=== PATIENT | male | born 1950 | race Hispanic/Latino ===

== ENCOUNTER 2017-05-04 15:28 | Inpatient (IN) | payer MEDICARE, OTHER, SELFPAY ==
[2017-05-04 16:00] LABS: #Basophils 0.2 thou/uL (0.0-0.2); #Eosinphils 0.2 thou/uL (0.0-0.7); #Lymphocytes 1.6 thou/uL (1.20-3.40); #Monocytes 0.7 thou/uL (0.11-0.59); #Neutrophils 5.2 thou/uL (1.40-6.50); %Basophils 1.9 % (0.0-1.0); %Eosinophils 2.9 % (0.0-10.0); %Lymphocytes 20.5 % (21.0-51.0); %Monocytes 8.7 % (0.0-10.0); Hemoglobin 7.6 g/dL (14.0-18.0); Mean Corpuscular HGB CONC 31.6 g/dL (32.0-36.0); Mean Corpuscular Hemoglobin 28.6 pg (27.0-31.0); Mean Corpuscular Volume 90.6 fl (80.0-94.0); Mean Platelet Volume 9.6 fL (7.4-10.4); Platelet Count 86 thou/uL (130-400); RBC Distribution Width 15.4 % (11.5-14.5); Red Blood Cell (RBC) Count 2.67 mill/uL (4.70-6.10); White Blood Cell (WBC) Count 7.9 thou/uL (4.8-10.8)
--- NOTE | 2017-05-04 16:12 | RAD ---
1 VIEW CHEST: Date: 05/04/17 HISTORY: Weakness and decreased appetite x4 days. COMPARISON: 10/31/15. FINDINGS: Portable single view chest demonstrates normal cardiac silhouette. Pulmonary vessels and hilum are no rmal. Costophrenic angles are clear. No masses or consolidation. No pneumothorax or osseous abnormali ties. IMPRESSION: No acute cardiopulmonary process. POS: [facility]
[2017-05-04 16:23] LABS: ALT (SGPT) 22 U/L (8-55); AST (SGOT) 23 U/L (5-34); Albumin 2.9 g/dL (3.4-4.8); Alkaline Phosphatase 135 U/L (40-150); Anion Gap 8 mmol/L (10-20); BUN (Urea Nitrogen) 32 mg/dL (8.4-25.7); Bilirubin, Total 1.5 mg/dL (0.2-1.2); CK (CPK) 50 U/L (30-200); Calc. Creatinine Clearance 0 mL/min (70-130); Calcium 8.9 mg/dL (7.8-10.44); Carbon Dioxide 25 mmol/L (23-31); Chloride 107 mmol/L (98-107); Estimated GFR-MDRD 71; Glucose 546 mg/dL (80-115); Potassium 4.3 mmol/L (3.5-5.1); Protein, Total 5.9 g/dL (5.8-8.1); Sodium 136 mmol/L (136-145)
[2017-05-04 16:28] LABS: CKMB 1.8 ng/mL (0-6.6); Troponin I 0.023 ng/mL (< 0.028)
[2017-05-04 16:30] LABS: INR-International Normal Ratio 1.3; PTT 33.9 SEC (22.9-36.1); Prothrombin Time 16.2 SEC (12.0-14.7)
[2017-05-04 16:40] LABS: Iron 29 ug/dL (65-175); Iron Binding Capacity, Total 304 mcg/dL (261-462)
[2017-05-04 17:14] LABS: Bilirubin Negative (Negative); Blood, Urine Negative (Negative); Clarity CLEAR (Clear); Glucose, Urine (Dipstick) >=1000 mg/dL (Negative); Leukocyte Negative (Negative); Nitrite Negative (Negative); Protein, Urine (Dipstick) Negative (Neg-Trace); Specific Gravity, Urine 1.035 (1.002-1.036); Urobilinogen 0.2 mg/dL (0.2-1.0); pH, Urine 5.5 (5.0-9.0)
[2017-05-04] MEDS ORDERED: cefTRIAXone\\ROCEPHIN 1 GM in Sodium Chloride 0.9% 100 ML IVPB SCH (18:00)
[2017-05-04 18:30] LABS: #Eosinphils 0.2 thou/uL (0.0-0.7); #Lymphocytes 1.2 thou/uL (1.20-3.40); #Monocytes 0.5 thou/uL (0.11-0.59); #Neutrophils 3.3 thou/uL (1.40-6.50); %Basophils 0.9 % (0.0-1.0); %Lymphocytes 22.7 % (21.0-51.0); %Neutrophils 64.5 % (42.0-75.0); Hemoglobin 6.9 g/dL (14.0-18.0); Mean Corpuscular HGB CONC 32.2 g/dL (32.0-36.0); Mean Corpuscular Hemoglobin 29.2 pg (27.0-31.0); Mean Corpuscular Volume 90.5 fl (80.0-94.0); RBC Distribution Width 15.4 % (11.5-14.5); Red Blood Cell (RBC) Count 2.37 mill/uL (4.70-6.10); White Blood Cell (WBC) Count 5.1 thou/uL (4.8-10.8)
[2017-05-04 18:41] LABS: PLT Morphology Comment Appears Decreased; Platelet Count 63 thou/uL (130-400)
[2017-05-04] MEDS ORDERED: Dextrose 50% Abboject 50 ML SYRINGE SLOW IVP PRN (18:47)
[2017-05-04] MEDS ORDERED: Dextrose 5% in Water 1,000 ML IV PRN (18:47)
[2017-05-04 19:07] LABS: Hemoglobin A1c 8.6 % (4.0-6.0)
--- NOTE | 2017-05-04 19:11 | HP ---
PRIMARY CARE PHYSICIAN: MECHELLE. CHIEF COMPLAINT: Fatigue and weakness for the last 4 days. HISTORY OF PRESENT ILLNESS: This is a 66-year-old male with a history of chronic alcohol use, tobacco use, type 2 diabetes, and hypertension, who presents with a chief complaint of fatigue and loss of appetite for the last 4 days. The patient denies any prior similar episodes. Denies any fevers or chills. No nausea, no abdominal pain, no diarrhea. He also states over the last 4 days, his stool has been darker. No known sick contacts with similar symptoms. At the time of evaluation in the Emergency Department, the patient states he still feels about the same as he did when he first arrived. REVIEW OF SYSTEMS: As per HPI. Constitutional: Denies any fevers or chills, but does indicate that last night he woke up with his face covered in sweat and this has not happened before. HEENT: Denies any dizziness, lightheadedness, new headache or vision changes. The patient states that he has cataracts and spent a fair amount inquiring about where he could get his cataracts evaluated by optometry. Cardiovascular: Denies any chest pain, chest pressure, left-sided arm numbness or tingling. Denies any dyspnea on exertion. Respiratory: Denies any shortness of breath. Denies any new cough. He still smokes. Denies any recent upper respiratory infection type symptoms, congestion , sinusitis. Gastrointestinal: As per above, endorses a lack of appetite without nausea or emesis. Denies any abdominal bloating or pain. Endorses having dark stools without diarrhea without any issues with constipation. The patient endorses feeling very "thirsty" for several days. Musculoskeletal: Denies any focal myalgias or arthralgias. Endorses mostly generalized fatigue and malaise. Remainder of review of systems otherwise negative. PAST MEDICAL HISTORY: As per above. Hypertension, type 2 diabetes, obesity, chronic alcohol use, chronic tobacco use, gastritis, chronic hepatitis C, and Pam-Nagel tear with hemorrhage that has resolved, known history of hypoalbuminemia and pancytopenia, question of a history of cirrhosis. PAST SURGICAL HISTORY: No prior surgeries. HOME MEDICATIONS: Please see the EMR for full details. The patient denies any recent changes to his home regimen, endorses good compliance. ALLERGIES: No known drug allergies. FAMILY HISTORY: Denies any family history of alcohol, frequent bleeding. SOCIAL HISTORY: The patient is not . He lives alone. [facility] is [facility]. He indicated he wishes to be full code. If he is unable to make his own medical decisions, his friend, Kim Hebert, would be his medical decision maker. He states that her phone number is . The patient drinks "a beer" a day and smokes about a quarter to half a pack of cigarettes a day as well. PHYSICAL EXAMINATION: VITAL SIGNS: Blood pressure 166/85, heart rate of 105, respirations 18, temperature 98.5, satting 100% on room air. GENERAL: The patient is awake, alert, appropriate, oriented x3, provides a history as noted above. HEENT: Slight muddy icteric sclerae. Slightly dry mucous membranes. CARDIOVASCULAR: S1, S2. No murmurs, rubs or gallops. Pulses 2+ bilateral upper extremity, no pitting pedal edema. LUNGS: Respiratory grossly clear to auscultation. ABDOMEN: Positive bowel sounds, soft, nontender to palpation. RECTAL: Examination was done in the emergency department. Fecal occult blood was tested and resulted as negative. LABORATORY DATA AND IMAGING: WBC 7.9, hemoglobin 7.6, hematocrit 44.2, platelets of 86. PT 16.2, INR 1.3. Sodium 136, potassium 4.3, chloride 107, BUN 32, creatinine 1.04, glucose 546, total bilirubin 1.5. Iron 29, TIBC 304, AST 23, ALT 22, alkaline phosphatase 135. Ferritin 29.66. Creatinine kinase 50 , troponin 0.023. Total protein 5.9, albumin 2.9. UA significant for greater than 1000 of glucose. Stool occult blood by iFOB is negative. ASSESSMENT AND PLAN: A 66-year-old gentleman who presents with a history of 4 days of fatigue and malaise and increasing thirst. 1. I have called to the Emergency Department to evaluate for the possibility of a gastrointestinal bleed given his decreased appetite and his dark stools out of concern for possible melena. The patient appears to be anemic and perhaps be a component of chronicity to his blood pressure appears to be stable and in evaluating prior laboratory values. He has maintained hemoglobin in 6-7 range. We will continue serial H&H. I appreciate GI consultation as the patient does have a known history of prior upper GI bleed in the past. Given the patient's significant history, we will start the patient on Protonix b.i.d. Serial CBCs, IV fluids, n.p.o. Appreciate GI consultation, which was obtained through the Emergency Department. The patient will be placed on empiric ceftriaxone given his history of cirrhosis noted on a prior hospitalization in 2016. 2. Hyperglycemia. Suspicion for possibly poorly controlled diabetes given his increased thirst and glucosuria. We will check a hemoglobin A1c with aggressive hydration and blood glucose control as well. 3. History of hypertension. Continue to monitor. 4. History of alcohol and tobacco use. We will closely monitor for any signs of withdrawal. At this point in time, the patient is precontemplative of complete cessation. 5. Admit the patient to inpatient medical/surgical with telemetry. The patient will be FULL CODE. Thank you for asking me to care for your patient. If questions or concerns, contact me at [facility]. MUNA
[2017-05-04] MEDS ORDERED: Pantoprazole 40 MG VIAL ONE (19:16)
--- NOTE | 2017-05-04 19:46 | ULT ---
ULTRASOUND ABDOMEN COMPLETE 05/04/17 HISTORY: GI bleed. Reference made to 11/01/15. TECHNIQUE: Reece-scale ultrasound evaluation of the liver, gallbladder, spleen, pancreas, common bile duct, kidne ys, abdominal aorta, and inferior vena cava (IVC). FINDINGS: There is a nodular contour of the liver and the liver demonstrates coarsened echotexture. No evidence of a focal hepatic lesion on the provided sonographic views. The spleen is mildly enlarged measuring approximately 14 cm in length. There is wall prominence and edema of the gallbladder. No shadowing c holelithiasis evident. The common duct where visualized is within normal limits of size for diameter. No acute renal pathology evident. Portions of the pancreas that are visualized are grossly unremarka ble. Hernandez's sign reported as negative by the tip scourer. There is a focus of decreased echogenicit y of the left kidney which demonstrates the appearance of a benign cyst, approximately 2.3 cm in diam eter. IMPRESSION: 1. Thickened, edematous gallbladder wall. Hernandez's sign reported as negative by tip scourer. Rec ommend clinical correlation. 2. Cirrhotic morphology of the liver. 3. Left renal cyst. POS: [facility]
[2017-05-04] MEDS: Sodium Chloride 0.9% 1,000 ML IV SCH (21:51)
[2017-05-04] MEDS: Pantoprazole 80 MG in Sodium Chloride 0.9% 100 ML IVP SCH (21:52)
[2017-05-04] MEDS: HumaLOG 300 UNITS/3 ML VIAL SC PRN (21:53)
[2017-05-04] MEDS: cefTRIAXone\\ROCEPHIN 1 GM, Syringe 0.4 ML in Sterile Water 9.6 ML SLOW IVP SCH (21:53)
[2017-05-04] MEDS ORDERED: Diazepam 5 MG TAB PO PRN (22:23)
[2017-05-04] MEDS ORDERED: Diazepam 5 MG TAB PO SCH (22:30)
[2017-05-04] MEDS ORDERED: Thiamine HCl 200 MG/2 ML VIAL IM SCH (22:30)
[2017-05-04 23:50] LABS: #Eosinphils 0.2 thou/uL (0.0-0.7); #Lymphocytes 1.3 thou/uL (1.20-3.40); #Monocytes 0.6 thou/uL (0.11-0.59); %Basophils 0.7 % (0.0-1.0); %Eosinophils 3.9 % (0.0-10.0); %Lymphocytes 25.9 % (21.0-51.0); %Monocytes 10.8 % (0.0-10.0); %Neutrophils 58.7 % (42.0-75.0); Hemoglobin 6.6 g/dL (14.0-18.0); Mean Corpuscular HGB CONC 32.4 g/dL (32.0-36.0); Mean Corpuscular Volume 89.4 fl (80.0-94.0); Mean Platelet Volume 9.6 fL (7.4-10.4); Platelet Count 46 thou/uL (130-400); RBC Distribution Width 14.8 % (11.5-14.5); Red Blood Cell (RBC) Count 2.29 mill/uL (4.70-6.10)
[2017-05-05 00:19] LABS: ALT (SGPT) 19 U/L (8-55); AST (SGOT) 23 U/L (5-34); Albumin 2.4 g/dL (3.4-4.8); Alkaline Phosphatase 104 U/L (40-150); Anion Gap 8 mmol/L (10-20); BUN (Urea Nitrogen) 30 mg/dL (8.4-25.7); Bilirubin, Direct 0.6 mg/dL (0.1-0.3); Bilirubin, Total 1.2 mg/dL (0.2-1.2); Calc. Creatinine Clearance 95 mL/min (70-130); Calcium 7.9 mg/dL (7.8-10.44); Carbon Dioxide 22 mmol/L (23-31); Chloride 112 mmol/L (98-107); Estimated GFR-MDRD Greater than 90; Globulin 2.3 g/dL (2.4-3.5); Glucose 387 mg/dL (80-115); Potassium 4.1 mmol/L (3.5-5.1); Protein, Total 4.7 g/dL (5.8-8.1); Sodium 138 mmol/L (136-145)
[2017-05-05 01:18] LABS: Amphetamine Not Detected (NotDetected); Barbiturates Screen Not Detected (NotDetected); Benzodiazepine Screen Not Detected (NotDetected); Cocaine Metabolite Screen Not Detected (NotDetected); Medtox Control Line Valid? VALID (VALID); Medtox Reader # READER 1; Methadone Not Detected (NotDetected); Methamphetamine Not Detected (NotDetected); Opiate Screen Not Detected (NotDetected); Oxycodone Screen Not Detected (NotDetected); Phencyclidine (PCP) Not Detected (NotDetected); THC/Cannabinoid Screen Not Detected (NotDetected); Tricyclic Screen Not Detected (NotDetected)
[2017-05-05] MEDS ORDERED: Diazepam 5 MG TAB PO PRN (04:00)
[2017-05-05] MEDS: Sodium Chloride 0.9% 1,000 ML IV SCH ×2 (05:31→08:42)
[2017-05-05 06:16] LABS: INR-International Normal Ratio 1.4; Prothrombin Time 17.2 SEC (12.0-14.7)
[2017-05-05] MEDS: Pantoprazole 80 MG in Sodium Chloride 0.9% 100 ML IVP SCH ×2 (06:43→17:18)
[2017-05-05 07:04] LABS: Anisocytosis SLIGHT = 6-15 cells (100X) (0-5/hpf); Band 2 % (5-11); Eosinophils 3 % (0-10); Hemoglobin 7.1 g/dL (14.0-18.0); Lymphocytes 25 % (21-51); MDiff Complete? YES; Mean Corpuscular HGB CONC 32.6 g/dL (32.0-36.0); Mean Corpuscular Hemoglobin 29.5 pg (27.0-31.0); Mean Corpuscular Volume 90.5 fl (80.0-94.0); Mean Platelet Volume 9.9 fL (7.4-10.4); Monocytes 4 % (0-10); Neutrophil 66 % (42-75); Ovalocytes SLIGHT = 2-5 cells (100X) (0-1/hpf); PLT Morphology Comment Appears Decreased; Platelet Count 47 thou/uL (130-400); RBC Distribution Width 14.8 % (11.5-14.5); White Blood Cell (WBC) Count 4.3 thou/uL (4.8-10.8)
[2017-05-05 07:30] LABS: ALT (SGPT) 19 U/L (8-55); AST (SGOT) 25 U/L (5-34); Albumin 2.4 g/dL (3.4-4.8); Alkaline Phosphatase 102 U/L (40-150); Anion Gap 7 mmol/L (10-20); BUN (Urea Nitrogen) 27 mg/dL (8.4-25.7); Bilirubin, Total 1.1 mg/dL (0.2-1.2); Calc. Creatinine Clearance 98 mL/min (70-130); Calcium 7.7 mg/dL (7.8-10.44); Carbon Dioxide 23 mmol/L (23-31); Chloride 113 mmol/L (98-107); Estimated GFR-MDRD Greater than 90; Globulin 2.3 g/dL (2.4-3.5); Glucose 309 mg/dL (80-115); Potassium 3.8 mmol/L (3.5-5.1); Protein, Total 4.7 g/dL (5.8-8.1); Sodium 139 mmol/L (136-145)
[2017-05-05] MEDS: Multivitamin W/ Minerals 1 TAB PO SCH (08:38)
[2017-05-05] MEDS: Magnesium Oxide 400 MG TAB PO SCH (08:38)
[2017-05-05] MEDS: Folic Acid 1 MG TAB PO SCH (08:38)
[2017-05-05 09:11] VITALS: BMI 27.3
[2017-05-05] MEDS: HumaLOG 300 UNITS/3 ML VIAL SC PRN ×3 (12:06→20:49)
--- NOTE | 2017-05-05 12:17 | CON ---
DATE OF CONSULTATION: 05/05/2017 HISTORY OF PRESENT ILLNESS: The patient is a 66-year-old female who presented with generali zed fatigue. He denies any abdominal pain, any nausea, vomiting, any weight loss. He has had some b lack stools he said several times a few months ago and then restarted approximately 4 days ago. He d oes not recall any prior GI evaluation, but reviewing all records here shows that he had an upper end oscopy in 10/2015, which showed a Pam-Nagel tear, but no gastric or esophageal varices. PAST MEDICAL HISTORY: Includes cirrhosis of the liver, diabetes mellitus, hypertension, alcohol abus e, and hepatitis C. HOME MEDICATIONS: Include metformin 500 mg p.o. daily, glyburide 5 mg p.o. q.a.m. ALLERGIES: No known allergies. SOCIAL HISTORY: He says he drinks 3-4 quarts of beer per day most days. Does smoke a half pack per day. FAMILY HISTORY: Negative for GI or liver disease. REVIEW OF SYSTEMS: Ten systems were reviewed and were negative except for above. PHYSICAL EXAMINATION: GENERAL: Shows a well-developed, well-nourished male in no acute distress. VITAL SIGNS: Temperature 98.7, pulse 89, respiratory rate 18, and blood pressure 127/62. HEENT: Unremarkable. NECK: Supple. CHEST: Clear. CARDIOVASCULAR: Regular rate and rhythm. ABDOMEN: Soft, nontender, without organomegaly or masses. Bowel sounds are present and normoactive. RECTAL: Deferred. EXTREMITIES: Normal. NEUROLOGIC: Nonfocal. LABORATORY DATA: Shows a white blood cell count of 43, hemoglobin 6.71, hematocrit 27.1 with a plate let count of 47. PT is 17.2 with an INR of 1.2. Chemistries show chloride 113, BUN 27, creatinine 0 .79, glucose 309, calcium 7.7, and albumin 2.4. Toxicology screen is negative. Abdominal ultrasound shows an edematous gallbladder without stones and a cirrhotic morphology of the liver. ASSESSMENT: 1. Melena. 2. Anemia. 3. Thrombocytopenia. 4. Cirrhosis. 5. History of hepatitis C. 6. Active alcohol abuse. 7. Tobacco abuse. RECOMMENDATIONS: 1. EGD in a.m. 2. PPI. 3. Serial H and H.
[2017-05-05 12:42] LABS: #Basophils 0.1 thou/uL (0.0-0.2); #Eosinphils 0.2 thou/uL (0.0-0.7); #Monocytes 0.3 thou/uL (0.11-0.59); #Neutrophils 2.1 thou/uL (1.40-6.50); %Basophils 2.3 % (0.0-1.0); %Eosinophils 4.5 % (0.0-10.0); %Lymphocytes 27.3 % (21.0-51.0); %Monocytes 8.3 % (0.0-10.0); %Neutrophils 57.7 % (42.0-75.0); MDiff Complete? YES; Mean Corpuscular HGB CONC 33.2 g/dL (32.0-36.0); Mean Corpuscular Volume 90.4 fl (80.0-94.0); Mean Platelet Volume 9.7 fL (7.4-10.4); PLT Morphology Comment Appears Decreased; Platelet Count 38 thou/uL (130-400); RBC Distribution Width 14.8 % (11.5-14.5); Red Blood Cell (RBC) Count 2.35 mill/uL (4.70-6.10); White Blood Cell (WBC) Count 3.6 thou/uL (4.8-10.8)
[2017-05-05] MEDS: cefTRIAXone\\ROCEPHIN 1 GM, Syringe 0.4 ML in Sterile Water 9.6 ML SLOW IVP SCH (17:59)
[2017-05-05 18:13] LABS: #Eosinphils 0.2 thou/uL (0.0-0.7); #Lymphocytes 0.9 thou/uL (1.20-3.40); #Monocytes 0.3 thou/uL (0.11-0.59); #Neutrophils 2.1 thou/uL (1.40-6.50); %Basophils 1.4 % (0.0-1.0); %Eosinophils 5.6 % (0.0-10.0); %Lymphocytes 26.3 % (21.0-51.0); %Monocytes 7.3 % (0.0-10.0); %Neutrophils 59.5 % (42.0-75.0); Hemoglobin 7.7 g/dL (14.0-18.0); Mean Corpuscular HGB CONC 33.8 g/dL (32.0-36.0); Mean Corpuscular Hemoglobin 30.7 pg (27.0-31.0); Mean Corpuscular Volume 90.7 fl (80.0-94.0); Mean Platelet Volume 9.8 fL (7.4-10.4); Platelet Count 42 thou/uL (130-400); RBC Distribution Width 15.1 % (11.5-14.5); Red Blood Cell (RBC) Count 2.49 mill/uL (4.70-6.10); White Blood Cell (WBC) Count 3.5 thou/uL (4.8-10.8)
--- NOTE | 2017-05-05 20:35 | PDOC.PN ---
- Subjective Encounter Start Date: 05/05/17 Encounter Start Time: 10:00 Subjective: nsg notes rev, marcos ovn, pt c/o feeling hungry... thinks he may have had a -: "scope" yeares ago but is uncertain - Objective Resuscitation Status: Resuscitation Status FULL:Full Resuscitation Vital Signs & Weight: Vital Signs (12 hours) Temp Pulse Resp BP BP BP Pulse Ox 05/05/17 17:08 98.3 F 87 18 142/69 H 100 05/05/17 16:00 142/69 H 05/05/17 13:50 131/67 05/05/17 12:00 97.6 F 86 18 131/67 97 Weight Admit Weight 167 lb 11.2 oz Weight 169 lb 1.6 oz I&O: 05/04/17 05/05/17 05/06/17 06:59 06:59 06:59 Intake Total 2785 1900 Output Total 800 525 Balance 1985 1375 Result Diagrams: 05/05/17 23:40 05/05/17 05:32 Additional Labs: Accuchecks 05/05/17 05/05/17 05/05/17 17:01 11:51 05:25 POC Glucose 400 H 293 H 336 H 05/05/17 05/04/17 00:16 19:59 POC Glucose 373 H 411 H Phys Exam - Physical Examination Constitutional: NAD HEENT: PERRLA, moist MMs, sclera anicteric Respiratory: no wheezing, no rales, no rhonchi, clear to auscultation bilateral Cardiovascular: RRR, no significant murmur, no rub Gastrointestinal: soft, positive bowel sounds Neurological: moves all 4 limbs Psychiatric: normal affect, A&O x 3 Dx/Plan - Plan concern for GIB in setting of cirrhosis * apprec GI c/s - d/w Dr. Reece * serial H/H - has been hemodynamically stable so far * PPI, plan for poss EGD in AM, pt is amenable at this time cirrhosis * suspect possible alcohol etiology given hx of etoh use * empiric ceftriaxone * d/w pt this dx - he seemed surprised by the dx? hyperglycemia * improved, continue to monitor malasie/ fatigue significantly improved per pt * likely 2/2 a combination of the above diet: NPO after midnight activity: oob as karuna Review of Systems - Medications/Allergies Allergies/Adverse Reactions: Allergies Allergy/AdvReac Type Severity Reaction Status Date / Time No Known Drug Allergies Allergy Unknown Verified 10/19/12 02:54 Medications: Current Medications Dextrose/Water (Dextrose 50%) 25 gm SLOW IVP PRN PRN PRN Reason: Hypoglycemia Diazepam (Valium) 5 mg PO Q4H PRN PRN Reason: FOR ASE 10 OR GREATER Folic Acid (Folvite) 1 mg PO DAILY [facility] Last Admin: 05/05/17 08:38 Dose: 1 mg Glucagon (Glucagon) 1 mg IM PRN PRN PRN Reason: Hypoglycemia Pantoprazole Sodium 80 mg/ (Sodium Chloride) 100 mls @ 10 mls/hr IVP INF [facility] Last Admin: 05/05/17 17:18 Dose: 100 mls Ceftriaxone Sodium 1 gm/ (Syringe 0.4 ml/ Sterile Water) 10 mls @ 120 mls/hr SLOW IVP 1830 [facility] Last Admin: 05/05/17 17:59 Dose: 10 mls Dextrose/Water (D5w) 1,000 mls @ 0 mls/hr IV .Q0M PRN; As Directed PRN Reason: Hypoglycemia Insulin Human Lispro (Humalog) 0 units SC .MODERATE SLIDING SC PRN PRN Reason: Moderate Correctional Scale Last Admin: 05/05/17 17:09 Dose: 10 unit Iron/Minerals/Multivitamins (Theragran M) 1 tab PO DAILY [facility] Last Admin: 05/05/17 08:38 Dose: 1 tab Magnesium Oxide (Magnesium Oxide) 400 mg PO DAILY [facility] Last Admin: 05/05/17 08:38 Dose: 400 mg Sodium Chloride (Flush - Normal Saline) 10 ml IVF PRN PRN PRN Reason: Saline Flush Last Admin: 05/04/17 23:02 Dose: 10 ml Thiamine HCl (Thiamine) 100 mg PO DAILY [facility] Last Admin: 05/05/17 08:38 Dose: 100 mg
[2017-05-05 23:53] LABS: #Eosinphils 0.2 thou/uL (0.0-0.7); #Lymphocytes 0.8 thou/uL (1.20-3.40); #Monocytes 0.3 thou/uL (0.11-0.59); #Neutrophils 1.6 thou/uL (1.40-6.50); %Basophils 0.2 % (0.0-1.0); %Eosinophils 6.4 % (0.0-10.0); %Lymphocytes 28.4 % (21.0-51.0); %Monocytes 10.7 % (0.0-10.0); %Neutrophils 54.3 % (42.0-75.0); Hemoglobin 6.9 g/dL (14.0-18.0); Mean Corpuscular HGB CONC 32.9 g/dL (32.0-36.0); Mean Corpuscular Volume 91.2 fl (80.0-94.0); Platelet Count 36 thou/uL (130-400); Red Blood Cell (RBC) Count 2.29 mill/uL (4.70-6.10); White Blood Cell (WBC) Count 2.9 thou/uL (4.8-10.8)
[2017-05-06] MEDS: Pantoprazole 80 MG in Sodium Chloride 0.9% 100 ML IVP SCH (04:13)
[2017-05-06 06:27] LABS: #Eosinphils 0.2 thou/uL (0.0-0.7); #Monocytes 0.3 thou/uL (0.11-0.59); #Neutrophils 1.7 thou/uL (1.40-6.50); %Basophils 1.2 % (0.0-1.0); %Eosinophils 5.5 % (0.0-10.0); %Lymphocytes 30.9 % (21.0-51.0); %Neutrophils 53.4 % (42.0-75.0); Hemoglobin 7.9 g/dL (14.0-18.0); Mean Corpuscular HGB CONC 33.4 g/dL (32.0-36.0); Mean Corpuscular Hemoglobin 30.3 pg (27.0-31.0); Mean Corpuscular Volume 90.6 fl (80.0-94.0); Mean Platelet Volume 10.2 fL (7.4-10.4); Platelet Count 42 thou/uL (130-400); RBC Distribution Width 14.7 % (11.5-14.5); White Blood Cell (WBC) Count 3.1 thou/uL (4.8-10.8)
[2017-05-06 06:31] LABS: INR-International Normal Ratio 1.3; Prothrombin Time 16.7 SEC (12.0-14.7)
[2017-05-06 06:40] LABS: ALT (SGPT) 26 U/L (8-55); AST (SGOT) 34 U/L (5-34); Albumin 2.3 g/dL (3.4-4.8); Alkaline Phosphatase 125 U/L (40-150); Anion Gap 9 mmol/L (10-20); BUN (Urea Nitrogen) 18 mg/dL (8.4-25.7); Bilirubin, Total 1.3 mg/dL (0.2-1.2); Calc. Creatinine Clearance 104 mL/min (70-130); Calcium 7.7 mg/dL (7.8-10.44); Carbon Dioxide 20 mmol/L (23-31); Chloride 111 mmol/L (98-107); Estimated GFR-MDRD Greater than 90; Globulin 2.7 g/dL (2.4-3.5); Glucose 229 mg/dL (80-115); Potassium 3.9 mmol/L (3.5-5.1); Sodium 136 mmol/L (136-145)
[2017-05-06] MEDS: Multivitamin W/ Minerals 1 TAB PO SCH (08:29)
[2017-05-06] MEDS: Folic Acid 1 MG TAB PO SCH (08:29)
[2017-05-06] MEDS: Magnesium Oxide 400 MG TAB PO SCH (08:29)
[2017-05-06] MEDS ORDERED: Ondansetron HCl/PF 4 MG/2 ML Vial IVP PRN (09:51)
[2017-05-06] MEDS ORDERED: Promethazine HCl 25 MG/ML VIAL SLOW IVP PRN (09:51)
[2017-05-06] MEDS ORDERED: Promethazine HCl 25 MG/ML VIAL IM PRN (09:51)
--- NOTE | 2017-05-06 10:45 | OP ---
PREOPERATIVE DIAGNOSIS: Melena and cirrhosis. DESCRIPTION OF PROCEDURE: After informed consent was obtained, the patient was placed in the left la teral decubitus position. Anesthesia was administered per the Anesthesia Department. Forward viewin g endoscope was inserted into the esophagus under direct visualization with ease and passed to the se cond portion of the duodenum with ease. Second portion of the duodenum and duodenal bulb were normal . No blood was seen in the upper GI tract. The pylorus, antrum, body, fundus, and cardia were wilma l except for some prominent folds in the cardia, which were consistent with gastric varices. No stig hutson of recent hemorrhage was seen around varices. In the gastric body, there was a single gastric A VM along the lesser curvature that was treated with a 7-Croat[place] BICAP probe at a setting of 20 riddle a nd 2 seconds. The esophagus showed grade I esophageal varices. ASSESSMENT: 1. 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 2. Grade I esophageal varices without stigmata of recent hemorrhage. 3. Probable gastric varices without stigmata of recent hemorrhage. RECOMMENDATIONS: 1. PPI. 2. Iron. 3. Begin nadolol.
[2017-05-06 11:04] LABS: #Eosinphils 0.1 thou/uL (0.0-0.7); #Lymphocytes 0.9 thou/uL (1.20-3.40); #Monocytes 0.3 thou/uL (0.11-0.59); #Neutrophils 1.9 thou/uL (1.40-6.50); %Basophils 0.9 % (0.0-1.0); %Eosinophils 3.9 % (0.0-10.0); %Lymphocytes 27.2 % (21.0-51.0); %Monocytes 8.6 % (0.0-10.0); %Neutrophils 59.5 % (42.0-75.0); Hemoglobin 8.7 g/dL (14.0-18.0); MDiff Complete? YES; Mean Corpuscular HGB CONC 31.4 g/dL (32.0-36.0); Mean Corpuscular Hemoglobin 29.6 pg (27.0-31.0); Mean Corpuscular Volume 94.4 fl (80.0-94.0); Mean Platelet Volume 10.8 fL (7.4-10.4); PLT Morphology Comment Appears Decreased; Platelet Count 50 thou/uL (130-400); RBC Distribution Width 15.8 % (11.5-14.5); Red Blood Cell (RBC) Count 2.94 mill/uL (4.70-6.10); White Blood Cell (WBC) Count 3.2 thou/uL (4.8-10.8)
[2017-05-06] MEDS: HumaLOG 300 UNITS/3 ML VIAL SC PRN ×3 (11:53→21:03)
[2017-05-06] MEDS ORDERED: PROPOFOL 200 MG/20 ML VIAL ONE (14:16)
--- NOTE | 2017-05-06 15:06 | PRG ---
DATE OF SERVICE: 05/06/2017 SUBJECTIVE: The patient is seen and examined at bedside. He feels very good. He had a procedure do ne by Dr. Reece this morning in his room and he does not have much complaints to offer. PHYSICAL EXAMINATION: VITAL SIGNS: The patient's blood pressure is 132/62, temperature is 98.1, pulse 83, respiratory rate is 18, O2 saturation 99% on room air. HEENT: His head is atraumatic, normocephalic. Eyes PERRLA. Conjunctivae pinkish. Oral mucosa is m oist. NECK: Supple. LUNGS: Slightly breath sounds diminished at both bases. CARDIOVASCULAR: S1, S2 normal, no S3, no S4. ABDOMEN: Mildly distended, nontender. Bowel sounds are present, no organomegaly. EXTREMITIES: No clubbing, cyanosis or edema. NEUROLOGIC: He is alert and oriented x4. There is no any sensory or motor deficits present. Crania l nerves are intact. LABORATORY DATA: Showed a white count of 3.2, hemoglobin 8.7, hematocrit 27.8, platelet count is 50, 000. PT is 16.7, INR 1.3. Sodium of 136, potassium 3.9, chloride 111, CO2 is 20, BUN is 18, creatin ine 0.77. Glycemia is ranging from 247-400. His total bilirubin is 1.3, protein 5.0, albumin 2.3. IMPRESSION: 1. Melena in the setting of liver cirrhosis with findings of gastric or arterial venous malformation s, status post ablation with BICAP electrocautery along with grade I esophageal varices without stigm felicia of recent hemorrhage and probable gastric varices without stigmata of recent hemorrhage. 2. Pancytopenia secondary to liver cirrhosis. 3. History of hepatitis C. 4. Active alcohol abuse. 5. Tobacco abuse. PLAN: The patient just had EGD and cauterization of arteriovenous malformations in his stomach. He is going to be restarted on his 2 diabetic medications he was taking at home, which are metformin and glyburide. He will continue on pantoprazole and he was started on nadolol, which is Corgard 40 mg p .o. by Dr. Reece for his portal hypertension. We will stop his ceftriaxone today and he should be abl e to go home in the next 24-48 hours.
[2017-05-06 18:38] LABS: #Eosinphils 0.1 thou/uL (0.0-0.7); #Lymphocytes 0.6 thou/uL (1.20-3.40); #Monocytes 0.3 thou/uL (0.11-0.59); #Neutrophils 1.5 thou/uL (1.40-6.50); %Basophils 0.6 % (0.0-1.0); %Lymphocytes 23.8 % (21.0-51.0); %Monocytes 11.6 % (0.0-10.0); %Neutrophils 58.9 % (42.0-75.0); Hemoglobin 8.1 g/dL (14.0-18.0); Mean Corpuscular HGB CONC 33.7 g/dL (32.0-36.0); Mean Corpuscular Hemoglobin 30.5 pg (27.0-31.0); Mean Corpuscular Volume 90.3 fl (80.0-94.0); Mean Platelet Volume 9.9 fL (7.4-10.4); Platelet Count 36 thou/uL (130-400); Red Blood Cell (RBC) Count 2.65 mill/uL (4.70-6.10); White Blood Cell (WBC) Count 2.6 thou/uL (4.8-10.8)
[2017-05-06 23:58] LABS: #Eosinphils 0.1 thou/uL (0.0-0.7); #Lymphocytes 0.8 thou/uL (1.20-3.40); #Monocytes 0.4 thou/uL (0.11-0.59); #Neutrophils 1.7 thou/uL (1.40-6.50); %Eosinophils 4.3 % (0.0-10.0); %Lymphocytes 26.5 % (21.0-51.0); %Monocytes 12.5 % (0.0-10.0); %Neutrophils 56.7 % (42.0-75.0); Hemoglobin 7.6 g/dL (14.0-18.0); Mean Corpuscular Hemoglobin 29.8 pg (27.0-31.0); Mean Corpuscular Volume 90.5 fl (80.0-94.0); Mean Platelet Volume 10.2 fL (7.4-10.4); Platelet Count 38 thou/uL (130-400); RBC Distribution Width 15.5 % (11.5-14.5); Red Blood Cell (RBC) Count 2.55 mill/uL (4.70-6.10)
[2017-05-07 05:48] LABS: INR-International Normal Ratio 1.3; Prothrombin Time 16.2 SEC (12.0-14.7)
[2017-05-07] MEDS: HumaLOG 300 UNITS/3 ML VIAL SC PRN ×2 (06:20→13:05)
[2017-05-07 06:31] LABS: ALT (SGPT) 29 U/L (8-55); AST (SGOT) 35 U/L (5-34); Albumin 2.5 g/dL (3.4-4.8); Alkaline Phosphatase 169 U/L (40-150); Anion Gap 9 mmol/L (10-20); BUN (Urea Nitrogen) 15 mg/dL (8.4-25.7); Calc. Creatinine Clearance 96 mL/min (70-130); Calcium 7.7 mg/dL (7.8-10.44); Carbon Dioxide 20 mmol/L (23-31); Chloride 109 mmol/L (98-107); Estimated GFR-MDRD Greater than 90; Globulin 2.7 g/dL (2.4-3.5); Glucose 373 mg/dL (80-115); Potassium 3.9 mmol/L (3.5-5.1); Protein, Total 5.2 g/dL (5.8-8.1); Sodium 134 mmol/L (136-145)
[2017-05-07] MEDS ORDERED: glyBURIDE 5 MG TAB PO SCH (07:30)
[2017-05-07] MEDS ORDERED: metFORMIN 500 MG TAB PO SCH (08:00)
[2017-05-07] MEDS: Folic Acid 1 MG TAB PO SCH (08:42)
[2017-05-07] MEDS: Multivitamin W/ Minerals 1 TAB PO SCH (08:42)
[2017-05-07] MEDS: Magnesium Oxide 400 MG TAB PO SCH (08:42)
[2017-05-07] MEDS ORDERED: Nadolol 40 MG TAB PO SCH (09:00)
[2017-05-07 11:04] VITALS: TEMP 98.8
--- NOTE | 2017-05-07 11:15 | PRG ---
DATE OF SERVICE: 05/07/2017 SUBJECTIVE: The patient is feeling better. His stools are now brown. OBJECTIVE: VITAL SIGNS: Temperature 98.2, pulse 88, respiratory rate 20, blood pressure 122/57. CHEST: Clear. CARDIOVASCULAR: Regular rate and rhythm. ABDOMEN: Benign. LABORATORY DATA: Shows hemoglobin was 7.6, hematocrit 23.0, platelet count is 38. White blood cell count 3.0. ASSESSMENT: 1. Anemia secondary to gastrointestinal blood loss. 2. Gastric arteriovenous malformation. 3. Grade 1 esophageal varices. 4. Probable gastric varices. 5. History of hepatitis C. 6. Alcohol abuse. RECOMMENDATIONS: 1. Continue PPI at least 4 weeks. 2. Continue nadolol. 3. Discontinue alcohol. 4. Patient to follow up with me in the outpatient setting. 5. Stable from GI standpoint for discharge.
[2017-05-07 15:26] VITALS: BP 148/67
--- NOTE | 2017-05-07 18:29 | PDOC.PN ---
- Subjective Encounter Start Date: 05/07/17 Encounter Start Time: 18:27 Subjective: No complaints. Feels well. MElena stopped -: No acute events overnight. - Objective Resuscitation Status: Resuscitation Status FULL:Full Resuscitation MAR Reviewed: Yes Vital Signs & Weight: Vital Signs (12 hours) Temp Pulse Resp BP Pulse Ox 05/07/17 15:26 73 16 148/67 H 100 05/07/17 08:41 98.8 F 98 16 96 05/07/17 08:00 98.8 F 98 16 150/67 H 99 Weight Admit Weight 167 lb 11.2 oz Weight 173 lb 4.8 oz I&O: 05/06/17 05/07/17 05/08/17 06:59 06:59 06:59 Intake Total 2925 1800 Output Total 800 500 Balance 2125 1300 Result Diagrams: 05/06/17 23:43 05/07/17 04:49 Additional Labs: Accuchecks 05/07/17 05/07/17 05/06/17 11:33 05:53 20:47 POC Glucose 217 H 393 H 317 H Phys Exam - Physical Examination Constitutional: NAD HEENT: PERRLA, moist MMs, sclera anicteric Neck: supple, full ROM Respiratory: no wheezing, no rales, no rhonchi Cardiovascular: RRR, no significant murmur, no rub Gastrointestinal: soft, non-tender, no distention, positive bowel sounds Musculoskeletal: no edema, pulses present Neurological: non-focal, moves all 4 limbs Psychiatric: normal affect, A&O x 3 Skin: no rash, normal turgor Dx/Plan (1) Acute upper GI bleed Code(s): K92.2 - GASTROINTESTINAL HEMORRHAGE, UNSPECIFIED Status: Acute Comment: AV malformation seen on endoscopy. PPI BID x 4 weeks. Will f/u with GI (2) Hyperglycemia due to type 2 diabetes mellitus Code(s): E11.65 - TYPE 2 DIABETES MELLITUS WITH HYPERGLYCEMIA Status: Acute Qualifiers: Diabetes mellitus senior living insulin use: without intermediate card tender use Qualified Code(s): E11.65 - Type 2 diabetes mellitus with hyperglycemia (3) Alcohol abuse Code(s): F10.10 - ALCOHOL ABUSE, UNCOMPLICATED Status: Chronic (4) Cirrhosis of liver without ascites Code(s): K74.60 - UNSPECIFIED CIRRHOSIS OF LIVER Status: Chronic Qualifiers: Hepatic cirrhosis type: alcoholic cirrhosis Qualified Code(s): K70.30 - Alcoholic cirrhosis of liver without ascites - Plan cont current plan of care Continue PPI. To f/u w GI -: Continue home DM meds. Monitor blood glucose * .
--- NOTE | 2017-05-07 22:32 | DIS ---
DATE OF ADMISSION: 05/04/2017 DATE OF DISCHARGE: 05/07/2017 DISCHARGE DIAGNOSIS: Acute upper GI bleed. SECONDARY DIAGNOSES: Hypertension, pancytopenia, hyperglycemia, type 2 diabetes mellitus, microcytic anemia, alcohol abuse, cirrhosis of liver without ascites, thrombocytopenia, hepatitis C. HISTORY OF PRESENT ILLNESS AND HOSPITAL COURSE: A 66-year-old male with chronic alcohol abuse, tobac co abuse, type 2 diabetes mellitus, and hypertension, who presented to the hospital with fatigue and weight loss and melena. He denied any fevers or chills. No nausea, no abdominal pain, no diarrhea. At the emergency room, hemoglobin was 7.6, platelets 86, and assessment of upper GI bleed was made. He was made n.p.o. and GI was consulted. The patient has a history of upper GI bleed in the past. He was started on Protonix b.i.d. Serial CBCs and IV fluids. Eventually had an EGD, which revealed gastric AV malformations, status post ablation with BICAP electrocautery, grade I esophageal varices without stigmata of recent hemorrhage and probable gastric varices without stigmata of recent hemorrh age. GI recommended the patient to be started on PPI b.i.d. for at least 4 weeks. He was continued on nadolol. Advised to discontinue alcohol intake and he is to follow up with GI on an outpatient [facility]. Before discharge, his vital signs remained stable as well as hemoglobin. Also, he had no furth er episodes of melena and stools were brown and described by patient as normal. DISCHARGE MEDICATIONS: Folic acid 1 daily, magnesium oxide 400 mg daily, multivitamins 1 tab daily, nadolol 40 mg daily, pantoprazole 40 mg twice daily, thiamine 100 mg daily, metformin 500 mg q.a.m., glyburide 5 mg every a.m. LABORATORY DATA: WBC 3.0, hemoglobin 7.6, platelet count 38. Chemistry: Sodium 134, potassium 3.9, chloride 109, carbon dioxide 20, anion gap 9, BUN 15, creatinine 0.83, glucose 217. Hemoglobin A1c 7.7. IMAGING: Abdomen ultrasound which showed peaked edematous gallbladder wall. Hernandez's sign reported negative. Cirrhotic morphology of the liver, left renal cyst. Chest x-ray, no acute pathology. CONSULTS: Gastroenterology. CONDITION AT DISCHARGE: Stable and improved. PROCEDURES: EGD. DIET: Heart healthy, diabetic. CARE GOALS: He is to follow up with GI at discharge. The patient also states he [facility] I would like to get his medications from there. A handwritten prescription was given to the mayra ent, 2 copies one of which he will mail to the [place], the other which he will used to require a 7-day quiñones pply of his medications. Emphasis was made on followup with GI and also with his primary care physic maddy within 1 week of discharge for repeat labs. ACTIVITY: To resume as tolerated. DISCHARGE TIME: 65 minutes including chart review and documentation.
--- NOTE | 2017-05-12 17:46 | EKG ---
Test Reason : Blood Pressure : / mmHG Vent. Rate : 101 BPM Atrial Rate : 101 BPM P-R Int : 124 ms QRS Dur : 084 ms QT Int : 376 ms P-R-T Axes : 067 030 073 degrees QTc Int : 487 ms Sinus tachycardia with occasional Premature ventricular complexes Otherwise normal ECG Confirmed by ISIDRO CHOWDHURY, VALERI ([id number]), film editor JOSEF COLEY ([id number]) on 05/12/2017 5:45:53 PM Referred By: Confirmed By:VALERI FELIX MD
== END 2017-05-07 15:52 | disposition home or self-care (01) | DRG 378 ==
LOC: ERS 15:28 → 2NO 17:20
PROVIDERS: ADMIT Internal Medicine; ATTEND Internal Medicine
PROC: 30233N1 Transfusion of Nonautologous Red Blood Cells into Peripheral Vein, Percutaneous Approach (ICD-10-PCS; 2017-05-04)
PROC: 30233N1 Transfusion of Nonautologous Red Blood Cells into Peripheral Vein, Percutaneous Approach (ICD-10-PCS; 2017-05-05)
PROC: 0D568ZZ Destruction of Stomach, Via Natural or Artificial Opening Endoscopic (ICD-10-PCS; principal; 2017-05-06)
PROC: 30233N1 Transfusion of Nonautologous Red Blood Cells into Peripheral Vein, Percutaneous Approach (ICD-10-PCS; 2017-05-06)
DX: K31.811 Angiodysplasia of stomach and duodenum with bleeding (principal); D61.818 Other pancytopenia; D69.6 Thrombocytopenia, unspecified; E11.65 Type 2 diabetes mellitus with hyperglycemia; K76.6 Portal hypertension; I85.10 Secondary esophageal varices without bleeding; K74.60 Unspecified cirrhosis of liver; B18.2 Chronic viral hepatitis C; F17.210 Nicotine dependence, cigarettes, uncomplicated; Z79.84 Long term (current) use of oral hypoglycemic drugs; I10 Essential (primary) hypertension; F10.10 Alcohol abuse, uncomplicated; I86.4 Gastric varices
CPT/HCPCS: 36415; 36416; 36430; 71045; 76700; 80053; 80306; 80307; 81003; 82105; 82248; 82274; 82553; 82728; 83036; 83540; 83550; 83735; 84484; 85025; 85610; 85730; 86593; 86850; 86900; 86901; 93005; 96361; 96374; 99406; A4216; C9113; J0696; J2704; J3411; J3475; J7050; P9016

== ENCOUNTER 2017-05-14 13:10 | Inpatient (IN) | payer MEDICARE ==
[2017-05-14 13:50] LABS: #Basophils 0.1 thou/uL (0.0-0.2); #Eosinphils 0.3 thou/uL (0.0-0.7); #Monocytes 0.5 thou/uL (0.11-0.59); #Neutrophils 3.2 thou/uL (1.40-6.50); %Basophils 2.3 % (0.0-1.0); %Lymphocytes 20.3 % (21.0-51.0); %Monocytes 9.2 % (0.0-10.0); %Neutrophils 63.3 % (42.0-75.0); Hemoglobin 7.1 g/dL (14.0-18.0); Mean Corpuscular HGB CONC 30.8 g/dL (32.0-36.0); Mean Corpuscular Hemoglobin 27.4 pg (27.0-31.0); Mean Corpuscular Volume 88.7 fl (80.0-94.0); Mean Platelet Volume 10.3 fL (7.4-10.4); Platelet Count 98 thou/uL (130-400); Red Blood Cell (RBC) Count 2.58 mill/uL (4.70-6.10); White Blood Cell (WBC) Count 5.1 thou/uL (4.8-10.8)
[2017-05-14 13:56] LABS: INR-International Normal Ratio 1.2; PTT 32.7 SEC (22.9-36.1); Prothrombin Time 15.2 SEC (12.0-14.7)
--- NOTE | 2017-05-14 13:59 | RAD ---
CHEST 1 VIEW: HISTORY: Chest pain. COMPARISON: Chest 1 view 05/04/17. FINDINGS: Lungs are clear. No pneumothorax or effusion. Xs and mediastinal contours are within normal limits. No acute osseous abnormality. Mild degenerative changes of the acromioclavicular joints and shoulder joints. There are suture anchors of the left humeral head. IMPRESSION: No acute intrathoracic abnormality. POS: [facility]
[2017-05-14 14:06] LABS: ALT (SGPT) 28 U/L (8-55); AST (SGOT) 28 U/L (5-34); Albumin 2.8 g/dL (3.4-4.8); Alkaline Phosphatase 183 U/L (40-150); Anion Gap 7 mmol/L (10-20); BUN (Urea Nitrogen) 11 mg/dL (8.4-25.7); Bilirubin, Total 1.3 mg/dL (0.2-1.2); CK (CPK) 65 U/L (30-200); Calc. Creatinine Clearance 0 mL/min (70-130); Calcium 7.9 mg/dL (7.8-10.44); Carbon Dioxide 27 mmol/L (23-31); Chloride 109 mmol/L (98-107); Estimated GFR-MDRD Greater than 90; Glucose 219 mg/dL (80-115); Lipase 74 U/L (8-78); Potassium 3.8 mmol/L (3.5-5.1); Protein, Total 5.8 g/dL (5.8-8.1); Sodium 139 mmol/L (136-145)
[2017-05-14 14:09] LABS: CKMB 0.9 ng/mL (0-6.6); Troponin I 0.016 ng/mL (< 0.028)
[2017-05-14] MEDS ORDERED: Pantoprazole 40 MG VIAL ONE (14:44)
--- NOTE | 2017-05-14 15:49 | HP ---
PRIMARY CARE PHYSICIAN: [facility]. REASON FOR ADMISSION: Symptomatic anemia. HISTORY OF PRESENT ILLNESS: A 66-year-old male who was admitted recently in our hospital on 05/04/2017. At that time, patient reported melena and he has underlying history of cirrhosis of jaylen er with portal hypertension and that is why he underwent upper endoscopy and patient was found with g astric AV malformation, grade 1 esophageal varices and gastric varices. The patient was advised PPI and on discharge, nadolol was prescribed. Patient was discharged home on 05/07/2017. When he was di scharged home, at that time his hemoglobin was 7.6. Patient reports that he wanted to go home and th at is why he falsely said to doctors on the day of discharge that he was feeling better, but he was n ot feeling better, now he says like that. He was feeling shortness of breath. He was feeling fatigu ed, tired, dizziness, weakness and dyspnea on exertion. He also noticed increasing lower extremity e melissa and abdominal distention and that is why he decided to come back to emergency room again today f or evaluation. Today, his hemoglobin is 7.1. He does not have any ongoing melanotic stools. He den ies any hematemesis. He denies any hematochezia or bright red blood per rectum. He denies taking NS AID. Patient reports that he started taking all his medication upon discharge. PAST MEDICAL HISTORY: Diabetes type 2, hypertension, cirrhosis of liver with portal hypertension, to bacco abuse disorder, alcohol abuse disorder, obesity, hepatitis C, history of Pam-Nagel tear wit h hemorrhage, diabetes type 2. PAST SURGICAL HISTORY: The patient had upper endoscopy. PAST PSYCHIATRIC HISTORY: Reviewed and negative. ALLERGIES: No known drug allergies. REVIEW OF SYSTEMS: The following complete review of systems was negative, unless otherwise mentioned in the HPI or below: Constitutional: Weight loss or gain, ability to conduct usual activities. Skin: Rash, itching. Eyes: Double vision, pain. ENT/Mouth: Nose bleeding, neck stiffness, pain, tenderness. Cardiovascular: Palpitations, dyspnea on exertion, orthopnea. Respiratory: Shortness of breath, wheezing, cough, hemoptysis, fever or night sweats. Gastrointestinal: Poor appetite, abdominal pain, heartburn, nausea, vomiting, constipation, or diarr hea. Genitourinary: Urgency, frequency, dysuria, nocturia. Musculoskeletal: Pain, swelling. Neurologic/Psychiatric: Anxiety, depression. Allergy/Immunologic: Skin rash, bleeding tendency. Please see my HPI for pertinent positive and negative. All other review of systems reviewed and nega tive except as mentioned in the HPI. EMERGENCY ROOM COURSE: Patient is given Protonix 40 mg IV. PAST PSYCHIATRIC HISTORY: Reviewed and negative. SOCIAL HISTORY: Patient reports that he is not drinking alcohol for last 2 weeks. Otherwise, he has alcohol abuse history. He drinks almost every day about 5 drinks per day. He also smokes about 1 p ack per day. He lives at home with family. FAMILY HISTORY: No strong family history of premature coronary artery disease, stroke or cancer. PHYSICAL EXAMINATION: VITAL SIGNS: Currently, blood pressure 121/70, pulse 68, respiratory rate 18, temperature 97.8, satu ration 97% on room air, and weight 78 kilograms. GENERAL: Patient is currently alert, awake, no obvious acute distress. HEAD: Normocephalic, atraumatic. EYES: Icterus present. Pupils round, reactive to light. Extraocular muscles intact. ENT: Oropharynx within normal limits. Moist mucous membranes. No oral lesions. Pale mucous membra osvaldo. NECK: Supple, no JVD, no thyromegaly, no carotid bruits. LUNGS: Clear to auscultation without any rhonchi or rales. CARDIAC: S1 and S2 regular without any murmur. ABDOMEN: Ascites present, mild distention noted. No organomegaly, no mass, no suprapubic tenderness . BACK: Examination unremarkable, no CVA tenderness. EXTREMITIES: Upper extremity passive movements of all joints are normal. Lower extremity, bilateral pitting lower extremity edema noted. No calf tenderness. Distal pulsation intake. SKIN: No skin rash. HEMATOLOGICAL SYSTEM: No lymphadenopathy. PSYCHIATRIC: Normal affect. NEUROLOGIC: Patient is alert and oriented x3. Cranial nerves II-XII intact. Motor and sensation wi thin normal limits. No asterixis. No cerebellar sign. Reflexes symmetrical. IMAGING DATA AND SIGNIFICANT LABORATORY DATA: 1. EKG showing normal sinus rhythm without any ischemic changes. 2. CBC: WBC 5.1, hemoglobin 7.1, platelet 98, INR 1.2. 3. BMP: Sodium 139, potassium 3.8, chloride 109, carbon dioxide 27, anion gap 7, BUN 11, creatinine 0.82, glucose 219, calcium 7.9. 4. LFT: Bilirubin 1.3, AST 28, ALT 28, alkaline phosphatase 183, albumin 2.8. CK-MB 0.9, troponin I 0.016, BNP 359.5, lipase 74. ASSESSMENT AND PLAN/IMPRESSION: 1. Symptomatic anemia. This patient is experiencing anemia symptoms with dizziness, dyspnea on exer tion, fatigue, tiredness and weakness. This patient already had upper endoscopy done recently on and he has AV malformation and esophageal varices and gastric varices. He has underlying ashlee gnosis of liver cirrhosis. We will continue portal hypertension treatment with Corgard 40 mg p.o. da bridgette. We will transfuse him 1 unit of blood tonight and we will continue ferrous sulfate 325 mg p.o. daily, folic acid 1 mg p.o. daily, vitamin B12 and thiamine therapy while in hospital. We will also do anemia workup. Patient already had recently anemia workup which did show an iron deficiency anemi a. We are suspecting that he might have oozing of blood from his arteriovenous malformation. 2. Liver cirrhosis with portal hypertension from chronic hepatitis C and alcohol abuse. This patien t already had full workup done recently with esophagogastroduodenoscopy. Currently, patient needs La six 40 mg IV b.i.d., Aldactone 50 mg p.o. daily, and Corgard 40 mg p.o. daily. 3. Diabetes type 2. Continue glyburide 5 mg p.o. daily, metformin 500 mg p.o. daily, insulin as per sliding scale per protocol. Diabetic diet will be given. 5. Esophageal varices, grade I and gastroesophageal reflux disease. We will continue Protonix 40 mg p.o. b.i.d. for now. 6. Obesity. Dietary education given. Healthy lifestyle measure education discussed with the patien t. I spoke with the patient about fluid restriction as well as salt restriction. 7. Thrombocytopenia likely due to cirrhosis as well as alcohol. 8. Hypoalbuminemia due to liver cirrhosis. 9. Deep venous thrombosis prophylaxis. Sequential compression device boots only. No Lovenox becaus e of low risk and severe anemia. 10. Gastrointestinal prophylaxis. Patient is already on Protonix therapy. 11. Code status: The patient is FULL CODE. Patient does not have any surrogate decision maker. Di sposition plan based on clinical course. 12. Tobacco abuse disorder. Smoking cessation counseling given. We will offer nicotine patch if ne eded. 13. Alcohol abuse disorder. Patient is given counseling to avoid alcohol abuse and we will continue folic acid, vitamin B12 and thiamine therapy.
[2017-05-14] MEDS ORDERED: Mag-Al 1200 mg/1200 mg/30 ML UDCUP PO PRN (17:17)
[2017-05-14] MEDS ORDERED: Ondansetron HCl/PF 4 MG/2 ML Vial IVP PRN (17:17)
[2017-05-14] MEDS ORDERED: Acetaminophen 325 MG TAB PO PRN (17:17)
[2017-05-14] MEDS ORDERED: Sodium Chloride 0.65% Nasal 44 ML BOT EA NARE PRN (17:17)
[2017-05-14] MEDS ORDERED: Dextrose 5% in Water 1,000 ML IV PRN (17:17)
[2017-05-14] MEDS ORDERED: Eucerin (Mineral Oil/Petrolatum,White) 30 gm Jar TOP PRN (17:17)
[2017-05-14] MEDS ORDERED: hydrALAZINE 20 MG/ML VIAL SLOW IVP PRN (17:17)
[2017-05-14] MEDS ORDERED: Diabetic Tussin 200 MG/10 ML UDCUP PO PRN (17:17)
[2017-05-14] MEDS ORDERED: Artificial Tears 18 DROP/0.9 ML EA EYE PRN (17:17)
[2017-05-14] MEDS ORDERED: Dextrose 50% Abboject 50 ML SYRINGE SLOW IVP PRN (17:17)
[2017-05-14] MEDS ORDERED: traMADol HCl 50 MG TAB PO PRN (17:17)
[2017-05-14] MEDS ORDERED: Ondansetron ODT 4 MG TAB PO PRN (17:17)
[2017-05-14] MEDS ORDERED: Chloraseptic Spray 180 ml Bottle PO PRN (17:17)
[2017-05-14 18:05] VITALS: BMI 30.4
[2017-05-14] MEDS: Famotidine 20 MG TAB PO SCH (21:28)
[2017-05-14] MEDS: HumaLOG 300 UNITS/3 ML VIAL SC PRN (21:40)
[2017-05-15 04:49] LABS: #Eosinphils 0.1 thou/uL (0.0-0.7); #Monocytes 0.3 thou/uL (0.11-0.59); #Neutrophils 1.6 thou/uL (1.40-6.50); %Basophils 0.5 % (0.0-1.0); %Lymphocytes 33.3 % (21.0-51.0); %Monocytes 9.1 % (0.0-10.0); %Neutrophils 53.1 % (42.0-75.0); Hemoglobin 7.1 g/dL (14.0-18.0); Mean Corpuscular HGB CONC 31.3 g/dL (32.0-36.0); Mean Corpuscular Volume 89.6 fl (80.0-94.0); Mean Platelet Volume 10.6 fL (7.4-10.4); Platelet Count 72 thou/uL (130-400); RBC Distribution Width 15.4 % (11.5-14.5); Red Blood Cell (RBC) Count 2.54 mill/uL (4.70-6.10); White Blood Cell (WBC) Count 3.1 thou/uL (4.8-10.8)
[2017-05-15 05:10] LABS: Anion Gap 7 mmol/L (10-20); BUN (Urea Nitrogen) 13 mg/dL (8.4-25.7); Calc. Creatinine Clearance 111 mL/min (70-130); Calcium 7.5 mg/dL (7.8-10.44); Carbon Dioxide 26 mmol/L (23-31); Chloride 110 mmol/L (98-107); Estimated GFR-MDRD Greater than 90; Glucose 236 mg/dL (80-115); Potassium 3.9 mmol/L (3.5-5.1); Sodium 139 mmol/L (136-145)
[2017-05-15] MEDS: Furosemide 40 MG/4 ML VIAL SLOW IVP SCH ×2 (05:24→13:38)
[2017-05-15] MEDS: HumaLOG 300 UNITS/3 ML VIAL SC PRN ×3 (05:28→21:16)
[2017-05-15] MEDS: Nadolol 40 MG TAB PO SCH (08:30)
[2017-05-15] MEDS: Multivitamin W/ Minerals 1 TAB PO SCH (08:30)
[2017-05-15] MEDS: glyBURIDE 5 MG TAB PO SCH (08:30)
[2017-05-15] MEDS: Cyanocobalamin (Vitamin B-12) 1,000 MCG TAB PO SCH (08:30)
[2017-05-15] MEDS: Folic Acid 1 MG TAB PO SCH (08:30)
[2017-05-15] MEDS: Famotidine 20 MG TAB PO SCH ×2 (08:31→21:16)
[2017-05-15] MEDS: Ferrous Sulfate 325 MG TAB PO SCH ×2 (08:31→16:00)
[2017-05-15] MEDS: Spironolactone 25 MG TAB PO SCH (08:31)
[2017-05-15] MEDS: metFORMIN 500 MG TAB PO SCH (08:31)
[2017-05-15] MEDS: Magnesium Oxide 400 MG TAB PO SCH (08:31)
[2017-05-15] MEDS ORDERED: Prevnar 13-Val Conj/PF 0.5 ML SYRINGE IM ONE (09:00)
[2017-05-15] MEDS ORDERED: FLU VACC TS2017-18 (>65YR) 0.5 ML SYRINGE IM ONE (09:00)
--- NOTE | 2017-05-15 09:44 | PDOC.PN ---
- Subjective Encounter Start Date: 05/15/17 Encounter Start Time: 08:40 -: old records requested/rev Patient seen and examined. No new complaints. No overnight events Hb has not improved even after transfusion - Objective MAR Reviewed: Yes Vital Signs & Weight: Vital Signs (12 hours) Temp Pulse Resp BP Pulse Ox 05/15/17 09:25 98.6 F 66 16 05/15/17 08:08 98.6 F 66 16 05/15/17 07:20 98.6 F 66 16 103/58 L 99 I&O: 05/14/17 05/15/17 05/16/17 06:59 06:59 06:59 Intake Total 0 Balance 0 Result Diagrams: 05/15/17 04:01 05/15/17 04:01 Phys Exam - Physical Examination Constitutional: NAD HEENT: PERRLA, moist MMs, sclera anicteric Neck: no JVD, supple Respiratory: no wheezing, no rales, no rhonchi Cardiovascular: RRR, no significant murmur, no rub Gastrointestinal: soft, positive bowel sounds ascites+ Musculoskeletal: pulses present, edema present Neurological: non-focal, normal sensation, moves all 4 limbs Psychiatric: normal affect, A&O x 3 Skin: no rash, normal turgor Dx/Plan (1) Symptomatic anemia Code(s): D64.9 - ANEMIA, UNSPECIFIED Status: Acute (2) Alcohol abuse Code(s): F10.10 - ALCOHOL ABUSE, UNCOMPLICATED Status: Chronic (3) Cirrhosis of liver with ascites Code(s): K74.60 - UNSPECIFIED CIRRHOSIS OF LIVER Status: Chronic (4) Hepatitis C Code(s): B19.20 - UNSPECIFIED VIRAL HEPATITIS C WITHOUT HEPATIC COMA Status: Chronic Qualifiers: Viral hepatitis chronicity: chronic Hepatic coma status: without hepatic coma Qualified Code(s): B18.2 - Chronic viral hepatitis C (5) Hypertension Code(s): I10 - ESSENTIAL (PRIMARY) HYPERTENSION Status: Chronic Qualifiers: Hypertension type: essential hypertension Qualified Code(s): I10 - Essential (primary) hypertension (6) Hypoalbuminemia Code(s): E88.09 - OTH DISORDERS OF PLASMA-PROTEIN METABOLISM, NEC Status: Chronic (7) Macrocytic anemia Code(s): D53.9 - NUTRITIONAL ANEMIA, UNSPECIFIED Status: Chronic (8) Obesity (BMI 30.0-34.9) Code(s): E66.9 - OBESITY, UNSPECIFIED Status: Chronic (9) Thrombocytopenia Code(s): D69.6 - THROMBOCYTOPENIA, UNSPECIFIED Status: Chronic (10) Tobacco abuse Code(s): Z72.0 - TOBACCO USE Status: Chronic (11) Transaminitis Code(s): R74.0 - NONSPEC ELEV OF LEVELS OF TRANSAMNS & LACTIC ACID DEHYDRGNSE Status: Chronic - Plan cont current plan of care * continue lasix * will transfuse 1 unit of PRBC * medication reviewed as below * symptomatic treatment * change to inpt status. Review of Systems - Review of Systems Constitutional: negative: fever, chills, sweats, weakness, malaise, other ENT: negative: Ear Pain, Ear Discharge, Nose Pain, Nose Discharge, Nose Congestion, Mouth Pain, Mouth Swelling, Throat Pain, Throat Swelling, Other Respiratory: negative: Cough, Dry, Shortness of Breath, Hemoptysis, SOB with Excertion, Pleuritic Pain, Sputum, Wheezing Cardiovascular: edema. negative: chest pain, palpitations, orthopnea, paroxysmal nocturnal dyspnea, light headedness, other Gastrointestinal: negative: Nausea, Vomiting, Abdominal Pain, Diarrhea, Constipation, Melena, Hematochezia, Other Genitourinary: negative: Dysuria, Frequency, Incontinence, Hematuria, Retention , Other Musculoskeletal: negative: Neck Pain, Shoulder Pain, Arm Pain, Back Pain, Hand Pain, Leg Pain, Foot Pain, Other Skin: negative: Rash, Lesions, Carlos, Bruising, Other - Medications/Allergies Allergies/Adverse Reactions: Allergies Allergy/AdvReac Type Severity Reaction Status Date / Time No Known Drug Allergies Allergy Unknown Verified 10/19/12 02:54 Medications: Current Medications Acetaminophen (Tylenol) 650 mg PO Q4H PRN PRN Reason: Headache/Fever or Pain Al Hydroxide/Mg Hydroxide (Maalox) 30 ml PO Q6H PRN PRN Reason: Heartburn or Indigestion Artificial Tears (Tears Naturale) 0 drop EA EYE PRN PRN PRN Reason: Dry Eyes Cyanocobalamin (Vitamin B-12) 1,000 mcg PO DAILY [facility] Last Admin: 05/15/17 08:30 Dose: 1,000 mcg Dextrose/Water (Dextrose 50%) 25 gm SLOW IVP PRN PRN PRN Reason: Hypoglycemia Famotidine (Pepcid) 20 mg PO BID [facility] Last Admin: 05/15/17 08:31 Dose: 20 mg [facility] Last Admin: 05/15/17 08:31 Dose: 325 mg Folic Acid (Folvite) 1 mg PO DAILY [facility] Last Admin: 05/15/17 08:30 Dose: 1 mg Furosemide (Lasix) 40 mg SLOW IVP 0600,1400 [facility] Last Admin: 05/15/17 05:24 Dose: 40 mg Glucagon (Glucagon) 1 mg IM PRN PRN PRN Reason: Hypoglycemia Glyburide (Diabeta) [address] [facility] Last Admin: 05/15/17 08:30 Dose: 5 mg Guaifenesin (Robitussin Sf) 200 mg PO Q4H PRN PRN Reason: Cough Hydralazine HCl (Apresoline) 10 mg SLOW IVP Q4H PRN PRN Reason: Systolic BP > 180 Dextrose/Water (D5w) 1,000 mls @ 0 mls/hr IV .Q0M PRN; As Directed PRN Reason: Hypoglycemia Insulin Human Lispro (Humalog) 0 units SC .MODERATE SLIDING SC PRN PRN Reason: Moderate Correctional Scale Last Admin: 05/15/17 05:28 Dose: 6 unit Insulin Human Lispro (Humalog) 0 units SC .BEDTIME SLIDING SC PRN PRN Reason: Bedtime Correctional Scale Last Admin: 05/14/17 21:40 Dose: 4 unit Iron/Minerals/Multivitamins (Theragran M) 1 tab PO DAILY [facility] Last Admin: 05/15/17 08:30 Dose: 1 tab Lactulose (Lactulose) 20 gm PO DAILYPRN PRN PRN Reason: Constipation Magnesium Oxide (Magnesium Oxide) 400 mg PO DAILY [facility] Last Admin: 05/15/17 08:31 Dose: 400 mg Metformin HCl (Glucophage) [address] [facility] Last Admin: 05/15/17 08:31 Dose: 500 mg Mineral Oil/White Petrolatum (Eucerin Cream) 0 gm TOP BIDPRN PRN PRN Reason: Dry Skin Nadolol (Corgard) 40 mg PO DAILY [facility] Last Admin: 05/15/17 08:30 Dose: 40 mg Ondansetron HCl (Zofran Odt) 4 mg PO Q6H PRN PRN Reason: Nausea/Vomiting Ondansetron HCl (Zofran) 4 mg IVP Q6H PRN PRN Reason: Nausea/Vomiting Pantoprazole Sodium (Protonix) 40 mg PO BID [facility] Last Admin: 05/15/17 08:31 Dose: 40 mg Phenol (Chloraseptic Thornton 180 Ml Bot) 0 ml PO PRN PRN PRN Reason: Sore Throat Sodium Chloride ([place] Nasal Thornton 0.65%) 0 ml EA NARE QIDPRN PRN PRN Reason: Nasal Congestion Spironolactone (Aldactone) 25 mg PO QAM-WM [facility] Last Admin: 05/15/17 08:31 Dose: 25 mg Thiamine HCl (Thiamine) 100 mg PO DAILY [facility] Last Admin: 05/15/17 08:31 Dose: 100 mg Tramadol HCl (Ultram) 50 mg PO Q4H PRN PRN Reason: Moderate Pain (4-6)
[2017-05-15 13:02] LABS: Hemoglobin 8.6 g/dL (14.0-18.0); Platelet Count 81 thou/uL (130-400)
[2017-05-16 05:22] LABS: #Eosinphils 0.2 thou/uL (0.0-0.7); #Lymphocytes 0.9 thou/uL (1.20-3.40); #Monocytes 0.3 thou/uL (0.11-0.59); #Neutrophils 1.6 thou/uL (1.40-6.50); %Eosinophils 5.3 % (0.0-10.0); %Lymphocytes 28.8 % (21.0-51.0); Hemoglobin 7.3 g/dL (14.0-18.0); Mean Corpuscular HGB CONC 32.3 g/dL (32.0-36.0); Mean Corpuscular Hemoglobin 28.5 pg (27.0-31.0); Mean Corpuscular Volume 88.2 fl (80.0-94.0); Mean Platelet Volume 10.7 fL (7.4-10.4); Platelet Count 60 thou/uL (130-400); RBC Distribution Width 15.2 % (11.5-14.5); Red Blood Cell (RBC) Count 2.58 mill/uL (4.70-6.10)
[2017-05-16 05:29] LABS: ALT (SGPT) 20 U/L (8-55); AST (SGOT) 24 U/L (5-34); Albumin 2.2 g/dL (3.4-4.8); Alkaline Phosphatase 147 U/L (40-150); Anion Gap 7 mmol/L (10-20); BUN (Urea Nitrogen) 12 mg/dL (8.4-25.7); Bilirubin, Total 0.9 mg/dL (0.2-1.2); Calc. Creatinine Clearance 114 mL/min (70-130); Calcium 7.4 mg/dL (7.8-10.44); Carbon Dioxide 26 mmol/L (23-31); Chloride 110 mmol/L (98-107); Estimated GFR-MDRD Greater than 90; Globulin 2.4 g/dL (2.4-3.5); Glucose 260 mg/dL (80-115); Potassium 3.7 mmol/L (3.5-5.1); Protein, Total 4.6 g/dL (5.8-8.1); Sodium 139 mmol/L (136-145)
[2017-05-16] MEDS: Furosemide 40 MG/4 ML VIAL SLOW IVP SCH ×2 (05:35→14:32)
[2017-05-16] MEDS: HumaLOG 300 UNITS/3 ML VIAL SC PRN ×3 (05:35→17:07)
[2017-05-16] MEDS: Famotidine 20 MG TAB PO SCH ×2 (09:13→21:10)
[2017-05-16] MEDS: Folic Acid 1 MG TAB PO SCH (09:13)
[2017-05-16] MEDS: Magnesium Oxide 400 MG TAB PO SCH (09:13)
[2017-05-16] MEDS: metFORMIN 500 MG TAB PO SCH (09:13)
[2017-05-16] MEDS: glyBURIDE 5 MG TAB PO SCH (09:13)
[2017-05-16] MEDS: Spironolactone 25 MG TAB PO SCH (09:13)
[2017-05-16] MEDS: Ferrous Sulfate 325 MG TAB PO SCH ×2 (09:13→17:07)
[2017-05-16] MEDS: Multivitamin W/ Minerals 1 TAB PO SCH (09:14)
[2017-05-16] MEDS: Cyanocobalamin (Vitamin B-12) 1,000 MCG TAB PO SCH (09:14)
[2017-05-16] MEDS: Nadolol 40 MG TAB PO SCH (09:14)
--- NOTE | 2017-05-16 10:16 | PDOC.PN ---
- Subjective Encounter Start Date: 05/16/17 Encounter Start Time: 08:40 Patient seen and examined. No new complaints. No overnight events - Objective MAR Reviewed: Yes Vital Signs & Weight: Vital Signs (12 hours) Temp Pulse Resp BP Pulse Ox 05/16/17 09:20 98.3 F 60 16 99 05/16/17 08:00 98.1 F 63 16 119/69 99 05/15/17 23:40 98.3 F 60 16 107/54 L 98 I&O: 05/15/17 05/16/17 05/17/17 06:59 06:59 06:59 Intake Total 1605 Output Total 1500 Balance 105 Result Diagrams: 05/16/17 04:05 05/16/17 04:04 Additional Labs: Accuchecks 05/16/17 05/15/17 05/15/17 05:04 20:09 16:38 POC Glucose 230 H 366 H 376 H 05/15/17 11:12 POC Glucose 249 H Phys Exam - Physical Examination Constitutional: NAD HEENT: PERRLA, moist MMs, sclera anicteric Neck: no JVD, supple Respiratory: no wheezing, no rales, no rhonchi Cardiovascular: RRR, no significant murmur, no rub Gastrointestinal: soft, non-tender, positive bowel sounds mild distension/ascites Musculoskeletal: edema present Neurological: non-focal, normal sensation, moves all 4 limbs Psychiatric: normal affect, A&O x 3 Skin: no rash, normal turgor Dx/Plan (1) Symptomatic anemia Code(s): D64.9 - ANEMIA, UNSPECIFIED Status: Acute (2) Alcohol abuse Code(s): F10.10 - ALCOHOL ABUSE, UNCOMPLICATED Status: Chronic (3) Cirrhosis of liver with ascites Code(s): K74.60 - UNSPECIFIED CIRRHOSIS OF LIVER Status: Chronic (4) Hepatitis C Code(s): B19.20 - UNSPECIFIED VIRAL HEPATITIS C WITHOUT HEPATIC COMA Status: Chronic Qualifiers: Viral hepatitis chronicity: chronic Hepatic coma status: without hepatic coma Qualified Code(s): B18.2 - Chronic viral hepatitis C (5) Hypertension Code(s): I10 - ESSENTIAL (PRIMARY) HYPERTENSION Status: Chronic Qualifiers: Hypertension type: essential hypertension Qualified Code(s): I10 - Essential (primary) hypertension (6) Hypoalbuminemia Code(s): E88.09 - OTH DISORDERS OF PLASMA-PROTEIN METABOLISM, NEC Status: Chronic (7) Macrocytic anemia Code(s): D53.9 - NUTRITIONAL ANEMIA, UNSPECIFIED Status: Chronic (8) Obesity (BMI 30.0-34.9) Code(s): E66.9 - OBESITY, UNSPECIFIED Status: Chronic (9) Thrombocytopenia Code(s): D69.6 - THROMBOCYTOPENIA, UNSPECIFIED Status: Chronic (10) Tobacco abuse Code(s): Z72.0 - TOBACCO USE Status: Chronic (11) Transaminitis Code(s): R74.0 - NONSPEC ELEV OF LEVELS OF TRANSAMNS & LACTIC ACID DEHYDRGNSE Status: Chronic - Plan cont current plan of care * Hb dropped again after transfusion * will consult GI * medication reviewed as below * symptomatic treatment * continue lasix. Review of Systems - Review of Systems Constitutional: negative: fever, chills, sweats, weakness, malaise, other Eyes: negative: Pain, Vision Change, Conjunctivae Inflammation, Eyelid Inflammation, Redness, Other ENT: negative: Ear Pain, Ear Discharge, Nose Pain, Nose Discharge, Nose Congestion, Mouth Pain, Mouth Swelling, Throat Pain, Throat Swelling, Other Respiratory: SOB with Excertion. negative: Cough, Dry, Shortness of Breath, Hemoptysis, Pleuritic Pain, Sputum, Wheezing Cardiovascular: edema Gastrointestinal: negative: Nausea, Vomiting, Abdominal Pain, Diarrhea, Constipation, Melena, Hematochezia, Other Genitourinary: negative: Dysuria, Frequency, Incontinence, Hematuria, Retention , Other Musculoskeletal: negative: Neck Pain, Shoulder Pain, Arm Pain, Back Pain, Hand Pain, Leg Pain, Foot Pain, Other - Medications/Allergies Allergies/Adverse Reactions: Allergies Allergy/AdvReac Type Severity Reaction Status Date / Time No Known Drug Allergies Allergy Unknown Verified 10/19/12 02:54 Medications: Current Medications Acetaminophen (Tylenol) 650 mg PO Q4H PRN PRN Reason: Headache/Fever or Pain Al Hydroxide/Mg Hydroxide (Maalox) 30 ml PO Q6H PRN PRN Reason: Heartburn or Indigestion Artificial Tears (Tears Naturale) 0 drop EA EYE PRN PRN PRN Reason: Dry Eyes Cyanocobalamin (Vitamin B-12) 1,000 mcg PO DAILY [facility] Last Admin: 05/16/17 09:14 Dose: 1,000 mcg Dextrose/Water (Dextrose 50%) 25 gm SLOW IVP PRN PRN PRN Reason: Hypoglycemia Famotidine (Pepcid) 20 mg PO BID [facility] Last Admin: 05/16/17 09:13 Dose: 20 mg Ferrous Sulfate (Feosol) 325 mg PO BID[facility] Last Admin: 05/16/17 09:13 Dose: 325 mg Folic Acid (Folvite) 1 mg PO DAILY [facility] Last Admin: 05/16/17 09:13 Dose: 1 mg Furosemide (Lasix) 40 mg SLOW IVP 0600,1400 [facility] Last Admin: 05/16/17 05:35 Dose: 40 mg Glucagon (Glucagon) 1 mg IM PRN PRN PRN Reason: Hypoglycemia [facility]) [facility] Admin: 05/16/17 09:13 Dose: 5 mg Guaifenesin (Robitussin Sf) 200 mg PO Q4H PRN PRN Reason: Cough Hydralazine HCl (Apresoline) 10 mg SLOW IVP Q4H PRN PRN Reason: Systolic BP > 180 Dextrose/Water (D5w) 1,000 mls @ 0 mls/hr IV .Q0M PRN; As Directed PRN Reason: Hypoglycemia Insulin Human Lispro (Humalog) 0 units SC .MODERATE SLIDING SC PRN PRN Reason: Moderate Correctional Scale Last Admin: 05/16/17 05:35 Dose: 4 unit Insulin Human Lispro (Humalog) 0 units SC .BEDTIME SLIDING SC PRN PRN Reason: Bedtime Correctional Scale Last Admin: 05/15/17 21:16 Dose: 5 unit Iron/Minerals/Multivitamins (Theragran M) 1 tab PO DAILY [facility] Last Admin: 05/16/17 09:14 Dose: 1 tab Lactulose (Lactulose) 20 gm PO DAILYPRN PRN PRN Reason: Constipation Magnesium Oxide (Magnesium Oxide) 400 mg PO DAILY [facility] Last Admin: 05/16/17 09:13 Dose: 400 mg Metformin HCl (Glucophage) 500 mg PO QA[facility] Last Admin: 05/16/17 09:13 Dose: 500 mg Mineral Oil/White Petrolatum (Eucerin Cream) 0 gm TOP BIDPRN PRN PRN Reason: Dry Skin Nadolol (Corgard) 40 mg PO DAILY [facility] Last Admin: 05/16/17 09:14 Dose: 40 mg Ondansetron HCl (Zofran Odt) 4 mg PO Q6H PRN PRN Reason: Nausea/Vomiting Ondansetron HCl (Zofran) 4 mg IVP Q6H PRN PRN Reason: Nausea/Vomiting Pantoprazole Sodium (Protonix) 40 mg PO BID [facility] Last Admin: 05/16/17 09:14 Dose: 40 mg Phenol (Chloraseptic Douglas 180 Ml Bot) 0 ml PO PRN PRN PRN Reason: Sore Throat Sodium Chloride ([place] Nasal [place] 0.65%) 0 ml EA NARE QIDPRN PRN PRN Reason: Nasal Congestion Spironolactone (Aldactone) 25 mg PO QAM-WM [facility] Last Admin: 05/16/17 09:13 Dose: 25 mg Thiamine HCl (Thiamine) 100 mg PO DAILY [facility] Last Admin: 05/16/17 09:13 Dose: 100 mg Tramadol HCl (Ultram) 50 mg PO Q4H PRN PRN Reason: Moderate Pain (4-6)
[2017-05-16] MEDS ORDERED: GoLYTELY 4,000 ml Bottle PO SCH (17:00)
--- NOTE | 2017-05-16 17:28 | CON ---
DATE OF CONSULTATION: 05/16/2017 REQUESTING PHYSICIAN: Dr. Lagunas. REASON FOR CONSULTATION: Cirrhosis and recurrent anemia. HISTORY OF PRESENT ILLNESS: Paige Hebert is a 66-year-old man, who was admitted to the hospital a couple of days ago with continuing fatigue, lower extremity edema, and dyspnea on exertion. He wa s recently hospitalized here within the past couple of weeks with similar symptoms. At that time, my partner, Dr. Reece took him for upper endoscopy on 05/04/2017. This demonstrated grade 1 esophageal varices and small gastric varices, which were nonbleeding. There was a single arteriovenous malforma tion on the lesser curvature of the stomach, which was treated with bipolar cautery. Note, the patie nt's hemoglobin at that time was 6.7. The discharge hemoglobin was 7.1. Essentially, the patient re lates that his symptoms of fatigue and dyspnea on exertion never really improved over the past week. He had been started on nadolol as well as a PPI. Upon arrival, hemoglobin was 7.1. He has received 2 units of RBC transfusion over the past couple of days. Hemoglobin basically stayed the same today at 7.3. Actually, he is pancytopenic with WBC 3.0 and platelets 60. Aside from the fatigue, the pa tient complains of some lower extremity edema as well as abdominal distention. He says it was pretty tight when he came in a couple of days ago, but now has gotten quite a bit more comfortable. He has been receiving IV Lasix. Through all this, he denies any melena or hematochezia. There has been no nausea, vomiting, or hematemesis. The patient has never undergone colonoscopy. REVIEW OF SYSTEMS: Full review of systems including constitutional, head, eyes, ears, nose, throat, GI, , cardiovascular, respiratory, musculoskeletal, and neurologic systems is negative except as no tyler in the HPI. PAST MEDICAL HISTORY: Diabetes, type 2; hypertension; tobacco abuse; alcohol abuse; obesity; hepatit is C, diagnosed 2015; Pam-Nagel tear, 10/2015; esophageal and gastric varices, 04/2017; cirrhosis . SOCIAL HISTORY: The patient smokes a half pack of cigarettes per day, long-term alcohol abuse of at least 5 beers per day, but he says he quit this a couple of weeks ago just prior to his recent hospit alization. No drug abuse. FAMILY HISTORY: Noncontributory. ALLERGIES: No known drug allergies. MEDICATIONS: Vitamin B12 1000 mcg daily, Pepcid 20 mg b.i.d., ferrous sulfate 325 mg b.i.d., folic a maeve 1 mg daily, Lasix 40 mg IV q.12 hours, glyburide 5 mg daily, insulin sliding scale, multivitamin with iron daily, magnesium oxide 400 mg daily, metformin 500 mg daily, nadolol 40 mg daily, Protonix 40 mg b.i.d., spironolactone 25 mg daily, thiamine 100 mg daily. PHYSICAL EXAMINATION: VITAL SIGNS: Temperature 97.3, pulse 63, blood pressure 101/60, 99% oxygen saturation on room air. GENERAL: A 66-year-old man, lying in bed comfortably, in no distress. MENTAL: Alert and fully oriented, pleasant, conversational, can give a detailed coherent history. SKIN: No jaundice, no rash visible or palpable. EYES: No scleral icterus. Extraocular movements intact. ENT: Mucous membranes moist, no oral lesions. LYMPH: No submandibular or supraclavicular lymphadenopathy. THYROID: Nontender to palpation. HEART: Regular rate and rhythm. LUNGS: Clear to auscultation bilaterally. ABDOMEN: Mild to moderate distention. Dull to percussion, but soft and nontender to deep palpation throughout. No masses or organomegaly appreciated. EXTREMITIES: No peripheral edema. VESSELS: Radial pulses 2+ bilaterally. NEUROLOGICAL: Cranial nerves II-XII intact bilaterally. No focal deficits. LABORATORY STUDIES: WBC 3.0, hemoglobin 7.3, MCV 88.2, platelets 60. Sodium 139, potassium 3.7, BUN 12, creatinine 0.76. INR 1.2. Lipase only 74, albumin low at 2.2, otherwise LFTs are normal with t otal bilirubin 0.9, alkaline phosphatase 147, AST 24, ALT 20. Troponin negative. BNP elevated at 35 9. IMAGING STUDIES: Chest x-ray shows no acute processes. Recent abdominal ultrasound from 05/04/2017 demonstrated cirrhotic liver with splenomegaly and prominence of the gallbladder wall with negative M urphy sign. ASSESSMENT AND PLAN: 1. Persistent anemia. 2. Gastric arteriovenous malformation, with recent treatment on EGD, 05/04/2017. 3. Pancytopenia. The patient's hemoglobin is essentially stable from his recent hospitalization, bu t has not really responded to 2 units of RBC transfusion this admission. That being said, there is n o evidence of overt gastrointestinal bleeding at this time. Considerations would include slow bleedi ng from more AVMs in the stomach or small bowel, versus occult colon bleeding lesion. He has never h ad a colonoscopy. It would be reasonable to perform colonoscopy this admission to rule out occult bl eeding lesion. We will plan for EGD along with a colonoscopy to get a second look at that treated AV M site as well as his varices. In the meantime, continue with the nadolol and the PPI. We will plan to administer bowel preparation this evening. 4. Cirrhosis, secondary to hepatitis C and alcohol abuse. 5. Chronic hepatitis C. His pancytopenia is likely primarily related to his liver disease. This appears to be the primary ma nifestation of his cirrhosis. It also does appear he started having some fluid retention and I agree with initiation of diuretics. He is already on nadolol for the varices. Liver synthetic function a ppears good with INR 1.2. He has preserved renal function as well. Note, the elevated BNP. Conside r cardiac evaluation with echocardiogram as well. Thank you for the consultation. Further recommendations following upper or lower endoscopy tomorrow.
[2017-05-17] MEDS: Nadolol 40 MG TAB PO SCH (06:03)
[2017-05-17] MEDS: Furosemide 40 MG/4 ML VIAL SLOW IVP SCH ×2 (06:06→13:39)
[2017-05-17] MEDS ORDERED: Propofol 200 MG/20 ML VIAL ONE (07:20)
[2017-05-17] MEDS ORDERED: Lidocaine 1% PF 5 ML VIAL ONE (07:20)
[2017-05-17] MEDS ORDERED: ePHEDrine/0.9% NaCl/PF SYRINGE 50 mg/10 ml ONE (07:20)
--- NOTE | 2017-05-17 09:43 | PDOC.PN ---
- Subjective Encounter Start Date: 05/17/17 Encounter Start Time: 08:00 Patient seen and examined. No new complaints. No overnight events - Objective MAR Reviewed: Yes Vital Signs & Weight: Vital Signs (12 hours) Temp Pulse Resp BP Pulse Ox 05/17/17 06:00 97.8 F 62 18 128/53 L 100 05/16/17 22:00 97.6 F 62 20 100 I&O: 05/16/17 05/17/17 05/18/17 06:59 06:59 06:59 Intake Total 1605 900 Output Total 1500 905 Balance 105 -5 Result Diagrams: 05/16/17 04:05 05/16/17 04:04 Additional Labs: Accuchecks 05/17/17 05/16/17 05/16/17 04:52 19:59 17:02 POC Glucose 133 H 249 H 266 H 05/16/17 11:42 POC Glucose 232 H Phys Exam - Physical Examination Constitutional: NAD HEENT: PERRLA, moist MMs, sclera anicteric Neck: no JVD, supple Respiratory: no wheezing, no rales, no rhonchi Cardiovascular: RRR, no significant murmur, no rub Gastrointestinal: soft, non-tender, no distention, positive bowel sounds Musculoskeletal: pulses present, edema present Neurological: non-focal, normal sensation, moves all 4 limbs Psychiatric: normal affect, A&O x 3 Skin: no rash, normal turgor Dx/Plan (1) Symptomatic anemia Code(s): D64.9 - ANEMIA, UNSPECIFIED Status: Acute (2) Alcohol abuse Code(s): F10.10 - ALCOHOL ABUSE, UNCOMPLICATED Status: Chronic (3) Cirrhosis of liver with ascites Code(s): K74.60 - UNSPECIFIED CIRRHOSIS OF LIVER Status: Chronic (4) Hepatitis C Code(s): B19.20 - UNSPECIFIED VIRAL HEPATITIS C WITHOUT HEPATIC COMA Status: Chronic Qualifiers: Viral hepatitis chronicity: chronic Hepatic coma status: without hepatic coma Qualified Code(s): B18.2 - Chronic viral hepatitis C (5) Hypertension Code(s): I10 - ESSENTIAL (PRIMARY) HYPERTENSION Status: Chronic Qualifiers: Hypertension type: essential hypertension Qualified Code(s): I10 - Essential (primary) hypertension (6) Hypoalbuminemia Code(s): E88.09 - OTH DISORDERS OF PLASMA-PROTEIN METABOLISM, NEC Status: Chronic (7) Macrocytic anemia Code(s): D53.9 - NUTRITIONAL ANEMIA, UNSPECIFIED Status: Chronic (8) Obesity (BMI 30.0-34.9) Code(s): E66.9 - OBESITY, UNSPECIFIED Status: Chronic (9) Thrombocytopenia Code(s): D69.6 - THROMBOCYTOPENIA, UNSPECIFIED Status: Chronic (10) Tobacco abuse Code(s): Z72.0 - TOBACCO USE Status: Chronic (11) Transaminitis Code(s): R74.0 - NONSPEC ELEV OF LEVELS OF TRANSAMNS & LACTIC ACID DEHYDRGNSE Status: Chronic (12) Elevated brain natriuretic peptide (BNP) level Code(s): R79.89 - OTHER SPECIFIED ABNORMAL FINDINGS OF BLOOD CHEMISTRY Status : Acute (13) Pancytopenia Code(s): D61.818 - OTHER PANCYTOPENIA Status: Acute - Plan cont current plan of care * continue lasix, aldactone, corgard * today EGD and colonoscopy * will get Echo today * medication reviewed as below * symptomatic treatment. Review of Systems - Review of Systems Constitutional: negative: fever, chills, sweats, weakness, malaise, other Eyes: negative: Pain, Vision Change, Conjunctivae Inflammation, Eyelid Inflammation, Redness, Other ENT: negative: Ear Pain, Ear Discharge, Nose Pain, Nose Discharge, Nose Congestion, Mouth Pain, Mouth Swelling, Throat Pain, Throat Swelling, Other Respiratory: negative: Cough, Dry, Shortness of Breath, Hemoptysis, SOB with Excertion, Pleuritic Pain, Sputum, Wheezing Cardiovascular: edema. negative: chest pain, palpitations, orthopnea, paroxysmal nocturnal dyspnea, light headedness, other Gastrointestinal: negative: Nausea, Vomiting, Abdominal Pain, Diarrhea, Constipation, Melena, Hematochezia, Other Genitourinary: negative: Dysuria, Frequency, Incontinence, Hematuria, Retention , Other Musculoskeletal: negative: Neck Pain, Shoulder Pain, Arm Pain, Back Pain, Hand Pain, Leg Pain, Foot Pain, Other - Medications/Allergies Allergies/Adverse Reactions: Allergies Allergy/AdvReac Type Severity Reaction Status Date / Time No Known Drug Allergies Allergy Unknown Verified 10/19/12 02:54 Medications: Current Medications Acetaminophen (Tylenol) 650 mg PO Q4H PRN PRN Reason: Headache/Fever or Pain Al Hydroxide/Mg Hydroxide (Maalox) 30 ml PO Q6H PRN PRN Reason: Heartburn or Indigestion Artificial Tears (Tears Naturale) 0 drop EA EYE PRN PRN PRN Reason: Dry Eyes Cyanocobalamin (Vitamin B-12) 1,000 mcg PO DAILY [facility] Last Admin: 05/16/17 09:14 Dose: 1,000 mcg Dextrose/Water (Dextrose 50%) 25 gm SLOW IVP PRN PRN PRN Reason: Hypoglycemia Famotidine (Pepcid) 20 mg PO BID [facility] Last Admin: 05/16/17 21:10 Dose: 20 mg Ferrous Sulfate (Feosol) 325 mg PO BID[facility] Last Admin: 05/16/17 17:07 Dose: 325 mg Folic Acid (Folvite) 1 mg PO DAILY [facility] Last Admin: 05/16/17 09:13 Dose: 1 mg Furosemide (Lasix) 40 mg SLOW IVP 0600,1400 [facility] Last Admin: 05/17/17 06:06 Dose: Not Given Glucagon (Glucagon) 1 mg IM PRN PRN PRN Reason: Hypoglycemia Glyburide (Diabeta) 5 mg PO QAM-[facility] Last Admin: 05/16/17 09:13 Dose: 5 mg Guaifenesin (Robitussin Sf) 200 mg PO Q4H PRN PRN Reason: Cough Hydralazine HCl (Apresoline) 10 mg SLOW IVP Q4H PRN PRN Reason: Systolic BP > 180 Dextrose/Water (D5w) 1,000 mls @ 0 mls/hr IV .Q0M PRN; As Directed PRN Reason: Hypoglycemia Insulin Human Lispro (Humalog) 0 units SC .MODERATE SLIDING SC PRN PRN Reason: Moderate Correctional Scale Last Admin: 05/16/17 17:07 Dose: 6 unit Insulin Human Lispro (Humalog) 0 units SC .BEDTIME SLIDING SC PRN PRN Reason: Bedtime Correctional Scale Last Admin: 05/15/17 21:16 Dose: 5 unit Iron/Minerals/Multivitamins (Theragran M) 1 tab PO DAILY [facility] Last Admin: 05/16/17 09:14 Dose: 1 tab Lactulose (Lactulose) 20 gm PO DAILYPRN PRN PRN Reason: Constipation Magnesium Oxide (Magnesium Oxide) 400 mg PO DAILY [facility] Last Admin: 05/16/17 09:13 Dose: 400 mg Metformin HCl (Glucophage) 500 mg PO [facility] Last Admin: 05/16/17 09:13 Dose: 500 mg Mineral Oil/White Petrolatum (Eucerin Cream) 0 gm TOP BIDPRN PRN PRN Reason: Dry Skin Nadolol (Corgard) 40 mg PO DAILY [facility] Last Admin: 05/17/17 06:03 Dose: 40 mg Ondansetron HCl (Zofran Odt) 4 mg PO Q6H PRN PRN Reason: Nausea/Vomiting Ondansetron HCl (Zofran) 4 mg IVP Q6H PRN PRN Reason: Nausea/Vomiting Pantoprazole Sodium (Protonix) 40 mg PO BID [facility] Last Admin: 05/16/17 21:10 Dose: 40 mg Phenol (Chloraseptic [place] 180 Ml Bot) 0 ml PO PRN PRN PRN Reason: Sore Throat Sodium Chloride (Cannon Nasal [place] 0.65%) 0 ml EA NARE QIDPRN PRN PRN Reason: Nasal Congestion Spironolactone (Aldactone) 25 mg PO [facility] Last Admin: 05/16/17 09:13 Dose: 25 mg Thiamine HCl (Thiamine) 100 mg PO DAILY [facility] Last Admin: 05/16/17 09:13 Dose: 100 mg Tramadol HCl (Ultram) 50 mg PO Q4H PRN PRN Reason: Moderate Pain (4-6)
[2017-05-17] MEDS: Ferrous Sulfate 325 MG TAB PO SCH ×2 (10:24→17:19)
[2017-05-17] MEDS: glyBURIDE 5 MG TAB PO SCH (10:24)
[2017-05-17] MEDS: Famotidine 20 MG TAB PO SCH ×2 (10:24→20:22)
[2017-05-17] MEDS: metFORMIN 500 MG TAB PO SCH (10:24)
--- NOTE | 2017-05-17 12:05 | OP ---
DATE OF PROCEDURE: 05/17/2017 SURGEON: Erick Wells M.D. PREOPERATIVE DIAGNOSES: 1. History of cirrhosis and portal hypertension. 2. Anemia. 3. Pancytopenia. 4. History of gastrointestinal bleed from Pam-Nagel tear in 10/2015. 5. History of gastric arteriovenous malformation cauterized 05/04/2017 with findings of grade I esop hageal varices with probable gastric varices, no stigmata of bleeding. POSTOPERATIVE DIAGNOSES: 1. Normal esophagus, likely mild grade I varices. 2. Prominent gastric folds with bluish tinge in the proximal stomach. These were small gastric vari jah without any stigmata of bleeding. 3. No active blood in the gastrointestinal tract. 4. Normal duodenum to the third portion. 5. Colonoscopy notable for 2 polyps, 1 in the descending and sigmoid colon, 1 diminutive, 1 5 mm in size, both removed by snare polypectomy. 6. Submucosal edema in the colon consistent with portal hypertensive changes. RECOMMENDATIONS: 1. Avoid all alcohol. 2. Nadolol therapy. 3. PPI therapy. 4. Iron replacement therapy. ANESTHESIA: TIVA. PROCEDURE IN DETAIL: After the patient was informed of the risks, benefits, possible complications o f endoscopy including perforation, bleeding, reactions to medication and aspiration, informed consent was obtained. The patient was brought to the endoscopy suite where he was sedated in gradual fashio n. Once he was comfortable a bite block was placed in the orifice. The endoscope was advanced throu gh the esophagus, stomach, second and third portion of duodenum. the distal esophagus, there was samaria nt grade I varices. There was prominent veins that flattened with any insufflation. In the proximal stomach there were some varices in the stomach, but there was no stigmata of bleeding. There was no old or fresh blood in the stomach. On forward view, there was mild portal gastropathy. The duodenu m was normal the third portion. The scope was removed. The patient was turned in the room and a rectal examination was performed which was normal. The scop e was advanced through the colon to the cecum. There was submucosal edema in the colon, in the cecum and the sigmoid consistent with portal hypertensive changes. There were 2 polyps, 1 3 mm, 1 5 mm in the sigmoid and descending colon removed by snare polypectomy and submitted to Pathology. There was no stigmata of bleeding in the colon. There was no fresh or old blood in the colon. The scope was removed. The patient tolerated the procedure well with no complications.
[2017-05-17] MEDS: Magnesium Oxide 400 MG TAB PO SCH (13:36)
[2017-05-17] MEDS: Folic Acid 1 MG TAB PO SCH (13:36)
[2017-05-17] MEDS: Spironolactone 25 MG TAB PO SCH (13:39)
[2017-05-17] MEDS: Multivitamin W/ Minerals 1 TAB PO SCH (13:39)
[2017-05-17] MEDS: Cyanocobalamin (Vitamin B-12) 1,000 MCG TAB PO SCH (13:39)
[2017-05-17] MEDS: HumaLOG 300 UNITS/3 ML VIAL SC PRN (17:18)
[2017-05-18] MEDS: HumaLOG 300 UNITS/3 ML VIAL SC PRN ×3 (05:57→21:08)
[2017-05-18] MEDS: Furosemide 40 MG/4 ML VIAL SLOW IVP SCH ×2 (05:57→13:42)
[2017-05-18] MEDS: Spironolactone 25 MG TAB PO SCH (09:00)
[2017-05-18] MEDS: metFORMIN 500 MG TAB PO SCH (09:00)
[2017-05-18] MEDS: Ferrous Sulfate 325 MG TAB PO SCH ×2 (09:00→17:33)
[2017-05-18] MEDS: glyBURIDE 5 MG TAB PO SCH (09:00)
[2017-05-18] MEDS: Cyanocobalamin (Vitamin B-12) 1,000 MCG TAB PO SCH (09:18)
[2017-05-18] MEDS: Folic Acid 1 MG TAB PO SCH (09:18)
[2017-05-18] MEDS: Famotidine 20 MG TAB PO SCH ×2 (09:18→21:07)
[2017-05-18] MEDS: Multivitamin W/ Minerals 1 TAB PO SCH (09:18)
[2017-05-18] MEDS: Magnesium Oxide 400 MG TAB PO SCH (09:18)
[2017-05-18] MEDS: Nadolol 40 MG TAB PO SCH (09:18)
--- NOTE | 2017-05-18 15:02 | PRG ---
DATE OF SERVICE: 05/18/2017 SUBJECTIVE: Mr. Hebert is feeling pretty good today. His appetite is normal. He still has some ge neralized fatigue. He feels his abdominal distention is improving. He still has lower extremity guilherme ma. He has been receiving diuretics. OBJECTIVE: VITAL SIGNS: Temperature 98.0, pulse 65, blood pressure 117/61, and 100% oxygen saturation on room a ir. GENERAL: No acute distress. HEART: Regular rate and rhythm. LUNGS: Clear to auscultation bilaterally. ABDOMEN: Mild distention with ascites, soft, nontender to palpation throughout. EXTREMITIES: 1-2+ bilateral lower extremity edema. LABORATORY STUDIES: Glucose 133. No other new labs from today. ASSESSMENT AND PLAN: 1. Pancytopenia, secondary to chronic liver disease. There is no evidence of active bleeding on end oscopy yesterday. 2. Colon polyps. He had multiple colon polyps removed yesterday. These are tubular adenomas, plan to repeat colonoscopy in 3-5 years. 3. Cirrhosis, secondary to alcohol abuse and hepatitis C. I again stressed the patient the importan ce of completely abstaining from alcohol going forward. He says this should not be a problem for him . His liver synthetic function is normal, but he does now have complications of portal hypertension. 4. Ascites and lower extremity edema. I think the patient is going to need to be discharged on diur etics. I would have him on Lasix 40 mg daily and spironolactone 100 mg daily upon discharge. I disc ussed with him the necessity of following a low sodium diet of less than 2000 mg of sodium per day. 5. Grade I esophageal varices. The patient needs to continue nadolol on an outpatient basis. Winsome t EGD for surveillance in 2 years. 6. Chronic hepatitis C. His treatment naive, this is something that we can address in the outpatien t setting at followup. No contraindication to hospital discharge from a GI perspective. We will plan to see him back in [facility] in the next 2-3 weeks.
--- NOTE | 2017-05-18 16:06 | PDOC.PN ---
- Subjective Encounter Start Date: 05/18/17 Encounter Start Time: 14:00 CC: Bilateral lower extremity swelling Sub: Pt denies dyspnea, c/o bilateral lower extremity swelling - Objective Vital Signs & Weight: Vital Signs (12 hours) Temp Pulse Resp BP Pulse Ox 05/18/17 12:00 98.0 F 65 18 117/61 05/18/17 08:00 98.3 F 65 18 113/61 100 05/18/17 07:18 98.1 F 60 18 05/18/17 05:37 98.1 F 60 18 103/58 L 100 I&O: 05/17/17 05/18/17 05/19/17 06:59 06:59 06:59 Intake Total 900 1195 Output Total 905 Balance -5 1195 Result Diagrams: 05/16/17 04:05 05/16/17 04:04 Additional Labs: Accuchecks 05/18/17 05/18/17 05/17/17 11:24 05:02 19:45 POC Glucose 232 H 317 H 251 H 05/17/17 16:07 POC Glucose 407 H Dx/Plan - Plan - Physical Examination Constitutional: NAD HEENT: PERRLA, moist MMs, sclera anicteric Neck: no JVD, supple Respiratory: no wheezing, no rales, no rhonchi Cardiovascular: RRR, no significant murmur, no rub Gastrointestinal: soft, non-tender, no distention, positive bowel sounds Musculoskeletal: 2 plus edema present Neurological: non-focal, normal sensation, moves all 4 limbs Psychiatric: normal affect, A&O x 3 Skin: no rash, normal turgor Dx/Plan (1) Symptomatic anemia Code(s): D64.9 - ANEMIA, UNSPECIFIED Status: Acute (2) Alcohol abuse Code(s): F10.10 - ALCOHOL ABUSE, UNCOMPLICATED Status: Chronic (3) Cirrhosis of liver with ascites Code(s): K74.60 - UNSPECIFIED CIRRHOSIS OF LIVER Status: Chronic (4) Hepatitis C Code(s): B19.20 - UNSPECIFIED VIRAL HEPATITIS C WITHOUT HEPATIC COMA Status: Chronic Qualifiers: Viral hepatitis chronicity: chronic Hepatic coma status: without hepatic coma Qualified Code(s): B18.2 - Chronic viral hepatitis C (5) Hypertension Code(s): I10 - ESSENTIAL (PRIMARY) HYPERTENSION Status: Chronic Qualifiers: Hypertension type: essential hypertension Qualified Code(s): I10 - Essential (primary) hypertension (6) Hypoalbuminemia Code(s): E88.09 - OTH DISORDERS OF PLASMA-PROTEIN METABOLISM, NEC Status: Chronic (7) Macrocytic anemia Code(s): D53.9 - NUTRITIONAL ANEMIA, UNSPECIFIED Status: Chronic (8) Obesity (BMI 30.0-34.9) Code(s): E66.9 - OBESITY, UNSPECIFIED Status: Chronic (9) Thrombocytopenia Code(s): D69.6 - THROMBOCYTOPENIA, UNSPECIFIED Status: Chronic (10) Tobacco abuse Code(s): Z72.0 - TOBACCO USE Status: Chronic (11) Transaminitis Code(s): R74.0 - NONSPEC ELEV OF LEVELS OF TRANSAMNS & LACTIC ACID DEHYDRGNSE Status: Chronic (12) Elevated brain natriuretic peptide (BNP) level Code(s): R79.89 - OTHER SPECIFIED ABNORMAL FINDINGS OF BLOOD CHEMISTRY Status : Acute (13) Pancytopenia Code(s): D61.818 - OTHER PANCYTOPENIA Status: Acute - Plan cont current plan of care echo pending will check venous dople study to r/o dvt s/p egd and colonoscopy. Appreciate GI input continue lasix, aldactone, corgard hgb low two days back. will check cbc today case d/w pt & RN
[2017-05-18 17:05] LABS: #Eosinphils 0.2 thou/uL (0.0-0.7); #Lymphocytes 1.1 thou/uL (1.20-3.40); #Monocytes 0.4 thou/uL (0.11-0.59); #Neutrophils 2.4 thou/uL (1.40-6.50); %Basophils 0.4 % (0.0-1.0); %Eosinophils 5.4 % (0.0-10.0); %Lymphocytes 26.5 % (21.0-51.0); %Monocytes 9.7 % (0.0-10.0); %Neutrophils 58.1 % (42.0-75.0); Hemoglobin 8.6 g/dL (14.0-18.0); Mean Corpuscular HGB CONC 31.6 g/dL (32.0-36.0); Mean Corpuscular Hemoglobin 27.9 pg (27.0-31.0); Mean Corpuscular Volume 88.4 fl (80.0-94.0); Platelet Count 66 thou/uL (130-400); RBC Distribution Width 16.5 % (11.5-14.5); White Blood Cell (WBC) Count 4.1 thou/uL (4.8-10.8)
[2017-05-18 17:29] LABS: Anion Gap 8 mmol/L (10-20); BUN (Urea Nitrogen) 13 mg/dL (8.4-25.7); Calc. Creatinine Clearance 104 mL/min (70-130); Calcium 8.1 mg/dL (7.8-10.44); Carbon Dioxide 30 mmol/L (23-31); Chloride 104 mmol/L (98-107); Estimated GFR-MDRD Greater than 90; Glucose 135 mg/dL (80-115); Potassium 3.8 mmol/L (3.5-5.1); Sodium 138 mmol/L (136-145)
--- NOTE | 2017-05-18 17:55 | ULT ---
ULTRASOUND WITH DOPPLER DUPLEX VENOUS LOWER EXTREMITY BILATERAL 05/18/17 CPT: 82267 ICD-10-PCS: B54D HISTORY: Lower extremity pain, edema. TECHNIQUE: Color flow Doppler, spectral waveform analysis of pulsed Doppler, and das-scale imaging with deepali gabby and augmentation, were used to evaluate the bilateral common femoral, femoral, popliteal, badger distiller operator ior tibial, and superficial femoral, veins; and the proximal portions of the profunda femoral and gre ater saphenous, veins. FINDINGS: There is appropriate compressibility and flow within the imaged deep vein system of the bilateral low er extremities. There is soft tissue edema. Incidental note of inguinal lymph nodes, on the right. Correlate clinically. IMPRESSION: 1. No DVT. 2. Soft tissue edema. 3. Mild prominence of right inguinal lymph nodes. POS: RAUL
[2017-05-19] MEDS: Furosemide 40 MG/4 ML VIAL SLOW IVP SCH ×2 (05:21→14:13)
[2017-05-19] MEDS: HumaLOG 300 UNITS/3 ML VIAL SC PRN ×2 (05:25→12:57)
[2017-05-19] MEDS: Famotidine 20 MG TAB PO SCH (08:02)
[2017-05-19] MEDS: Folic Acid 1 MG TAB PO SCH (08:03)
[2017-05-19] MEDS: Cyanocobalamin (Vitamin B-12) 1,000 MCG TAB PO SCH (08:03)
[2017-05-19] MEDS: Ferrous Sulfate 325 MG TAB PO SCH (08:03)
[2017-05-19] MEDS: metFORMIN 500 MG TAB PO SCH (08:04)
[2017-05-19] MEDS: Multivitamin W/ Minerals 1 TAB PO SCH (08:04)
[2017-05-19] MEDS: glyBURIDE 5 MG TAB PO SCH (08:04)
[2017-05-19] MEDS: Magnesium Oxide 400 MG TAB PO SCH (08:04)
[2017-05-19] MEDS: Spironolactone 25 MG TAB PO SCH (08:04)
[2017-05-19] MEDS: Nadolol 40 MG TAB PO SCH (08:10)
[2017-05-19 11:25] VITALS: BP 124/72; TEMP 97.4
--- NOTE | 2017-05-19 12:01 | PDOC.PN ---
- Subjective Encounter Start Date: 05/19/17 Encounter Start Time: 11:30 Subjective: Expresses no complaint. - Objective Vital Signs & Weight: Vital Signs (12 hours) Temp Pulse Resp BP Pulse Ox 05/19/17 11:25 97.4 F L 59 L 16 124/72 100 05/19/17 08:10 61 05/19/17 08:00 98.3 F 61 16 100 05/19/17 07:59 98.3 F 55 L 16 119/54 L 100 I&O: 05/18/17 05/19/17 05/20/17 06:59 06:59 06:59 Intake Total 1195 900 Balance 1195 900 Result Diagrams: 05/18/17 16:52 05/18/17 16:52 Additional Labs: Accuchecks 05/19/17 05/18/17 05/18/17 04:27 20:00 16:18 POC Glucose 261 H 231 H 150 H Phys Exam - Physical Examination HEENT: sclera anicteric Neck: no JVD Respiratory: clear to auscultation bilateral Cardiovascular: RRR Gastrointestinal: soft Musculoskeletal: edema present Neurological: moves all 4 limbs Psychiatric: normal affect, A&O x 3 Dx/Plan (1) Pancytopenia Code(s): D61.818 - OTHER PANCYTOPENIA Status: Acute (2) Symptomatic anemia Code(s): D64.9 - ANEMIA, UNSPECIFIED Status: Acute (3) Alcohol abuse Code(s): F10.10 - ALCOHOL ABUSE, UNCOMPLICATED Status: Chronic (4) Cirrhosis of liver with ascites Code(s): K74.60 - UNSPECIFIED CIRRHOSIS OF LIVER Status: Chronic (5) Hepatitis C Code(s): B19.20 - UNSPECIFIED VIRAL HEPATITIS C WITHOUT HEPATIC COMA Status: Chronic Qualifiers: Viral hepatitis chronicity: chronic Hepatic coma status: without hepatic coma Qualified Code(s): B18.2 - Chronic viral hepatitis C (6) Hypoalbuminemia Code(s): E88.09 - OTH DISORDERS OF PLASMA-PROTEIN METABOLISM, NEC Status: Chronic - Plan -: Stable. -: ECHO shows EF of 35 -40% -: Home today. -: F/u with pcp. * . not prescribed due to low BP.
--- NOTE | 2017-05-19 12:38 | DIS ---
DATE OF ADMISSION: 05/15/2017 DATE OF DISCHARGE: 05/19/2017 ADMITTING DIAGNOSES: Symptomatic anemia, cirrhosis of the liver, known insulin-dependent diabetes me llitus, esophageal varices, obesity, thrombocytopenia, hypoalbuminemia. DISCHARGE DIAGNOSES: Symptomatic anemia, cirrhosis of the liver, known insulin-dependent diabetes me llitus, esophageal varices, obesity, thrombocytopenia, hypoalbuminemia. RESIDENTIAL TREATMENT STAFF: Dr. Hdez. PROCEDURES: EGD, colonoscopy, and chest x-ray. Echocardiogram where he was noticed to have an eject ion fraction of 35%-40%. The patient received blood transfusion. COURSE OF HOSPITALIZATION: Uncomplicated, responded well to management. Patient is clinically stabl e at this time being discharged home. DISCHARGE MEDICATIONS: Please see discharge medication reconciliation sheet. The patient is to follow up with his primary care physician. The patient was noticed to have an ejec tion fraction of 35%-40%. He has been on carvedilol. DARLINE inhibitor was not prescribed due to low bl ood pressure. Discharge time 32 minutes.
--- NOTE | 2017-05-19 15:33 | EKG ---
Test Reason : Blood Pressure : / mmHG Vent. Rate : 071 BPM Atrial Rate : 071 BPM P-R Int : 124 ms QRS Dur : 094 ms QT Int : 430 ms P-R-T Axes : 005 014 049 degrees QTc Int : 467 ms Normal sinus rhythm Normal ECG Confirmed by VALE SWAN ([id number]), design editor DUTCH MCGILL ([id number]) on 05/19/2017 3:33:07 PM Referred By: SOSA Confirmed By:VALE SWAN
[2017-05-19] MEDS ORDERED: Prevnar 13-Val Conj/PF 0.5 ML SYRINGE IM ONE (16:00)
[2017-05-19] MEDS ORDERED: FLU VACC TS2017-18 (>65YR) 0.5 ML SYRINGE IM ONE (16:00)
== END 2017-05-19 14:59 | disposition home or self-care (01) | DRG 812 ==
LOC: ERS 13:10 → 2SW 15:00 → OBSVTOIN 05-15 06:50 → T4-A 05-15 08:56
PROVIDERS: ADMIT Internal Medicine; ATTEND Internal Medicine
PROC: 30233N1 Transfusion of Nonautologous Red Blood Cells into Peripheral Vein, Percutaneous Approach (ICD-10-PCS; 2017-05-14)
PROC: 0DBM8ZX Excision of Descending Colon, Via Natural or Artificial Opening Endoscopic, Diagnostic (ICD-10-PCS; principal; 2017-05-17)
PROC: 0DBN8ZX Excision of Sigmoid Colon, Via Natural or Artificial Opening Endoscopic, Diagnostic (ICD-10-PCS; 2017-05-17)
PROC: 0DJ08ZZ Inspection of Upper Intestinal Tract, Via Natural or Artificial Opening Endoscopic (ICD-10-PCS; 2017-05-17)
DX: D64.9 Anemia, unspecified (principal); I85.00 Esophageal varices without bleeding; K76.6 Portal hypertension; D69.59 Other secondary thrombocytopenia; E88.09 Other disorders of plasma-protein metabolism, not elsewhere classified; E11.9 Type 2 diabetes mellitus without complications; I10 Essential (primary) hypertension; E66.9 Obesity, unspecified; B18.2 Chronic viral hepatitis C; K21.9 Gastro-esophageal reflux disease without esophagitis; I86.4 Gastric varices; K63.5 Polyp of colon; K31.89 Other diseases of stomach and duodenum; D61.818 Other pancytopenia; K74.69 Other cirrhosis of liver; K70.31 Alcoholic cirrhosis of liver with ascites; F17.210 Nicotine dependence, cigarettes, uncomplicated; F10.10 Alcohol abuse, uncomplicated; Z68.30 Body mass index [BMI] 30.0-30.9, adult; Z79.4 Long term (current) use of insulin; Z79.899 Other long term (current) drug therapy
CPT/HCPCS: 36415; 36416; 36430; 71045; 80048; 80053; 82274; 82553; 83690; 83880; 84484; 85025; 85610; 85730; 86850; 86900; 86901; 88305; 90471; 90670; 90682; 93005; 93306; 93970; 94760; 96374; 99406; C9113; G0008; G0009; J1940; J2001; J2704; P9016; Q2036

== ENCOUNTER 2017-07-18 16:12 | Inpatient (IN) | payer OTHER, MEDICARE ==
[2017-07-18 17:04] LABS: #Eosinphils 0.2 thou/uL (0.0-0.7); #Lymphocytes 0.8 thou/uL (1.20-3.40); #Monocytes 0.3 thou/uL (0.11-0.59); #Neutrophils 1.8 thou/uL (1.40-6.50); %Basophils 1.1 % (0.0-1.0); %Eosinophils 5.2 % (0.0-10.0); %Lymphocytes 24.3 % (21.0-51.0); %Monocytes 9.6 % (0.0-10.0); %Neutrophils 59.8 % (42.0-75.0); Hemoglobin 7.1 g/dL (14.0-18.0); Mean Corpuscular HGB CONC 30.6 g/dL (32.0-36.0); Mean Corpuscular Hemoglobin 25.3 pg (27.0-31.0); Mean Corpuscular Volume 82.6 fl (80.0-94.0); Mean Platelet Volume 7.6 fL (7.4-10.4); Platelet Count 49 thou/uL (130-400); RBC Distribution Width 17.7 % (11.5-14.5); Red Blood Cell (RBC) Count 2.83 mill/uL (4.70-6.10); White Blood Cell (WBC) Count 3.1 thou/uL (4.8-10.8)
[2017-07-18 17:07] LABS: INR-International Normal Ratio 1.3; Prothrombin Time 16.8 SEC (12.0-14.7)
[2017-07-18 17:08] LABS: PTT 35.1 SEC (22.9-36.1)
[2017-07-18 17:16] LABS: ALT (SGPT) 16 U/L (8-55); AST (SGOT) 20 U/L (5-34); Albumin 2.7 g/dL (3.4-4.8); Alkaline Phosphatase 193 U/L (40-150); Anion Gap 6 mmol/L (10-20); BUN (Urea Nitrogen) 10 mg/dL (8.4-25.7); Bilirubin, Total 1.4 mg/dL (0.2-1.2); Calc. Creatinine Clearance 0 mL/min (70-130); Calcium 7.7 mg/dL (7.8-10.44); Carbon Dioxide 24 mmol/L (23-31); Chloride 109 mmol/L (98-107); Estimated GFR-MDRD Greater than 90; Globulin 3.2 g/dL (2.4-3.5); Glucose 263 mg/dL (80-115); Potassium 3.9 mmol/L (3.5-5.1); Protein, Total 5.9 g/dL (5.8-8.1); Sodium 135 mmol/L (136-145)
--- NOTE | 2017-07-18 17:17 | RAD ---
CHEST ONE VIEW: 07/18/17 COMPARISON: 05/14/17. HISTORY: Dyspnea. FINDINGS: Normal cardiac silhouette. Pulmonary vessels and hilum are normal. No consolidation or mass. NO pneum othorax or osseous abnormalities. IMPRESSION: No acute cardiopulmonary process. POS: [facility]
[2017-07-18 17:20] LABS: Anisocytosis SLIGHT = 6-15 cells (100X) (0-5/hpf); Hypochromia SLIGHT = 6-15 cells (100X) (0-5/hpf); MDiff Complete? YES; Ovalocytes SLIGHT = 2-5 cells (100X) (0-1/hpf); PLT Morphology Comment Appears Decreased; Polychromasia SLIGHT = 2-3 cells (100X) (0-2/hpf)
[2017-07-18 17:22] LABS: CKMB 0.8 ng/mL (0-6.6); Troponin I Less than 0.010 ng/mL (< 0.028)
--- NOTE | 2017-07-18 19:25 | PDOC.FPRHP ---
- History of Present Illness Chief Complaint: SOB, belly full History of Present Illness: 66 yo male, with pmh of liver cirrhosis 2/2 hep C and past alcohol abuse and sCHF (EF35-40%), comes in with c/c of SOB and belly distention. Pt comes in reporting being SOB. SOB made worse when sitting in upright position. SOB has occured and worsening over the last 2-3 weeks, in correlation when he ran out of his water pills. Pt also reports his belly has continued to get swollen. Says belly feels full and the last few days has not had much of an appetite. Deneis any n/v/d/c. Pt reports recently been discharged from hospital a month or so ago for the same problem. [facility] and since ran out of medications. Pt denies any chest pain. Denies any rashes. Denies any fever chills or abdominal pain. Pt is not the most accurate historian. - Allergies/Adverse Reactions Allergies Allergy/AdvReac Type Severity Reaction Status Date / Time No Known Drug Allergies Allergy Unknown Verified 07/18/17 20:34 - Home Medications Medication Instructions Recorded Confirmed Type metFORMIN [Glucophage] 500 mg PO QAM-WM 10/31/15 07/18/17 History glyBURIDE [Diabeta] 5 mg PO QAM-WM #0 tab 11/05/15 07/18/17 Rx Ferrous Sulfate 325 mg PO Q2DAYS 07/18/17 07/18/17 History - History PMHx: sCHF (Echo 04/2017 EF 35-40%), DMII, HTN, Cirrhosis of Liver w/ portal htn. Tobacco abuse, hx of alcohol abuse, obesity, Hepatitis C, Hx magdi-Wiss tear w/ hemorrhage, hx Gastric AVM malformation PSHx: EGD/Colonoscopy at recent hospitilizations FHx: Brothers both of Liver cancer likely related to [place] Social: Smokes 3-4 cigs a day, has cut back the last few months from 1 ppd smoker, quit alchol 4 months ago-before was adaily drinker, no illicit drug use - Review of Systems General: reports: weight/appetite/sleep changes (Feels full, not able to eat much due to full belly). denies: fever/chills, night sweats, fatigue Eyes: denies: eye pain, vision changes ENT: denies: nasal congestion, rhinorrhea Respiratory: reports: shortness of breath, exercise intolerance. denies: cough , congestion Cardiovascular: denies: chest pain, palpitation, edema, paroxysmal nocturnal dyspnea, orthopnea Gastrointestinal: denies: nausea, vomiting, diarrhea, constipation, abdominal pain, GI bleeding Genitourinary: denies: incontinence, dysuria, polyuria, discharge Skin: denies: rashes, lesions, jaundice, itching Musculoskeletal: denies: pain, tenderness, stiffness, swelling, arthritis/ arthralgias Neurological: denies: numbness, syncope, seizure, weakness Psychological: denies: anxiety, depression - Vital signs T 98.6, P 89, RR 22, BP 156/79, O2 99% on RA - Physical Exam Constitutional: NAD, awake, alert and oriented, well developed HEENT: normocephalic and atraumatic, PERRLA, conjunctiva clear, grossly normal vision, normal nasal mucosa, MMM Neck: supple, no LAD, no JVD, no thyromegaly, no bruits Chest: no-tender to palpation, no lesions Heart: RRR, normal S1/S2, no murmurs/rubs/gallops, pulses present -Heart: trace edema noted in LE bilaterally Lungs: CTAB, no respiratory distress, good air movement, no rales/rhonchi, no wheezing Abdomen: non-tender, bowel sounds present -Abdomen: Belly very distended and tight, No fluid wave noted. Musculoskeletal: normal structure, normal tone Neurological: no focal deficit, normal sensation Skin: no rash/lesions, good turgor FMR H&P: Results - Labs Result Diagrams: 07/19/17 16:58 07/19/17 04:15 Lab results: WBC 3.1 thou/uL (4.8-10.8) L 07/18/17 16:47 Hgb 7.1 g/dL (14.0-18.0) L 07/18/17 16:47 Hct 23.3 % (42.0-52.0) L 07/18/17 16:47 MCV 82.6 fl (80.0-94.0) 07/18/17 16:47 Plt Count 49 thou/uL (130-400) L 07/18/17 16:47 Neutrophils % 59.8 % (42.0-75.0) 07/18/17 16:47 Sodium 135 mmol/L (136-145) L 07/18/17 16:48 Potassium 3.9 mmol/L (3.5-5.1) 07/18/17 16:48 Chloride 109 mmol/L (98-107) H 07/18/17 16:48 Carbon Dioxide 24 mmol/L (23-31) 07/18/17 16:48 BUN 10 mg/dL (8.4-25.7) 07/18/17 16:48 Creatinine 0.84 mg/dL (0.6-1.3) 07/18/17 16:48 Glucose 263 mg/dL (80-115) H 07/18/17 16:48 Calcium 7.7 mg/dL (7.8-10.44) L 07/18/17 16:48 Total Bilirubin 1.4 mg/dL (0.2-1.2) H 07/18/17 16:48 AST 20 U/L (5-34) 07/18/17 16:48 ALT 16 U/L (8-55) 07/18/17 16:48 Alkaline Phosphatase 193 U/L (40-150) H 07/18/17 16:48 CK-MB (CK-2) 0.8 ng/mL (0-6.6) 07/18/17 16:48 B-Natriuretic Peptide 80.5 pg/mL (0-100) 07/18/17 16:47 Serum Total Protein 5.9 g/dL (5.8-8.1) 07/18/17 16:48 Albumin 2.7 g/dL (3.4-4.8) L 07/18/17 16:48 - Radiology Interpretation Chest x-ray Status: image reviewed by me, report reviewed by me (No acute cardiopulm process noted) FMR H&P: A/P - Problem List (1) Cirrhosis of liver with ascites Current Visit: No Status: Chronic Code(s): K74.60 - UNSPECIFIED CIRRHOSIS OF LIVER Qualifiers: Hepatic cirrhosis type: alcoholic cirrhosis Qualified Code(s): K70.31 - Alcoholic cirrhosis of liver with ascites (2) Hepatitis C Current Visit: No Status: Chronic Code(s): B19.20 - UNSPECIFIED VIRAL HEPATITIS C WITHOUT HEPATIC COMA Qualifiers: Viral hepatitis chronicity: chronic Hepatic coma status: without hepatic coma Qualified Code(s): B18.2 - Chronic viral hepatitis C (3) Pancytopenia Current Visit: No Status: Acute Code(s): D61.818 - OTHER PANCYTOPENIA (4) Hypertension Current Visit: No Status: Chronic Code(s): I10 - ESSENTIAL (PRIMARY) HYPERTENSION Qualifiers: Hypertension type: essential hypertension Qualified Code(s): I10 - Essential (primary) hypertension (5) Hypoalbuminemia Current Visit: No Status: Chronic Code(s): E88.09 - OTH DISORDERS OF PLASMA- PROTEIN METABOLISM, NEC (6) Tobacco abuse Current Visit: No Status: Chronic Code(s): Z72.0 - TOBACCO USE (7) Systolic CHF Current Visit: Yes Status: Acute Code(s): I50.20 - UNSPECIFIED SYSTOLIC ( CONGESTIVE) HEART FAILURE (8) Diabetes Current Visit: Yes Status: Acute Code(s): E11.9 - TYPE 2 DIABETES MELLITUS WITHOUT COMPLICATIONS Qualifiers: Diabetes mellitus type: type 2 - Plan 1) Symptomatic ascites, 2/2 Liver Cirrhosis: admitting primarily for therapeutic paracentesis with IR given significant thrombocytopenia to 49. Likely full distended belly inhibiting diaphragm causing SOB. Denies any fever or chills or feeling ill. No clinical sign of SBP. Will restart diuresis with Lasix and spironalactone. Given one dose IV lasix today and continue PO lasix BID tmrw 2) Liver cirrhosis 2/2 ETOH abuse and chronic hep C:Pt has been without medication for 2-3 weeks. restart medications from previous hospitalization; no evidence of encephalopathy at this time, ammonia level 32. Will consult Case management for medication asssitance and possibly set up resources such as home health to help with f/u care Has been told to follow up with GI in outpatient setting from previous visits and yet has to 3) Chronic pancytopenia: anemia stable from previous hospitalization, will plan to transfuse if hgb<7 and/or patient's vital signs become abnormal, Per GI notes from last visit, anemia did not respond well to transfusion during last stay Anemia shows a mixed picture anemia. Iron and Folate low at previous visits. Will restart iron and other vitamin supplementation At this time, we believe his dyspnea to be mainly 2/2 abdominal distention. Thrombocytopenia also presumed 2/2 liver dz; lower than normal baseline, will continue to monitor. Transfuse if <20k 4) Portal HTN w/ grade I varices: Noted on previous EGD from previous hospitilization. restart Nadalol 5) T2DM: recent A1c 8.6% in Apr, monitor accuchecks AC/HS, Mild SSI continue home regimen and adjust if necessary inpt but this mainly needs to be managed in the outpatient setting 6) sCHF: ECHO from previous hospital stay shows EF 35-40%. Is suppose to be on lasix and sprinolactone. Continue medications as planned above No sign of acute fluid overload from cardiac standpoint. CXR negative. BNP normal SOB and Overload likely related to Liver Cirrhosis at this time 7) AVM: checking FOBT to ensure no acute bleed and reason for Low hgb, If hgb drops or FOBT comes back positive will consult GI 8) Chronic hepatitis C: outpatient GI f/u 9) HTN: continue home meds 10) Tobacco abuse: counseled on cessation. DVT Ppx: SCD as platelets low FMR H&P: Upper Level - Pertinent history 66 yo HM pmhx cirrhosis presents to ER with shortness of breath x 2-3 wks. Patient was recently admitted here in late Apr/early May for presumed symptomatic anemia when he presented with symptoms of dizziness, LUCAS, fatigue, and weakness. Hemoglobin at that time was 7.1 (identical to this hospitalization ), so he was transfused 2u pRBC and continued on ferrous sulfate, folic acid, vit B12 and thiamine replacement therapy. Of note, patient already had an upper endoscopy done on 05/07/17 from yet another hospitalization that showed AV malformation and grade I esophageal and gastric varices. The suspicion at that time was that patient might have slow oozing of blood from his previously treated AV malformation v. occult colonic bleed - however repeat EGD and colonoscopy showed no evidence of ongoing GI bleeding. Patient's anemia did not really respond to the blood and the thought that his persistent anemia and pancytopenia was most likely due to his liver disease and/or related nutritional deficiencies. He also complained of some abdominal tightness that resolved somewhat after diuresis with IV lasix. Patient was discharged on dual diuretic therapy with lasix and spironolactone but it appear that he ran out of these about 3 weeks ago. Patient was also instructed [facility] but, for unclear reasons, he never did. Today, patient is primarily complaining about shortness of breath, worse with sitting up, that has been going on for the past 2-3 wks. He also states that his abdomen has been swollen and distended appearing for about 3 wks. Associated with annorexia and mild increased LE swelling. Denies F/C or abdominal pain. - Pertinent findings Gen: AAOx3, lying in bed comfortably Eyes: non-icteric CV: rrr, no m/g/r Lungs: CTAB, no increased WOB Abd: distended, +fluid wave, mild hepatomegaly, non-tender, no guarding Skin: no overt jaundice, no telangiectasias or palmar erythema noted Psych: poor insight into his medical conditions - Plan Date/Time: 07/18/171924 IEvin MD, have evaluated this patient and agree with findings/plan as outlined by resident intern resident. Pertinent changes/additions are listed here. 66 yo HM with: 1) Symptomatic ascites, 2/2 #2: admitting primarily for therapeutic paracentesis with IR given significant thrombocytopenia to 49. No clinical sign of SBP. Will restart diuresis with Lasix and spironalactone. 2) Liver cirrhosis 2/2 ETOH abuse and chronic hep C: restart medications from previous hospitalization; no evidence of encephalopathy at this time, ammonia level 32. Patient needs better [facility] care [facility]. Will also consult case management to set up possible home health care for assistance with medication management after discharge. 3) Chronic pancytopenia: anemia stable from previous hospitalization, will plan to transfuse if hgb<7 and/or patient's vital signs become abnormal, particularly since blood count did not respond following previous transfusion. Will restart iron and other vitamin supplementation as previous labs showed iron and folic acid deficiencies. At this time, we believe his dyspnea to be mainly 2/2 abdominal distention. Thrombocytopenia also presumed 2/2 liver dz; lower than normal baseline, will continue to monitor. Transfuse if <20k 4) Portal HTN w/ grade I varices: restart Nadalol 5) T2DM: recent A1c 8.6% in Feb, monitor accuchecks AC/HS, continue home regimen and adjust if necessary inpt but this mainly needs to be managed in the outpatient setting 6) GERD: continue PPI therapy 7) AVM: checking FOBT to ensure no acute bleed 8) Chronic hepatitis C: outpatient GI f/u DVT ppx: SCDs Attending Addendum - Attending Addendum Date/Time: 07/19/17 0332 I personally evaluated the patient and discussed the management with Dr. Irving. I agree with the History, Examination, Assessment and Plan documented above with any addition or exceptions noted below.
[2017-07-18] MEDS ORDERED: Furosemide 40 MG/4 ML VIAL SLOW IVP SCH (20:25)
[2017-07-18] MEDS ORDERED: Acetaminophen 325 MG TAB PO PRN (20:25)
[2017-07-18] MEDS ORDERED: Acetaminophen 650 MG Suppository PR PRN (20:25)
[2017-07-18] MEDS ORDERED: Spironolactone 25 MG TAB PO SCH (20:25)
[2017-07-18] MEDS ORDERED: Calcium Carbonate 500 MG ChewTAB PO PRN (20:25)
[2017-07-18] MEDS ORDERED: Ondansetron ODT 4 MG TAB PO PRN (20:25)
[2017-07-18] MEDS ORDERED: Ondansetron HCl/PF 4 MG/2 ML Vial IVP PRN (20:25)
[2017-07-18 20:40] VITALS: BMI 29.6
[2017-07-18] MEDS ORDERED: Dextrose 5% in Water 1,000 ML IV PRN (21:46)
[2017-07-18] MEDS ORDERED: Dextrose 50% Abboject 50 ML SYRINGE SLOW IVP PRN (21:46)
[2017-07-19 04:40] LABS: #Eosinphils 0.1 thou/uL (0.0-0.7); #Lymphocytes 0.6 thou/uL (1.20-3.40); #Monocytes 0.2 thou/uL (0.11-0.59); %Basophils 1.2 % (0.0-1.0); %Eosinophils 5.3 % (0.0-10.0); %Lymphocytes 29.8 % (21.0-51.0); %Monocytes 11.5 % (0.0-10.0); %Neutrophils 52.1 % (42.0-75.0); Hemoglobin 6.3 g/dL (14.0-18.0); Mean Corpuscular HGB CONC 30.7 g/dL (32.0-36.0); Mean Corpuscular Hemoglobin 25.4 pg (27.0-31.0); Mean Corpuscular Volume 82.6 fl (80.0-94.0); Mean Platelet Volume 6.8 fL (7.4-10.4); Platelet Count 37 thou/uL (130-400); RBC Distribution Width 17.4 % (11.5-14.5); Red Blood Cell (RBC) Count 2.48 mill/uL (4.70-6.10)
[2017-07-19 04:42] LABS: ALT (SGPT) 13 U/L (8-55); AST (SGOT) 17 U/L (5-34); Albumin 2.4 g/dL (3.4-4.8); Alkaline Phosphatase 164 U/L (40-150); Anion Gap 9 mmol/L (10-20); BUN (Urea Nitrogen) 9 mg/dL (8.4-25.7); Calc. Creatinine Clearance 102 mL/min (70-130); Calcium 7.6 mg/dL (7.8-10.44); Carbon Dioxide 25 mmol/L (23-31); Chloride 109 mmol/L (98-107); Estimated GFR-MDRD Greater than 90; Globulin 2.7 g/dL (2.4-3.5); Glucose 339 mg/dL (80-115); Potassium 3.9 mmol/L (3.5-5.1); Protein, Total 5.1 g/dL (5.8-8.1); Sodium 139 mmol/L (136-145)
[2017-07-19 04:44] LABS: Hemoglobin A1c 7.4 % (4.0-6.0)
[2017-07-19] MEDS: Furosemide 40 MG/4 ML VIAL SLOW IVP SCH ×2 (05:53→14:39)
[2017-07-19] MEDS: Insulin Regular 300 UNITS/3 ML VIAL SC PRN ×2 (05:53→17:41)
[2017-07-19] MEDS ORDERED: Ferrous Sulfate 325 MG TAB PO SCH (08:00)
[2017-07-19] MEDS: Spironolactone 25 MG TAB PO SCH (08:07)
[2017-07-19] MEDS: Folic Acid 1 MG TAB PO SCH (08:07)
[2017-07-19] MEDS: metFORMIN 500 MG TAB PO SCH (08:07)
[2017-07-19] MEDS: Multivitamin W/ Minerals 1 TAB PO SCH (08:07)
[2017-07-19] MEDS: Nadolol 40 MG TAB PO SCH (08:07)
[2017-07-19] MEDS: Magnesium Oxide 400 MG TAB PO SCH (08:07)
[2017-07-19] MEDS: glyBURIDE 5 MG TAB PO SCH (08:08)
[2017-07-19] MEDS ORDERED: Furosemide 20 MG TAB PO SCH (09:00)
[2017-07-19] MEDS ORDERED: Prevnar 13-Val Conj/PF 0.5 ML SYRINGE IM ONE (09:00)
--- NOTE | 2017-07-19 09:11 | PDOC.FM ---
- Subjective Subjective: Endorses shortness of breath this morning adn dizziness with standing and walking. Denies abdominal pain or bloody stools. - Objective MAR Reviewed: Yes Vital Signs & Weight: Vital Signs (12 hours) Temp Pulse Resp BP Pulse Ox 07/19/17 07:58 98.3 F 92 18 148/75 H 100 07/19/17 04:00 98.2 F 85 16 121/64 97 07/19/17 00:00 98.7 F 80 16 144/66 H 98 Weight Weight 83.234 kg I&O: 07/18/17 07/19/17 07/20/17 06:59 06:59 06:59 Intake Total 960 Balance 960 Result Diagrams: 07/19/17 04:15 07/19/17 04:15 <Rahel Barragan - Last Filed: 07/19/17 10:40> - Objective Vital Signs & Weight: Vital Signs (12 hours) Temp Pulse Resp BP Pulse Ox 07/19/17 08:00 98.3 F 92 18 07/19/17 07:58 98.3 F 92 18 148/75 H 100 07/19/17 04:00 98.2 F 85 16 121/64 97 07/19/17 00:00 98.7 F 80 16 144/66 H 98 Weight Weight 83.234 kg I&O: 07/18/17 07/19/17 07/20/17 06:59 06:59 06:59 Intake Total 960 Balance 960 Result Diagrams: 07/19/17 04:15 07/19/17 04:15 <Juanita Mena - Last Filed: 07/19/17 11:02> Phys Exam - Physical Examination Constitutional: NAD HEENT: PERRLA, moist MMs Neck: no nodes wheezing left lower quadrant Cardiovascular: RRR distended, mild fluid wave Neurological: non-focal, normal sensation Psychiatric: normal affect, A&O x 3 Skin: no rash <Rahel Barragan - Last Filed: 07/19/17 10:40> Dx/Plan (1) Diabetes Code(s): E11.9 - TYPE 2 DIABETES MELLITUS WITHOUT COMPLICATIONS Status: Acute QualifierTitle: Diabetes mellitus type: type 2 (2) Pancytopenia Code(s): D61.818 - OTHER PANCYTOPENIA Status: Acute (3) Symptomatic anemia Code(s): D64.9 - ANEMIA, UNSPECIFIED Status: Acute (4) Cirrhosis of liver with ascites Code(s): K74.60 - UNSPECIFIED CIRRHOSIS OF LIVER Status: Chronic QualifierTitle: Hepatic cirrhosis type: alcoholic cirrhosis Qualified Code(s): K70.31 - Alcoholic cirrhosis of liver with ascites (5) Hepatitis C Code(s): B19.20 - UNSPECIFIED VIRAL HEPATITIS C WITHOUT HEPATIC COMA Status: Chronic QualifierTitle: Viral hepatitis chronicity: chronic Hepatic coma status: without hepatic coma Qualified Code(s): B18.2 - Chronic viral hepatitis C (6) Thrombocytopenia Code(s): D69.6 - THROMBOCYTOPENIA, UNSPECIFIED Status: Chronic (7) Tobacco abuse Code(s): Z72.0 - TOBACCO USE Status: Chronic - Plan Plan: 1) Symptomatic ascites, 2/2 #2: admitting primarily for therapeutic paracentesis with IR/GI given significant thrombocytopenia to 37. No clinical sign of SBP. Will restart diuresis with Lasix and spironalactone. GI consulted this morning. Will follow recommendations. 2) Liver cirrhosis 2/2 ETOH abuse and chronic hep C: restart medications from previous hospitalization; no evidence of encephalopathy at this time, ammonia level 32. Will start lactulose 30ml BID as patient seems constipated. Patient needs better [facility] care [facility]. Will also consult case management to set up possible home health care for assistance with medication management after discharge. 3) Chronic pancytopenia: Pt is symptomatic with episodes of dizziness with standing and walking. Will order orthostatic bp. He now has a Hb of 6.7, will plan to transfuse a unit of prbcs. Will restart iron and other vitamin supplementation as previous labs showed iron and folic acid deficiencies. At this time, we believe his dyspnea to be mainly 2/2 abdominal distention. Thrombocytopenia also presumed 2/2 liver dz; lower than normal baseline, will continue to monitor. Transfuse if <20k. 4) Portal HTN w/ grade I varices: restart Nadalol 5) T2DM: recent A1c 8.6% in Apr, monitor accuchecks AC/HS, continue home regimen and adjust if necessary inpt but this mainly needs to be managed in the outpatient setting 6) GERD: continue PPI therapy 7) AVM: checking FOBT to ensure no acute bleed 8) Chronic hepatitis C: outpatient GI f/u 9.) Chronic tobacco abuse-will pitka's point on cessation <Rahel Barragan - Last Filed: 07/19/17 10:40> Attending Addendum - Attending Addendum Date/Time: 07/19/17 1101 I personally evaluated the patient and discussed the management with Dr. Barragan. I agree with the History, Examination, Assessment and Plan documented above with any addition or exceptions noted below. The patient states his shortness of breath is improved. GI has been consulted. We are starting lactulose for his constipation. <Juanita Mena - Last Filed: 07/19/17 11:02>
--- NOTE | 2017-07-19 10:38 | RAD ---
ABDOMEN 1 VIEW: HISTORY: A 66-year-old male with a history of distended abdomen and cirrhosis. FINDINGS: There is some scattered gas and fecal material in the colon. No evidence for large or small bowel ob struction. No overt calculus. IMPRESSION: Unremarkable abdomen 1 view. No bowel obstruction. POS: [facility]
[2017-07-19 17:16] LABS: Hemoglobin 8.6 g/dL (14.0-18.0); Mean Corpuscular HGB CONC 31.1 g/dL (32.0-36.0); Mean Corpuscular Hemoglobin 25.6 pg (27.0-31.0); Mean Corpuscular Volume 82.4 fl (80.0-94.0); Mean Platelet Volume 6.8 fL (7.4-10.4); Platelet Count 56 thou/uL (130-400); RBC Distribution Width 17.1 % (11.5-14.5); Red Blood Cell (RBC) Count 3.34 mill/uL (4.70-6.10); White Blood Cell (WBC) Count 3.9 thou/uL (4.8-10.8)
[2017-07-20] MEDS: Furosemide 40 MG/4 ML VIAL SLOW IVP SCH ×2 (06:04→15:52)
[2017-07-20 08:37] LABS: #Eosinphils 0.3 thou/uL (0.0-0.7); #Lymphocytes 1.2 thou/uL (1.20-3.40); #Monocytes 0.3 thou/uL (0.11-0.59); #Neutrophils 2.3 thou/uL (1.40-6.50); %Basophils 0.4 % (0.0-1.0); %Eosinophils 6.7 % (0.0-10.0); %Lymphocytes 29.4 % (21.0-51.0); %Monocytes 6.5 % (0.0-10.0); Hemoglobin 8.9 g/dL (14.0-18.0); Mean Corpuscular HGB CONC 30.9 g/dL (32.0-36.0); Mean Corpuscular Hemoglobin 25.3 pg (27.0-31.0); Mean Platelet Volume 8.3 fL (7.4-10.4); Platelet Count 55 thou/uL (130-400); RBC Distribution Width 17.1 % (11.5-14.5); White Blood Cell (WBC) Count 4.1 thou/uL (4.8-10.8)
[2017-07-20 08:55] LABS: Hypochromia SLIGHT = 6-15 cells (100X) (0-5/hpf); MDiff Complete? YES; PLT Morphology Comment Appears Decreased; Polychromasia SLIGHT = 2-3 cells (100X) (0-2/hpf)
[2017-07-20] MEDS ORDERED: Ferrous Sulfate 325 MG TAB PO SCH (09:00)
[2017-07-20] MEDS: Folic Acid 1 MG TAB PO SCH (09:04)
[2017-07-20] MEDS: Spironolactone 25 MG TAB PO SCH (09:04)
[2017-07-20] MEDS: Magnesium Oxide 400 MG TAB PO SCH (09:04)
[2017-07-20] MEDS: Multivitamin W/ Minerals 1 TAB PO SCH (09:05)
[2017-07-20] MEDS: Nadolol 40 MG TAB PO SCH (09:05)
[2017-07-20] MEDS: metFORMIN 500 MG TAB PO SCH (11:34)
[2017-07-20] MEDS: glyBURIDE 5 MG TAB PO SCH (11:35)
--- NOTE | 2017-07-20 12:14 | ULT ---
ULTRASOUND GUIDED ABDOMINAL PARACENTESIS: Date: 07/20/17 INDICATION: Cirrhosis with ascites. FINDINGS: 5 liters of yellowish clear ascitic fluid removed from the right lower quadrant of the abdomen. PROCEDURE NOTE: Four quadrant ultrasound shows moderate ascites in all quadrants. Right lower quadrant was chosen for puncture. Overlying skin was prepped and draped in the sterile manner. Local anesthesia was administ ered with lidocaine and bicarb. Tiny skin incision was made with scalpel. A 5 [employer] catheter wi th needle in place was introduced into the ascites of the right lower quadrant under ultrasound caitlin nce. Catheter was advanced as the needle was removed. The catheter was attached to suction drainage. 5 liters of ascitic fluid removed. There were no problems or complications. POS: [facility]
--- NOTE | 2017-07-20 12:24 | CON ---
DATE OF CONSULTATION: 07/19/2017 REASON FOR CONSULTATION: Worsening ascites. HISTORY OF PRESENT ILLNESS: Mr. Hebert is well known to the GI service from history of alcohol rela tyler cirrhosis. He also reported that he had prior history of hepatitis C, although this has been cas ated and hepatitis C RNA was negative as of 10/31/2015. Talking to the patient, he has not been drin karla in four months. He reports in the past couple of days, he has had worsening abdominal distentio n, discomfort, shortness of breath. This has been worse for the past 2-3 weeks. He states that he r an out of his fluid pills about a month ago. He has had no fever or chills. He has some diminished appetite. States he tries not to eat salt and uses salt substitutes. PAST MEDICAL HISTORY: CHF with EF 30%-45%; diabetes, type 2; hypertension; cirrhosis of liver; austyn l hypertension, likely to alcohol abuse positive hepatitis C in the past. Hepatitis resolved with no active virus, alcohol abuse, not drank for the last 4 months, prior history of Pam-Nagel tears a nd GI hemorrhage from that and gastric AVMs. PAST SURGICAL HISTORY: Multiple EGDs and colonoscopies in previous visits. FAMILY HISTORY: Brother of liver cancer. SOCIAL HISTORY: Patient has cut back smoking to 1 pack per day, quit alcohol four months ago. No IV drugs. HOME MEDICATIONS: Metformin, glyburide, ferrous sulfate. He reports he stopped his diuretics about a month or two ago. PRESENT MEDICATIONS HERE IN THE HOSPITAL: Tylenol, ferrous sulfate, folic acid, Lasix 40 IV q.12 tammie rs, Aldactone 25 mg q.a.m. PHYSICAL EXAMINATION: VITAL SIGNS: Temperature is 98, pulse 67, blood pressure 130/76. He has got spider angioma of the chest. He has got muscle wasting. LUNGS: Clear. HEART: Regular rate and rhythm without clicks or murmurs. ABDOMEN: Soft. He has protuberant abdomen with shifting dullness and fluid wave. There is no rebou nd. There is no guarding. There is no evidence of hernias. EXTREMITIES: Revealed 2+ edema. LABORATORY DATA: Sodium is 139, potassium 3.9, BUN and creatinine 9 and 0.83, glucose 339. AST, ALT are all 17 and 11 with alkaline phosphatase 164. Last AFP was 05/06 was 3.9. ASSESSMENT: 1. Ascites secondary to noncompliance to medications and diet. Recommendations 2-gram sodium diet. 2. Paracentesis therapeutic tomorrow with cell count differential to rule out spontaneous bacterial peritonitis. If there is no spontaneous bacterial peritonitis, he can go home with Lasix 40 mg a day , Aldactone 100 mg day. We will need to follow up for some labs and renal monitoring with in about a week or two.
[2017-07-20 12:33] LABS: Body Fluid Source Ascites Body Fluid
[2017-07-20 12:34] LABS: BF Color Yellow; BF RBC Count - Manual 613 /cumm; BF WBC/Nonhematics Ct. - Manua 117 /cumm; Clarity Hazy (Clear); Tube # EDTA
[2017-07-20 13:04] VITALS: BP 117/64; TEMP 98.6
[2017-07-20 13:06] LABS: BF Segmented Neutrophils 6 %; Cell Count Non Hematic 52 %; Eosinophils 1 %; Lymphocytes 41 %
--- NOTE | 2017-07-20 16:04 | PRG ---
DATE OF SERVICE: 07/20/2017 SUBJECTIVE: Mr. Hebert had a paracentesis, 5 liters removed. He feels well. PHYSICAL EXAMINATION: VITAL SIGNS: Temperature is 98, pulse 58, blood pressure 117/64. ABDOMEN: Softer, has slight protuberant with shifting dullness fluid, but nontender, not tense. EXTREMITIES: He has trace edema. LABORATORY DATA: Lab studies on the fluid showed white count of 117, seg 6%. ASSESSMENT: 1. Status post therapeutic paracentesis. No signs of spontaneous bacterial peritonitis. 2. Cirrhosis, decompensated with ascites. He has had prior anemia, but no variceal bleeding. AFP a nd hepatoma screening up to date, normal. 3. Ascites. This redeveloped after he stopped diuretics. [facility]. 4. Diabetes. Low salt diet. I have discussed this with him and avoidance of fast foods and process ed snacks. 5. Diuretics. If he is going to go home on hydrochlorothiazide, may be 40 of Lasix, and 50 of Aldac tone, he is going to follow up with the [place] physician on 07/28/2017 and I told he is going to have his kidney test and potassium checked at that time. I gave him our office number and we will be happy t o see him back in a couple weeks if he would like to do that. At this time, we will sign off. I thi nk, he can go home late today. If there are any questions, please do not hesitate to contact us.
--- NOTE | 2017-07-20 16:32 | PDOC.FM ---
- Subjective Subjective: No acute complaints overnight. He feels better this morning. Denies shortness of breath or dizziness. - Objective Vital Signs & Weight: Vital Signs (12 hours) Temp Pulse Resp BP BP Pulse Ox 07/20/17 13:03 98.6 F 58 L 18 117/64 98 07/20/17 12:32 98.5 F 63 18 126/72 99 07/20/17 12:05 98.1 F 62 18 116/60 100 07/20/17 11:50 98.2 F 61 18 132/65 99 07/20/17 11:32 98.3 F 60 18 143/68 H 99 07/20/17 08:00 98.1 F 61 18 126/71 100 Weight Weight 83.234 kg I&O: 07/19/17 07/20/17 07/21/17 06:59 06:59 06:59 Intake Total 960 720 Balance 960 720 Result Diagrams: 07/20/17 08:12 07/19/17 04:15 <Rahel Barragan - Last Filed: 07/20/17 16:33> - Objective Vital Signs & Weight: Vital Signs (12 hours) Temp Pulse Resp BP BP Pulse Ox 07/20/17 13:03 98.6 F 58 L 18 117/64 98 07/20/17 12:32 98.5 F 63 18 126/72 99 07/20/17 12:05 98.1 F 62 18 116/60 100 07/20/17 11:50 98.2 F 61 18 132/65 99 07/20/17 11:32 98.3 F 60 18 143/68 H 99 07/20/17 08:00 98.1 F 61 18 126/71 100 Weight Weight 83.234 kg I&O: 07/19/17 07/20/17 07/21/17 06:59 06:59 06:59 Intake Total 960 720 Balance 960 720 Result Diagrams: 07/20/17 08:12 07/19/17 04:15 <Juanita Mena - Last Filed: 07/20/17 17:24> Phys Exam - Physical Examination Constitutional: NAD HEENT: PERRLA, moist MMs Respiratory: no wheezing, no rales, no rhonchi, clear to auscultation bilateral Cardiovascular: RRR, no significant murmur Gastrointestinal: soft, non-tender, no distention Musculoskeletal: no edema, pulses present Psychiatric: normal affect, A&O x 3 Skin: no rash <YungRahel - Last Filed: 07/20/17 16:33> Dx/Plan (1) Diabetes Code(s): E11.9 - TYPE 2 DIABETES MELLITUS WITHOUT COMPLICATIONS Status: Acute QualifierTitle: Diabetes mellitus type: type 2 (2) Pancytopenia Code(s): D61.818 - OTHER PANCYTOPENIA Status: Acute (3) Symptomatic anemia Code(s): D64.9 - ANEMIA, UNSPECIFIED Status: Acute (4) Cirrhosis of liver with ascites Code(s): K74.60 - UNSPECIFIED CIRRHOSIS OF LIVER Status: Chronic QualifierTitle: Hepatic cirrhosis type: alcoholic cirrhosis Qualified Code(s): K70.31 - Alcoholic cirrhosis of liver with ascites (5) Hepatitis C Code(s): B19.20 - UNSPECIFIED VIRAL HEPATITIS C WITHOUT HEPATIC COMA Status: Chronic QualifierTitle: Viral hepatitis chronicity: chronic Hepatic coma status: without hepatic coma Qualified Code(s): B18.2 - Chronic viral hepatitis C (6) Thrombocytopenia Code(s): D69.6 - THROMBOCYTOPENIA, UNSPECIFIED Status: Chronic (7) Tobacco abuse Code(s): Z72.0 - TOBACCO USE Status: Chronic - Plan Plan: 1) Symptomatic ascites, 2/2 #2: s/p paracentesis. No s/s of SBP. 2) Liver cirrhosis 2/2 ETOH abuse and chronic hep C: restart medications from previous hospitalization; no evidence of encephalopathy at this time, ammonia level 32. Will start lactulose 30ml BID as patient seems constipated. [facility] needs [facility]. 3) Chronic pancytopenia: S/p transfusion with one unit prbcs. He now has a Hb of 8.6. Will restart iron and other vitamin supplementation as previous labs showed iron and folic acid deficiencies. At this time, we believe his dyspnea to be mainly 2/2 abdominal distention. Thrombocytopenia also presumed 2/2 liver dz; lower than normal baseline, will continue to monitor. Transfuse if <20k. 4) Portal HTN w/ grade I varices: restart Nadalol 5) T2DM: recent A1c 8.6% in Apr, monitor accuchecks AC/HS, continue home regimen and adjust if necessary inpt but this mainly needs to be managed in the outpatient setting 6) GERD: continue PPI therapy 7) AVM: checking FOBT to ensure no acute bleed 8) Chronic hepatitis C: outpatient GI f/u 9.) Chronic tobacco abuse: will [place] on cessation 10.)HTN: He is low normal while taking lasix and spironolactone. We will dc on theses and recommend further workup outpatient. Dispo: discharge today with close follow-up with PCP. <Rahel Barragan - Last Filed: 07/20/17 16:33> Attending Addendum - Attending Addendum Date/Time: 07/20/17 9800 I personally evaluated the patient and discussed the management with Dr. Barragan. I agree with the History, Examination, Assessment and Plan documented above with any addition or exceptions noted below. The patient will be getting paracentesis this morning. Will discharge home afterwards. <Juanita Mena - Last Filed: 07/20/17 17:24>
[2017-07-20] MEDS: Insulin Regular 300 UNITS/3 ML VIAL SC PRN (17:16)
== END 2017-07-20 17:35 | disposition home or self-care (01) | DRG 433 ==
LOC: ERS 16:12 → T4-B 20:22
PROVIDERS: ADMIT Family Medicine; ATTEND Family Medicine
PROC: 0W9G3ZZ Drainage of Peritoneal Cavity, Percutaneous Approach (ICD-10-PCS; principal; 2017-07-18)
DX: K70.31 Alcoholic cirrhosis of liver with ascites (principal); K76.6 Portal hypertension; D61.818 Other pancytopenia; I85.10 Secondary esophageal varices without bleeding; E11.9 Type 2 diabetes mellitus without complications; B19.20 Unspecified viral hepatitis C without hepatic coma; I11.0 Hypertensive heart disease with heart failure; I50.9 Heart failure, unspecified; F17.210 Nicotine dependence, cigarettes, uncomplicated; Z91.14 Patient's other noncompliance with medication regimen; K21.9 Gastro-esophageal reflux disease without esophagitis; Q27.33 Arteriovenous malformation of digestive system vessel
CPT/HCPCS: 36415; 36416; 36430; 49083; 71045; 74018; 80053; 82140; 82553; 83036; 83880; 84484; 85025; 85060; 85610; 85730; 86850; 86900; 86901; 89051; 93005; J1940; P9016

== ENCOUNTER 2017-09-13 19:30 | Observation (INO) | payer MEDICARE, OTHER, SELFPAY ==
[2017-09-13] MEDS ORDERED: Ondansetron ODT 4 MG TAB ONE (19:56)
[2017-09-13 20:19] LABS: #Eosinphils 0.1 thou/uL (0.0-0.7); #Lymphocytes 1.4 thou/uL (1.20-3.40); #Monocytes 0.5 thou/uL (0.11-0.59); #Neutrophils 4.4 thou/uL (1.40-6.50); %Basophils 0.4 % (0.0-1.0); %Eosinophils 1.1 % (0.0-10.0); %Lymphocytes 21.4 % (21.0-51.0); %Monocytes 8.4 % (0.0-10.0); %Neutrophils 68.7 % (42.0-75.0); Hemoglobin 9.3 g/dL (14.0-18.0); Mean Corpuscular HGB CONC 33.5 g/dL (32.0-36.0); Mean Corpuscular Hemoglobin 29.5 pg (27.0-31.0); Mean Platelet Volume 7.2 fL (7.4-10.4); Platelet Count 65 thou/uL (130-400); Red Blood Cell (RBC) Count 3.15 mill/uL (4.70-6.10); White Blood Cell (WBC) Count 6.4 thou/uL (4.8-10.8)
[2017-09-13 20:29] LABS: CKMB 1.8 ng/mL (0-6.6)
[2017-09-13 20:30] LABS: Anisocytosis MODERATE=16-30 cells (100X) (0-5/hpf); MDiff Complete? YES; Ovalocytes SLIGHT = 2-5 cells (100X) (0-1/hpf); PLT Morphology Comment Appears Decreased; Polychromasia SLIGHT = 2-3 cells (100X) (0-2/hpf)
[2017-09-13 20:31] LABS: ALT (SGPT) 20 U/L (8-55); AST (SGOT) 25 U/L (5-34); Albumin 3.2 g/dL (3.4-4.8); Alkaline Phosphatase 112 U/L (40-150); Anion Gap 16 mmol/L (10-20); BUN (Urea Nitrogen) 69 mg/dL (8.4-25.7); CK (CPK) 46 U/L (30-200); Calc. Creatinine Clearance 0 mL/min (70-130); Calcium 9.4 mg/dL (7.8-10.44); Carbon Dioxide 24 mmol/L (23-31); Chloride 105 mmol/L (98-107); Estimated GFR-MDRD 56; Globulin 3.2 g/dL (2.4-3.5); Glucose 213 mg/dL (80-115); Potassium 4.5 mmol/L (3.5-5.1); Protein, Total 6.4 g/dL (5.8-8.1); Sodium 140 mmol/L (136-145)
[2017-09-13 20:52] LABS: Bilirubin Negative (Negative); Blood, Urine Negative (Negative); Clarity CLEAR (Clear); Glucose, Urine (Dipstick) Negative (Negative); Leukocyte Small (Negative); Nitrite Negative (Negative); Protein, Urine (Dipstick) Negative (Neg-Trace); Specific Gravity, Urine 1.016 (1.002-1.036); Urobilinogen 0.2 mg/dL (0.2-1.0)
[2017-09-13 20:53] LABS: Bacteria/HPF None Seen HPF (None Seen); Hyaline Casts/LPF 4-6 HYALINE CAST LPF (0-3 Hyaline); Pathc Cast-AUWi Flag 1.59 (0-2.49); Squamous Epithelial 0-3 HPF (0-3); WBC/HPF 0-3 HPF (0-3)
[2017-09-14] MEDS ORDERED: Acetaminophen 325 MG TAB PO PRN (00:16)
[2017-09-14] MEDS ORDERED: Ondansetron ODT 4 MG TAB SL PRN (00:16)
[2017-09-14] MEDS ORDERED: Sodium Chloride 0.9% 1,000 ML IV SCH (00:16)
[2017-09-14] MEDS ORDERED: Ondansetron HCl/PF 4 MG/2 ML Vial IVP PRN ×2 (00:16→01:13)
[2017-09-14 00:19] VITALS: BMI 26.2
[2017-09-14] MEDS: Sodium Chloride 0.9% 1,000 ML IV SCH ×2 (00:47→17:03)
[2017-09-14] MEDS ORDERED: Ondansetron ODT 4 MG TAB PO PRN (01:13)
[2017-09-14] MEDS ORDERED: Mag-Al 1200 mg/1200 mg/30 ML UDCUP PO PRN (01:13)
[2017-09-14] MEDS ORDERED: Dextrose 50% Abboject 50 ML SYRINGE SLOW IVP PRN (01:13)
[2017-09-14] MEDS ORDERED: Dextrose 5% in Water 1,000 ML IV PRN (01:13)
[2017-09-14 04:49] LABS: Anion Gap 12 mmol/L (10-20); BUN (Urea Nitrogen) 77 mg/dL (8.4-25.7); Calc. Creatinine Clearance 60 mL/min (70-130); Calcium 8.6 mg/dL (7.8-10.44); Carbon Dioxide 25 mmol/L (23-31); Chloride 107 mmol/L (98-107); Estimated GFR-MDRD 58; Glucose 248 mg/dL (80-115); Potassium 4.1 mmol/L (3.5-5.1); Sodium 140 mmol/L (136-145)
[2017-09-14] MEDS: HumaLOG 300 UNITS/3 ML VIAL SC PRN ×4 (06:15→21:20)
--- NOTE | 2017-09-14 06:28 | HP ---
PRIMARY CARE PHYSICIAN: [facility] CHIEF COMPLAINT: Feeling dizzy and weak and vomiting. HISTORY OF PRESENT ILLNESS: Mr. Hebert is a pleasant 66-year-old gentleman that has a history of ci rrhosis as well as diabetes mellitus and chronic systolic heart failure. He was in his usual state o f health until a couple of days ago. He says that he started feeling weak and dizzy when he stood up and then today, he says he vomited yesterday morning around 10:30 a.m. and then again at 3:00 p.m. He says he has not vomited in over 10 years and so he was concerned about this. He denied having any abdominal pain; however, and he has not had any diarrhea. He did say that he felt hot and feverish a couple of days ago, but no other complaints. He denies any hematemesis, no melena. He was hospita lized about a month ago in July for an exacerbation of his cirrhosis and at that time, he had lower ex tremity edema and abdominal distention. He was placed on diuretics and had a large volume of paracen tesis with removal of about 5 liters of fluid. He says he has been compliant with his medications an d now he has absolutely no swelling, no abdominal distention and he does admit that he has been out i n the heat lately. When he was evaluated in the ER, he was found to be hypotensive with blood pressu res as low as 80 systolic and it is suspected that he is likely volume depleted. REVIEW OF SYSTEMS: All systems were reviewed and negative except for that mentioned in the history o f present illness. PAST MEDICAL HISTORY: Significant for cirrhosis with portal hypertension, diabetes mellitus type 2, chronic systolic heart failure, tobacco abuse, obesity, hepatitis C, history of a previous Pam-We iss tear and gastric AVMs. PAST SURGICAL HISTORY: He has had an EGD and colonoscopy. FAMILY HISTORY: Significant for liver cancer in both brothers. SOCIAL HISTORY: He is . He has 2 children. 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 He smokes about a half a pack a day for the last 40 years. He is formerly drunk, he quit about 6 months ago and prior to quitting, he drank at least 3 quarts of beer a day. He would like to be a F[employer]. He has not designated a surrogate decision maker. ALLERGIES: No known drug allergies. MEDICATIONS: Include lisinopril/hydrochlorothiazide 20/25 one tablet daily, multivitamin once a day, metoprolol 25 mg twice daily, Lasix 20 mg a day, ferrous sulfate 325 mg daily, Aldactone 25 mg daily , metformin extended release 750 mg daily, and glipizide 5 mg daily. PHYSICAL EXAMINATION: GENERAL: He is alert and oriented. He appears to be in no acute distress. He is well-developed and well-nourished. VITAL SIGNS: Blood pressure was 100/53, supine and standing, it was 97/51, heart rate 91, respirator y rate of 20, temperature is 98.7. HEENT: Pupils are equal, round, and reactive. Extraocular muscles are intact. His sclerae are anic teric. Throat: No erythema, no exudates. He has poor dentition. NECK: There is no adenopathy, no bruits. LUNGS: Clear to auscultation. There is no wheezing or rales, no rhonchi. CARDIOVASCULAR: He has a normal S1, S2. He did have a slight grade 106 flow murmur, systolic. ABDOMEN: Obese, it is soft, it is nontender, nondistended. Positive for bowel sounds. There is no rebound, no guarding. EXTREMITIES: No edema. He has got no calf pain, no erythema, redness and he has got 2+ dorsalis ped is pulses bilaterally. NEUROLOGIC: The exam is nonfocal. His muscle strength is 5/5 in both his upper and lower extremitie s. SKIN AND INTEGUMENT: There are no skin changes. No rash. LABORATORY RESULTS: Sodium 140, potassium 4.5, chloride is 105, CO2 is 24, BUN is 69, creatinine 1.2 8, glucose was 213. White blood cell count 6.4, hemoglobin 9.3, hematocrit is 27.7, platelet count w as 65. Urinalysis with small leukocyte esterase. ASSESSMENT AND PLAN: This is a pleasant 66-year-old gentleman who presents with weakness and dizzine ss. He is also hypotensive. He says the dizziness is primarily when he stands up and tries to move around when he is lying down, he is basically asymptomatic. It has been noted that he did have a sig nificant drop in his blood pressure from lying to sitting in which the blood pressure went from 102 t o 87 systolic. He also has a high BUN to creatinine ratio, all pointing towards volume depletion as a potential cause. This would make sense since he has recently been placed on diuretic therapy. The refore, we will gently hydrate him overnight being cautious given his history of congestive heart samaria lure and cirrhosis, reevaluate him in the a.m., and if he is improved symptomatically, then he can be discharged home, may need to consider lowering the dose of his diuretics, possibly consider the angelo nopril/hydrochlorothiazide combination. These will be held and the morning team can decide when it i s safe to restart these and if the doses should be adjusted. He will be started on his routine medic ations for diabetes as well as a sliding scale.
[2017-09-14] MEDS: Ferrous Sulfate 325 MG TAB PO SCH (08:05)
[2017-09-14] MEDS: glipiZIDE 5 MG TAB PO SCH (08:05)
[2017-09-14] MEDS ORDERED: Metoprolol Tartrate 25 MG TAB PO SCH (09:00)
--- NOTE | 2017-09-14 13:06 | PDOC.EVN ---
Event Note - Event Note Event Note: 66 M with PMH of CHF admitted 2/2 hypotension. Patient also hypotensive on arrival. He is on furosemide, Spironolactone and hydrochlorothiazide which could have resulted in orthostasis. He has improved but still has some dizziness and is being gently hydrated. Will continue to monitor. Antihypertensives and diuretics are being held.
[2017-09-14] MEDS: metFORMIN XR 500 MG TAB PO SCH (17:02)
[2017-09-15 05:09] LABS: Anion Gap 10 mmol/L (10-20); BUN (Urea Nitrogen) 46 mg/dL (8.4-25.7); Calc. Creatinine Clearance 88 mL/min (70-130); Calcium 8.5 mg/dL (7.8-10.44); Carbon Dioxide 23 mmol/L (23-31); Chloride 112 mmol/L (98-107); Estimated GFR-MDRD 90; Glucose 152 mg/dL (80-115); Potassium 4.1 mmol/L (3.5-5.1); Sodium 141 mmol/L (136-145)
[2017-09-15 05:15] LABS: Hemoglobin 6.6 g/dL (14.0-18.0); Mean Corpuscular HGB CONC 32.4 g/dL (32.0-36.0); Mean Corpuscular Hemoglobin 29.4 pg (27.0-31.0); Mean Corpuscular Volume 90.8 fL (78.0-98.0); Mean Platelet Volume 12.7 fL (7.4-10.4); Platelet Count 36 thou/uL (130-400); RBC Distribution Width 21.2 % (11.5-14.5); Red Blood Cell (RBC) Count 2.24 mill/uL (4.70-6.10); White Blood Cell (WBC) Count 2.9 thou/uL (4.8-10.8)
[2017-09-15] MEDS ORDERED: EPINEPHrine 1 MG/ML AMP IVP PRN (08:05)
[2017-09-15] MEDS ORDERED: diphenhydrAMINE 50 MG/ML VIAL IVP SCH (08:15)
[2017-09-15] MEDS ORDERED: Furosemide 20 MG/2 ML VIAL IVP SCH (08:15)
[2017-09-15] MEDS ORDERED: Acetaminophen 325 MG TAB PO SCH (08:15)
--- NOTE | 2017-09-15 09:40 | PDOC.PN ---
- Subjective Encounter Start Date: 09/15/17 Encounter Start Time: 09:40 66 M with a h/o CHF, cirrhosis and pancytopenia presenting with dizziness, dehydration and orthostatic hypotension. He was hydrated gently with mild improvement. Repeat labs revealed Hb of 6.6. He feels better today but still has episodes of dizziness on ambulation. No acute events overnight, - Objective Resuscitation Status: Resuscitation Status FULL:Full Resuscitation MAR Reviewed: Yes Vital Signs & Weight: Vital Signs (12 hours) Temp Pulse Resp BP BP Pulse Ox 09/15/17 07:49 99.1 F 90 20 09/15/17 07:22 98.2 F 80 20 93/50 L 96 09/15/17 03:35 99.1 F 90 20 111/58 L 97 09/14/17 23:16 99.0 F 83 21 H 110/57 L 99 Weight Weight 162 lb 6.4 oz I&O: 09/14/17 09/15/17 09/16/17 06:59 06:59 06:59 Intake Total 668 1772 Output Total 125 2025 Balance 543 -253 Result Diagrams: 09/15/17 04:13 09/15/17 04:13 Additional Labs: Accuchecks 09/14/17 09/14/17 09/14/17 21:02 16:29 10:37 POC Glucose 248 H 229 H 293 H Phys Exam - Physical Examination Constitutional: NAD HEENT: moist MMs, sclera anicteric Neck: supple, full ROM Respiratory: no wheezing, no rales, no rhonchi, clear to auscultation bilateral Cardiovascular: RRR, no significant murmur, no rub Gastrointestinal: soft, non-tender, positive bowel sounds Musculoskeletal: no edema, pulses present Neurological: non-focal, moves all 4 limbs Psychiatric: normal affect, A&O x 3 Skin: no rash, normal turgor Dx/Plan (1) Symptomatic anemia Code(s): D64.9 - ANEMIA, UNSPECIFIED Status: Acute (2) Orthostatic hypotension Code(s): I95.1 - ORTHOSTATIC HYPOTENSION Status: Acute (3) Diabetes Code(s): E11.9 - TYPE 2 DIABETES MELLITUS WITHOUT COMPLICATIONS Status: Acute Qualifiers: Diabetes mellitus type: type 2 Diabetes mellitus longterm insulin use: without termite control representative use (4) Pancytopenia Code(s): D61.818 - OTHER PANCYTOPENIA Status: Acute (5) Systolic CHF Code(s): I50.20 - UNSPECIFIED SYSTOLIC (CONGESTIVE) HEART FAILURE Status: Chronic Qualifiers: Heart failure chronicity: chronic Qualified Code(s): I50.22 - Chronic systolic (congestive) heart failure (6) Hepatitis C Code(s): B19.20 - UNSPECIFIED VIRAL HEPATITIS C WITHOUT HEPATIC COMA Status: Chronic Qualifiers: Viral hepatitis chronicity: chronic Hepatic coma status: without hepatic coma Qualified Code(s): B18.2 - Chronic viral hepatitis C (7) Thrombocytopenia Code(s): D69.6 - THROMBOCYTOPENIA, UNSPECIFIED Status: Chronic (8) Tobacco abuse Code(s): Z72.0 - TOBACCO USE Status: Chronic - Plan cont current plan of care, PT/OT, out of bed/ambulate, DVT proph w/SCDs Transfuse with 2 units on PRBCs Gradually reintroduce home antihypertensives Discontinue HCTZ Continue metformin and Glipizide, SSI and hypoglycemia protocol. His home diuretic regimen will definitely need to be adjusted before discharge. Review of Systems - Medications/Allergies Allergies/Adverse Reactions: Allergies Allergy/AdvReac Type Severity Reaction Status Date / Time No Known Drug Allergies Allergy Unknown Verified 09/14/17 00:28 Medications: Current Medications Acetaminophen (Tylenol) 650 mg PO [facility] Stop: 09/15/17 12:00 Al Hydroxide/Mg Hydroxide (Maalox) 30 ml PO Q6H PRN PRN Reason: Heartburn or Indigestion Dextrose/Water (Dextrose 50%) 25 gm SLOW IVP PRN PRN PRN Reason: Hypoglycemia Diphenhydramine HCl (Benadryl) 25 mg IVP [facility] Stop: 09/15/17 12:00 Epinephrine (Epinephrine) 0.1 mg IVP Q10MIN PRN PRN Reason: Anaphylactic Reaction Ferrous Sulfate (Feosol) 325 mg PO DAILY [facility] Last Admin: 09/14/17 08:05 Dose: 325 mg Furosemide (Lasix) 20 mg IVP [facility] Stop: 09/15/17 15:00 Glipizide (Glucotrol) 5 mg PO DAILY [facility] Last Admin: 09/14/17 08:05 Dose: 5 mg Glucagon (Glucagon) 1 mg IM PRN PRN PRN Reason: Hypoglycemia Dextrose/Water (D5w) 1,000 mls @ 0 mls/hr IV .Q0M PRN; As Directed PRN Reason: Hypoglycemia Insulin Human Lispro (Humalog) 0 units SC .MILD SLIDING SCALE PRN PRN Reason: Mild Correctional Scale Last Admin: 09/14/17 17:03 Dose: 3 unit Insulin Human Lispro (Humalog) 0 units SC .BEDTIME SLIDING SC PRN PRN Reason: Bedtime Correctional Scale Last Admin: 09/14/17 21:20 Dose: 2 unit Metformin HCl (Glucophage Xr) 750 mg [facility] Last Admin: 09/14/17 17:02 Dose: 750 mg Metoprolol Tartrate (Lopressor) 25 mg PO BID KATARZYNA Ondansetron HCl (Zofran Odt) 4 mg PO Q6H PRN PRN Reason: Nausea/Vomiting Ondansetron HCl (Zofran) 4 mg IVP Q6H PRN PRN Reason: Nausea/Vomiting Sodium Chloride (Flush - Normal Saline) 10 ml IVF PRN PRN PRN Reason: Saline Flush
[2017-09-15] MEDS: Ferrous Sulfate 325 MG TAB PO SCH (09:42)
[2017-09-15] MEDS: glipiZIDE 5 MG TAB PO SCH (10:08)
--- NOTE | 2017-09-15 13:31 | EKG ---
Test Reason : DIZZINESS, VOMITING Blood Pressure : / mmHG Vent. Rate : 104 BPM Atrial Rate : 104 BPM P-R Int : 120 ms QRS Dur : 080 ms QT Int : 340 ms P-R-T Axes : 063 058 066 degrees QTc Int : 447 ms Sinus tachycardia Otherwise normal ECG Confirmed by JAMI BAL [id number]), legal editor DUTCH MCGILL ([id number] on 09/15/2017 1:31:15 PM Referred By: Confirmed By:JAMI BAL
[2017-09-15] MEDS: metFORMIN XR 500 MG TAB PO SCH (18:28)
[2017-09-15] MEDS: HumaLOG 300 UNITS/3 ML VIAL SC PRN ×2 (18:31→20:26)
[2017-09-16 04:47] LABS: #Eosinphils 0.2 thou/uL (0.0-0.7); #Lymphocytes 0.5 thou/uL (1.20-3.40); #Monocytes 0.2 thou/uL (0.11-0.59); #Neutrophils 1.3 thou/uL (1.40-6.50); %Basophils 1.4 % (0.0-1.0); %Eosinophils 6.8 % (0.0-10.0); %Lymphocytes 23.7 % (21.0-51.0); %Monocytes 8.9 % (0.0-10.0); %Neutrophils 59.3 % (42.0-75.0); Hemoglobin 8.8 g/dL (14.0-18.0); Mean Corpuscular HGB CONC 33.1 g/dL (32.0-36.0); Mean Corpuscular Hemoglobin 29.7 pg (27.0-31.0); Mean Corpuscular Volume 89.7 fL (78.0-98.0); Platelet Count 31 thou/uL (130-400); Red Blood Cell (RBC) Count 2.96 mill/uL (4.70-6.10); White Blood Cell (WBC) Count 2.2 thou/uL (4.8-10.8)
[2017-09-16 05:00] LABS: Anion Gap 10 mmol/L (10-20); BUN (Urea Nitrogen) 26 mg/dL (8.4-25.7); Calc. Creatinine Clearance 93 mL/min (70-130); Calcium 8.8 mg/dL (7.8-10.44); Carbon Dioxide 27 mmol/L (23-31); Chloride 108 mmol/L (98-107); Estimated GFR-MDRD Greater than 90; Glucose 225 mg/dL (80-115); Potassium 3.8 mmol/L (3.5-5.1); Sodium 141 mmol/L (136-145)
[2017-09-16] MEDS: HumaLOG 300 UNITS/3 ML VIAL SC PRN ×3 (06:38→17:43)
[2017-09-16] MEDS: Ferrous Sulfate 325 MG TAB PO SCH (08:35)
[2017-09-16] MEDS: glipiZIDE 5 MG TAB PO SCH (08:35)
[2017-09-16] MEDS: metFORMIN XR 500 MG TAB PO SCH (17:42)
--- NOTE | 2017-09-16 18:05 | PDOC.PN ---
- Subjective Encounter Start Date: 09/16/17 Encounter Start Time: 18:03 Mr. Hebert was seen today in follow-up of volume depletion. He says he feels great. He does not have any complaints today. - Objective Resuscitation Status: Resuscitation Status FULL:Full Resuscitation MAR Reviewed: Yes Vital Signs & Weight: Vital Signs (12 hours) Temp Pulse Resp BP BP Pulse Ox 09/16/17 16:00 97.7 F 88 16 165/75 H 100 09/16/17 12:00 98.4 F 86 16 143/78 H 97 09/16/17 08:00 98.5 F 82 16 128/63 96 09/16/17 07:21 98.5 F 82 16 128/63 96 Weight Weight 162 lb 6.4 oz I&O: 09/15/17 09/16/17 09/17/17 06:59 06:59 06:59 Intake Total 1772 700 Output Total 2024 1924 Balance -253 1228 Result Diagrams: 09/16/17 04:01 09/16/17 04:01 Additional Labs: Accuchecks 09/16/17 09/16/17 09/15/17 17:43 11:37 20:21 POC Glucose 230 H 269 H 261 H Phys Exam - Physical Examination HEENT: PERRLA Respiratory: no wheezing, no rales, no rhonchi, clear to auscultation bilateral Cardiovascular: RRR, no significant murmur, no rub Gastrointestinal: soft, non-tender, positive bowel sounds Musculoskeletal: no edema Dx/Plan (1) Volume depletion Code(s): E86.9 - VOLUME DEPLETION, UNSPECIFIED Status: Acute (2) Cirrhosis of liver Code(s): K74.60 - UNSPECIFIED CIRRHOSIS OF LIVER Status: Acute (3) Orthostatic hypotension Code(s): I95.1 - ORTHOSTATIC HYPOTENSION Status: Acute (4) Hepatitis C Code(s): B19.20 - UNSPECIFIED VIRAL HEPATITIS C WITHOUT HEPATIC COMA Status: Chronic Qualifiers: Viral hepatitis chronicity: chronic Hepatic coma status: without hepatic coma Qualified Code(s): B18.2 - Chronic viral hepatitis C (5) Hypertension Code(s): I10 - ESSENTIAL (PRIMARY) HYPERTENSION Status: Chronic Qualifiers: Hypertension type: essential hypertension Qualified Code(s): I10 - Essential (primary) hypertension - Plan * .
[2017-09-16 19:09] VITALS: BP 156/72; TEMP 97
--- NOTE | 2017-09-17 02:08 | DIS ---
PRIMARY CARE PROVIDER: Through [facility] [place]. DATE OF ADMISSION: 09/14/2017 DATE OF DISCHARGE: 09/16/2017 DISCHARGE DISPOSITION: Home. PRIMARY DISCHARGE DIAGNOSES: 1. Orthostatic hypotension secondary to volume depletion. 2. Cirrhosis with portal hypertension. 3. Diabetes mellitus, type 2. 4. Chronic systolic heart failure. 5. Obesity. 6. Hepatitis C. 7. History of Pam-Nagel tear and gastric arteriovenous malformations. 8. Previous history of alcohol abuse. DISCHARGE MEDICATIONS: Please note lisinopril/hydrochlorothiazide was discontinued and he will be ch anged to lisinopril 10 mg daily and continue Aldactone 25 mg a day, multivitamin once a day, metoprol ol 25 mg twice daily, metformin XR 750 mg daily, glipizide 5 mg daily, Lasix 20 mg daily and iron sul fate 325 mg a day. CODE STATUS: FULL CODE. ALLERGIES: No known drug allergies. HOSPITAL COURSE: Mr. Hebert is a pleasant 66-year-old gentleman, who presented to the emergency jose david , feeling weak, dizzy and noticed that he also had some vomiting. It was found that he was orthosta tic hypotensive and this was likely due to volume depletion as he had recently been placed on diureti cs with regards to some ascites and portal hypertension that he had secondary to alcoholic cirrhosis. It is believed that he was over diuresed and we will be changing his medications. He was on lisino pril/hydrochlorothiazide at 20/25 mg daily. This will be changed to lisinopril alone and at a lower dose at 10 mg a day. Since he did have significant edema before on his prior admission, we will cont inue Lasix 20 mg daily, as well as Aldactone at 25 mg daily and he will need close follow up in the [facility] setting.
== END 2017-09-16 18:55 | disposition home or self-care (01) ==
LOC: ERS 19:30 → INTOOBSV 09-14 00:07 → 2SW 09-14 00:07
PROVIDERS: ADMIT Internal Medicine; ATTEND Internal Medicine
DX: E86.9 Volume depletion, unspecified (principal); I95.1 Orthostatic hypotension; K74.60 Unspecified cirrhosis of liver; K76.6 Portal hypertension; E11.9 Type 2 diabetes mellitus without complications; I50.22 Chronic systolic (congestive) heart failure; E66.9 Obesity, unspecified; B18.2 Chronic viral hepatitis C; D64.9 Anemia, unspecified; D69.6 Thrombocytopenia, unspecified; D61.818 Other pancytopenia; Z72.0 Tobacco use; Z79.899 Other long term (current) drug therapy; Z79.4 Long term (current) use of insulin; Z68.26 Body mass index [BMI] 26.0-26.9, adult
CPT/HCPCS: 36415; 36416; 36430; 80048; 80053; 81003; 81015; 82140; 82553; 83880; 84484; 85025; 85027; 86850; 86900; 86901; 87086; 93005; 96360; 96361; 96374; 96375; G0378; G8978-GP-CK; G8979-GP-CK; G8980-GP-CK; J1200; J1940; P9016; Q0162

== ENCOUNTER 2017-11-01 12:42 | Inpatient (IN) | payer MEDICARE, SELFPAY ==
[2017-11-01] MEDS ORDERED: Iopamidol 370 76% 100 ML VIAL ONE (12:50)
[2017-11-01 13:13] LABS: Hemoglobin 6.1 g/dL (14.0-18.0); Mean Corpuscular HGB CONC 34.7 g/dL (32.0-36.0); Mean Corpuscular Hemoglobin 33.5 pg (27.0-31.0); Mean Corpuscular Volume 96.3 fL (78.0-98.0); Mean Platelet Volume 9.3 fL (7.4-10.4); Platelet Count 91 thou/uL (130-400); RBC Distribution Width 15.4 % (11.5-14.5); Red Blood Cell (RBC) Count 1.83 mill/uL (4.70-6.10); White Blood Cell (WBC) Count 8.4 thou/uL (4.8-10.8)
[2017-11-01 13:23] LABS: Albumin 2.8 g/dL (3.4-4.8); Alkaline Phosphatase 74 U/L (40-150); Anion Gap 12 mmol/L (10-20); BUN (Urea Nitrogen) 48 mg/dL (8.4-25.7); Bilirubin, Total 1.4 mg/dL (0.2-1.2); Calc. Creatinine Clearance 0 mL/min (70-130); Calcium 8.4 mg/dL (7.8-10.44); Carbon Dioxide 20 mmol/L (23-31); Chloride 108 mmol/L (98-107); Estimated GFR-MDRD 60; Globulin 2.2 g/dL (2.4-3.5); Glucose 545 mg/dL (80-115); Potassium 5.1 mmol/L (3.5-5.1); Sodium 135 mmol/L (136-145)
[2017-11-01 13:24] LABS: AST (SGOT) 21 U/L (5-34)
[2017-11-01 13:25] LABS: ALT (SGPT) 20 U/L (8-55)
[2017-11-01 13:30] LABS: CKMB 1.8 ng/mL (0-6.6); Troponin I Less than 0.010 ng/mL (< 0.028)
[2017-11-01 13:31] LABS: Anisocytosis SLIGHT = 6-15 cells (100X) (0-5/hpf); Band 8 % (5-11); Lymphocytes 7 % (21-51); MDiff Complete? YES; Monocytes 2 % (0-10); Neutrophil 83 % (42-75); Nucleated RBC 1 % (0); Ovalocytes SLIGHT = 2-5 cells (100X) (0-1/hpf); PLT Morphology Comment Appears Decreased; Polychromasia SLIGHT = 2-3 cells (100X) (0-2/hpf)
[2017-11-01 13:34] LABS: Lipase 83 U/L (8-78)
[2017-11-01] MEDS ORDERED: Pantoprazole 40 MG VIAL ONE (13:52)
[2017-11-01 13:54] LABS: Bilirubin Negative (Negative); Blood, Urine Negative (Negative); Clarity CLEAR (Clear); Glucose, Urine (Dipstick) >=1000 mg/dL (Negative); Leukocyte Small (Negative); Nitrite Negative (Negative); Protein, Urine (Dipstick) Negative (Neg-Trace); Specific Gravity, Urine 1.024 (1.002-1.036); Urobilinogen 0.2 mg/dL (0.2-1.0); pH, Urine 5.5 (5.0-9.0)
[2017-11-01 14:00] LABS: Bacteria/HPF None Seen HPF (None Seen); Hyaline Casts/LPF 0-3 HYALINE CAST LPF (0-3 Hyaline); Pathc Cast-AUWi Flag 0.14 (0-2.49); RBC/HPF 0-3 HPF (0-3); Squamous Epithelial 0-3 HPF (0-3)
--- NOTE | 2017-11-01 14:28 | CT ---
ABDOMEN CT WITH CONTRAST: PELVIS CT WITH CONTRAST: HISTORY: Abdominal pain. Vomiting. Diarrhea. Left lower quadrant pain. COMPARISON: None. TECHNIQUE: Abdomen and pelvis CT is performed with IV contrast. Enteric contrast is not administered. Coronal reformatted images are submitted for interpretation. FINDINGS: ABDOMEN: Clear lung bases. Heart size is normal. No pericardial fluid. The descending thoracic ao rta and abdominal aorta have a normal caliber. No periaortic fat stranding. Nodularity of the liver, compatible with cirrhotic change. There is evidence of portal hypertension with gastroesophageal and splenic varices. Portal vein continues to be patent. There is fluid in th e gallbladder fossa, which is nonspecific. There are enlarged gastrohepatic lymph nodes. Agriculture Scientist lymph node measures 1.4 x 0.8 cm. No r etrocrural lymphadenopathy. There does appear to be an enlarged periportal lymph node, measuring 1.1 x 0.7 cm. There is no mesenteric mass, free air, free fluid, or significant lymphadenopathy. There are a few s cattered nonspecific, nonenlarged lymph nodes. The spleen is enlarged, measuring 14.5 cm. The adrenal glands have appropriate enhancement. Hypoden sities in the left kidney have been previously reported to be a cyst. Correlation made with abdomen ultrasound does demonstrate an anechoic flow, with through transmission. Currently, the attenuation coefficient of 30 Hounsfield units may be due to administration of contrast and phase of imaging. If there is concern, a noncontrast CT can be performed. Limited evaluation of the alimentary canal by lack of oral contrast. No evidence of bowel obstructio n. There is nonspecific mucosal thickening of multiple small bowel loops. This submucosal thickenin g involves the mid portion of the small bowel. The possibility of enteritis cannot be completely exc luded. The ileocecal junction is normal. Normal caliber appendix. There is mucosal thickening invo lving the cecum, ascending colon, and proximal transverse colon. The mid to distal transverse colon and the descending colon do not demonstrate mucosal prominence. There does appear to be mucosal prom inence of the sigmoid colon, which may be due to inadequate distention. There is diverticulosis with out evidence of diverticulitis. PELVIS: Decompressed urinary bladder limits evaluation. No pelvic mass, lymphadenopathy, free air, or free fluid. No lytic or blastic lesions of the osseous structures. IMPRESSION: 1. Cirrhosis. 2. Gastroesophageal varices. 3. Nonspecific enlarged gastrohepatic and periportal lymph nodes. 4. Splenomegaly. 5. Mucosal prominence involving small bowel loops, as well as the right hemicolon. Correlate for a possible infectious or inflammatory process. The possibility of an ischemic process is less favored, given the distribution of the mucosal prominence. 6. Diverticulosis without evidence of diverticulitis. Prominence of the sigmoid colon is presumed t o be due to inadequate distention. Consider colonoscopy. POS: RAUL
[2017-11-01] MEDS ORDERED: PROPOFOL 200 MG/20 ML VIAL ONE (14:36)
[2017-11-01] MEDS ORDERED: PHENYLEPHRINE-NS 100 MCG/ML 10 ML SYRINGE ONE (14:36)
[2017-11-01] MEDS ORDERED: Lidocaine 1% PF 5 ML VIAL ONE (14:36)
[2017-11-01] MEDS ORDERED: Octreotide Acetate 50 MCG/ML AMP SLOW IVP SCH (14:45)
[2017-11-01] MEDS ORDERED: Octreotide Acetate 1,250 MCG in Sodium Chloride 0.9% 250 ML 250 ML IVPB SCH ×2 (14:45→19:45)
[2017-11-01] MEDS ORDERED: cefTRIAXone\\ROCEPHIN 1 GM VIAL ONE (14:49)
[2017-11-01] MEDS ORDERED: Octreotide Acetate 50 MCG/ML AMP ONE (15:08)
[2017-11-01 16:02] LABS: INR-International Normal Ratio 1.5; Prothrombin Time 17.9 SEC (12.0-14.7)
[2017-11-01] MEDS ORDERED: Ondansetron HCl/PF 4 MG/2 ML Vial IVP PRN ×2 (19:25→19:28)
[2017-11-01] MEDS ORDERED: Promethazine HCl 25 MG/ML VIAL SLOW IVP PRN ×2 (19:25→19:28)
[2017-11-01] MEDS ORDERED: Promethazine HCl 25 MG/ML VIAL IM PRN ×2 (19:25→19:28)
--- NOTE | 2017-11-01 21:17 | CON ---
DATE OF CONSULTATION: 11/01/2017 GASTROENTEROLOGY CONSULTATION NOTE CHIEF COMPLAINT: Weakness. HISTORY OF PRESENT ILLNESS: Mr. Hebert is a 66-year-old man who has a history of cirrhosis secondar y to alcohol and hepatitis C. He was feeling weak and dizzy and had to hold on the wall to stay up. He vomited a couple of times this morning, however, did not appear bloody. He had a possible syncop al episode on his bed. He has had no appetite for the last 3 days. He has had some sweats in the ev enings. He has had black stools around 3 or 4 times a day over the last few days. This has been on and off over the last few months. He has had no chest pain or shortness of breath. 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 His hepatitis C was cured with antiviral therapy. He had been off alcohol for several months, but he last drank 3 da ys ago and was drinking over the few days before that. He has had no weight changes. He does not ap pear to have been taking his glipizide or Aldactone recently. He does not have nadolol on his curren t medication list. His last EGD and colonoscopy were in 05/[address] Wells, which showed small ga stric varices and small esophageal varices. He has had colonoscopy, he has had a couple of small beulah yps removed. Polyps were at least one of the polyps was an adenoma. He did require paracentesis for ascites back in July; however, he had a CT scan after presenting to the hospital today which shows no significant ascites. He has a history of diabetes mellitus type 2, CHF, hypertension. He did have a Pam-Nagel tear by previous EGD and also passed EGD showing gastric vascular ectasias, which wer e cauterized. PAST SURGICAL HISTORY: Upper and lower endoscopy. FAMILY HISTORY: His brother had liver cancer. SOCIAL HISTORY: He has been smoking a pack every couple of days. He was smoking as much as two pack s per day in the past. He had been off alcohol for several months but has been drinking intermittent ly more recently. His last drink of alcohol was 3 days ago. No history of drugs. ALLERGIES: No known drug allergies. MEDICATIONS: As an outpatient, metformin, metoprolol, Lasix, and iron. REVIEW OF SYSTEMS: Negative x10 systems reviewed except as stated in the history of present illness. PHYSICAL EXAMINATION: VITAL SIGNS: Blood pressure 126/66, pulse 81, temperature 98.0. GENERAL: He is in no acute distress. He is awake. He is oriented x3; however, he answers questions definitely different times. He could have some degree of confabulation. LUNGS: Clear to auscultation bilaterally. HEART: Regular rate and rhythm. EYES: Have no scleral icterus. OROPHARYNX: Clear without lesions. NECK: No cervical or supraclavicular lymphadenopathy. ABDOMEN: Soft, nontender, nondistended. Bowel sounds are present. Rectal exam reveals a liquidy bl ack stool in the rectal vault. EXTREMITIES: No lower extremity edema. NEURO: He has no asterixis. LABORATORY DATA: His bilirubin is mildly elevated at 1.4; however, this is better than it was in Aug. Transaminases are normal. Albumin is 2.8, lipase 83. Last alpha fetoprotein was in April and was 3.9, creatinine 1.2. Hemoglobin was 6.1, white blood cell count 8.4, platelets 91. INR 1.5, wh ich is above his baseline. IMPRESSION: 1. Cirrhosis of the liver secondary to alcohol, which has been with active use recently last drink 3 days ago and past history of hepatitis C, status post antiviral treatment with care. His INR is hig her than baseline has been bilirubin is mildly elevated. He has had ascites in the past, but not now . 2. Gastrointestinal bleed. He presents with melena and anemia of the acute blood loss with a hemogl obin of 6.1 and orthostatic dizziness. 3. History of gastric and esophageal varices. These were small on previous procedures. He did have some vascular ectasias in the stomach cauterized in the past. He was previously advised to take nad olol, but more recently appears to have been on metoprolol. He could potentially benefit to going ba ck to a nonselective beta-lesley. 4. Acute kidney disease. His creatinine is elevated to 1.2 from a baseline of 0.8. I would expect this will improve, as he receives hydration and blood transfusion. RECOMMENDATIONS: 1. Octreotide drip. 2. Proton-pump inhibitor. 3. We will follow through with EGD today. 4. Check alpha-fetoprotein. 5. He was noted to have some thickening of the bowel wall, which might be just due to the portal hyp ertension. He has had no significant abdominal pain or diarrhea; however, we will see how these symp toms evolve as he has changed his story multiple times when talking of different providers.
[2017-11-01] MEDS: Pantoprazole 40 MG VIAL IVP SCH (21:32)
[2017-11-01 21:45] VITALS: BMI 25.4
[2017-11-01] MEDS ORDERED: Dextrose 50% Abboject 50 ML SYRINGE SLOW IVP PRN (22:54)
[2017-11-01] MEDS ORDERED: Dextrose 5% in Water 1,000 ML IV PRN (22:54)
--- NOTE | 2017-11-02 00:02 | OP ---
DATE OF PROCEDURE: 11/01/2017 PROCEDURE: Esophagogastroduodenoscopy with control of hemorrhage. PREOPERATIVE DIAGNOSES: Gastrointestinal bleed, anemia of acute blood loss, and cirrhosis with histo ry of varices. PROCEDURE IN DETAIL: Informed consent was obtained from the patient. He was sedated with total intr avenous anesthesia. The bite block was placed and the endoscope was advanced easily to the second po rtion of the duodenum and retroflexion was performed in the stomach. The esophagus was normal. He d id not have obvious esophageal varices today. GE junction was normal. The stomach had moderately se camilla portal hypertensive gastropathy in the fundus and body. There was heme staining in the stomach and first and second portions of the duodenum, but no active bleeding. There were prominent folds in the fundus, which likely represent varices; however, they are not obvious. There were 2 small vascu lar ectasias only measuring 1 mm or 2 in the bulb of the duodenum, which were cauterized with argon p lasma coagulation. The second portion of the duodenum was normal. IMPRESSION: 1. Prominent folds in the gastric fundus, which likely represent varices; however, these are not obv ious. There was no stigmata of recent bleeding regarding these. 2. Portal hypertensive gastropathy, moderately severe in the fundus and body. 3. Two small vascular ectasias in the first portion of the duodenum were cauterized with argon plasm a coagulation. 4. Heme staining in the stomach and duodenum without an obvious acutely bleeding source. The bleedi ng might have been from the portal hypertensive gastropathy. 5. No esophageal varices were seen today. RECOMMENDATIONS: 1. Continue the octreotide for now in light of the possible gastric varices. 2. Proton pump inhibitor. 3. Follow the trend of the hemoglobin. 4. Alcohol cessation.
[2017-11-02 04:09] LABS: ALT (SGPT) 19 U/L (8-55); AST (SGOT) 19 U/L (5-34); Albumin 2.4 g/dL (3.4-4.8); Alkaline Phosphatase 60 U/L (40-150); Anion Gap 11 mmol/L (10-20); BUN (Urea Nitrogen) 42 mg/dL (8.4-25.7); Bilirubin, Total 1.1 mg/dL (0.2-1.2); Calc. Creatinine Clearance 66 mL/min (70-130); Calcium 7.9 mg/dL (7.8-10.44); Carbon Dioxide 18 mmol/L (23-31); Chloride 110 mmol/L (98-107); Estimated GFR-MDRD 67; Glucose 346 mg/dL (80-115); Potassium 4.3 mmol/L (3.5-5.1); Protein, Total 4.4 g/dL (5.8-8.1); Sodium 135 mmol/L (136-145)
[2017-11-02 04:12] LABS: INR-International Normal Ratio 1.5; Prothrombin Time 17.8 SEC (12.0-14.7)
[2017-11-02 05:02] LABS: Hemoglobin 5.9 g/dL (14.0-18.0)
[2017-11-02 06:06] LABS: Anisocytosis SLIGHT = 6-15 cells (100X) (0-5/hpf); Band 20 % (5-11); Eosinophils 3 % (0-10); Lymphocytes 25 % (21-51); MDiff Complete? YES; Mean Corpuscular HGB CONC 35.5 g/dL (32.0-36.0); Mean Corpuscular Hemoglobin 34.4 pg (27.0-31.0); Mean Corpuscular Volume 96.9 fL (78.0-98.0); Mean Platelet Volume 10.2 fL (7.4-10.4); Monocytes 5 % (0-10); Neutrophil 47 % (42-75); PLT Morphology Comment Appears Decreased; Platelet Count 48 thou/uL (130-400); RBC Distribution Width 15.9 % (11.5-14.5); White Blood Cell (WBC) Count 5.7 thou/uL (4.8-10.8)
[2017-11-02] MEDS: HumaLOG 300 UNITS/3 ML VIAL SC PRN ×3 (06:10→21:53)
[2017-11-02] MEDS: Pantoprazole 40 MG VIAL IVP SCH ×2 (09:00→21:53)
[2017-11-02] MEDS: Folic Acid 1 MG TAB PO SCH (09:00)
[2017-11-02] MEDS: Multivit, Therapeutic 1 TAB PO SCH (09:00)
--- NOTE | 2017-11-02 09:29 | PDOC.EVN ---
Event Note - Event Note Event Note: h&p [id number]
--- NOTE | 2017-11-02 09:51 | HP ---
DATE OF ADMISSION: 11/02/2017 PRIMARY CARE PHYSICIAN: [facility]. CHIEF COMPLAINT: Abdominal pain. HISTORY OF PRESENT ILLNESS: This is a 66-year-old male with a known history of hepatitis C, alcohol induced combination cirrhosis. He has a known history of esophageal varices as well and presents today with a chief complaint of abdominal pain and also black tarry stools. In the emergency department, he was noted to have hemodynamic stability, but with a hemoglobin of 6.1. At the time of my evaluation, patient is currently status post EGD with cauterization of two vascular ectasias. Patient himself has no complaint. Denies any ongoing abdominal pain. REVIEW OF SYSTEMS: As per HPI. CONSTITUTIONAL: No recent weight loss or gain. No fevers, no chills. HEENT: Normocephalic, atraumatic. Denies any recent lightheadedness, dizziness, vision changes or falls. RESPIRATORY: No recent cough, shortness of breath, dyspnea with exertion that is new. CARDIOVASCULAR: No chest pain, chest pressure, left arm numbness or tingling. No episodes of diaphoresis with all the other active issues. GASTROINTESTINAL: Please see the HPI above. Remainder of the review of systems otherwise negative. PAST MEDICAL HISTORY: 1. Hepatitis C, status post antiviral therapy. 2. Alcoholism. 3. Cirrhosis. 4. Type 2 diabetes. 5. Tobacco use. 6. Chronic systolic heart failure, unclear EF at this point in time. 7. Prior history of Pam-Nagel tear. 8. Obesity. 9. Portal hypertension, likely secondary to the hepatic issues above. 10. Status post EGD in the past. 11. Status post colonoscopy in the past. HOME MEDICATIONS: Please see the EMR for full details. The patient's list currently includes the following; ferrous sulfate 325 mg p.o. daily, metformin 750 mg p.o. b.i.d., multivitamin 1 tab p.o. daily, metoprolol 12.5 mg p.o. b.i.d., furosemide 20 mg p.o. daily. ALLERGIES: No known drug allergies. FAMILY HISTORY: Significant for liver cancer in both of his brother. SOCIAL HISTORY: Positive for tobacco use, approximately half a pack a day. Has intermittent alcohol use with 3 beers, 3 days ago. He endorses he wishes to be FULL CODE. Indicates that his sister Garrett would be his medical decision maker if he is unable to make his own medical decisions. It appears he also has 2 children and is currently . PHYSICAL EXAMINATION: GENERAL: The patient is awake, alert, appropriate, in no acute distress, lying in the hospital bed slightly jaundiced. HEENT: Normocephalic, atraumatic. Extraocular motions are intact. Slightly dry mucous membranes. CARDIOVASCULAR: S1 and S2. No murmurs, rubs or gallops. Pulses 2+ bilateral. EXTREMITIES: No pitting pedal edema. RESPIRATORY: Reasonable air movement. No conversational dyspnea. No wheezes, rales or rhonchi. RESPIRATORY: Grossly clear to auscultation otherwise. ABDOMEN: Positive bowel sounds, soft, nontender to palpation. MUSCULOSKELETAL: Moving all 4 extremities. Able to self reposition the bed without difficulty or assist. LABORATORY DATA AND IMAGING: WBC 8.4, hemoglobin 6.1, hematocrit 17.6, platelets 91. Patient has a known history of thrombocytopenia. This is actually better than his prior PT 17.9, INR 1.5. Sodium 135, potassium 5.1, chloride 108, bicarbonate 20, BUN 48, creatinine 1.2, glucose 545, calcium 8.4, magnesium 1.8, total bilirubin 1.4, AST 21, ALT 20, alkaline phosphatase 74, CK- MB 1.8, troponin less than 0.01. Total protein 5.0, albumin 2.8, lipase 83. UA is significant for greater than 1000 glucose, small leukocyte esterase and 4- 6 wbc's. Beta hydroxybutyrate 0.25 on 11/01/2017. CT of the abdomen and pelvis ; impression "cirrhosis. Gastroesophageal varices. Nonspecific enlarged gastrohepatic and periportal lymph nodes. Splenomegaly. Mucosal prominence involving small bowel loops as well as the right hemicolon. Correlate for possible infectious or inflammatory process. The possibility of an ischemic process is less favored given the distribution of the mucosal prominence. Diverticulosis without evidence of diverticulitis. Prominence of the sigmoid colon is presumed to be due to inadequate distention. Consider colonoscopy." ASSESSMENT AND PLAN: 1. A 66-year-old male presenting with a chief complaint of abdominal pain and black tarry stools and one black tarry stools in the setting of abdominal pain. The patient has no cirrhosis and a question of prior AVMs, Pam-Nagel tear and is at risk for esophageal varices. Appreciate Gastroenterology consultation. IV fluids, octreotide and PRBC transfusion as needed for hemoglobin goal of 7 at minimum. The patient has known history of cardiovascular disease. Could consider a higher goal threshold. We will also continue with Protonix. 2. Cirrhosis. See discussion above with portal hypertension. Likely secondary to alcohol use. Although the patient has a known history of hepatitis C. Please see history as noted above. We will continue to closely monitor. 3. Type 2 diabetes, poorly controlled. The patient will be placed on sliding scale insulin. 4. Continue alcohol use and abuse. Alcohol cessation counseling was provided. The patient is essentially precontemplative at this point in time. ASE protocol and close monitoring for ssx consistent with withdrawal. Patient denies any prior issue with withdrawal and specifically denies known seizures. 5. Active tobacco use. Cessation counseling provided. The patient is currently precontemplative. 6. Hypertension, appears to be stable. 7. Deep venous thrombosis prophylaxis with sequentials. 8. Activity: As tolerated. 9. Diet: Currently n.p.o. MTDD
--- NOTE | 2017-11-02 14:12 | PRG ---
DATE OF SERVICE: 11/02/2017 GASTROENTEROLOGY PROGRESS NOTE SUBJECTIVE: He feels much, much better today. He has no abdominal pain. He has had no bowel moveme nt since the endoscopy yesterday. OBJECTIVE: VITAL SIGNS: Temperature 98.3, pulse 82, blood pressure 112/50. GENERAL: He is in no acute distress, alert and oriented x3. HEENT: Eyes have no scleral icterus. Oropharynx is clear, without lesions. NECK: No cervical or supraclavicular lymphadenopathy. LUNGS: Clear to auscultation bilaterally. HEART: Regular rate and rhythm without murmur. ABDOMEN: Soft, nontender, nondistended. Bowel sounds are present. LABORATORY DATA: Creatinine 1.1 with a BUN of 42, bilirubin 1.1, AST 19, ALT 19, alkaline phosphatas e 60, albumin 2.4. INR 1.5. Hemoglobin went from 6.1-5.9 after 1 unit transfusion. He received 2 m ore units this morning. His hematocrit is up to 20.8 this afternoon, which should be about a hemoglo bin of 7. I would have like to have seen a greater improvement after transfusion. IMPRESSION: 1. Gastrointestinal bleed, likely secondary to portal hypertensive gastropathy. I did cauterize a c ouple of small vascular ectasias in the first portion of the duodenum, however, these did not appear to be significant bleeding source. There was heme staining in the stomach and duodenum without any a cute bleeding. Possible gastric varices were present. 2. Cirrhosis of the liver with previous alcohol and hepatitis C. The hepatitis C was treated. He h ad stopped alcohol for several months, but has been drinking again lately. RECOMMENDATIONS: 1. I would continue octreotide 1 more day until the hemoglobin is verified as stabilized. 2. Continue proton pump inhibitor. 3. Advance to a diabetic diet, solid diet. 4. Check alpha-fetoprotein.
--- NOTE | 2017-11-02 18:31 | CON ---
DATE OF CONSULTATION: 11/02/2017 SERVICE: Pulmonary Medicine. REASON FOR CONSULTATION: ICU patient. HISTORY OF PRESENT ILLNESS: The patient is a 66-year-old male with past medical history significant for hepatitis and alcohol abuse with cirrhosis. He has chronic anemia. He is in his usual state of health when he started having onset of hematemesis. He is also passing some blood per rectum. He presented to the Emergency Department and was discovered to be anemic. It was worse than his baseline. He was tachycardic and tachypneic. He felt uncomfortable. He underwent an emergent EGD. No active bleeding was identified , though there was evidence of a recent bleed. He also had gastric varices. No esophageal varices were identified. A couple of small things were also identified in the duodenum which was treated. That being said, there was no stigmata of recent bleeding there. He denies any current fevers, chills, nausea or vomiting. He has not had any fevers. He has had a bowel movement since the procedure. It is starting to form up a little bit, but remains quite dark. He is not having any nausea, vomiting, and has actually got his appetite back. He is asking for food. He got 2 units of blood and made appropriate response to that. He is going to get one more. We are going to repeat hemoglobin this evening. PAST MEDICAL HISTORY: 1. Cirrhosis secondary to hepatitis C and alcohol abuse. 2. Alcohol abuse, ongoing. 3. Type 2 diabetes mellitus. 4. Hepatitis C, status post therapy. 5. Chronic systolic heart failure. 6. History of Pam-Nagel tear. 7. Portal hypertension. 8. Obesity. PAST SURGICAL HISTORY: 1. History of EGD. 2. Colonoscopy. ALLERGIES: No known drug allergies. MEDICATIONS: List of inpatient medications reviewed. I added Rocephin to his medication record. FAMILY HISTORY: Noncontributory. SOCIAL HISTORY: He continues to use tobacco and alcohol. He does not use any street drugs. He denies any exposure to chemicals, dust asbestos. REVIEW OF SYSTEMS: General, head, ears, eyes, nose, throat, cardiovascular, respiratory, GI, , musculoskeletal, neurologic and skin is negative except as mentioned in the HPI. PHYSICAL EXAMINATION: VITAL SIGNS: Afebrile, pulse 80, blood pressure 104/52, respirations 18, saturation 97% on room air. GENERAL: The patient is awake, alert, no apparent distress. LUNGS: Decent air entry. There is no prolonged expiratory phase or wheezing present. HEART: Normal rate, regular. ABDOMEN: Soft, nontender, nondistended. Bowel sounds are positive. MUSCULOSKELETAL: No cyanosis or clubbing. There is no pitting in the bilateral lower extremities. NEUROLOGIC: Grossly nonfocal. LABORATORY DATA: Hemoglobin 5.9. Hematocrit along with that with 16.5. With 2 units, he made an appropriate rise to only 20.8. Basic metabolic profile is essentially unremarkable except for bicarbonate of 18. Liver function studies are unremarkable. Urinalysis is positive for glycosuria. Beta hydroxybutyric acid is negative. Blood cultures x2 and urine culture negative. ASSESSMENT: 1. Acute blood loss anemia. 2. Portal hypertensive gastropathy. 3. Gastric varices with suspected bleed there. DISCUSSION AND PLAN: I will add Rocephin. We will give 1 unit of blood. I will repeat hemoglobin this evening and tomorrow morning. Pulmonary or Critical Care will continue to follow along in this location. If his hemoglobin is stable overnight, he can be transitioned to the floor. I will advance his diet per GI recommendations. 70 minutes have been devoted to this patient in various activities. I personally reviewed all imaging studies and laboratory data noted within this document. For fifty percent of this time, I was interacting with the patient at the bedside or coordinating care with the care team. For the remainder of the time I was immediately available to the patient in the hospital unit. MUNA
[2017-11-02] MEDS: cefTRIAXone\\ROCEPHIN 2 GM in Sodium Chloride 0.9% 100 ML IVPB SCH (19:09)
--- NOTE | 2017-11-02 20:48 | PDOC.PN ---
- Subjective Encounter Start Date: 11/02/17 Encounter Start Time: 16:00 Patient seen and examined for GI bleeding. No new melena or hematochezia. No new complaints. No overnight events - Objective Resuscitation Status: Resuscitation Status FULL:Full Resuscitation MAR Reviewed: Yes Vital Signs & Weight: Vital Signs (12 hours) Temp Pulse Resp BP Pulse Ox 11/02/17 15:22 98.5 F 80 18 104/52 L 97 11/02/17 10:55 98.8 F 82 16 112/50 L 100 Weight Weight 157 lb 7 oz I&O: 11/01/17 11/02/17 11/03/17 06:59 06:59 06:59 Intake Total 913 822 Output Total 650 300 Balance 263 522 Result Diagrams: 11/03/17 04:04 11/02/17 03:22 Additional Labs: Accuchecks 11/02/17 11/02/17 11/02/17 16:36 10:27 05:40 POC Glucose 271 H 316 H 383 H 11/02/17 00:16 POC Glucose 356 H EKG Reviewed by me: Yes (Tele SR) Phys Exam - Physical Examination Constitutional: NAD Neck: no JVD Respiratory: no wheezing, no rales, no rhonchi, clear to auscultation bilateral Cardiovascular: RRR, no rub no heaves/pulsations Gastrointestinal: soft, non-tender, no distention, positive bowel sounds Musculoskeletal: no edema Neurological: non-focal, moves all 4 limbs Psychiatric: A&O x 3 Dx/Plan - Plan DVT proph w/SCDs IMPRESSION: 1. UGI bleeding s/p Emergent EGD 2. Acute blood loss anemia 3. Chronic Hep C with Cirrhosis/Portal gastropathy/Varices/Thrombocytopenia 4. DM2 5. HTN 6. Tobacco dep 7. Other issues per H&P PLAN: Monitor HH Cont Atbx/Octreotide and PPI AM labs IMCU monitoring Cont clear liqd diet Cont to monitor Review of Systems - Review of Systems Respiratory: negative: Cough, Dry, Shortness of Breath, Hemoptysis, SOB with Excertion, Pleuritic Pain, Sputum, Wheezing Cardiovascular: negative: chest pain, palpitations, orthopnea, paroxysmal nocturnal dyspnea, edema, light headedness, other Gastrointestinal: negative: Nausea, Vomiting, Abdominal Pain, Diarrhea, Constipation, Melena, Hematochezia, Other - Medications/Allergies Allergies/Adverse Reactions: Allergies Allergy/AdvReac Type Severity Reaction Status Date / Time No Known Drug Allergies Allergy Unknown Verified 09/14/17 00:28 milk Allergy Diarrhea Verified 11/01/17 21:01 Medications: Current Medications Dextrose/Water (Dextrose 50%) 25 gm SLOW IVP PRN PRN PRN Reason: Hypoglycemia Folic Acid (Folvite) 1 mg PO DAILY [facility] Last Admin: 11/02/17 09:00 Dose: 1 mg Glucagon (Glucagon) 1 mg IM PRN PRN PRN Reason: Hypoglycemia Octreotide Acetate 1,250 mcg/ (Sodium Chloride) 251.25 mls @ 10.05 mls/hr IVPB INF KATAR[facility]YNA Dextrose/Water (D5w) 1,000 mls @ 0 mls/hr IV .Q0M PRN PRN Reason: Hypoglycemia Ceftriaxone Sodium 2 gm/ (Sodium Chloride) 100 mls @ 200 mls/hr IVPB Q24HR [facility] Last Admin: 11/02/17 19:09 Dose: 100 mls Insulin Human Lispro (Humalog) 0 units SC .MILD SLIDING SCALE PRN PRN Reason: Mild Correctional Scale Last Admin: 11/02/17 11:35 Dose: 5 unit Insulin Human Lispro (Humalog) 0 units SC .BEDTIME SLIDING SC PRN PRN Reason: Bedtime Correctional Scale Multivitamins (Theragran) 1 tab PO DAILY [facility] Last Admin: 11/02/17 09:00 Dose: 1 tab Pantoprazole Sodium (Protonix) 40 mg IVP Q12HR [facility] Last Admin: 11/02/17 09:00 Dose: 40 mg Sodium Chloride (Flush - Normal Saline) 10 ml IVF PRN PRN PRN Reason: Saline Flush Sodium Chloride (Flush - Normal Saline) 10 ml IVF PRN PRN PRN Reason: Saline Flush Sodium Chloride (Flush - Normal Saline) 10 ml IVF PRN PRN PRN Reason: Saline Flush Thiamine HCl (Thiamine) 100 mg PO [facility]
[2017-11-02 21:06] LABS: Hemoglobin 9.4 g/dL (14.0-18.0)
[2017-11-03] MEDS: HumaLOG 300 UNITS/3 ML VIAL SC PRN ×4 (06:43→21:12)
[2017-11-03] MEDS: Multivit, Therapeutic 1 TAB PO SCH (08:08)
[2017-11-03] MEDS: Pantoprazole 40 MG VIAL IVP SCH (08:08)
[2017-11-03] MEDS: Folic Acid 1 MG TAB PO SCH (08:08)
[2017-11-03] MEDS ORDERED: Dextrose 5% in Water 1,000 ML IV PRN (11:20)
[2017-11-03] MEDS ORDERED: Dextrose 50% Abboject 50 ML SYRINGE SLOW IVP PRN (11:20)
[2017-11-03] MEDS ORDERED: Magnesium Chloride 64 MG TAB PO SCH (11:30)
[2017-11-03] MEDS ORDERED: NPH, Human Insulin Isophane 300 UNIT/3 ML VIAL SC SCH (11:30)
--- NOTE | 2017-11-03 12:48 | PRG ---
DATE OF SERVICE: 11/03/2017 SUBJECTIVE: Mr. Hebert had a dark brown bowel movement this morning. This was formed. He is beny ating a solid diet well without any complaints. OBJECTIVE: VITAL SIGNS: Temperature 99.0, pulse 73, blood pressure 127/71. GENERAL: He is in no acute distress, alert and oriented x3. LUNGS: Clear to auscultation bilaterally. HEART: Regular rate and rhythm. ABDOMEN: Soft, nontender, nondistended. Bowel sounds are present. EXTREMITIES: No lower extremity edema. LABORATORY DATA: Hemoglobin decreased from 9.4 yesterday to 8.0 today. Overall, he is up from 5.9-8 .0 after 4 units transfusion. IMPRESSION: 1. Gastrointestinal bleed, likely secondary to portal hypertensive gastropathy. A couple of small v ascular ectasias were cauterized in the duodenum, however, these did not appear to be a significant b leeding source. There were possible small gastric varices in the fundus. He has been left on octreo tide for this reason. There was heme staining in the stomach and duodenum indicating recent bleeding at the time of the procedure. 2. Cirrhosis with past history of alcohol use and recent use. The hepatitis C has been treated. RECOMMENDATIONS: 1. We can wean the octreotide down to 25 mcg per hour for the next 12 hours and then discontinue. 2. Change to oral proton pump inhibitor. 3. He can likely discharge home tomorrow if his hemoglobin is stable.
--- NOTE | 2017-11-03 15:37 | PRG ---
DATE OF SERVICE: 11/03/2017 SERVICE: Pulmonary Medicine. INTERVAL HISTORY: The patient is doing fine from a cardiovascular and respiratory standpoint. He de nies any current chest pain, nausea, vomiting, fevers or chills. He has been up walking with a [employer] program. He does not have any dizziness, lightheadedness or chest pain. PHYSICAL EXAMINATION: VITAL SIGNS: Afebrile with a T-max of 99.2, pulse 78, blood pressure 133/62, respirations 18, satura tion 100% on room air. GENERAL: The patient is awake, alert, in no apparent distress. LUNGS: Excellent air entry. There is no prolonged expiratory phase, wheezing, rhonchi or crackles. HEART: Normal rate, regular. ABDOMEN: Soft, nontender, nondistended. Bowel sounds are positive. MUSCULOSKELETAL: No cyanosis or clubbing. No pitting in the bilateral lower extremities. NEUROLOGIC: Grossly nonfocal. LABORATORY DATA: Hemoglobin is stabilized at 8.0. He got 2 units after his 5.9 yesterday and has de monstrated an appropriate rise. The 9.0 was likely concentrated. ASSESSMENT: 1. Acute blood loss anemia, stable. 2. Portal hypertensive gastropathy. 3. Gastric varices, as the likely source of gastrointestinal bleed. DISCUSSION AND PLAN: The patient can be transitioned to the medical unit. When he leaves the [facility], he will have no further requirements for inpatient Pulmonary or Critical Care opinion and I will sign off. Please call with additional questions or concerns moving forward.
[2017-11-03] MEDS: cefTRIAXone\\ROCEPHIN 2 GM in Sodium Chloride 0.9% 100 ML IVPB SCH (17:50)
[2017-11-03] MEDS: Magnesium Chloride 64 MG TAB PO SCH (20:29)
--- NOTE | 2017-11-03 22:58 | PDOC.PN ---
- Subjective Encounter Start Date: 11/03/17 Encounter Start Time: 15:00 Patient seen and examined for GI bleeding. No new melena/hematemesis. No new complaints. No overnight events - Objective Resuscitation Status: Resuscitation Status FULL:Full Resuscitation MAR Reviewed: Yes Vital Signs & Weight: Vital Signs (12 hours) Temp Pulse Resp BP BP Pulse Ox 11/03/17 20:42 98.3 F 75 16 139/65 97 11/03/17 20:00 98.3 F 75 16 11/03/17 17:22 98.1 F 74 18 100 11/03/17 17:15 98.1 F 74 18 150/75 H 100 11/03/17 15:05 99.0 F 78 18 133/62 100 Weight Weight 157 lb 7 oz I&O: 11/02/17 11/03/17 11/04/17 06:59 06:59 06:59 Intake Total 913 1062 1548.4 Output Total 650 750 150 Balance 372 002 3834.4 Result Diagrams: 11/04/17 04:31 11/04/17 04:31 Additional Labs: Accuchecks 11/03/17 11/03/17 11/03/17 20:46 16:41 10:29 POC Glucose 229 H 268 H 287 H 11/03/17 06:25 POC Glucose 360 H Microbiology 11/01/17 14:57 Venous blood - Left Hand Blood Culture - Preliminary Specimen has been received and culture in progress. No Growth to date. 11/01/17 14:57 Venous blood - Left Hand Blood Culture - Preliminary Gram Positive Artem Gram Positive Cocci 11/01/17 14:43 Venous blood - Right Hand Blood Culture - Preliminary Specimen has been received and culture in progress. No Growth to date. 11/01/17 14:43 Venous blood - Right Hand Blood Culture - Preliminary NO GROWTH AT 48 HOURS 11/01/17 13:35 Urine voided Urine Culture - Preliminary NO GROWTH AT 24 HOURS Laboratory Tests 11/02/17 11/03/17 11/04/17 20:51 04:04 04:31 Hgb 9.4 L 8.0 L Hemoglobin A1c Magnesium 1.8 11/04/17 04:31 Hgb Hemoglobin A1c 5.3 Magnesium EKG Reviewed by me: Yes (Tele SR) Phys Exam - Physical Examination Constitutional: NAD Respiratory: no wheezing, no rhonchi Cardiovascular: RRR, no rub Gastrointestinal: soft, non-tender, positive bowel sounds Musculoskeletal: no edema Neurological: moves all 4 limbs Dx/Plan - Plan DVT proph w/SCDs IMPRESSION: 1. UGI bleeding s/p Emergent EGD 2. Acute blood loss anemia 3. Alcoholic Cirrhosis/Portal gastropathy/Varices/Thrombocytopenia 4. DM2 5. HTN 6. Bacteremia - 1/2 - prob contamination 7. Tobacco dep / h/o Chronic Hep C - complete treatment 8. Other issues per H&P PLAN: HH in AM Await final cultures Transfer to medical Monitor overnight cont Octreotide Cont PPI Cont Ceftriaxone Change sliding scale to moderate Cont NPH Review of Systems - Review of Systems Respiratory: negative: Cough, Dry, Shortness of Breath, Hemoptysis, SOB with Excertion, Pleuritic Pain, Sputum, Wheezing Cardiovascular: negative: chest pain, palpitations, orthopnea, paroxysmal nocturnal dyspnea, edema, light headedness, other - Medications/Allergies Allergies/Adverse Reactions: Allergies Allergy/AdvReac Type Severity Reaction Status Date / Time No Known Drug Allergies Allergy Unknown Verified 09/14/17 00:28 milk Allergy Diarrhea Verified 11/01/17 21:01 Medications: Current Medications Dextrose/Water (Dextrose 50%) 25 gm SLOW IVP PRN PRN PRN Reason: Hypoglycemia Folic Acid (Folvite) 1 mg PO DAILY [facility] Last Admin: 11/03/17 08:08 Dose: 1 mg Glucagon (Glucagon) 1 mg IM PRN PRN PRN Reason: Hypoglycemia Ceftriaxone Sodium 2 gm/ (Sodium Chloride) 100 mls @ 200 mls/hr IVPB Q24HR [facility] Last Admin: 11/03/17 17:50 Dose: 100 mls Dextrose/Water (D5w) 1,000 mls @ 0 mls/hr IV .Q0M PRN PRN Reason: Hypoglycemia Octreotide Acetate 1,250 mcg/ (Sodium Chloride) 251.25 mls @ 5.02 mls/hr IVPB INF [facility] Stop: 11/04/17 00:30 Insulin Human Lispro (Humalog) 0 units SC .BEDTIME SLIDING SC PRN PRN Reason: Bedtime Correctional Scale Last Admin: 11/03/17 21:12 Dose: 2 unit Insulin Human Lispro (Humalog) 0 units SC .MODERATE SLIDING SC PRN PRN Reason: Moderate Correctional Scale Last Admin: 11/03/17 17:54 Dose: 6 units Insulin Human NPH (Humulin N) 10 unit SC DAILY [facility] Magnesium Chloride (Slow-Mag) 64 mg PO BID [facility] Last Admin: 11/03/17 20:29 Dose: 64 mg Multivitamins (Theragran) 1 tab PO DAILY [facility] Last Admin: 11/03/17 08:08 Dose: 1 tab Pantoprazole Sodium (Protonix) 40 mg PO DAILY [facility] Sodium Chloride (Flush - Normal Saline) 10 ml IVF PRN PRN PRN Reason: Saline Flush Last Admin: 11/03/17 08:09 Dose: 10 ml Sodium Chloride (Flush - Normal Saline) 10 ml IVF PRN PRN PRN Reason: Saline Flush Sodium Chloride (Flush - Normal Saline) 10 ml IVF PRN PRN PRN Reason: Saline Flush Thiamine HCl (Thiamine) 100 mg PO HS [facility] Last Admin: 11/03/17 20:29 Dose: 100 mg
[2017-11-04 04:51] LABS: Hemoglobin 7.9 g/dL (14.0-18.0); Platelet Count 32 thou/uL (130-400)
[2017-11-04 05:18] LABS: Anion Gap 11 mmol/L (10-20); BUN (Urea Nitrogen) 17 mg/dL (8.4-25.7); Calc. Creatinine Clearance 84 mL/min (70-130); Calcium 7.3 mg/dL (7.8-10.44); Carbon Dioxide 20 mmol/L (23-31); Chloride 109 mmol/L (98-107); Estimated GFR-MDRD 89; Glucose 332 mg/dL (80-115); Magnesium 1.8 mg/dL (1.6-2.6); Sodium 136 mmol/L (136-145)
[2017-11-04] MEDS: HumaLOG 300 UNITS/3 ML VIAL SC PRN ×2 (05:46→13:00)
[2017-11-04 08:40] LABS: Hemoglobin A1c 5.3 % (4.0-6.0)
[2017-11-04 08:49] VITALS: BP 143/70; TEMP 98.5
[2017-11-04] MEDS: Magnesium Chloride 64 MG TAB PO SCH (08:59)
[2017-11-04] MEDS: Folic Acid 1 MG TAB PO SCH (08:59)
[2017-11-04] MEDS: Multivit, Therapeutic 1 TAB PO SCH (08:59)
[2017-11-04] MEDS ORDERED: NPH, Human Insulin Isophane 300 UNIT/3 ML VIAL SC SCH ×3 (09:00→21:00)
--- NOTE | 2017-11-04 13:10 | PRG ---
DATE OF SERVICE: 11/04/2017 SUBJECTIVE: Mr. Hebert is tolerating a solid diet well. He has had no further overt bleeding. He had a brown bowel movement last night. OBJECTIVE: VITAL SIGNS: Temperature 98.5, pulse 64, blood pressure 143/70. GENERAL: He is in no acute distress, alert and oriented x3. LUNGS: Clear to auscultation bilaterally. HEART: Regular rate and rhythm. ABDOMEN: Soft, nontender, nondistended. Bowel sounds are present. EXTREMITIES: No lower extremity edema. IMPRESSION: 1. Gastrointestinal bleed is clinically resolved. His hemoglobin is 7.9, which is stable compared t o yesterday. His platelets are 32,000. There is no evidence of ongoing significant bleeding at this point. 2. Cirrhosis secondary to alcohol in the past, hepatitis C. The hepatitis C was cured with medicati ons last year. RECOMMENDATIONS: 1. The octreotide was discontinued today. 2. Continue oral proton pump inhibitor daily. 3. He should be able to discharge home today.
[2017-11-04] MEDS: cefTRIAXone\\ROCEPHIN 2 GM in Sodium Chloride 0.9% 100 ML IVPB SCH (17:30)
--- NOTE | 2017-11-05 13:41 | DIS ---
DATE OF DISCHARGE: 11/04/2017 DISCHARGE DISPOSITION: Home. FOLLOWUP: Follow up with primary care physician at [place] in 1 week. Repeat hemoglobin and hematocrit i n 1 week is recommended. Primary care physician is advised to follow. The patient was also advised to follow up on his final blood cultures. He was advised to stay overnight; however, he requested to be discharged. ALLERGIES: The patient is allergic to MILK. DISCHARGE MEDICATIONS: 1. Keflex 500 mg 3 times daily for 1 week. 2. Doxycycline 100 mg twice a day for 1 week. 3. Folic acid 1 mg daily. 4. Thiamine 100 mg daily. 5. Protonix 40 mg daily. 6. All other home medications were left unchanged. The patient was advised to monitor his blood sugar on a daily basis and maintain a log. BRIEF HOSPITAL COURSE: Patient is a 66-year-old male with cirrhosis, presented to the hospital with abdominal discomfort, along with black tarry stool. His workup was consistent with GI bleeding. Ple ase refer to the history and physical for further details. The patient underwent EGD on the day of admission that showed prominent fold in the gastric fundus, l ikely representing varices. It also showed changes consistent with portal hypertensive gastropathy. There were 2 small vascular ectasias in the first portion of the duodenum that was cauterized. Ther e was no obvious acute bleeding noted. No esophageal varices were seen this time. He was placed on IV Protonix along with octreotide. He was also started on IV ceftriaxone. Blood culture 1 of 2 is p ositive for gram-positive rods and gram-positive cocci. His blood cultures are probably from skin co ntaminant. However, final blood cultures are pending at this time. I called the microbiology lab on the day of discharge, who recommended to wait for the next 24 hours for further isolation. He will be placed on antibiotics to cover this organism for now. He has been cleared by consultants for disc harge. He was advised to quit alcohol completely. FINAL DIAGNOSES: 1. Abdominal pain. 2. Upper gastrointestinal bleeding, status post emergent esophagogastroduodenoscopy. 3. Acute blood loss anemia, requiring 4 units of PRBC. 4. Alcoholic cirrhosis. 5. Portal gastropathy. 6. Gastric varices. 7. Thrombocytopenia. 8. Diabetes mellitus, type 2. 9. Hypertension. 10. One of two bacteremia, probably contamination. Patient has been started on antibiotics. 11. Tobacco dependence. 12. History of chronic hepatitis C, completed treatment. 13. Coagulopathy secondary to cirrhosis. 14. Hyponatremia. 15. Abnormal liver function tests secondary to cirrhosis. Plan of care was discussed with the patient in detail, he stated understanding.
--- NOTE | 2017-11-10 17:25 | EKG ---
Test Reason : ABDOMINAL PAIN Blood Pressure : / mmHG Vent. Rate : 094 BPM Atrial Rate : 094 BPM P-R Int : 132 ms QRS Dur : 082 ms QT Int : 384 ms P-R-T Axes : 000 029 067 degrees QTc Int : 480 ms Normal sinus rhythm with sinus arrhythmia Prolonged QT No STEMI Abnormal ECG Confirmed by PATRICK Espinosa, BALDEV ([id number]), television news video editor JOSEF COLEY ([id number]) on 11/10/2017 5:25:42 PM Referred By: Confirmed By:BALDEV NGUYEN M.D.
--- NOTE | 2017-11-12 09:49 | PQF ---
DATE: 11/12/17 ATTN: DR. OCHOA Please exercise your independent, professional judgment in responding to the clarification form. Clinical indicators are provided on the bottom of this form for your review Please check appropriate box(s): [ ] GI BLEED SECONDARY TO: [ ] GASTRIC VARICE [ ] PORTAL HYPERTENSIVE GASTROPATHY [ ] ECTASIA [ ] UKNOWN [ ] Other diagnosis [ ] Unable to determine In addition, please specify: Present on Admission (POA): [ ] Yes [ ] No [ ] Unable to determine For continuity of documentation, please document condition throughout progress notes and discharge summary. Thank You. CLINICAL INDICATORS - SIGNS / SYMPTOMS / LABS - VASCULAR ECTASIA WAS CAUTERIZED IN OP REPORT - HYPERTENSIVE GASTROPATHY FOUND IN OP REPORT - "GASTRIC VARICES IS THE LIKE SOURCE OF GI BLEED" FOUND IN PN 11/[address] BORJAS - "GI BLEED. LIKELY SEONDARY TO PORTAL HYPERTENSIVE GASTROPATHY. A COUPLE OF SMALL VASCULAR ECTASIAS WERE CAUTERIZED IN THE DUODENUM, HOWEVER, THESE DID NOT APPEAR TO BE A SIGNIFICANT BLEEDING SOURCE" FOUND IN PN 11/03 BY dR. ROB TORO
== END 2017-11-04 19:19 | disposition home or self-care (01) | DRG 378 ==
LOC: ERS 12:42 → SDC 18:00 → ERS 18:02 → IMCU/EMU 19:33 → T4-B 11-03 17:08
PROVIDERS: ADMIT Internal Medicine; ATTEND Internal Medicine
PROC: 0W3P8ZZ Control Bleeding in Gastrointestinal Tract, Via Natural or Artificial Opening Endoscopic (ICD-10-PCS; principal; 2017-11-01)
PROC: 30233N1 Transfusion of Nonautologous Red Blood Cells into Peripheral Vein, Percutaneous Approach (ICD-10-PCS; 2017-11-02)
DX: K31.811 Angiodysplasia of stomach and duodenum with bleeding (principal); I50.22 Chronic systolic (congestive) heart failure; K76.6 Portal hypertension; D62 Acute posthemorrhagic anemia; N17.9 Acute kidney failure, unspecified; K74.60 Unspecified cirrhosis of liver; F10.20 Alcohol dependence, uncomplicated; E11.9 Type 2 diabetes mellitus without complications; F17.210 Nicotine dependence, cigarettes, uncomplicated; E66.9 Obesity, unspecified; Z68.25 Body mass index [BMI] 25.0-25.9, adult; I11.0 Hypertensive heart disease with heart failure; K31.89 Other diseases of stomach and duodenum; B18.2 Chronic viral hepatitis C; Z80.8 Family history of malignant neoplasm of other organs or systems
CPT/HCPCS: 36415; 36416; 36430; 74177; 80048; 80053; 81003; 81015; 82010; 82105; 82274; 82553; 83036; 83690; 83735; 84484; 85014; 85018; 85025; 85049; 85610; 86850; 86900; 86901; 87040; 87076; 87086; 93005; 96361; 96365; 96366; 96375; C9113; J0696; J1815; J2001; J2354; J2704; J3411; J7050; P9016

== ENCOUNTER 2018-03-28 19:54 | Emergency (ER) | payer MEDICARE, SELFPAY ==
[2018-03-28 21:34] LABS: ALT (SGPT) 26 U/L (8-55); AST (SGOT) 20 U/L (5-34); Albumin 3.4 g/dL (3.4-4.8); Alkaline Phosphatase 270 U/L (40-150); Anion Gap 14 mmol/L (10-20); BUN (Urea Nitrogen) 10 mg/dL (8.4-25.7); Bilirubin, Total 1.3 mg/dL (0.2-1.2); Calc. Creatinine Clearance 0 mL/min (70-130); Calcium 9.2 mg/dL (7.8-10.44); Carbon Dioxide 22 mmol/L (23-31); Chloride 103 mmol/L (98-107); Estimated GFR-MDRD 60; Globulin 3.3 g/dL (2.4-3.5); Potassium 4.5 mmol/L (3.5-5.1); Protein, Total 6.7 g/dL (5.8-8.1); Sodium 134 mmol/L (136-145)
[2018-03-28 21:45] LABS: Glucose 632 mg/dL (80-115)
== END 2018-03-28 21:57 | disposition home or self-care (01) ==
LOC: ERS 19:54
DX: E11.65 Type 2 diabetes mellitus with hyperglycemia (principal); I10 Essential (primary) hypertension; F17.210 Nicotine dependence, cigarettes, uncomplicated
CPT/HCPCS: 36415; 36416; 80053; 99284

== ENCOUNTER 2018-04-06 17:37 | Inpatient (IN) | payer MEDICARE, SELFPAY ==
[~2018-04-06 17:37] MED LIST: Lidocaine 1% PF 5 ML VIAL ONE; PHENYLEPHRINE-NS 100 MCG/ML 10 ML SYRINGE ONE; PROPOFOL 200 MG/20 ML VIAL ONE; Succinylcholine Chloride 20 MG/ML 10 ml SYRINGE FS ONE; ePHEDrine/0.9% NaCl/PF SYRINGE 50 mg/10 ml ONE
[2018-04-06] MEDS ORDERED: Pantoprazole 40 MG VIAL ONE (18:25)
[2018-04-06] MEDS ORDERED: Ondansetron PF 4 MG/2 ML Vial ONE (18:25)
[2018-04-06] MEDS ORDERED: cefTRIAXone\\ROCEPHIN 1 GM VIAL ONE (18:46)
[2018-04-06] MEDS ORDERED: cefTRIAXone\\ROCEPHIN 2 GM VIAL ONE (18:47)
[2018-04-06 19:23] LABS: INR-International Normal Ratio 1.5; PTT 34.1 SEC (22.9-36.1); Prothrombin Time 18.2 SEC (12.0-14.7)
[2018-04-06 19:33] LABS: ALT (SGPT) 26 U/L (8-55); AST (SGOT) 25 U/L (5-34); Albumin 2.9 g/dL (3.4-4.8); Alkaline Phosphatase 140 U/L (40-150); Anion Gap 27 mmol/L (10-20); BUN (Urea Nitrogen) 47 mg/dL (8.4-25.7); Bilirubin, Total 2.9 mg/dL (0.2-1.2); Calc. Creatinine Clearance 0 mL/min (70-130); Calcium 9.2 mg/dL (7.8-10.44); Carbon Dioxide 14 mmol/L (23-31); Chloride 100 mmol/L (98-107); Estimated GFR-MDRD 58; Globulin 2.8 g/dL (2.4-3.5); Lipase 55 U/L (8-78); Potassium 5.3 mmol/L (3.5-5.1); Protein, Total 5.7 g/dL (5.8-8.1); Sodium 136 mmol/L (136-145)
[2018-04-06 19:35] LABS: #Lymphocytes 1.2 thou/uL (1.20-3.40); #Monocytes 0.6 thou/uL (0.11-0.59); #Neutrophils 8.2 thou/uL (1.40-6.50); %Basophils 0.3 % (0.0-1.0); %Eosinophils 0.1 % (0.0-10.0); %Lymphocytes 12.2 % (21.0-51.0); %Monocytes 5.7 % (0.0-10.0); %Neutrophils 81.6 % (42.0-75.0); Hemoglobin 9.4 g/dL (14.0-18.0); Mean Corpuscular HGB CONC 31.4 g/dL (32.0-36.0); Mean Corpuscular Hemoglobin 30.6 pg (27.0-31.0); Mean Corpuscular Volume 97.3 fL (78.0-98.0); Mean Platelet Volume 11.3 fL (7.4-10.4); Platelet Count 120 thou/uL (130-400); Red Blood Cell (RBC) Count 3.09 mill/uL (4.70-6.10); White Blood Cell (WBC) Count 10.1 thou/uL (4.8-10.8)
[2018-04-06 19:37] LABS: Glucose 623 mg/dL (80-115)
[2018-04-06] MEDS ORDERED: Octreotide Acetate 1,250 MCG in Sodium Chloride 0.9% 250 ML 250 ML IVPB SCH (19:45)
[2018-04-06 22:34] LABS: Bilirubin Negative (Negative); Blood, Urine Negative (Negative); Clarity CLEAR (Clear); Glucose, Urine (Dipstick) >=1000 mg/dL (Negative); Leukocyte Small (Negative); Nitrite Negative (Negative); Protein, Urine (Dipstick) Negative (Neg-Trace); Specific Gravity, Urine 1.024 (1.002-1.036); Urobilinogen 0.2 mg/dL (0.2-1.0)
[2018-04-06 22:36] LABS: Bacteria/HPF None Seen HPF (None Seen); Hyaline Casts/LPF 4-6 HYALINE CAST LPF (0-3 Hyaline); Pathc Cast-AUWi Flag 0.72 (0-2.49); RBC/HPF 0-3 HPF (0-3); Squamous Epithelial 0-3 HPF (0-3)
[2018-04-06] MEDS ORDERED: Fentanyl 100 MCG/2 ML VIAL ONE (23:32)
[2018-04-06 23:59] LABS: Hemoglobin 10.1 g/dL (14.0-18.0)
[2018-04-07 00:08] LABS: Lactic Acid 5.9 mmol/L (0.5-2.2)
[2018-04-07] MEDS ORDERED: Promethazine HCl 25 MG/ML VIAL SLOW IVP PRN (01:20)
[2018-04-07] MEDS ORDERED: Promethazine HCl 25 MG/ML VIAL IM PRN (01:20)
[2018-04-07] MEDS ORDERED: Ondansetron HCl/PF 4 MG/2 ML Vial IVP PRN (01:20)
[2018-04-07] MEDS ORDERED: Dextrose 5% in Water 1,000 ML IV PRN ×2 (01:29→08:26)
[2018-04-07] MEDS ORDERED: CCU Electrolyte Replacement 1 EACH FS ONE (01:29)
[2018-04-07] MEDS ORDERED: Ventilator Sedation Protocol 1 EACH FS ONE (01:29)
[2018-04-07] MEDS ORDERED: Dextrose 50% Abboject 50 ML SYRINGE SLOW IVP PRN ×2 (01:29→08:26)
[2018-04-07] MEDS ORDERED: Ondansetron PF 4 MG/2 ML Vial IVP PRN (01:29)
--- NOTE | 2018-04-07 01:32 | PDOC.FPRHP ---
- History of Present Illness Chief Complaint: "feeling bad"/vomiting History of Present Illness: 67yo M with pmh of alcoholic and HCV cirrhosis presenting with 1 day hx of hematemesis. Pt had episode of hematemesis on presentation to ED quantified to be 600ml. Pt also complains of diaphoresis and dizziness. He reports hx of hepatitis and had an EGD done in 10/2017 which was significant for gastric varices. After hematemesis in ED GI was consulted emergently and pt brought to endo suite for EGD and ligation. ED Course: 1L NS bolus and 2 units of pRBCs, octreotide drip - Allergies/Adverse Reactions Allergies Allergy/AdvReac Type Severity Reaction Status Date / Time No Known Drug Allergies Allergy Unknown Verified 09/14/17 00:28 milk Allergy Diarrhea Verified 11/01/17 21:01 - Home Medications Medication Instructions Recorded Confirmed Type Ferrous Sulfate 325 mg PO DAILY 07/18/17 11/01/17 History Furosemide [Lasix] 20 mg PO DAILY 09/14/17 11/01/17 History Metoprolol Tartrate 12.5 mg PO BID 09/14/17 11/01/17 History Multivitamin With Minerals 1 tablet PO DAILY 09/14/17 11/01/17 History [Multiple Vitamin] metFORMIN HCl [Glucophage XR] 750 mg PO BID-WM 09/14/17 11/01/17 History Cephalexin [Keflex] 500 mg PO TID #20 cap 11/04/17 Rx Doxycycline Hyclate 100 mg PO BID #14 capsule 11/04/17 Rx Folic Acid [Folvite] 1 mg PO DAILY #30 tab 11/04/17 Rx Pantoprazole [Protonix] 40 mg PO DAILY #30 tab 11/04/17 Rx Thiamine 100 mg PO DAILY #30 tab 11/04/17 Rx - History PMHx: DM2, HTN, hepatitis C, EtOH missuse disorder PSHx: EGD 10/2017 FHx: DM, HTN Social: ETOH abuse (50 year hx), cigarettes (20 pack years), denies drugs - Review of Systems General: reports: other (diaphoresis, dizziness). denies: fever/chills, fatigue Eyes: denies: eye pain, vision changes ENT: denies: nasal congestion, rhinorrhea Respiratory: denies: congestion, shortness of breath Cardiovascular: denies: chest pain, palpitation Gastrointestinal: reports: nausea, vomiting, GI bleeding Genitourinary: denies: incontinence, dysuria Skin: denies: rashes, lesions Musculoskeletal: denies: pain, tenderness Neurological: denies: syncope, seizure Psychological: denies: anxiety, depression - Vital signs BP: [86/50] HR: [86] RR: [20] Tmax: [98.1] Pox: [100]% on [ra] Wt: [74kg] - Physical Exam -Constitutional: moderate distress 2/2 abdominal discomfort/nausea HEENT: EOMI, grossly normal vision, grossly normal hearing, MMM Neck: supple, trachea midline Chest: no-tender to palpation Heart: RRR, normal S1/S2 Lungs: CTAB, no respiratory distress Abdomen: soft, bowel sounds present Musculoskeletal: normal structure, normal tone Neurological: no focal deficit, normal sensation Skin: no rash/lesions, good turgor Heme/Lymphatic: no purpura, no petechia Psychiatric: normal mood and affect, other (poor judgment and insight) FMR H&P: Results - Labs Result Diagrams: 04/07/18 04:59 04/07/18 04:59 Lab results: WBC 10.1 thou/uL (4.8-10.8) 04/06/18 18:40 Hgb 10.1 g/dL (14.0-18.0) L 04/06/18 23:38 Hct 31.6 % (42.0-52.0) L 04/06/18 23:38 MCV 97.3 fL (78.0-98.0) 04/06/18 18:40 Plt Count 120 thou/uL (130-400) L 04/06/18 18:40 Neutrophils % 81.6 % (42.0-75.0) H 04/06/18 18:40 Sodium 136 mmol/L (136-145) 04/06/18 18:40 Potassium 5.3 mmol/L (3.5-5.1) H 04/06/18 18:40 Chloride 100 mmol/L (98-107) 04/06/18 18:40 Carbon Dioxide 14 mmol/L (23-31) L 04/06/18 18:40 BUN 47 mg/dL (8.4-25.7) H 04/06/18 18:40 Creatinine 1.24 mg/dL (0.7-1.3) 04/06/18 18:40 Glucose 623 mg/dL (80-115) H* 04/06/18 18:40 Lactic Acid 5.9 mmol/L (0.5-2.2) H* 04/06/18 23:38 Calcium 9.2 mg/dL (7.8-10.44) 04/06/18 18:40 Total Bilirubin 2.9 mg/dL (0.2-1.2) H 04/06/18 18:40 AST 25 U/L (5-34) 04/06/18 18:40 ALT 26 U/L (8-55) 04/06/18 18:40 Alkaline Phosphatase 140 U/L (40-150) 04/06/18 18:40 Serum Total Protein 5.7 g/dL (5.8-8.1) L 04/06/18 18:40 Albumin 2.9 g/dL (3.4-4.8) L 04/06/18 18:40 Lipase 55 U/L (8-78) 04/06/18 18:40 Urine Ketones Trace mg/dL (Negative) H 04/06/18 21:57 Urine Blood Negative (Negative) 04/06/18 21:57 Urine Nitrite Negative (Negative) 04/06/18 21:57 Ur Leukocyte Esterase Small (Negative) H 04/06/18 21:57 Urine RBC 0-3 HPF (0-3) 04/06/18 21:57 Urine WBC 7-10 HPF (0-3) H 04/06/18 21:57 Ur Squamous Epith Cells 0-3 HPF (0-3) 04/06/18 21:57 Urine Bacteria None Seen HPF (None Seen) 04/06/18 21:57 FMR H&P: A/P - Problem List (1) Anemia Current Visit: Yes Status: Acute Code(s): D64.9 - ANEMIA, UNSPECIFIED (2) Upper GI bleed Current Visit: Yes Status: Acute Code(s): K92.2 - GASTROINTESTINAL HEMORRHAGE, UNSPECIFIED (3) High anion gap metabolic acidosis Current Visit: Yes Status: Acute Code(s): E87.2 - ACIDOSIS (4) Hyperkalemia Current Visit: Yes Status: Acute Code(s): E87.5 - HYPERKALEMIA (5) Cirrhosis of liver Current Visit: No Status: Acute Code(s): K74.60 - UNSPECIFIED CIRRHOSIS OF LIVER (6) Alcohol abuse Current Visit: No Status: Chronic Code(s): F10.10 - ALCOHOL ABUSE, UNCOMPLICATED (7) Hepatitis C Current Visit: No Status: Chronic Code(s): B19.20 - UNSPECIFIED VIRAL HEPATITIS C WITHOUT HEPATIC COMA Qualifiers: Viral hepatitis chronicity: chronic Hepatic coma status: without hepatic coma Qualified Code(s): B18.2 - Chronic viral hepatitis C (8) Systolic CHF Current Visit: No Status: Chronic Code(s): I50.20 - UNSPECIFIED SYSTOLIC ( CONGESTIVE) HEART FAILURE Qualifiers: Heart failure chronicity: chronic Qualified Code(s): I50.22 - Chronic systolic (congestive) heart failure (9) Tobacco abuse Current Visit: No Status: Chronic Code(s): Z72.0 - TOBACCO USE - Plan 67yoM with pmh of alcohol missuse d/o and gastric varices presents with active UGIB Acute blood loss anemia 2/2 upper GI bleed A- presents with active hematemesis, hypotension, and anemia. Is now s/p 1L NS bolus and 2 units of pRBCs. GI consulted from ER and took pt for emergent EGD ( showing gastric varices s/p banding x1, ulcers, and avm). P- Per GI recs continue octreotide and protonix gtt and closely monitor H/H. - bolus an additional 1-2 liters of NS and closely monitor BP. - Continue Ceftriaxone for at least 5 days. Anion gap metabolic acidosis A- Likely secondary to above and lactic acidosis due to hypoperfusion and GI loses vs. DKA P- will repeat BMP once moved to floor to monitor with continued IVF resuscitation. EtOH and HCV Cirrhosis A- Pt is s/p HCV treatment P- Plans per above. Mild Hyperkalemia -Repeat BMP -consider IV Ca -will get EKG if elevated Mild thrombocytopenia -Likely 2/2 cirrhosis HFrEF A- Echo in April 2017 shows ef 35-40% P- will be cautious with IVF -home meds Hyperglycemia in setting of DM2 A- With initial lab values, some concern for DKA vs. [place] as stated above. P- plan per above -hyperglycemia protocol -SSI Hyperbilirubinemia 2/2 alcoholic cirrhosis -Trend and continue to monitor. Hx of EtOH abuse -Check EtOH level and order ASE protocol CODE: DNI PPx: SCDs for VTE and Protonix for GI dispo: inpt, anticipate at least 2 midnights FMR H&P: Upper Level - Pertinent history 67 yo HM with a PMH of alcoholic and HCV cirrhosis, DM2, and noncompliance presenting with complaints of abdominal pain. History limited due to intubation prior to EGD, however, per ERMD, pt began vomiting about 600 mL of BRB and was hypotensive on presentation. Pt received 1L of NS and 2 units of pRBCs. Pt was taken for emergent EGD by Dr. Jasso which showed gastric varices along with portal hypertensive gastropathy. Banding of gastric variceal was successful. In ER, pt received: 1L NS, 2u pRBCs, protonix 80 mg, octreotide drip, Ceftriaxone 2g, and zofran. - Pertinent findings BP 70/48-100/62 Gen: intubated in NAD CV: tachycardic Resp: CTAB Abd: BS+, NTTP - Plan Date/Time: 04/07/18 0131 I, Joshua Corbett MD PGY3, have evaluated this patient and agree with findings/ plan as outlined by marketing operations intern resident. Pertinent changes/additions are listed here. 1. Acute blood loss anemia 2/2 upper GI bleed -Pt presents with hypotension, tachycardia, anemia, and hematemesis. Pt received 1L NS bolus and 2 units of pRBCs. GI consulted from ER and took pt for emergent EGD and variceal banding. -GI recommendations greatly appreciated. -Will continue octreotide and protonix gtt and closely monitor H/H. -With hypotensive episodes continuing during EGD, will bolus an additional 1-2 liters of NS and closely monitor BP. -Continue Ceftriaxone for at least 5 days. 2. Anion gap metabolic acidosis -Likely secondary to above and lactic acidosis due to hypoperfusion and GI loses. -Stat repeat BMP to monitor with continued IVF resuscitation. -If gap continues to be open in setting of hyperglycemia, will consider starting insulin gtt. 3. EtOH and HCV Cirrhosis -Plans per above. -GI recommendations greatly appreciated. 4. Mild Hyperkalemia -Repeat and monitor 5. Mild thrombocytopenia -Likely 2/2 #3 -Continue to monitor 6. Hyperglycemia in setting of DM2 -With initial lab values, some concern for DKA. -Will obtain stat BMP and continue aggressive IVF resuscitation. Consider starting insulin drip. 7. Hyperbilirubinemia 2/2 #3 -Trend and continue to monitor. 8. Coagulopathy /2 #3 9. Hx of EtOH abuse -Check EtOH level and order ASE protocol DNI code status PPx: SCDs for VTE and Protonix for GI disposition: Admit to inpatient IMCU for anticipated length of stay greater than two midnights, pending clinical course. Addendum - Attending - Attending Attestation Date/Time: 04/07/18 1110 I personally evaluated the patient and discussed the management with Dr. Rascon I agree with the History, Examination, Assessment and Plan documented above with any addition or exceptions noted below.Doubt DKA regard if concern check beta hydroxybutyrate etc feel fluid resuscitation and sc insulin will solve this anion gap concern. May need central line note thrombocytopenia and prolonged INR.HF noted in past per echo consult critical care in am for further recommendations.
[2018-04-07] MEDS ORDERED: Propofol 1,000 MG/100 ML VIAL IV PRN (01:50)
[2018-04-07] MEDS ORDERED: Propofol BOLUS 1,000 MG/100 ML VIAL IV PRN (01:50)
[2018-04-07] MEDS ORDERED: fentaNYL Citrate/PF 2,000 MCG in Sodium Chloride 0.9% 60 ML IV SCH (01:50)
[2018-04-07] MEDS ORDERED: DISCONTINUE PREVIOUS NARCOTIC PAIN MEDICATIONS AND BENZODIAZEPINES FS SCH (01:50)
[2018-04-07] MEDS ORDERED: Morphine 2 MG/ML SYRINGE SLOW IVP PRN (01:50)
[2018-04-07] MEDS ORDERED: Lorazepam 2 MG/ML VIAL SLOW IVP PRN (01:50)
[2018-04-07] MEDS ORDERED: Fentanyl BOLUS 250 ML IVPB PRN (01:50)
[2018-04-07] MEDS ORDERED: Potassium Chloride 40 MEQ in Sodium Chloride 0.9% 250 ML 250 ML IVPB PRN (01:53)
[2018-04-07] MEDS ORDERED: Potassium Phosphate 15 MMOL in Sodium Chloride 0.9% 250 ML 250 ML IV PRN (01:53)
[2018-04-07] MEDS ORDERED: Potassium Phosphate 12 MMOL in Sodium Chloride 0.9% 250 ML 250 ML IV PRN (01:53)
[2018-04-07] MEDS ORDERED: Magnesium 2 GM/NS 0.9% 100 ML 2 GM in Premix Bag 1 BAG IVPB PRN (01:53)
[2018-04-07] MEDS ORDERED: CCU ELECTROLYTE REPLACEMENT PROTOCOL FS PRN (01:53)
[2018-04-07] MEDS ORDERED: Magnesium Oxide 400 MG TAB PO PRN ×2 (01:53)
[2018-04-07] MEDS ORDERED: Potassium Chloride 40 MEQ in Premix Bag 1 BAG IVPB PRN (01:53)
[2018-04-07] MEDS ORDERED: Potassium Chloride 20 MEQ TAB PO PRN (01:53)
[2018-04-07] MEDS ORDERED: Potassium Phosphate 9 MMOL in Sodium Chloride 0.9% 100 ML IVPB PRN (01:53)
--- NOTE | 2018-04-07 01:54 | CON ---
DATE OF CONSULTATION: 04/06/2018 REASON FOR CONSULTATION: Hematemesis, history of cirrhosis with esophageal varices. CONSULTING PHYSICIAN: Dr. Carlson. HISTORY OF PRESENT ILLNESS: The patient is a 67-year-old male with past medical history of chronic hepatitis C infection, now status post treatment, diabetes, hypertension, and cirrhosis, complicated by esophageal varices and gastric varices, presenting with complaints of hematemesis. He states that he was in his usual state of health until approximately last night when he began to experience mild abdominal discomfort after drinking grape juice. He subsequently had an episode of vomiting where it was unclear to tell whether or not this was hematemesis versus vomiting up of the grape juice. However, he went to bed later the evening and woke up in the middle of the night, and again upon drinking water, vomited again a moderate amount of blood and blood clots. Given his increased abdominal discomfort earlier today and these episodes of hematemesis overnight, he was brought to the emergency room by family for further evaluation. Initially upon evaluation, the patient was noted to be normotensive, non tachycardic, and was asking to go home, but while in the ER, he exhibited repeat episode of hematemesis, vomiting approximately 600 mL of dark red blood per ER staff, with these episodes of hematemesis, they were associated with increased sweating, but no loss of consciousness. Currently, denies any fevers, chills, abdominal pain, melena, hematochezia, dysphagia, odynophagia, or weight loss. Of note, the patient was admitted both in May and October of 2017, for episodes of hematemesis. EGD performed in May 2017, showed small esophageal varices that were not banded given high-risk stigmata of bleeding as well as moderate portal hypertensive gastropathy and small nonbleeding AVMs. The EGD performed in October 2017, also showed no presence of esophageal varices, but presence of gastric varices and 2 small nonbleeding AVMs. REVIEW OF SYSTEMS: A 10-category review of systems was obtained with all responses negative except for the pertinent positives as listed in HPI. PAST MEDICAL HISTORY: As per HPI. PAST SURGICAL HISTORY: Upper and lower endoscopy. FAMILY HISTORY: A brother diagnosed with liver cancer. Otherwise, denies any GI malignancies. SOCIAL HISTORY: Continues to smoke approximately 1/3 pack per day. States that his last use of alcohol was approximately 4 months ago with his last admission. Denies any illicit drug use. OUTPATIENT MEDICATIONS: Reviewed. ALLERGIES: NO KNOWN DRUG ALLERGIES. PHYSICAL EXAMINATION: VITAL SIGNS: Pulse 103, blood pressure 101/70, respiratory rate 12, saturating 100% on room air. GENERAL: The patient was lying in bed, in no acute distress. Alert and oriented x4. HEENT: Normocephalic, atraumatic. NECK: Supple. No JVD. Mild scleral icterus noted. CARDIOVASCULAR: Tachycardic rate, but regular rhythm with no discernible murmurs, gallops, or rubs. RESPIRATORY: Clear to auscultation bilaterally with no discernible wheezes or rales. ABDOMEN: Normoactive bowel sounds. Soft, nontender, and nondistended. EXTREMITIES: No cyanosis, clubbing, or edema. LABORATORY DATA: CBC with a white blood cell count of 10.1, hemoglobin 9.4, hematocrit 30, platelets 120. INR 1.5. Chemistry with a sodium of 136, potassium 5.3, chloride 100, CO2 of 14, BUN 47, creatinine 1.27, glucose 623. AST 25, ALT 26, alkaline phosphatase 140, total bilirubin 2.9, lipase 55. MELD score calculated at 19 which carries a 3% to 4% 90-day mortality. IMAGING DATA: No current GI imaging is available for review. ASSESSMENT AND PLAN: The patient is a 67-year-old male with past medical history of diabetes, hypertension, chronic hepatitis C infection, status post treatment and resultant cirrhosis complicated by esophageal varices and gastric varices, presenting with hematemesis. Hematemesis: 1. The patient is presenting with recurrent episode of hematemesis that he experienced both in May of 2017 and October of 2017. However, on this occasion, he experienced hematemesis x2 last night as well as hematemesis of approximately 600 mL of blood earlier today while in the ER during evaluation. Given his history of esophageal varices in the past, it is a potential possibility for variceal bleed, although his varices were small on prior examinations, making this less likely, more likely would be severe portal hypertensive gastropathy or probable recurrence of an arteriovenous malformation contributing to his current hematemesis, within the differential is also Pam-Nagel tear when coupled with a moderately elevated INR which could contribute further bleeding. Recommendations: 1. Would keep patient n.p.o. for now in anticipation for an EGD later on tonight. 2. Would plan for urgent EGD later on tonight for further evaluation of the upper GI tract. 3. Would continue the patient on proton pump inhibitor drip, octreotide drip as well as ceftriaxone for infection prophylaxis. 4. Would continue to monitor H and H and transfuse as necessary to maintain an H and H of 7/21. 5. Would continue to monitor clinically for signs of active gastrointestinal bleeding. 6. Further recommendations to follow upper endoscopy. We will continue to follow. Please call with any questions. Job ID: [id number]
[2018-04-07] MEDS ORDERED: Lactated Ringer's 1,000 ML IV SCH (02:00)
[2018-04-07] MEDS ORDERED: Lactated Ringer's 2,000 ML IV SCH (02:15)
[2018-04-07 02:24] LABS: ALT (SGPT) 44 U/L (8-55); AST (SGOT) 46 U/L (5-34); Albumin 2.5 g/dL (3.4-4.8); Alkaline Phosphatase 102 U/L (40-150); Anion Gap 16 mmol/L (10-20); BUN (Urea Nitrogen) 65 mg/dL (8.4-25.7); Bilirubin, Total 1.5 mg/dL (0.2-1.2); Calc. Creatinine Clearance 0 mL/min (70-130); Carbon Dioxide 20 mmol/L (23-31); Chloride 108 mmol/L (98-107); Estimated GFR-MDRD 44; Globulin 2.4 g/dL (2.4-3.5); Glucose 538 mg/dL (80-115); Potassium 5.7 mmol/L (3.5-5.1); Protein, Total 4.9 g/dL (5.8-8.1); Sodium 138 mmol/L (136-145)
[2018-04-07 02:45] VITALS: BMI 26.6
[2018-04-07] MEDS ORDERED: Insulin Glargine 10 UNITS in Pre-Filled Syringe 1 EACH SC SCH (02:45)
[2018-04-07] MEDS ORDERED: Calcium Gluconate 100 MG/ML 10 ML IVPB SCH (02:45)
--- NOTE | 2018-04-07 03:11 | OP ---
DATE OF PROCEDURE: 04/07/2018 PROCEDURE PERFORMED: Esophagogastroduodenoscopy with control of hemorrhage/variceal band ligation. INDICATION FOR PROCEDURE: Hematemesis. DESCRIPTION OF PROCEDURE: After the risks and benefits of the procedure were explained to the patient including risks of bleeding, infection, perforation, reactions to anesthesia, aspiration, and/or pain, informed consent was obtained. The patient was then taken to the endoscopy suite, where deep sedation was administered via general anesthesia followed by endotracheal tube intubation for airway protection. Once the patient was intubated and sedated, he was placed in the left lateral decubitus position in preparation for the procedure. The standard gastroscope was then introduced into the mouth with intubation of the esophagus, stomach, and the proximal small intestine with the findings listed below. The patient tolerated the procedure well with no immediate perioperative complications. Upon completion of the procedure, all equipment was removed from the patient, and the patient was taken to PACU in satisfactory condition. FINDINGS: Esophagus: Normal-appearing mucosa was seen in the proximal, mid, and distal esophagus. There was no evidence of erosions, ulcerations, mass, lesions, esophageal varices, or active/recent bleeding seen in the esophagus. Stomach: A significant amount of dark black blood clot was seen throughout the entire stomach and initially obscured the gastric mucosa; however, with aggressive irrigation and suctioning, adequate views of the gastric mucosa were able to be achieved of the mucosa seen, [id number] mucosal erythema in a mosaic pattern was seen throughout the entire stomach with a few areas appearing to have increased inflammation, but no active bleeding was seen with this portal hypertensive gastropathy. However, in the gastric cardia near the lesser curvature, there was a prominence of tissue just distal to the GE junction consistent with gastric varices along one of these gastric varices was an ulceration with a visible vessel and an adherent clot, all which were high-risk stigmata of recent bleeding. Given this location of the clot overlying a gastric varix, band ligation was performed x1 with good hemostasis achieved and no significant bleeding seen after placement of the band. Otherwise, there was no further evidence of erosions, ulcerations, or mass, lesions. Duodenum: An increased amount of clotted blood was also seen in the duodenal bulb and second portion of the duodenum, that was somewhat amenable to aggressive irrigation and suctioning. Once adequate views were achieved with installation of sterile water and suctioning of the water, there was no evidence of erosions, ulcerations, mass, lesions, or active/recent bleeding. IMPRESSION: 1. Normal-appearing esophagus with no evidence of esophageal varices. 2. Isolated gastric varices (GOV1) was seen in the gastric cardia along the lesser curvature, status post band ligation x1 with good hemostasis achieved. 3. [id number] portal hypertensive gastropathy. RECOMMENDATIONS: 1. We would continue to trend H and H and transfuse as necessary to maintain an H and H of 7/21. 2. Continue to monitor clinically for signs of active GI bleeding. 3. We would continue octreotide drip and PPI drip for now. The octreotide drip would need to be continue for a total duration of therapy of 72 hours; however, the PPI drip could be discontinued after 24 to 48 hours if patient doing well. 4. We will continue antibiotic prophylaxis with ceftriaxone daily for a total duration of therapy of 5 days. 5. The patient will need to be placed on a nonselective beta-lesley prior to discharge on this admission for secondary prophylaxis of variceal bleed; however, given his hypotension at this time, starting this medication will need to be based on stabilization of his blood pressure. We will continue to follow. Please call with any questions. Job ID: [id number]
[2018-04-07] MEDS ORDERED: Sodium Chloride 0.9% 1,000 ML IV SCH (03:15)
--- NOTE | 2018-04-07 03:30 | PDOC.EVN ---
Event Note - Event Note Event Note: Brief admission note :67 [facility] patient presents to ER via private vehicle s /p bout hematemesis found with active UGI bleed tachycardic and hypotensive. Patient received 2 units PRBCs intubated and taken to endoscopy suite and had banding of gastric variceal. Patient with PMHX Cirrhosis with portal HTN related to alcoholism and hepatitis C. DM2 , hypertension, HX of Pam Nagel tear 10/2015 multiple episodes UGI bleeding and endoscopy noting variceal bleeding and AVM. 04/2017 HF DX with EF 35-40 % and paracentesis performed 2017 . Patient status post banding extubated and will admit to MICU for further monitoring note hypergylcemia recheck anion gap and institute iv insulin after fluid replacement if gap not closed. Assume actively drinking and treatment with thiamine ,folic acid and B12 indicated as well as ASE protocol. Octreotide and PPI infusion with SBP prophylaxis(rocephin) started and discussed with GI Nonselective BB when hemodynamically stable. Appreciate GI consult and recommendations. See Residents note for further detail case discussed with Magdy Sheehan and Aric
[2018-04-07] MEDS: Insulin Regular 300 UNITS/3 ML VIAL SC PRN ×5 (03:38→13:23)
[2018-04-07] MEDS: Sodium Chloride 0.9% 1,000 ML IV SCH ×2 (04:53→13:22)
[2018-04-07 05:50] LABS: INR-International Normal Ratio 1.6; Prothrombin Time 19.3 SEC (12.0-14.7)
[2018-04-07 05:52] LABS: Lactic Acid 6.3 mmol/L (0.5-2.2)
[2018-04-07 05:56] LABS: ALT (SGPT) 54 U/L (8-55); AST (SGOT) 60 U/L (5-34); Albumin 2.2 g/dL (3.4-4.8); Alkaline Phosphatase 92 U/L (40-150); Anion Gap 16 mmol/L (10-20); BUN (Urea Nitrogen) 62 mg/dL (8.4-25.7); Bilirubin, Total 1.3 mg/dL (0.2-1.2); Calc. Creatinine Clearance 50 mL/min (70-130); Calcium 8.2 mg/dL (7.8-10.44); Carbon Dioxide 19 mmol/L (23-31); Chloride 110 mmol/L (98-107); Estimated GFR-MDRD 46; Globulin 2.2 g/dL (2.4-3.5); Glucose 454 mg/dL (80-115); Protein, Total 4.4 g/dL (5.8-8.1); Sodium 140 mmol/L (136-145)
[2018-04-07 06:38] LABS: CKMB 2.1 ng/mL (0-6.6)
[2018-04-07] MEDS ORDERED: HumaLOG 300 UNITS/3 ML VIAL SC PRN (08:22)
[2018-04-07 08:28] LABS: Hemoglobin A1c 8.7 % (4.0-6.0)
[2018-04-07 09:05] LABS: Band 19 % (5-11); Eosinophils 1 % (0-10); Hemoglobin 9.2 g/dL (14.0-18.0); Lymphocytes 13 % (21-51); MDiff Complete? YES; Mean Corpuscular HGB CONC 32.7 g/dL (32.0-36.0); Mean Corpuscular Hemoglobin 31.2 pg (27.0-31.0); Mean Corpuscular Volume 95.5 fL (78.0-98.0); Mean Platelet Volume 10.7 fL (7.4-10.4); Monocytes 4 % (0-10); Neutrophil 63 % (42-75); Platelet Count 56 thou/uL (130-400); Platelet Morphology Comment Appears Decreased; Red Blood Cell (RBC) Count 2.94 mill/uL (4.70-6.10)
[2018-04-07] MEDS: Pantoprazole 80 MG, Admixture Fee 1 EACH in Sodium Chloride 0.9% 100 ML IVP SCH ×2 (09:55→18:11)
[2018-04-07 11:54] LABS: Hemoglobin 8.8 g/dL (14.0-18.0)
[2018-04-07 12:08] LABS: Lactic Acid 3.8 mmol/L (0.5-2.2)
[2018-04-07 12:11] LABS: Anion Gap 14 mmol/L (10-20); BUN (Urea Nitrogen) 67 mg/dL (8.4-25.7); Calc. Creatinine Clearance 49 mL/min (70-130); Calcium 8.2 mg/dL (7.8-10.44); Carbon Dioxide 22 mmol/L (23-31); Chloride 111 mmol/L (98-107); Estimated GFR-MDRD 46; Glucose 368 mg/dL (80-115); Potassium 4.4 mmol/L (3.5-5.1); Sodium 143 mmol/L (136-145)
[2018-04-07] MEDS ORDERED: cefTRIAXone\\ROCEPHIN 1 GM in Sodium Chloride 0.9% 100 ML IVPB SCH (18:00)
[2018-04-07] MEDS: cefTRIAXone\\ROCEPHIN 2 GM in Sodium Chloride 0.9% 100 ML IVPB SCH (18:11)
--- NOTE | 2018-04-07 18:40 | PRG ---
DATE OF SERVICE: 04/07/2018 REASON FOR CONSULTATION: Hematemesis, history of cirrhosis with esophageal varices and gastric varices. SUBJECTIVE: The patient underwent EGD early this morning with the findings of medium-sized gastric varices, one of which had an overlying clot as well as what appeared to be an ulceration along the top of it consistent with high-risk stigmata bleeding. This was intervened upon with variceal band ligation x1 with good hemostasis achieved. Since intervention this morning, he has not had any further episodes of hematemesis nor has he complained of any hematochezia or melena. Currently, states that he is doing well without any nausea, vomiting, fevers, chills, abdominal pain, or GI bleeding. OBJECTIVE: VITAL SIGNS: Temperature 99, pulse 98, blood pressure 99/42, respiratory rate 20, and saturating 100% on room air. GENERAL: The patient was lying in bed, in no acute distress. Alert and oriented x4. CARDIOVASCULAR: Regular rate and rhythm. Respiratory clear to auscultation bilaterally. ABDOMEN: Normoactive bowel sounds. Soft, nontender, and nondistended. EXTREMITIES: No cyanosis, clubbing, or edema. LABORATORY DATA: Hemoglobin 10.1 and hematocrit 31.6. Chemistry with a sodium of 140, potassium 5, chloride 110, CO2 of 19, BUN 62, creatinine 1.51, glucose 454. INR 1.6. AST 60, ALT 54, alkaline phosphatase 92, and total bilirubin 1.3. IMAGING DATA: EGD performed on April 06, 2018 showed [id number] portal hypertensive gastropathy seen throughout the entire stomach as well as small to medium-sized gastric varices, one of which had an overlying clot consistent with recent bleed. This was intervened upon with band ligation x1. There was no evidence of esophageal varices seen during this examination. ASSESSMENT AND PLAN: The patient is a 67-year-old male with past medical history of diabetes, hypertension; chronic hepatitis C infection, status post treatment and resultant cirrhosis complicated by esophageal varices and now bleeding gastric varices. Hematemesis/bleeding gastric varix. The patient has presented to the hospital on multiple occasions for hematemesis in May of 2017 and October of 2017 and on those occasions, he was noted to have either small or absent esophageal varices, but the presence of small gastric varices. On this admission, he had observed hematemesis of approximately 600 mL of blood while in the ER with EGD showing a toptg-ej-dlbolk size gastric varix in the cardia/fundus and extending into the lesser curvature consistent with GOV-1type gastric varix. This was successfully intervened upon with band ligation x1. Currently doing well with stable H and H and no clinical evidence of active GI bleeding. RECOMMENDATIONS: 1. Would continue to trend H and H and transfuse as necessary to maintain an H and H of 7/21. 2. Continue to monitor clinically for signs of active GI bleeding. 3. Would continue PPI drip for total duration of 24 hours therapy and then transfer to pantoprazole 40 mg b.i.d. 4. Continue octreotide drip for total duration of therapy of 72 hours. 5. Continue ceftriaxone for infection prophylaxis in a cirrhotic individual for a total duration of five days. 6. Advance the patient's diet to clear liquid diet and advance as tolerated. 7. The patient will need to be placed on nonselective beta blockade prior to discharge given his recent variceal bleed. However, if the patient does rebleed in the meantime with massive gross hematemesis, I would recommend transfer to [facility] in [place] for emergent TIPS procedure. 8. We will continue to follow. Please call with any questions. Job ID: [id number]
[2018-04-07] MEDS ORDERED: traMADol HCl 50 MG TAB PO SCH (21:45)
[2018-04-08] MEDS: Sodium Chloride 0.9% 1,000 ML IV SCH ×3 (00:46→21:22)
[2018-04-08] MEDS: Pantoprazole 80 MG, Admixture Fee 1 EACH in Sodium Chloride 0.9% 100 ML IVP SCH (04:05)
[2018-04-08 05:03] LABS: INR-International Normal Ratio 1.4; PTT 34.9 SEC (22.9-36.1); Prothrombin Time 17.3 SEC (12.0-14.7)
[2018-04-08 05:16] LABS: Lactic Acid 1.9 mmol/L (0.5-2.2)
[2018-04-08 05:19] LABS: ALT (SGPT) 90 U/L (8-55); AST (SGOT) 97 U/L (5-34); Albumin 2.6 g/dL (3.4-4.8); Alkaline Phosphatase 90 U/L (40-150); Anion Gap 13 mmol/L (10-20); BUN (Urea Nitrogen) 42 mg/dL (8.4-25.7); Bilirubin, Total 1.6 mg/dL (0.2-1.2); Calc. Creatinine Clearance 72 mL/min (70-130); Calcium 8.1 mg/dL (7.8-10.44); Carbon Dioxide 21 mmol/L (23-31); Chloride 114 mmol/L (98-107); Estimated GFR-MDRD 71; Globulin 2.5 g/dL (2.4-3.5); Glucose 252 mg/dL (80-115); Potassium 4.1 mmol/L (3.5-5.1); Protein, Total 5.1 g/dL (5.8-8.1); Sodium 144 mmol/L (136-145)
[2018-04-08 05:34] LABS: #Eosinphils 0.2 thou/uL (0.0-0.7); #Monocytes 0.8 thou/uL (0.11-0.59); #Neutrophils 6.2 thou/uL (1.40-6.50); %Basophils 0.2 % (0.0-1.0); %Eosinophils 2.3 % (0.0-10.0); %Lymphocytes 12.1 % (21.0-51.0); %Monocytes 9.2 % (0.0-10.0); %Neutrophils 76.2 % (42.0-75.0); Hemoglobin 8.7 g/dL (14.0-18.0); Mean Corpuscular HGB CONC 32.9 g/dL (32.0-36.0); Mean Corpuscular Hemoglobin 31.4 pg (27.0-31.0); Mean Corpuscular Volume 95.4 fL (78.0-98.0); Platelet Count 46 thou/uL (130-400); Platelet Morphology Comment Appears Decreased; RBC Distribution Width 14.3 % (11.5-14.5); Red Blood Cell (RBC) Count 2.78 mill/uL (4.70-6.10); White Blood Cell (WBC) Count 8.1 thou/uL (4.8-10.8)
[2018-04-08] MEDS: Insulin Regular 300 UNITS/3 ML VIAL SC PRN ×3 (05:59→12:03)
--- NOTE | 2018-04-08 06:32 | PDOC.FM ---
- Subjective Subjective: Pt complaining of diffuse joint pain. Has not happened before. Otherwise, no further melena, hematemesis, abd pain. - Objective MAR Reviewed: Yes Vital Signs & Weight: Vital Signs (12 hours) Temp Pulse Resp BP BP Pulse Ox 04/08/18 04:05 137/73 04/08/18 04:00 99.4 F 109 H 20 137/73 100 04/08/18 00:07 129/60 04/07/18 23:59 98.8 F 111 H 20 129/60 100 04/07/18 20:25 121/51 L 04/07/18 19:40 99.3 F 103 H 18 121/51 L 100 Weight Weight 74.899 kg I&O: 04/06/18 04/07/18 04/08/18 06:59 06:59 06:59 Intake Total 2554.5 3200 Output Total 100 1625 Balance 2454.5 1575 Result Diagrams: 04/08/18 04:36 04/08/18 04:36 Phys Exam - Physical Examination mild distress from joint pain HEENT: PERRLA Neck: no JVD, full ROM Cardiovascular: RRR, no significant murmur Gastrointestinal: soft mild distension from ascites Musculoskeletal: no edema, pulses present Neurological: non-focal, moves all 4 limbs Psychiatric: A&O x 3 Dx/Plan (1) Upper GI bleed Code(s): K92.2 - GASTROINTESTINAL HEMORRHAGE, UNSPECIFIED Status: Acute (2) Uncontrolled diabetes mellitus Code(s): E11.65 - TYPE 2 DIABETES MELLITUS WITH HYPERGLYCEMIA Status: Acute (3) Hyperbilirubinemia Code(s): E80.6 - OTHER DISORDERS OF BILIRUBIN METABOLISM Status: Acute (4) Anemia Code(s): D64.9 - ANEMIA, UNSPECIFIED Status: Acute (5) Alcohol abuse Code(s): F10.10 - ALCOHOL ABUSE, UNCOMPLICATED Status: Chronic (6) Cirrhosis of liver with ascites Code(s): K74.60 - UNSPECIFIED CIRRHOSIS OF LIVER Status: Chronic Qualifiers: Hepatic cirrhosis type: alcoholic cirrhosis Qualified Code(s): K70.31 - Alcoholic cirrhosis of liver with ascites (7) Hepatitis C Code(s): B19.20 - UNSPECIFIED VIRAL HEPATITIS C WITHOUT HEPATIC COMA Status: Chronic Qualifiers: Viral hepatitis chronicity: chronic Hepatic coma status: without hepatic coma Qualified Code(s): B18.2 - Chronic viral hepatitis C (8) Hypoalbuminemia Code(s): E88.09 - OTH DISORDERS OF PLASMA-PROTEIN METABOLISM, NEC Status: Chronic (9) Obesity (BMI 30.0-34.9) Code(s): E66.9 - OBESITY, UNSPECIFIED Status: Chronic (10) Thrombocytopenia Code(s): D69.6 - THROMBOCYTOPENIA, UNSPECIFIED Status: Chronic (11) Tobacco abuse Code(s): Z72.0 - TOBACCO USE Status: Chronic - Plan Plan: Acute blood loss 2/2 UGIB s/p band ligation -s/p gastric variceal banding in setting of cirrhosis -s/p 2 PRBC, H/H stable at 8.7/26 -Per GI continue octreotide gtt, pantoprazole po 40mg BID, will start on nonselective BB upon discharge. -CLD -Ceftriaxone for SBP ppx -GI on board Sinus tachycardia -In low 100s -ASx, could be due to pain -will obtain EKG Non Anion gap metabolic acidosis -Likely 2/2 to lactic acid from hypoperfusion with acute bleed -Continue IVF Hyperglycemia 2/2 uncontrolled DM2 -POC glucose have been in 200-400s yesterday -Not likely DKA -Unsure of pts home meds, he does not know as well -A1c this admission 8.7 -Continue aggressive SS, restart metformin -Monitor with daily BMPs: if gap opens up will grab serum ketones, ABG, consider starting insulin drip Chronic thrombocytopenia -Plts 42, prior admission around pt baseline -Likely 2/2 to cirrhosis -Will continue to monitor EtOH and HCV Cirrhosis -MELD 17, <2% 90 day mortality Hyperbilirubinemia 2/2 Cirrhosis -Continue to monitor Coagulopathy 2/2 Cirrhosis Hx of EtOH abuse -Last drink >6 mos ago per pt -ASE protocol Mild Hyperkalemia, resolved code status: DNI PPx: SCDs for VTE and Protonix for GI Dispo: switch to oral protonix BID, CLD-GI recs. Restart metformin. Tramadol for pain. Uric acid. EKG when tachycardic. Addendum - Attending - Attending Attestation Date/Time: 04/08/18 1103 I personally evaluated the patient and discussed the management with Dr. Campbell. I agree with the History, Examination, Assessment and Plan documented above with any addition or exceptions noted below. Upper GI bleed secondary to gastric varices s/p banding- appreciate GI recs. PO protonix, octreotide gtt for 72 hours, rocephin daily for 5 doses. Acute blood loss anemia- stable h/h and no recurrent bleeding Thrombocytopenia- review of records shows baseline 30-50k DM-restart metformin and SSI- attempt to get home med recs Joint pain-diffuse. check uric acid. PT for deconditioning Sinus tachycardia- bp normal and hgb stable. Rate 95-103 during my exam. Stable for transfer to medical floor.
[2018-04-08 06:50] LABS: Amphetamine Not Detected (NotDetected); Barbiturates Screen Not Detected (NotDetected); Benzodiazepine Screen Not Detected (NotDetected); Cocaine Metabolite Screen Not Detected (NotDetected); Medtox Control Line Valid? VALID (VALID); Medtox Reader # READER 4; Methadone Not Detected (NotDetected); Methamphetamine Not Detected (NotDetected); Opiate Screen Not Detected (NotDetected); Oxycodone Screen Not Detected (NotDetected); Phencyclidine (PCP) Not Detected (NotDetected); THC/Cannabinoid Screen Not Detected (NotDetected); Tricyclic Screen Not Detected (NotDetected)
[2018-04-08] MEDS ORDERED: traMADol HCl 50 MG TAB PO SCH (09:00)
[2018-04-08] MEDS ORDERED: Magnesium 2 GM/50 ML 2 GM in Premix Bag 1 BAG IVPB SCH (09:15)
--- NOTE | 2018-04-08 14:38 | PRG ---
DATE OF SERVICE: 04/08/2018 SUBJECTIVE: Mr. Hebert has no complaints. He is pretty still on octreotide. He has no further bleeding. OBJECTIVE: VITAL SIGNS: He is afebrile. Heart rate is 112, respiratory rate 18, oximetry is 100% on room air, blood pressure 132/72. LUNGS: Clear. HEART: Regular rhythm. ABDOMEN: Soft. LABORATORY DATA: White count 8.1, hemoglobin stable at 8.7. Sodium 144, potassium 4.1, chloride 114, bicarb 21, BUN 42, and creatinine 1.04. IMPRESSION: 1. Gastrointestinal bleed, status post gastric variceal banding. 2. Hyperchloremic acidosis, mild secondary to volume resuscitation. 3. Elevated BUN secondary to blood in the gut most likely. 4. Diabetes. 5. Elevated liver enzymes, possibly as a result of hypotension and hypoperfusion. PLAN: Continue supportive care. We probably can transfer off the monitor bed to a medical bed. Octreotide can probably be discontinued if Gastroenterology agrees. Job ID: [id number]
[2018-04-08] MEDS ORDERED: traMADol HCl 50 MG TAB PO PRN (15:39)
[2018-04-08] MEDS ORDERED: metFORMIN 500 MG TAB PO SCH (17:00)
[2018-04-08] MEDS: cefTRIAXone\\ROCEPHIN 2 GM in Sodium Chloride 0.9% 100 ML IVPB SCH (17:17)
--- NOTE | 2018-04-08 17:58 | PRG ---
DATE OF SERVICE: 04/08/2018 SUBJECTIVE: Mr. Hebert says he is feeling a lot better today than yesterday. He has had no abdominal pain, no further nausea or vomiting. There has been no report of melena. He has been hemodynamically stable and hemoglobin stable this morning as well at 8.7. He is tolerating a liquid diet. OBJECTIVE: VITAL SIGNS: Temperature 97.9, pulse 82, blood pressure 123/70, 100% oxygen saturation on room air. GENERAL: No acute distress. HEART: Regular rate and rhythm. LUNGS: Clear to auscultation bilaterally. ABDOMEN: Soft and nontender to palpation. EXTREMITIES: No peripheral edema. LABORATORY STUDIES: Hemoglobin 8.7, WBC 8.1, platelets 46. INR 1.4. Glucose 332, sodium 144, potassium 4.1, BUN still elevated to 42, but down from 67 yesterday; creatinine is 1.04. Total bilirubin 1.6, alkaline phosphatase 90, AST 97, ALT 90. ASSESSMENT AND PLAN: 1. Gastric varix with hemorrhage, status post band ligation with Dr. Jasso early yesterday morning. 2. Cirrhosis, secondary to hepatitis C. 3. Chronic hepatitis C, status post successful medical treatment with sustained urologic response in 2016. I see no evidence of recurrent gastrointestinal bleeding over the past day and half since his EGD. I think the Protonix drip can be discontinued on once daily oral PPI. The octreotide infusion needs to stay on for 72 hours following the procedure, so that would be at least through early Sunday morning the . The patient does need to get started on a nonselective beta-lesley upon hospital discharge for secondary prophylaxis of repeat variceal bleeding. I briefly discussed with him that we might need to entertain referral down to a [facility] in [place] for consideration of possible TIPS on an outpatient basis, but the patient is really not enthusiastic about that. Please call anytime with questions or concerns. Job ID: [id number]
[2018-04-08] MEDS ORDERED: Octreotide Acetate 1,250 MCG in Sodium Chloride 0.9% 250 ML 250 ML IVPB SCH (18:30)
[2018-04-09] MEDS: Sodium Chloride 0.9% 1,000 ML IV SCH (05:16)
[2018-04-09] MEDS: Insulin Regular 300 UNITS/3 ML VIAL SC PRN ×2 (06:03→17:05)
[2018-04-09] MEDS: metFORMIN 500 MG TAB PO SCH ×2 (08:37→17:05)
[2018-04-09] MEDS ORDERED: Furosemide 20 MG TAB PO SCH (09:45)
--- NOTE | 2018-04-09 10:15 | PDOC.FM ---
- Subjective Subjective: NAEO. Reports feeling much better. Pain in shoulders and hips and wrists improved. No hematemesis or bloody diarrhea or melena - Objective MAR Reviewed: Yes Vital Signs & Weight: Vital Signs (12 hours) Temp Pulse Resp BP Pulse Ox 04/09/18 08:03 97.9 F 86 16 113/64 94 L 04/09/18 04:55 98.7 F 88 20 101/70 96 04/09/18 00:00 98.2 F 89 20 120/66 95 Weight Weight 78.109 kg I&O: 04/08/18 04/09/18 04/10/18 06:59 06:59 06:59 Intake Total 3200 5580 Output Total 1625 1525 Balance 1575 4055 Result Diagrams: 04/09/18 11:10 04/09/18 11:10 Phys Exam - Physical Examination Constitutional: NAD HEENT: PERRLA Neck: full ROM Respiratory: no wheezing, clear to auscultation bilateral Cardiovascular: RRR, no significant murmur Gastrointestinal: soft, non-tender, no distention, positive bowel sounds Musculoskeletal: no edema Psychiatric: normal affect Dx/Plan (1) Upper GI bleed Code(s): K92.2 - GASTROINTESTINAL HEMORRHAGE, UNSPECIFIED Status: Acute (2) Uncontrolled diabetes mellitus Code(s): E11.65 - TYPE 2 DIABETES MELLITUS WITH HYPERGLYCEMIA Status: Acute (3) Hyperbilirubinemia Code(s): E80.6 - OTHER DISORDERS OF BILIRUBIN METABOLISM Status: Acute (4) Anemia Code(s): D64.9 - ANEMIA, UNSPECIFIED Status: Acute (5) Alcohol abuse Code(s): F10.10 - ALCOHOL ABUSE, UNCOMPLICATED Status: Chronic (6) Cirrhosis of liver with ascites Code(s): K74.60 - UNSPECIFIED CIRRHOSIS OF LIVER Status: Chronic Qualifiers: Hepatic cirrhosis type: alcoholic cirrhosis Qualified Code(s): K70.31 - Alcoholic cirrhosis of liver with ascites (7) Hepatitis C Code(s): B19.20 - UNSPECIFIED VIRAL HEPATITIS C WITHOUT HEPATIC COMA Status: Chronic Qualifiers: Viral hepatitis chronicity: chronic Hepatic coma status: without hepatic coma Qualified Code(s): B18.2 - Chronic viral hepatitis C (8) Hypoalbuminemia Code(s): E88.09 - OTH DISORDERS OF PLASMA-PROTEIN METABOLISM, NEC Status: Chronic (9) Obesity (BMI 30.0-34.9) Code(s): E66.9 - OBESITY, UNSPECIFIED Status: Chronic (10) Thrombocytopenia Code(s): D69.6 - THROMBOCYTOPENIA, UNSPECIFIED Status: Chronic (11) Tobacco abuse Code(s): Z72.0 - TOBACCO USE Status: Chronic - Plan Plan: Acute blood loss 2/2 UGIB s/p band ligation -s/p gastric variceal banding in setting of cirrhosis -s/p 2 PRBC, H/H stable at 8.7/26 -Per GI continue octreotide gtt, pantoprazole po 40mg BID, will start on nonselective BB upon discharge. -Low sodium diet -Ceftriaxone for SBP ppx -GI on board Sinus tachycardia, resolved -will continue to monitor Non Anion gap metabolic acidosis -pending labs -Likely 2/2 to lactic acid from hypoperfusion with acute bleed -d/c IV fluids Hyperglycemia 2/2 uncontrolled DM2 -POC glucose have been in 200-400s yesterday -Not likely DKA -Unsure of pts home meds, he does not know as well -A1c this admission 8.7 -Continue aggressive SS, inc. metformin -[facility] Chronic thrombocytopenia -Plts 42, prior admission around pt baseline -Likely 2/2 to cirrhosis -Will continue to monitor EtOH and HCV Cirrhosis -MELD 17, <2% 90 day mortality Hyperbilirubinemia 2/2 Cirrhosis -Continue to monitor Coagulopathy 2/2 Cirrhosis Hx of EtOH abuse -Last drink >6 mos ago per pt -ASE protocol Mild Hyperkalemia, resolved code status: DNI PPx: SCDs for VTE and Protonix for GI Dispo:continue oral protonix BID, octreotie gtt will finish tonight-GI recs. H/ H pending. Inc. metformin, will resume home meds once [facility]. Tramadol for pain. PT/OT Addendum - Attending - Attending Attestation Date/Time: 04/09/18 2167 I personally evaluated the patient and discussed the management with Dr. Campbell I agree with the History, Examination, Assessment and Plan documented above with any addition or exceptions noted below. UGI bleed secondary to esophageal varicies-cont octreotide gtt for 72 hours total and 5 days of IV Rocephin. Will need bblocker at d/c Anemia from acute blood loss-stable h/h DM-try and get home med list. for now metformin and SSI
[2018-04-09 11:40] LABS: ALT (SGPT) 98 U/L (8-55); AST (SGOT) 83 U/L (5-34); Albumin 2.7 g/dL (3.4-4.8); Alkaline Phosphatase 98 U/L (40-150); Anion Gap 12 mmol/L (10-20); BUN (Urea Nitrogen) 20 mg/dL (8.4-25.7); Bilirubin, Total 1.8 mg/dL (0.2-1.2); Calc. Creatinine Clearance 86 mL/min (70-130); Calcium 7.5 mg/dL (7.8-10.44); Carbon Dioxide 20 mmol/L (23-31); Chloride 110 mmol/L (98-107); Estimated GFR-MDRD 83; Globulin 2.7 g/dL (2.4-3.5); Glucose 252 mg/dL (80-115); Potassium 3.8 mmol/L (3.5-5.1); Protein, Total 5.4 g/dL (5.8-8.1); Sodium 138 mmol/L (136-145)
[2018-04-09 11:44] LABS: INR-International Normal Ratio 1.2; PTT 34.1 SEC (22.9-36.1); Prothrombin Time 15.7 SEC (12.0-14.7)
[2018-04-09 11:47] LABS: #Eosinphils 0.3 thou/uL (0.0-0.7); #Lymphocytes 0.9 thou/uL (1.20-3.40); #Monocytes 0.5 thou/uL (0.11-0.59); #Neutrophils 3.4 thou/uL (1.40-6.50); %Basophils 0.1 % (0.0-1.0); %Eosinophils 4.9 % (0.0-10.0); %Lymphocytes 18.4 % (21.0-51.0); %Neutrophils 67.5 % (42.0-75.0); Hemoglobin 9.1 g/dL (14.0-18.0); Mean Corpuscular HGB CONC 31.9 g/dL (32.0-36.0); Mean Corpuscular Hemoglobin 31.1 pg (27.0-31.0); Mean Corpuscular Volume 97.7 fL (78.0-98.0); Mean Platelet Volume 9.9 fL (7.4-10.4); Platelet Count 46 thou/uL (130-400); RBC Distribution Width 14.6 % (11.5-14.5); Red Blood Cell (RBC) Count 2.93 mill/uL (4.70-6.10); White Blood Cell (WBC) Count 5.1 thou/uL (4.8-10.8)
--- NOTE | 2018-04-09 14:50 | PRG ---
DATE OF SERVICE: 04/09/2018 SUBJECTIVE: Mr. Hebert has no complaints today. OBJECTIVE: VITAL SIGNS: Afebrile, heart rate 86, respiratory rate 16, oximetry is 94%, and blood pressure 113/64. GENERAL: Did walk with PT, but says his legs are very weak. LUNGS: Clear. HEART: Regular rhythm. ABDOMEN: Soft. LABORATORY DATA: White count stable at 5.1, hemoglobin 9.1, and platelets 46,000. Sodium 138, potassium 3.8, chloride 110, bicarb 20, BUN 20, and creatinine 0.91. IMPRESSION: 1. Gastrointestinal blood loss secondary to gastric varices, status post banding. 2. Blood loss anemia, stable. 3. Mild hyperchloremic acidosis secondary to volume resuscitation. 4. Diabetes. 5. Elevated liver enzymes that are mild and stable. PLAN: Continue followup. Job ID: [id number]
--- NOTE | 2018-04-09 16:03 | PRG ---
DATE OF SERVICE: 04/09/2018 This is a GI inpatient daily progress note. SUBJECTIVE: Mr. Hebert is doing okay. No abdominal pain, nausea, or vomiting. No melena. Hemoglobin is stable. This morning, he continues to have polyarthralgias, that is really his only complaint. PHYSICAL EXAMINATION: VITAL SIGNS: Temperature 97.9, pulse 86, blood pressure 113/64, and 94% oxygen saturation on room air. GENERAL: No acute distress. HEART: Regular rate and rhythm. LUNGS: Clear to auscultation bilaterally. ABDOMEN: Soft and nontender to palpation. EXTREMITIES: No peripheral edema. LABORATORY STUDIES: Hemoglobin stable at 9.1, WBC 5.1, platelets 46. INR 1.2. BUN declined down to 20, creatinine 0.91, sodium 138, potassium 3.8. LFTs stable. Total bilirubin 1.8, alkaline phosphatase 98, AST 83, and ALT 98. ASSESSMENT AND PLAN: 1. Gastric varix with hemorrhage, status post band ligation with Dr. Jasso, 2 days ago. 2. Cirrhosis, secondary to hepatitis C. 3. Chronic hepatitis C, status post successful medical treatment with sustained virologic response in 2016. There has been no further evidence of bleeding since his EGD over 48 hours ago. Continue the octreotide drip through early tomorrow morning for a total of 72 hours at that point, this can be discontinued. He will need to be started on a nonselective beta lesley upon hospital discharge for secondary prophylaxis of repeat variceal bleeding. If he is looking stable tomorrow, than there is no other barrier to hospital discharge from a GI perspective. Please call anytime with questions or concerns. Job ID: [id number]
[2018-04-09] MEDS: cefTRIAXone\\ROCEPHIN 2 GM in Sodium Chloride 0.9% 100 ML IVPB SCH (17:06)
[2018-04-10 06:08] LABS: INR-International Normal Ratio 1.3; PTT 37.5 SEC (22.9-36.1); Prothrombin Time 16.4 SEC (12.0-14.7)
[2018-04-10 06:23] LABS: ALT (SGPT) 69 U/L (8-55); AST (SGOT) 48 U/L (5-34); Albumin 2.4 g/dL (3.4-4.8); Alkaline Phosphatase 92 U/L (40-150); Anion Gap 9 mmol/L (10-20); BUN (Urea Nitrogen) 19 mg/dL (8.4-25.7); Bilirubin, Total 1.5 mg/dL (0.2-1.2); Calc. Creatinine Clearance 82 mL/min (70-130); Calcium 7.3 mg/dL (7.8-10.44); Carbon Dioxide 24 mmol/L (23-31); Chloride 108 mmol/L (98-107); Estimated GFR-MDRD 81; Globulin 2.4 g/dL (2.4-3.5); Glucose 202 mg/dL (80-115); Potassium 3.6 mmol/L (3.5-5.1); Protein, Total 4.8 g/dL (5.8-8.1); Sodium 137 mmol/L (136-145)
[2018-04-10 06:45] LABS: Band 2 % (5-11); Eosinophils 2 % (0-10); Hemoglobin 7.7 g/dL (14.0-18.0); Lymphocytes 25 % (21-51); MDiff Complete? YES; Mean Corpuscular HGB CONC 32.8 g/dL (32.0-36.0); Mean Corpuscular Hemoglobin 31.2 pg (27.0-31.0); Mean Corpuscular Volume 95.1 fL (78.0-98.0); Mean Platelet Volume 10.2 fL (7.4-10.4); Monocytes 16 % (0-10); Neutrophil 55 % (42-75); Platelet Count 44 thou/uL (130-400); Platelet Morphology Comment Appears Decreased; RBC Distribution Width 14.3 % (11.5-14.5); Red Blood Cell (RBC) Count 2.46 mill/uL (4.70-6.10); White Blood Cell (WBC) Count 3.4 thou/uL (4.8-10.8)
[2018-04-10] MEDS ORDERED: Furosemide 40 MG TAB PO SCH (07:30)
--- NOTE | 2018-04-10 09:00 | PDOC.FM ---
- Subjective Subjective: NAEO. Reports feeling better. Improvement in joint pain with PT. - Objective MAR Reviewed: Yes Vital Signs & Weight: Vital Signs (12 hours) Temp Pulse Resp BP Pulse Ox 04/10/18 07:33 98.5 F 84 16 130/79 96 Weight Weight 75.886 kg I&O: 04/09/18 04/10/18 04/11/18 06:59 06:59 06:59 Intake Total 5580 640 Output Total 1525 400 Balance 4055 240 Result Diagrams: 04/10/18 05:40 04/10/18 05:40 Phys Exam - Physical Examination Constitutional: NAD HEENT: PERRLA, moist MMs Respiratory: no wheezing, clear to auscultation bilateral Gastrointestinal: soft, no distention, positive bowel sounds Musculoskeletal: no edema, edema present Neurological: non-focal, moves all 4 limbs Psychiatric: normal affect, A&O x 3 Dx/Plan (1) Upper GI bleed Code(s): K92.2 - GASTROINTESTINAL HEMORRHAGE, UNSPECIFIED Status: Acute (2) Uncontrolled diabetes mellitus Code(s): E11.65 - TYPE 2 DIABETES MELLITUS WITH HYPERGLYCEMIA Status: Acute (3) Hyperbilirubinemia Code(s): E80.6 - OTHER DISORDERS OF BILIRUBIN METABOLISM Status: Acute (4) Anemia Code(s): D64.9 - ANEMIA, UNSPECIFIED Status: Acute (5) Alcohol abuse Code(s): F10.10 - ALCOHOL ABUSE, UNCOMPLICATED Status: Chronic (6) Cirrhosis of liver with ascites Code(s): K74.60 - UNSPECIFIED CIRRHOSIS OF LIVER Status: Chronic Qualifiers: Hepatic cirrhosis type: alcoholic cirrhosis Qualified Code(s): K70.31 - Alcoholic cirrhosis of liver with ascites (7) Hepatitis C Code(s): B19.20 - UNSPECIFIED VIRAL HEPATITIS C WITHOUT HEPATIC COMA Status: Chronic Qualifiers: Viral hepatitis chronicity: chronic Hepatic coma status: without hepatic coma Qualified Code(s): B18.2 - Chronic viral hepatitis C (8) Hypoalbuminemia Code(s): E88.09 - OTH DISORDERS OF PLASMA-PROTEIN METABOLISM, NEC Status: Chronic (9) Obesity (BMI 30.0-34.9) Code(s): E66.9 - OBESITY, UNSPECIFIED Status: Chronic (10) Thrombocytopenia Code(s): D69.6 - THROMBOCYTOPENIA, UNSPECIFIED Status: Chronic (11) Tobacco abuse Code(s): Z72.0 - TOBACCO USE Status: Chronic - Plan Plan: Acute blood loss 2/2 UGIB s/p band ligation -s/p gastric variceal banding in setting of cirrhosis -s/p 2 PRBC, H/H stable at 8.7/26 -Per GI continue octreotide gtt, pantoprazole po 40mg BID, will start on nonselective BB upon discharge. -Low sodium diet/CC -Ceftriaxone for SBP ppx will complete 07/21 today -d/c octreotide gtt Pancytopenia -at baseline per record review -2/2 cirrhosis Sinus tachycardia, resolved -will continue to monitor Non Anion gap metabolic acidosis -pending labs -Likely 2/2 to lactic acid from hypoperfusion with acute bleed -d/c IV fluids Hyperglycemia 2/2 uncontrolled DM2 -POC glucose have been in 200-400s yesterday -Not likely DKA -Unsure of pts home meds, he does not know as well -A1c this admission 8.7 -Continue aggressive SS, inc. metformin -[facility] Chronic thrombocytopenia -Plts 42, prior admission around pt baseline -Likely 2/2 to cirrhosis -Will continue to monitor EtOH and HCV Cirrhosis -MELD 17, <2% 90 day mortality Hyperbilirubinemia 2/2 Cirrhosis -Continue to monitor Coagulopathy 2/2 Cirrhosis Hx of EtOH abuse -Last drink >6 mos ago per pt -ASE protocol Mild Hyperkalemia, resolved code status: DNI PPx: SCDs for VTE and Protonix for GI Dispo:continue oral protonix BID, will d/c with nonselective beta lesley. Continue walking program. After 07/21 rocephin, likely d/c today. Addendum - Attending - Attending Attestation Date/Time: 04/10/18 3747 I personally evaluated the patient and discussed the management with Dr. Campbell I agree with the History, Examination, Assessment and Plan documented above with any addition or exceptions noted below. UGIB secondary to gastric varicies and anemia secondary to it- stable for d/c home with close o/p followup.
[2018-04-10] MEDS: metFORMIN 500 MG TAB PO SCH ×2 (10:13→17:13)
[2018-04-10] MEDS: Insulin Regular 300 UNITS/3 ML VIAL SC PRN ×2 (12:45→17:18)
[2018-04-10] MEDS: cefTRIAXone\\ROCEPHIN 2 GM in Sodium Chloride 0.9% 100 ML IVPB SCH (14:55)
[2018-04-10 20:11] VITALS: BP 149/72; TEMP 98
--- NOTE | 2018-04-11 23:08 | EKG ---
Test Reason : Blood Pressure : / mmHG Vent. Rate : 089 BPM Atrial Rate : 089 BPM P-R Int : 134 ms QRS Dur : 088 ms QT Int : 394 ms P-R-T Axes : 069 029 063 degrees QTc Int : 479 ms Sinus rhythm with Premature atrial complexes Low voltage QRS Borderline ECG When compared with ECG of 07-APR-2018 03:37, (Unconfirmed) No significant change was found Confirmed by ANGEL MIRANDA M.D. ([id number]) on 04/11/2018 11:08:11 PM Referred By: Ashley BRAN Confirmed By:ANGEL MIRANDA M.D.
--- NOTE | 2018-04-12 09:31 | DIS ---
DATE OF ADMISSION: 04/07/2018 DATE OF DISCHARGE: 04/10/2018 RESIDENT: Maria Esther Campbell MD, PGY-1. ADMITTING ATTENDING: Dr. Villalobos. DISCHARGE ATTENDING: Dr. Paul. CONSULTS: 1. Gastroenterology, Dr. Jasso. 2. Pulmonology, Dr. Pittman. PROCEDURE: EGD with gastric variceal band ligation for control of hemorrhage. PRIMARY DIAGNOSES: 1. Gastric variceal gastrointestinal bleed, requiring transfusion. 2. Congestive heart failure with reduced ejection fraction. 3. Acute kidney injury. 4. Anion gap metabolic acidosis. 5. History of alcohol abuse. 6. Cirrhosis. 7. Hepatitis C. 8. Diabetes type 2. 9. Chronic pancytopenia. DISCHARGE MEDICATIONS: New medications include: 1. Propranolol 20 mg p.o. b.i.d. 2. Metformin 1000 mg p.o. b.i.d. 3. Lasix 40 mg p.o. daily. The patient was unable to provide full medication list nor were we able to obtain records. However, we continued the patient's home medications as stated from our most recent records in August 2017 that include: 1. Ferrous sulfate 325 mg p.o. daily. 2. Multivitamin one tab p.o. daily. 3. Keflex 500 mg p.o. t.i.d. 4. Doxycycline 100 mg p.o. b.i.d. 5. Folic acid 1 mg p.o. daily. 6. Protonix 40 mg p.o. daily. 7. Thiamine 100 mg p.o. daily. Discontinued medications: 1. Metoprolol tartrate 12.5 mg p.o. b.i.d. 2. Metformin 750 mg tab ER. HISTORY OF PRESENT ILLNESS/HOSPITAL COURSE: A 67-year-old male with cirrhosis, presents to the ED for hematemesis. The patient required 2 units of transfusion and underwent urgent EGD. He was found to have bleeding gastric varices and required band ligation. The patient recovered well and blood counts remained stable over the next few days. On admission, the patient did experience anion gap metabolic acidosis and IVIS secondary to acute GI bleed. On discharge, the patient was started on nonselective beta lesley with explicit instructions not to take any type of NSAIDs. Diabetes type 2. The patient was hyperglycemic during course requiring insulin. The patient is a poor historian and is unable to tell us what kind of medications he takes, no records able to be obtained. Due the patient's goal A1c, he was started on oral antihyperglycemic medication, metformin. The patient recovered well from bleeding and remained stable upon discharge. DISPOSITION: Stable. DISCHARGE INSTRUCTIONS: 1. Location: Home. 2. Diet: Diabetic heart healthy diet. 3. Activity: As tolerated. FOLLOWUP: 1. [facility]. 2. Please follow up with Dr. Hdez within 2 weeks. 3. Please take medications at home as instructed. Job ID: [id number]
== END 2018-04-10 21:00 | disposition home or self-care (01) | DRG 300 ==
LOC: ERS 17:37 → SDC/OP 23:52 → IMCU/EMU 04-07 01:19 → T4-B 04-08 20:33
PROVIDERS: ADMIT Family Medicine; ATTEND Family Medicine
PROC: 30233N1 Transfusion of Nonautologous Red Blood Cells into Peripheral Vein, Percutaneous Approach (ICD-10-PCS; 2018-04-06)
PROC: 0W3P8ZZ Control Bleeding in Gastrointestinal Tract, Via Natural or Artificial Opening Endoscopic (ICD-10-PCS; principal; 2018-04-07)
DX: I86.4 Gastric varices (principal); E87.2 Acidosis; I50.20 Unspecified systolic (congestive) heart failure; D62 Acute posthemorrhagic anemia; K76.6 Portal hypertension; K70.31 Alcoholic cirrhosis of liver with ascites; E87.5 Hyperkalemia; F10.10 Alcohol abuse, uncomplicated; B18.2 Chronic viral hepatitis C; E80.6 Other disorders of bilirubin metabolism; E11.9 Type 2 diabetes mellitus without complications; E88.09 Other disorders of plasma-protein metabolism, not elsewhere classified; E66.9 Obesity, unspecified; I95.9 Hypotension, unspecified; D69.6 Thrombocytopenia, unspecified; K31.89 Other diseases of stomach and duodenum; F17.200 Nicotine dependence, unspecified, uncomplicated; R00.0 Tachycardia, unspecified
CPT/HCPCS: 36415; 36416; 36430; 80053; 80306; 80307; 81003; 81015; 82553; 83036; 83605; 83690; 83735; 84484; 84550; 85025; 85384; 85610; 85730; 86850; 86900; 86901; 93005; 93010; 94760; C9113; J0610; J0696; J1815; J2001; J2354; J2405; J2704; J3010; J3411; J7050; P9016

== ENCOUNTER 2018-06-06 12:18 | Inpatient (IN) | payer MEDICARE, OTHER ==
[2018-06-06 13:33] LABS: #Basophils 0.1 thou/uL (0.0-0.2); #Eosinphils 0.3 thou/uL (0.0-0.7); #Lymphocytes 1.6 thou/uL (1.20-3.40); #Monocytes 0.8 thou/uL (0.11-0.59); #Neutrophils 5.3 thou/uL (1.40-6.50); %Basophils 1.1 % (0.0-1.0); %Eosinophils 3.2 % (0.0-10.0); %Monocytes 9.5 % (0.0-10.0); %Neutrophils 66.3 % (42.0-75.0); Mean Corpuscular HGB CONC 30.5 g/dL (32.0-36.0); Mean Platelet Volume 11.2 fL (7.4-10.4); Platelet Count 87 thou/uL (130-400); RBC Distribution Width 17.3 % (11.5-14.5); Red Blood Cell (RBC) Count 2.27 mill/uL (4.70-6.10)
[2018-06-06 13:44] LABS: ALT (SGPT) 25 U/L (8-55); AST (SGOT) 29 U/L (5-34); Albumin 2.8 g/dL (3.4-4.8); Alkaline Phosphatase 134 U/L (40-150); Anion Gap 12 mmol/L (10-20); BUN (Urea Nitrogen) 57 mg/dL (8.4-25.7); Calc. Creatinine Clearance 0 mL/min (70-130); Calcium 8.7 mg/dL (7.8-10.44); Carbon Dioxide 20 mmol/L (23-31); Chloride 105 mmol/L (98-107); Estimated GFR-MDRD 56; Globulin 2.7 g/dL (2.4-3.5); Glucose 442 mg/dL (80-115); Potassium 4.4 mmol/L (3.5-5.1); Protein, Total 5.5 g/dL (5.8-8.1); Sodium 133 mmol/L (136-145)
--- NOTE | 2018-06-06 16:00 | RAD ---
PORTABLE CHEST 1 VIEW: DATE: 06/06/2018 at 3:33 p.m. HISTORY: Syncope. FINDINGS: Comparison is made with the exam of 07/18/2017. The heart size is normal. The lungs are expanded without focal areas of consolidation, pneumothorace s, or pleural effusions. There are degenerative changes in the shoulder and acromioclavicular joints . IMPRESSION: No radiographic evidence of acute cardiopulmonary process. POS: C
--- NOTE | 2018-06-06 16:06 | CT ---
BRAIN CT WITHOUT IV CONTRAST: HISTORY: Syncope. COMPARISON: 05/25/2004. FINDINGS: No focal mass or midline shift. No intra- or extraaxial hemorrhage. Sinuses and mastoids are clear. Stable from prior exam. IMPRESSION: No significant acute intracranial process. No mass or bleed. POS: TPC
[2018-06-06 16:23] LABS: CK (CPK) 48 U/L (30-200); Lipase 64 U/L (8-78)
[2018-06-06] MEDS ORDERED: Insulin Regular 300 UNITS/3 ML VIAL ONE (17:07)
[2018-06-06 17:36] LABS: Bilirubin Negative (Negative); Blood, Urine Negative (Negative); Clarity CLEAR (Clear); Glucose, Urine (Dipstick) 500 mg/dL (Negative); Leukocyte Trace (Negative); Nitrite Negative (Negative); Protein, Urine (Dipstick) Negative (Neg-Trace); Specific Gravity, Urine 1.013 (1.002-1.036); Urobilinogen 0.2 mg/dL (0.2-1.0)
[2018-06-06 17:40] LABS: Bacteria/HPF None Seen HPF (None Seen); Hyaline Casts/LPF 0-3 HYALINE CAST LPF (0-3 Hyaline); Pathc Cast-AUWi Flag 0.13 (0-2.49); RBC/HPF None Seen HPF (0-3); Squamous Epithelial 0-3 HPF (0-3); WBC/HPF 0-3 HPF (0-3)
[2018-06-06 17:54] LABS: Amphetamine Not Detected (NotDetected); Barbiturates Screen Not Detected (NotDetected); Benzodiazepine Screen Not Detected (NotDetected); Cocaine Metabolite Screen Not Detected (NotDetected); Medtox Control Line Valid? VALID (VALID); Medtox Reader # READER 1; Methadone Not Detected (NotDetected); Methamphetamine Not Detected (NotDetected); Opiate Screen Not Detected (NotDetected); Oxycodone Screen Not Detected (NotDetected); Phencyclidine (PCP) Not Detected (NotDetected); THC/Cannabinoid Screen Not Detected (NotDetected); Tricyclic Screen Not Detected (NotDetected)
[2018-06-06] MEDS ORDERED: Ondansetron PF 4 MG/2 ML Vial IVP PRN (23:09)
[2018-06-06] MEDS ORDERED: Zolpidem Tartrate 5 MG TAB PO PRN (23:09)
[2018-06-06] MEDS ORDERED: Dextrose 5% in Water 1,000 ML IV PRN (23:13)
[2018-06-06] MEDS ORDERED: Dextrose 50% Abboject 50 ML SYRINGE SLOW IVP PRN (23:13)
--- NOTE | 2018-06-07 02:27 | PDOC.EVN ---
Event Note - Event Note Event Note: H&P [id number]
--- NOTE | 2018-06-07 03:11 | HP ---
ADMITTING COMPLAINT: Feeling dizzy and weak. HISTORY OF PRESENT ILLNESS: This is a 67-year-old male with past known history of cirrhosis due to alcohol, presents to the hospital with weakness and dizziness. Patient of note was found to be anemic at the point in time of admission with hemoglobin of 7.0. Patient in the past has been noted to have iron-deficiency anemia. He also states that he has been noncompliant and has not had a chance to follow up with any of the subspecialists that he was told to follow up with. Patient states that upon the time of evaluation, he feels well. Denies any other complaints. No nausea or vomiting. Patient has no alleviating or aggravating factors. States that this happens in the past. He has had blood transfusion and his symptoms have resolved. Patient is seen and examined in the ER. No family at bedside. All questions answered. REVIEW OF SYSTEMS: All systems reviewed. Pertinent positives in HPI, otherwise negative. ALLERGIES: NO KNOWN DRUG ALLERGIES. PAST MEDICAL HISTORY: Positive for cirrhosis secondary to hepatitis from alcohol; diabetes mellitus, type 2; hypertension; and anemia. FAMILY HISTORY: Positive for hypertension. SOCIAL HISTORY: Prior smoker, prior drinker, not anymore. HOME MEDICATIONS: See MAR. PHYSICAL EXAMINATION: VITAL SIGNS: Blood pressure is 113/79, pulse of 100, O2 saturations are 99% on room air, temperature 98.1, and respiratory rate of 18. GENERAL: Patient is lying in bed, with no acute discomfort. HEENT: NC/AT. Oral cavity moist and pink. Pupils equal, round, and reactive to light and accommodation. NECK: Supple and mobile. Nontender thyroid. RESPIRATORY: Clear to auscultation bilaterally. No respiratory distress. CARDIOVASCULAR: S1, S2. No murmurs, rubs, or gallops appreciated. Normal sinus rhythm. ABDOMEN: Positive bowel sounds. Soft, nontender, and nondistended. EXTREMITIES: 2+ peripheral pulses. No cyanosis, clubbing, or edema noted. NEUROLOGICAL: Cranial nerves 2 through 12 intact. No loss of motor or sensory function. LABORATORY DATA: CBC shows a hemoglobin of 7, otherwise normal. Basic metabolic panel shows sodium of 133, glucose of 442, otherwise within normal limits. Urinalysis positive for glucose and leukocyte esterase. Urine drug screen negative. Chest x-ray shows no acute cardiopulmonary pathology. Brain CT scan shows no significant intracranial processes or bleeding noted. ASSESSMENT AND PLAN: 1. Weakness. 2. Anemia. 3. Cirrhosis. 4. Hypertension. 5. Diabetes mellitus, type 2, uncontrolled. PLAN: 1. At this point in time, we will admit the patient to Internal Medicine Team. Provide the patient with a banana bag. Fluids for fluid resuscitation. We will also start the patient on insulin for diabetes. 2. We will obtain blood cultures. 3. Obtain occult blood for anemia. 4. Patient was transfused blood in the ER. 5. We will also check iron studies to rule out any iron-deficiency anemia. 6. Patient wishes to remain a full code. Case and plan discussed with the patient at length. No family at bedside. All questions answered. Job ID: [id number]
[2018-06-07 04:06] LABS: Hemoglobin 4.8 g/dL (14.0-18.0); Red Blood Cell (RBC) Count 1.52 mill/uL (4.70-6.10); White Blood Cell (WBC) Count 4.8 thou/uL (4.8-10.8)
[2018-06-07 04:07] LABS: #Eosinphils 0.2 thou/uL (0.0-0.7); #Lymphocytes 1.3 thou/uL (1.20-3.40); #Monocytes 0.4 thou/uL (0.11-0.59); %Basophils 0.2 % (0.0-1.0); %Eosinophils 3.5 % (0.0-10.0); %Lymphocytes 25.9 % (21.0-51.0); %Monocytes 8.2 % (0.0-10.0); %Neutrophils 62.2 % (42.0-75.0); Mean Corpuscular HGB CONC 32.2 g/dL (32.0-36.0); Mean Corpuscular Hemoglobin 31.9 pg (27.0-31.0); Mean Corpuscular Volume 98.9 fL (78.0-98.0); Platelet Count 61 thou/uL (130-400); RBC Distribution Width 17.9 % (11.5-14.5)
[2018-06-07 04:11] LABS: ALT (SGPT) 23 U/L (8-55); AST (SGOT) 24 U/L (5-34); Albumin 2.2 g/dL (3.4-4.8); Alkaline Phosphatase 107 U/L (40-150); Anion Gap 8 mmol/L (10-20); BUN (Urea Nitrogen) 54 mg/dL (8.4-25.7); Bilirubin, Direct 0.4 mg/dL (0.1-0.3); Bilirubin, Total 0.6 mg/dL (0.2-1.2); Calc. Creatinine Clearance 0 mL/min (70-130); Calcium 7.9 mg/dL (7.8-10.44); Carbon Dioxide 23 mmol/L (23-31); Chloride 109 mmol/L (98-107); Estimated GFR-MDRD 74; Glucose 405 mg/dL (80-115); Potassium 4.7 mmol/L (3.5-5.1); Protein, Total 4.4 g/dL (5.8-8.1); Sodium 135 mmol/L (136-145)
[2018-06-07] MEDS ORDERED: Insulin Regular 300 UNITS/3 ML VIAL ONE (09:16)
[2018-06-07] MEDS ORDERED: HumaLOG 300 UNITS/3 ML VIAL ONE (09:32)
[2018-06-07] MEDS: HumaLOG 300 UNITS/3 ML VIAL SC PRN ×2 (09:37→17:31)
[2018-06-07] MEDS ORDERED: Octreotide Acetate 1,250 MCG in Sodium Chloride 0.9% 250 ML 250 ML IVPB SCH (10:15)
[2018-06-07 10:37] LABS: Hemoglobin 7.3 g/dL (14.0-18.0)
[2018-06-07 11:17] VITALS: BMI 26.2
[2018-06-07] MEDS: Sodium Chloride 0.9% 1,000 ML IV SCH ×2 (11:34→23:15)
[2018-06-07] MEDS: cefTRIAXone\\ROCEPHIN 1 GM in Sodium Chloride 0.9% 100 ML IVPB SCH (11:34)
[2018-06-07] MEDS: Pantoprazole 80 MG in Sodium Chloride 0.9% 100 ML IVP SCH ×2 (13:14→23:15)
[2018-06-07 14:11] LABS: Hemoglobin 7.6 g/dL (14.0-18.0)
--- NOTE | 2018-06-07 15:00 | PDOC.PN ---
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 -: little better -: no BRB ME or black stools or emesis w blood.not drinking any more for years - Objective Resuscitation Status - Order Detail: 06/06/18 23:09 Resuscitation Status Routine Resuscitation Status: FULL: Full Resuscitation Discussed with: patient SHAKIRA Reviewed: Yes Vital Signs & Weight: Vital Signs (12 hours) Temp Pulse Resp BP Pulse Ox 06/07/18 11:09 98.3 F 94 17 109/56 L 98 Weight Weight 162 lb 9.6 oz Result Diagrams: 06/07/18 13:59 06/07/18 03:40 Additional Labs: Accuchecks 06/07/18 06/06/18 07:23 21:33 POC Glucose 381 H 337 H Laboratory Tests 06/06/18 06/06/18 06/06/18 15:54 15:54 15:54 Creatine Kinase 48 B-Natriuretic Peptide 27.4 TSH 3rd Generation 2.0511 Phys Exam - Physical Examination Constitutional: NAD HEENT: PERRLA, moist MMs, sclera anicteric, oral pharynx no lesions Neck: no nodes, no JVD, supple, full ROM Respiratory: no wheezing, no rales, no rhonchi, clear to auscultation bilateral Cardiovascular: RRR, no significant murmur, no rub Gastrointestinal: soft, non-tender, no distention, positive bowel sounds Musculoskeletal: no edema, pulses present Neurological: non-focal, normal sensation, moves all 4 limbs Psychiatric: normal affect, A&O x 3 Skin: no rash Dx/Plan (1) Symptomatic anemia Code(s): D64.9 - ANEMIA, UNSPECIFIED Status: Acute Comment: suspect occult GIB. 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 insulin use: with skilled nursing use (4) Hepatitis C Code(s): B19.20 - UNSPECIFIED VIRAL HEPATITIS C WITHOUT HEPATIC COMA Status: Chronic Qualifiers: (5) Hypertension Code(s): I10 - ESSENTIAL (PRIMARY) HYPERTENSION Status: Chronic Qualifiers: (6) H/O esophageal varices Code(s): Z87.19 - PERSONAL HISTORY OF OTHER DISEASES OF THE DIGESTIVE SYSTEM Status: Chronic (7) H/O: GI bleed Code(s): Z87.19 - PERSONAL HISTORY OF OTHER DISEASES OF THE DIGESTIVE SYSTEM Status: Chronic (8) Thrombocytopenia Code(s): D69.6 - THROMBOCYTOPENIA, UNSPECIFIED Status: Chronic Comment: Due to cirrhosis - Plan DVT proph w/SCDs start octreotide,PPi drips given h/o Variceal bleed -: Monitor serial H/H -: start IVF -: start Roecphin for SBP prophylaxis -: GI consulted.NPO for possible EGD today * . Review of Systems - Review of Systems Constitutional: weakness, malaise. negative: fever, chills, sweats, other Respiratory: negative: Cough, Dry, Shortness of Breath, Hemoptysis, SOB with Excertion, Pleuritic Pain, Sputum, Wheezing Cardiovascular: negative: chest pain, palpitations, orthopnea, paroxysmal nocturnal dyspnea, edema, light headedness, other Gastrointestinal: negative: Nausea, Vomiting, Abdominal Pain, Diarrhea, Constipation, Melena, Hematochezia, Other Genitourinary: negative: Dysuria, Frequency, Incontinence, Hematuria, Retention , Other Musculoskeletal: negative: Neck Pain, Shoulder Pain, Arm Pain, Back Pain, Hand Pain, Leg Pain, Foot Pain, Other Neurological: negative: Weakness, Numbness, Incoordination, Change in Speech, Confusion, Seizures, Other - Medications/Allergies Allergies/Adverse Reactions: Allergies Allergy/AdvReac Type Severity Reaction Status Date / Time No Known Drug Allergies Allergy Unknown Verified 06/07/18 11:16 Medications: Current Medications Dextrose/Water (Dextrose 50%) 25 gm SLOW IVP PRN PRN PRN Reason: Hypoglycemia Glucagon (Glucagon) 1 mg IM PRN PRN PRN Reason: Hypoglycemia Dextrose/Water (D5w) 1,000 mls @ 0 mls/hr IV .Q0M PRN PRN Reason: Hypoglycemia Octreotide Acetate 1,250 mcg/ (Sodium Chloride) 251.25 mls @ 10.05 mls/hr IVPB INF [facility] Last Admin: 06/07/18 12:17 Dose: 251.25 mls Pantoprazole Sodium 80 mg/ (Sodium Chloride) 100 mls @ 10 mls/hr IVP INF [facility] Last Admin: 06/07/18 13:14 Dose: 100 mls Ceftriaxone Sodium 1 gm/ (Sodium Chloride) 100 mls @ 200 mls/hr IVPB Q24HR [facility] Last Admin: 06/07/18 11:34 Dose: 100 mls Sodium Chloride (Normal Saline 0.9%) 1,000 mls @ 75 mls/hr IV .[id number] [facility] Last Admin: 06/07/18 11:34 Dose: Not Given Influenza Virus Vacc Triv Types A&B (Fluzone High-Dose Syr) 0.5 ml IM .ONCE ONE Stop: 06/07/18 21:01 Insulin Human Lispro (Humalog) 0 units SC .MILD SLIDING SCALE PRN PRN Reason: Mild Correctional Scale Last Admin: 06/07/18 09:37 Dose: 6 unit Insulin Human Lispro (Humalog) 0 units SC .BEDTIME SLIDING SC PRN PRN Reason: Bedtime Correctional Scale Ondansetron HCl (Zofran) 4 mg IVP Q6H PRN PRN Reason: Nausea/Vomiting Sodium Chloride (Flush - Normal Saline) 10 ml IVF Q12HR PRN PRN Reason: Saline Flush Zolpidem Tartrate (Ambien) 5 mg PO HSPRN PRN PRN Reason: Insomnia
[2018-06-07 19:01] LABS: Hemoglobin 8.6 g/dL (14.0-18.0); INR-International Normal Ratio 1.2
[2018-06-07] MEDS ORDERED: Insulin Glargine 10 UNITS in Pre-Filled Syringe 1 EACH SC SCH (21:00)
--- NOTE | 2018-06-07 22:59 | CON ---
DATE OF CONSULTATION: 06/07/2018 CHIEF COMPLAINT: Dizziness and weakness. HISTORY OF PRESENT ILLNESS: Mr. Hebert is a 67-year-old man who was admitted through the emergency room last night with weakness and dizziness. He has a history of cirrhosis and esophageal varices. He reported no nausea or vomiting, but has had some intermittent black stools over the last few days. He has had no abdominal pain or nausea or vomiting. No bloody emesis. No red blood in the stool. He has felt weak and dizzy for the last 2-3 weeks. He has had no abdominal pain or indigestion. No diarrhea or constipation. He has had some difficulty swallowing liquids at the cervical level. 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 PAST SURGICAL HISTORY: Banding of esophageal varices. FAMILY HISTORY: Negative for GI malignancy. SOCIAL HISTORY: He quit alcohol 9 months ago. No drugs or tobacco. ALLERGIES: NO KNOWN DRUG ALLERGIES. MEDICATIONS: Prior to admission include; 1. Metformin. 2. Lasix. 3. Iron. 4. Lisinopril. 5. Metoprolol. 6. Folic acid. 7. Magnesium oxide. Here in the hospital, he has been placed on Rocephin, Protonix, and octreotide in addition to insulin. REVIEW OF SYSTEMS: Negative x10 systems reviewed except as stated in the history of present illness. PHYSICAL EXAMINATION: VITAL SIGNS: Temperature 98.1, pulse 80, and blood pressure 93/55. GENERAL: He is in no acute distress. Alert and oriented x3. HEENT: Eyes have no scleral icterus. Oropharynx is clear without lesions. No cervical or supraclavicular lymphadenopathy. LUNGS: Clear to auscultation bilaterally. HEART: Regular rate and rhythm without murmur. ABDOMEN: Soft, nontender, and nondistended. Bowel sounds are present. EXTREMITIES: No lower extremity edema. RECTAL: Reveals black liquidy stool in the rectal vault. LABORATORY DATA: Hemoglobin was 7.0 on presentation. Hemoglobin this morning was 4.8 and after 2 units transfusion, his hemoglobin is improved to 8.6. He has a platelet count of 61,000, white blood cells 4.8, INR 1.2, creatinine 1.0, bilirubin 0.6, AST 24, ALT 23, alkaline phosphatase 107, albumin 2.2. He had EGD on April 07, 2018, which showed a gastric varix on the gastric cardia, lesser curvature that was banded x1. No esophageal varices were seen. Portal hypertensive gastropathy was present. IMPRESSION: 1. Severe anemia requiring transfusion. He has had symptomatic anemia with weakness and dizziness. This appears to be anemia of acute blood loss. 2. Gastrointestinal bleed. He has black stool in the rectal vault. 3. Cirrhosis secondary to alcohol. His last drink was nine months ago. 4. History of gastric varices by EGD in March 2018. RECOMMENDATIONS: 1. Continue octreotide. 2. Continue proton pump inhibitor. 3. Antibiotics for SBP prophylaxis. 4. EGD tomorrow. Job ID: [id number]
[2018-06-08] MEDS: HumaLOG 300 UNITS/3 ML VIAL SC PRN ×3 (00:04→17:42)
[2018-06-08 06:51] LABS: #Eosinphils 0.3 thou/uL (0.0-0.7); #Monocytes 0.3 thou/uL (0.11-0.59); #Neutrophils 2.7 thou/uL (1.40-6.50); %Basophils 0.5 % (0.0-1.0); %Eosinophils 6.5 % (0.0-10.0); %Lymphocytes 23.9 % (21.0-51.0); %Monocytes 7.3 % (0.0-10.0); %Neutrophils 61.9 % (42.0-75.0); Hemoglobin 7.7 g/dL (14.0-18.0); Mean Corpuscular HGB CONC 33.2 g/dL (32.0-36.0); Mean Corpuscular Hemoglobin 32.2 pg (27.0-31.0); Mean Platelet Volume 10.3 fL (7.4-10.4); Platelet Count 58 thou/uL (130-400); RBC Distribution Width 16.8 % (11.5-14.5); Red Blood Cell (RBC) Count 2.38 mill/uL (4.70-6.10); White Blood Cell (WBC) Count 4.4 thou/uL (4.8-10.8)
[2018-06-08 07:04] LABS: Anion Gap 11 mmol/L (10-20); BUN (Urea Nitrogen) 26 mg/dL (8.4-25.7); Calc. Creatinine Clearance 81 mL/min (70-130); Calcium 7.6 mg/dL (7.8-10.44); Carbon Dioxide 18 mmol/L (23-31); Chloride 111 mmol/L (98-107); Estimated GFR-MDRD 83; Glucose 250 mg/dL (80-115); Potassium 4.3 mmol/L (3.5-5.1); Sodium 136 mmol/L (136-145)
[2018-06-08] MEDS: Pantoprazole 80 MG in Sodium Chloride 0.9% 100 ML IVP SCH ×2 (09:52→21:01)
[2018-06-08] MEDS ORDERED: Ondansetron HCl/PF 4 MG/2 ML Vial IVP PRN (12:19)
[2018-06-08] MEDS ORDERED: Promethazine HCl 25 MG/ML VIAL IM PRN (12:19)
[2018-06-08] MEDS ORDERED: Promethazine HCl 25 MG/ML VIAL SLOW IVP PRN (12:19)
[2018-06-08] MEDS: cefTRIAXone\\ROCEPHIN 1 GM in Sodium Chloride 0.9% 100 ML IVPB SCH (13:06)
--- NOTE | 2018-06-08 13:12 | PDOC.PN ---
- Subjective Encounter Start Date: 06/08/18 Encounter Start Time: 13:10 Subjective: seen and examined prior to EGD.reports feeling much better -: no blood in stool or hemetemesis or melena either -: feels stronger - Objective Resuscitation Status - Order Detail: 06/06/18 23:09 Resuscitation Status Routine Resuscitation Status: FULL: Full Resuscitation Discussed with: patient SHAKIRA Reviewed: Yes Vital Signs & Weight: Vital Signs (12 hours) Temp Pulse Resp BP BP Pulse Ox 06/08/18 13:05 98 F 81 16 109/55 L 100 06/08/18 08:04 97.9 F 78 16 128/63 100 06/08/18 04:00 97.8 F 78 18 107/59 L 100 06/08/18 03:41 100 Weight Admit Weight 162 lb 9.6 oz Weight 162 lb 9.6 oz I&O: 06/07/18 06/08/18 06/09/18 06:59 06:59 06:59 Intake Total 2595 Output Total 760 Balance 1835 Result Diagrams: 06/08/18 06:27 06/08/18 06:27 Additional Labs: Accuchecks 06/08/18 06/08/18 06/07/18 10:51 05:50 23:40 POC Glucose 283 H 283 H 389 H 06/07/18 17:04 POC Glucose 255 H Microbiology 06/06/18 20:20 Stool - Pending Stool Occult Blood (MARYLOU) - Final 06/06/18 15:55 Venous blood - Right Arm Blood Culture - Preliminary Specimen has been received and culture in progress. No Growth to date. 06/06/18 15:55 Venous blood - Right Arm Blood Culture - Preliminary NO GROWTH AT 48 HOURS 06/06/18 15:48 Venous blood - Left Arm Blood Culture - Preliminary Specimen has been received and culture in progress. No Growth to date. 06/06/18 15:48 Venous blood - Left Arm Blood Culture - Preliminary NO GROWTH AT 48 HOURS Laboratory Tests 06/06/18 06/06/18 06/07/18 13:15 13:15 03:40 Hgb 7.0 L BUN 57 H 54 H 06/07/18 06/07/18 06/07/18 03:40 10:24 13:59 Hgb 4.8 L* 7.3 L 7.6 L BUN 06/07/18 06/08/1806/08/19 18:49 06:27 06:27 Hgb 8.6 L 7.7 L BUN 26 H Phys Exam - Physical Examination Constitutional: NAD HEENT: PERRLA, moist MMs, sclera anicteric, oral pharynx no lesions Neck: no nodes, no JVD, supple, full ROM Respiratory: no wheezing, no rales, no rhonchi, clear to auscultation bilateral Cardiovascular: RRR, no significant murmur, no rub Gastrointestinal: soft, non-tender, no distention, positive bowel sounds Musculoskeletal: no edema, pulses present Neurological: non-focal, normal sensation, moves all 4 limbs Psychiatric: normal affect, A&O x 3 Skin: no rash Dx/Plan (1) Symptomatic anemia Code(s): D64.9 - ANEMIA, UNSPECIFIED Status: Acute Comment: suspect occult GIB. (2) Cirrhosis of liver Code(s): K74.60 - UNSPECIFIED CIRRHOSIS OF LIVER Status: Chronic Qualifiers: Ascites presence: without ascites (3) Diabetes Code(s): E11.9 - TYPE 2 DIABETES MELLITUS WITHOUT COMPLICATIONS Status: Chronic Qualifiers: Diabetes mellitus type: type 2 Diabetes mellitus terminal clerk insulin use: with fdc use (4) Hepatitis C Code(s): B19.20 - UNSPECIFIED VIRAL HEPATITIS C WITHOUT HEPATIC COMA Status: Chronic Qualifiers: (5) Hypertension Code(s): I10 - ESSENTIAL (PRIMARY) HYPERTENSION Status: Chronic Qualifiers: (6) H/O esophageal varices Code(s): Z87.19 - PERSONAL HISTORY OF OTHER DISEASES OF THE DIGESTIVE SYSTEM Status: Chronic (7) H/O: GI bleed Code(s): Z87.19 - PERSONAL HISTORY OF OTHER DISEASES OF THE DIGESTIVE SYSTEM Status: Chronic (8) Thrombocytopenia Code(s): D69.6 - THROMBOCYTOPENIA, UNSPECIFIED Status: Chronic Comment: Due to cirrhosis - Plan DVT proph w/SCDs EGD today. -: cont PPI,octreotide drips.H/H stable.no overt bleed -: Platelet counts low from cirrhosis but stable.monitor -: cont rocephin for SBP prophylaxis -: HD stable * . Review of Systems - Review of Systems Constitutional: negative: fever, chills, sweats, weakness, malaise, other ENT: negative: Ear Pain, Ear Discharge, Nose Pain, Nose Discharge, Nose Congestion, Mouth Pain, Mouth Swelling, Throat Pain, Throat Swelling, Other Respiratory: negative: Cough, Dry, Shortness of Breath, Hemoptysis, SOB with Excertion, Pleuritic Pain, Sputum, Wheezing Cardiovascular: negative: chest pain, palpitations, orthopnea, paroxysmal nocturnal dyspnea, edema, light headedness, other Gastrointestinal: negative: Nausea, Vomiting, Abdominal Pain, Diarrhea, Constipation, Melena, Hematochezia, Other Genitourinary: negative: Dysuria, Frequency, Incontinence, Hematuria, Retention , Other Musculoskeletal: negative: Neck Pain, Shoulder Pain, Arm Pain, Back Pain, Hand Pain, Leg Pain, Foot Pain, Other Neurological: negative: Weakness, Numbness, Incoordination, Change in Speech, Confusion, Seizures, Other - Medications/Allergies Allergies/Adverse Reactions: Allergies Allergy/AdvReac Type Severity Reaction Status Date / Time No Known Drug Allergies Allergy Unknown Verified 06/07/18 11:16 Medications: Current Medications Dextrose/Water (Dextrose 50%) 25 gm SLOW IVP PRN PRN PRN Reason: Hypoglycemia Glucagon (Glucagon) 1 mg IM PRN PRN PRN Reason: Hypoglycemia Dextrose/Water (D5w) 1,000 mls @ 0 mls/hr IV .Q0M PRN PRN Reason: Hypoglycemia Pantoprazole Sodium 80 mg/ (Sodium Chloride) 100 mls @ 10 mls/hr IVP INF [facility] Last Admin: 06/08/18 09:52 Dose: 100 mls Ceftriaxone Sodium 1 gm/ (Sodium Chloride) 100 mls @ 200 mls/hr IVPB Q24HR [facility] Last Admin: 06/08/18 13:06 Dose: Not Given Sodium Chloride (Normal Saline 0.9%) 1,000 mls @ 75 mls/hr IV .[id number] [facility] Last Admin: 06/07/18 23:15 Dose: 1,000 mls Insulin Human Lispro (Humalog) 0 units SC .MILD SLIDING SCALE PRN PRN Reason: Mild Correctional Scale Last Admin: 06/07/18 17:31 Dose: 4 unit Insulin Human Lispro (Humalog) 0 units SC .BEDTIME SLIDING SC PRN PRN Reason: Bedtime Correctional Scale Last Admin: 06/08/18 00:04 Dose: 5 unit Ondansetron HCl (Zofran) 4 mg IVP Q6H PRN PRN Reason: Nausea/Vomiting Ondansetron HCl (Pacu-Zofran) 4 mg IVP ONE PRN PRN Reason: Nausea/Vomiting Stop: 06/08/18 15:19 Promethazine HCl (Pacu-Phenergan) 6.25 mg SLOW IVP ONE PRN PRN Reason: Nausea/Vomiting Stop: 06/08/18 15:19 Promethazine HCl (Pacu-Phenergan) 6.25 mg IM ONE PRN PRN Reason: Nausea/Vomiting Stop: 06/08/18 15:19 Sodium Chloride (Flush - Normal Saline) 10 ml IVF Q12HR PRN PRN Reason: Saline Flush Zolpidem Tartrate (Ambien) 5 mg PO HSPRN PRN PRN Reason: Insomnia
[2018-06-08] MEDS ORDERED: Lidocaine 1% PF 5 ML VIAL ONE (14:31)
[2018-06-08] MEDS ORDERED: PROPOFOL 200 MG/20 ML VIAL ONE (14:31)
--- NOTE | 2018-06-08 15:53 | OP ---
DATE OF PROCEDURE: 06/08/2018 PROCEDURE PERFORMED: Esophagogastroduodenoscopy. PREOPERATIVE DIAGNOSES: Gastrointestinal bleed and history of gastric varices and portal hypertensive gastropathy and vascular ectasias of the duodenum. DESCRIPTION OF PROCEDURE: Informed consent was obtained from the patient, where he was sedated with total intravenous anesthesia. The bite block was placed and the endoscope was advanced easily to the second portion of the duodenum and retroflexion was performed in the stomach. The esophagus was normal. There were no varices. The stomach had prominent folds in the fundus and cardia. These were not blue and there were no stigmata of recent bleeding. However, given the previous endoscopy that showed bleeding from GOV1 varices likely do represent varices. There again was no indication that these have bled acutely recently. He does have portal hypertensive gastropathy in the body and fundus of the stomach. There was a 4-mm erosion in the duodenal bulb. The second portion of the duodenum was normal. IMPRESSION: 1. Normal esophagus without varices. 2. Prominent folds in the cardia and fundus of the stomach, which likely represent gastric varices. There were no stigmata of recent bleeding. 3. Portal hypertensive gastropathy. 4. Small erosion in the first portion of the duodenum. RECOMMENDATIONS: 1. Advance diet. 2. Follow trend of the hemoglobin. 3. Continue propranolol. Job ID: [id number]
--- NOTE | 2018-06-08 15:54 | EKG ---
Test Reason : Blood Pressure : / mmHG Vent. Rate : 087 BPM Atrial Rate : 087 BPM P-R Int : 132 ms QRS Dur : 088 ms QT Int : 392 ms P-R-T Axes : 071 045 056 degrees QTc Int : 471 ms Normal sinus rhythm Low voltage QRS Borderline ECG Confirmed by ISIDRO CHOWDHURY, VALERI ([id number]), editor trade journal JOSEF COLEY ([id number]) on 06/08/2018 3:54:02 PM Referred By: Confirmed By:VALERI FELIX MD
[2018-06-08] MEDS: Sodium Chloride 0.9% 1,000 ML IV SCH (21:00)
[2018-06-08] MEDS: Insulin Glargine 10 UNITS in Pre-Filled Syringe 1 EACH SC SCH (21:04)
[2018-06-09] MEDS: HumaLOG 300 UNITS/3 ML VIAL SC PRN ×4 (06:05→22:29)
[2018-06-09] MEDS: Insulin Glargine 10 UNITS in Pre-Filled Syringe 1 EACH SC SCH ×2 (08:28→22:28)
[2018-06-09] MEDS: Pantoprazole 80 MG in Sodium Chloride 0.9% 100 ML IVP SCH (08:29)
[2018-06-09 08:52] LABS: Hemoglobin 7.5 g/dL (14.0-18.0)
[2018-06-09] MEDS ORDERED: Pantoprazole 40 MG VIAL IVP SCH (09:00)
[2018-06-09] MEDS: Folic Acid 1 MG TAB PO SCH (09:23)
[2018-06-09] MEDS: Thiamine 100 MG TAB PO SCH (09:23)
[2018-06-09] MEDS: Propranolol HCl 20 MG TAB PO SCH ×2 (09:23→20:35)
--- NOTE | 2018-06-09 12:30 | PDOC.PN ---
- Subjective Encounter Start Date: 06/09/18 Encounter Start Time: 12:28 Subjective: feels well. no dizziness.no bleeding per rectum -: wants to go home - Objective Resuscitation Status - Order Detail: 06/06/18 23:09 Resuscitation Status Routine Resuscitation Status: FULL: Full Resuscitation Discussed with: maranda ROSENBERG Reviewed: Yes Vital Signs & Weight: Vital Signs (12 hours) Temp Pulse Resp BP Pulse Ox 06/09/18 07:28 99.1 F 100 14 128/57 L 97 06/09/18 05:04 99 06/09/18 04:00 99.1 F 86 14 107/53 L 99 Weight Admit Weight 162 lb 9.6 oz Weight 162 lb 9.6 oz I&O: 06/08/18 06/09/18 06/10/18 06:59 06:59 06:59 Intake Total 2595 2388 Output Total 760 930 Balance 1835 1458 Result Diagrams: 06/09/18 08:38 06/08/18 06:27 Additional Labs: Accuchecks 06/09/18 06/09/18 06/08/18 10:53 05:32 20:26 POC Glucose 321 H 227 H 283 H 06/08/18 16:52 POC Glucose 427 H Laboratory Tests 06/06/18 06/07/18 06/07/18 13:15 03:40 10:24 Hgb 7.0 L 4.8 L* 7.3 L 06/07/18 06/07/18 06/08/18 13:59 18:49 06:27 Hgb 7.6 L 8.6 L 7.7 L 06/09/18 08:38 Hgb 7.5 L Phys Exam - Physical Examination Constitutional: NAD HEENT: PERRLA, moist MMs, sclera anicteric, oral pharynx no lesions Neck: no nodes, no JVD, supple, full ROM Respiratory: no wheezing, no rales, no rhonchi, wheezing present, clear to auscultation bilateral Cardiovascular: RRR, no significant murmur, no rub Gastrointestinal: soft, non-tender, no distention, positive bowel sounds Musculoskeletal: no edema, pulses present Neurological: non-focal, normal sensation, moves all 4 limbs Psychiatric: normal affect, A&O x 3 Skin: no rash Dx/Plan (1) Symptomatic anemia Code(s): D64.9 - ANEMIA, UNSPECIFIED Status: Acute Comment: suspect occult GIB. 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 helper insulin use: with fpc use (4) Hepatitis C Code(s): B19.20 - UNSPECIFIED VIRAL HEPATITIS C WITHOUT HEPATIC COMA Status: Chronic Qualifiers: (5) Hypertension Code(s): I10 - ESSENTIAL (PRIMARY) HYPERTENSION Status: Chronic Qualifiers: (6) H/O esophageal varices Code(s): Z87.19 - PERSONAL HISTORY OF OTHER DISEASES OF THE DIGESTIVE SYSTEM Status: Chronic (7) H/O: GI bleed Code(s): Z87.19 - PERSONAL HISTORY OF OTHER DISEASES OF THE DIGESTIVE SYSTEM Status: Chronic (8) Thrombocytopenia Code(s): D69.6 - THROMBOCYTOPENIA, UNSPECIFIED Status: Chronic Comment: Due to cirrhosis - Plan DVT proph w/SCDs HD stable.H/H stable.EGd showed no specific blled -: varcices seen in stomach.will restart propranolol -: stop PPI drip.change to IV BID -: monitor H/H. -: DC when OK w GI.ambulate * . Review of Systems - Review of Systems Constitutional: negative: fever, chills, sweats, weakness, malaise, other ENT: negative: Ear Pain, Ear Discharge, Nose Pain, Nose Discharge, Nose Congestion, Mouth Pain, Mouth Swelling, Throat Pain, Throat Swelling, Other Respiratory: negative: Cough, Dry, Shortness of Breath, Hemoptysis, SOB with Excertion, Pleuritic Pain, Sputum, Wheezing Cardiovascular: negative: chest pain, palpitations, orthopnea, paroxysmal nocturnal dyspnea, edema, light headedness, other Gastrointestinal: negative: Nausea, Vomiting, Abdominal Pain, Diarrhea, Constipation, Melena, Hematochezia, Other Genitourinary: negative: Dysuria, Frequency, Incontinence, Hematuria, Retention , Other Neurological: negative: Weakness, Numbness, Incoordination, Change in Speech, Confusion, Seizures, Other - Medications/Allergies Allergies/Adverse Reactions: Allergies Allergy/AdvReac Type Severity Reaction Status Date / Time No Known Drug Allergies Allergy Unknown Verified 06/07/18 11:16 Medications: Current Medications Dextrose/Water (Dextrose 50%) 25 gm SLOW IVP PRN PRN PRN Reason: Hypoglycemia Folic Acid (Folvite) 1 mg PO DAILY [facility] Last Admin: 06/09/18 09:23 Dose: 1 mg Glucagon (Glucagon) 1 mg IM PRN PRN PRN Reason: Hypoglycemia Dextrose/Water (D5w) 1,000 mls @ 0 mls/hr IV .Q0M PRN PRN Reason: Hypoglycemia Ceftriaxone Sodium 1 gm/ (Sodium Chloride) 100 mls @ 200 mls/hr IVPB Q24HR [facility] Last Admin: 06/08/18 13:06 Dose: Not Given Sodium Chloride (Normal Saline 0.9%) 1,000 mls @ 75 mls/hr IV .[id number] [facility] Last Admin: 06/08/18 21:00 Dose: 1,000 mls Insulin Glargine 10 units/ (Miscellaneous Medication) 0.1 mls @ 0 mls/hr SC BID [facility] Last Admin: 06/09/18 08:28 Dose: 0.1 mls Insulin Human Lispro (Humalog) 0 units SC .BEDTIME SLIDING SC PRN PRN Reason: Bedtime Correctional Scale Last Admin: 06/08/18 00:04 Dose: 5 unit Insulin Human Lispro (Humalog) 0 units SC .AGGRESSIVE SLIDING PRN; Protocol PRN Reason: AGGRESSIVE SLIDING SCALE Last Admin: 06/09/18 06:05 Dose: 6 units Ondansetron HCl (Zofran) 4 mg IVP Q6H PRN PRN Reason: Nausea/Vomiting Pantoprazole Sodium (Protonix) 40 mg IVP Q12HR [facility] Last Admin: 06/09/18 09:23 Dose: 40 mg Propranolol HCl (Inderal) 20 mg PO BID [facility] Last Admin: 06/09/18 09:23 Dose: 20 mg Sodium Chloride (Flush - Normal Saline) 10 ml IVF Q12HR PRN PRN Reason: Saline Flush Thiamine HCl (Thiamine) 100 mg PO DAILY [facility] Last Admin: 06/09/18 09:23 Dose: 100 mg Zolpidem Tartrate (Ambien) 5 mg PO HSPRN PRN PRN Reason: Insomnia
[2018-06-09] MEDS: cefTRIAXone\\ROCEPHIN 1 GM in Sodium Chloride 0.9% 100 ML IVPB SCH (12:32)
[2018-06-09] MEDS: Sodium Chloride 0.9% 1,000 ML IV SCH (12:32)
--- NOTE | 2018-06-09 17:42 | PRG ---
DATE OF SERVICE: 06/09/2018 SUBJECTIVE: Mr. Hebert has had no overt bleeding today. No abdominal pain. No acute complaints. OBJECTIVE: VITAL SIGNS: Temperature is 99.3, pulse 73, and blood pressure 107/55. GENERAL: He is in no acute distress. He is alert and oriented x3. LUNGS: Clear to auscultation bilaterally. HEART: Regular rate and rhythm without murmur. ABDOMEN: Soft, nontender, nondistended. Bowel sounds are present. EXTREMITIES: No lower extremity edema. LABORATORY DATA: Hemoglobin is 7.5 today. IMPRESSION: 1. Gastrointestinal bleed likely secondary to gastric varices, resolved. There are no stigmata of recent bleeding by esophagogastroduodenoscopy to indicate any particular gastric varix, it was actually the bleeding source. If he has recurrent bleeding from gastric varices, then TIPS could be considered. However, we will monitor and follow this clinically for now. 2. Anemia of acute blood loss, status post transfusion. Hemoglobin is stable at 7.5 today. 3. Cirrhosis secondary to past alcohol. RECOMMENDATIONS: We will continue propranolol. He has been weaned off octreotide. Pantoprazole has been changed to oral dosing and ceftriaxone should be completed soon. I would expect he will be ready to discharge home tomorrow. I would check a hemoglobin in the morning. Job ID: [id number]
[2018-06-10 06:43] LABS: Hemoglobin 6.9 g/dL (14.0-18.0)
[2018-06-10] MEDS: Insulin Glargine 10 UNITS in Pre-Filled Syringe 1 EACH SC SCH ×2 (08:11→20:42)
[2018-06-10] MEDS: Thiamine 100 MG TAB PO SCH (08:12)
[2018-06-10] MEDS: HumaLOG 300 UNITS/3 ML VIAL SC PRN ×4 (08:12→20:45)
[2018-06-10] MEDS: Propranolol HCl 20 MG TAB PO SCH ×2 (08:12→20:42)
[2018-06-10] MEDS: Furosemide 40 MG TAB PO SCH (08:12)
[2018-06-10] MEDS: Folic Acid 1 MG TAB PO SCH (08:13)
[2018-06-10] MEDS: cefTRIAXone\\ROCEPHIN 1 GM in Sodium Chloride 0.9% 100 ML IVPB SCH (10:33)
--- NOTE | 2018-06-10 14:13 | PDOC.PN ---
- Subjective Encounter Start Date: 06/10/18 Encounter Start Time: 14:12 Subjective: feels ok but sometimes feels dizzy.no blood in stools/black stools -: no abd pain/N/V - Objective Resuscitation Status - Order Detail: 06/06/18 23:09 Resuscitation Status Routine Resuscitation Status: FULL: Full Resuscitation Discussed with: maranda ROSENBERG Reviewed: Yes Vital Signs & Weight: Vital Signs (12 hours) Temp Pulse Pulse Resp BP BP BP 06/10/18 12:19 98.9 F 66 18 119/58 L 06/10/18 12:04 97.8 F 62 17 112/55 L 06/10/18 11:20 97.9 F 66 16 115/66 06/10/18 08:12 06/10/18 07:05 98.0 F 70 18 128/81 06/10/18 04:00 97 F L 67 17 122/61 Pulse Ox 06/10/18 12:19 100 06/10/18 12:04 06/10/18 11:20 99 06/10/18 08:12 99 06/10/18 07:05 99 06/10/18 04:00 100 Weight Admit Weight 162 lb 9.6 oz Weight 162 lb 9.6 oz I&O: 06/09/18 06/10/18 06/11/18 06:59 06:59 06:59 Intake Total 2388 680 0 Output Total 930 250 Balance 1458 430 0 Result Diagrams: 06/10/18 06:08 06/08/18 06:27 Additional Labs: Accuchecks 06/10/18 06/10/18 06/09/18 10:43 05:58 20:51 POC Glucose 238 H 299 H 293 H 06/09/18 16:36 POC Glucose 187 H Laboratory Tests 06/06/18 06/07/18 06/07/18 13:15 03:40 10:24 Hgb 7.0 L 4.8 L* 7.3 L 06/07/18 06/07/18 06/08/18 13:59 18:49 06:27 Hgb 7.6 L 8.6 L 7.7 L 06/09/18 06/10/18 08:38 06:08 Hgb 7.5 L 6.9 L Phys Exam - Physical Examination Constitutional: NAD HEENT: PERRLA, moist MMs, sclera anicteric, oral pharynx no lesions Neck: no nodes, no JVD, supple, full ROM Respiratory: no wheezing, no rales, no rhonchi, clear to auscultation bilateral Cardiovascular: RRR, no significant murmur Gastrointestinal: soft, non-tender, no distention, positive bowel sounds Musculoskeletal: no edema, pulses present Neurological: non-focal, normal sensation, moves all 4 limbs Psychiatric: normal affect, A&O x 3 Skin: no rash Dx/Plan (1) Symptomatic anemia Code(s): D64.9 - ANEMIA, UNSPECIFIED Status: Acute Comment: suspect occult GIB. 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 (4) Hepatitis C Code(s): B19.20 - UNSPECIFIED VIRAL HEPATITIS C WITHOUT HEPATIC COMA Status: Chronic Qualifiers: (5) Hypertension Code(s): I10 - ESSENTIAL (PRIMARY) HYPERTENSION Status: Chronic Qualifiers: (6) H/O esophageal varices Code(s): Z87.19 - PERSONAL HISTORY OF OTHER DISEASES OF THE DIGESTIVE SYSTEM Status: Chronic (7) H/O: GI bleed Code(s): Z87.19 - PERSONAL HISTORY OF OTHER DISEASES OF THE DIGESTIVE SYSTEM Status: Chronic (8) Thrombocytopenia Code(s): D69.6 - THROMBOCYTOPENIA, UNSPECIFIED Status: Chronic Comment: Due to cirrhosis - Plan DVT proph w/SCDs H/h dropped again.discussed w GI.will transfuse 2 units & monitor -: cont propranolol.cont PPI -: Hd stable * . Review of Systems - Review of Systems Constitutional: weakness. negative: fever, chills, sweats, malaise, other ENT: negative: Ear Pain, Ear Discharge, Nose Pain, Nose Discharge, Nose Congestion, Mouth Pain, Mouth Swelling, Throat Pain, Throat Swelling, Other Respiratory: negative: Cough, Dry, Shortness of Breath, Hemoptysis, SOB with Excertion, Pleuritic Pain, Sputum, Wheezing Cardiovascular: negative: chest pain, palpitations, orthopnea, paroxysmal nocturnal dyspnea, edema, light headedness, other Gastrointestinal: negative: Nausea, Vomiting, Abdominal Pain, Diarrhea, Constipation, Melena, Hematochezia, Other Genitourinary: negative: Dysuria, Frequency, Incontinence, Hematuria, Retention , Other Musculoskeletal: negative: Neck Pain, Shoulder Pain, Arm Pain, Back Pain, Hand Pain, Leg Pain, Foot Pain, Other Skin: negative: Rash, Lesions, Carlos, Bruising, Other Neurological: negative: Weakness, Numbness, Incoordination, Change in Speech, Confusion, Seizures, Other - Medications/Allergies Allergies/Adverse Reactions: Allergies Allergy/AdvReac Type Severity Reaction Status Date / Time No Known Drug Allergies Allergy Unknown Verified 06/07/18 11:16 Medications: Current Medications Dextrose/Water (Dextrose 50%) 25 gm SLOW IVP PRN PRN PRN Reason: Hypoglycemia Folic Acid (Folvite) 1 mg PO DAILY [facility] Last Admin: 06/10/18 08:13 Dose: 1 mg Furosemide (Lasix) 40 mg PO DAILY[facility] Last Admin: 06/10/18 08:12 Dose: 40 mg Glucagon (Glucagon) 1 mg IM PRN PRN PRN Reason: Hypoglycemia Dextrose/Water (D5w) 1,000 mls @ 0 mls/hr IV .Q0M PRN PRN Reason: Hypoglycemia Ceftriaxone Sodium 1 gm/ (Sodium Chloride) 100 mls @ 200 mls/hr IVPB Q24HR [facility] Last Admin: 06/10/18 10:33 Dose: 100 mls Insulin Glargine 10 units/ (Miscellaneous Medication) 0.1 mls @ 0 mls/hr SC BID [facility] Last Admin: 06/10/18 08:11 Dose: 0.1 mls Insulin Human Lispro (Humalog) 0 units SC .BEDTIME SLIDING SC PRN PRN Reason: Bedtime Correctional Scale Last Admin: 06/09/18 22:29 Dose: 3 unit Insulin Human Lispro (Humalog) 0 units SC .AGGRESSIVE SLIDING PRN; Protocol PRN Reason: AGGRESSIVE SLIDING SCALE Last Admin: 06/10/18 11:34 Dose: 6 units Ondansetron HCl (Zofran) 4 mg IVP Q6H PRN PRN Reason: Nausea/Vomiting Pantoprazole Sodium (Protonix) 40 mg PO DAILY [facility] Last Admin: 06/10/18 08:12 Dose: 40 mg Propranolol HCl (Inderal) 20 mg PO BID [facility] Last Admin: 06/10/18 08:12 Dose: 20 mg Sodium Chloride (Flush - Normal Saline) 10 ml IVF Q12HR PRN PRN Reason: Saline Flush Thiamine HCl (Thiamine) 100 mg PO DAILY [facility] Last Admin: 06/10/18 08:12 Dose: 100 mg Zolpidem Tartrate (Ambien) 5 mg PO HSPRN PRN PRN Reason: Insomnia
[2018-06-10 14:49] LABS: Hemoglobin 8.3 g/dL (14.0-18.0)
--- NOTE | 2018-06-10 17:57 | PRG ---
DATE OF SERVICE: 06/10/2018 SUBJECTIVE: Mr. Hebert is feeling okay. He is getting another 2 units RBC transfusion as his hemoglobin declined again down to 6.9 this morning. There has been no overt bleeding reported by the patient. No melena or hematochezia. No hematemesis. I reviewed his EGD report with Dr. Gentile. He has remained hemodynamically stable. OBJECTIVE: VITAL SIGNS: Temperature 98.9, pulse 71, blood pressure 119/63, and 99% oxygen saturation on room air. GENERAL: No acute distress. HEART: Regular rate and rhythm. LUNGS: Clear to auscultation bilaterally. ABDOMEN: Soft and nontender to palpation. EXTREMITIES: No peripheral edema. LABORATORY STUDIES: Hemoglobin was 6.9, hematocrit 21.3 after 1 unit RBC transfusion, hemoglobin is up to 8.3, he is getting one more unit now; platelets 58; WBC 4.4. INR 1.2, glucose 238, BUN was 26, creatinine 0.91. Admission drug screen was negative. ASSESSMENT AND PLAN: 1. Gastrointestinal bleed, likely secondary to gastric varices, now resolved. Interestingly, there were no stigmata of recent bleeding on esophagogastroduodenoscopy with Dr. Gentile. The patient should continue on a nonselective beta lesley. 2. Anemia of acute blood loss, status post transfusion. He is getting 2 more units of RBC transfusion today. Notes no overt bleeding over the past couple of days. If blood counts are satisfactory tomorrow morning with no evidence of overt bleeding, I think he could be potentially discharged from the hospital. 3. Cirrhosis, secondary to prior alcohol abuse. He has been abstinent from alcohol for a while now. He inquires about the possibility of liver transplant evaluation. We discussed that he would need referral to a tertiary center for that. [facility] I do think it would be reasonable to refer him for outpatient liver transplant evaluation at [facility] per his request. We will have my office arrange this on an outpatient basis. Job ID: [id number]
[2018-06-10 19:23] LABS: Hemoglobin 10.2 g/dL (14.0-18.0)
[2018-06-11 05:41] LABS: Hemoglobin 8.7 g/dL (14.0-18.0)
[2018-06-11 06:01] LABS: Anion Gap 9 mmol/L (10-20); BUN (Urea Nitrogen) 12 mg/dL (8.4-25.7); Calc. Creatinine Clearance 88 mL/min (70-130); Carbon Dioxide 23 mmol/L (23-31); Chloride 106 mmol/L (98-107); Estimated GFR-MDRD Greater than 90; Glucose 287 mg/dL (80-115); Potassium 3.6 mmol/L (3.5-5.1); Sodium 134 mmol/L (136-145)
[2018-06-11] MEDS: HumaLOG 300 UNITS/3 ML VIAL SC PRN ×3 (08:12→18:10)
[2018-06-11] MEDS: Furosemide 40 MG TAB PO SCH (08:58)
[2018-06-11] MEDS: Folic Acid 1 MG TAB PO SCH (08:58)
[2018-06-11] MEDS: Propranolol HCl 20 MG TAB PO SCH ×2 (08:59→20:55)
[2018-06-11] MEDS: Insulin Glargine 10 UNITS in Pre-Filled Syringe 1 EACH SC SCH ×2 (08:59→20:55)
[2018-06-11] MEDS: Thiamine 100 MG TAB PO SCH (08:59)
[2018-06-11] MEDS: cefTRIAXone\\ROCEPHIN 1 GM in Sodium Chloride 0.9% 100 ML IVPB SCH (12:01)
--- NOTE | 2018-06-11 13:35 | PRG ---
DATE OF SERVICE: 06/11/2018 SUBJECTIVE: The patient is seen and examined at the bedside. He is feeling good. He does not have much complaints to offer. He had some bowel movement, which showed some small streaks of fresh blood, this was yesterday. OBJECTIVE: VITAL SIGNS: Blood pressure is 139/59, pulse is 72, respirations are 18, temperature is 98.1, O2 saturation is 93% on room air. HEAD: Atraumatic and normocephalic. EYES: PERRLA. Sclerae are nonicteric. Oral mucosa is moist. NECK: Supple. LUNGS: Clear. HEART: S1, S2 normal. ABDOMEN: Mildly distended. It is not tender to deeper palpation. Peristalsis is sluggish. EXTREMITIES: 1 to 2+ peripheral edema, similar bilaterally on both lower extremities. NEUROLOGICAL: He is alert and oriented x4. There is no any motor or sensory deficit present. Cranial nerves are intact. LABORATORY DATA: Hemoglobin is down to 8.7 from 10.2 yesterday at 1912 hours. Glycemia is ranging from 265 to 292. IMPRESSION: 1. Gastrointestinal bleed likely secondary to gastric varices, resolved. There was no stigmata of recent bleeding by EGD to indicate any particular gastric varix that it was actually the bleeding source. The patient's hemoglobin is down to 8.7 this morning from 10.2 yesterday at 1900 hours. He did not have any bowel movement, which would indicate that he is still losing some blood. I will keep his discharge postponed until tomorrow and check his hemoglobin and hematocrit levels in the morning. 2. Uncontrolled diabetes. Start his metformin since he is quite stable at this point. 3. Liver cirrhosis secondary to alcohol. 4. Hypertension. 5. Anemia. PLAN: As mentioned above, we are going to postpone the discharge, check his H and H, try to control better his glycemia and send him home tomorrow. Job ID: [id number]
[2018-06-11] MEDS: metFORMIN 500 MG TAB PO SCH (18:09)
[2018-06-12 04:59] LABS: Hemoglobin 8.4 g/dL (14.0-18.0)
[2018-06-12] MEDS: Thiamine 100 MG TAB PO SCH (08:09)
[2018-06-12] MEDS: Folic Acid 1 MG TAB PO SCH (08:09)
[2018-06-12] MEDS: Furosemide 40 MG TAB PO SCH (08:09)
[2018-06-12] MEDS: Propranolol HCl 20 MG TAB PO SCH (08:09)
[2018-06-12] MEDS: metFORMIN 500 MG TAB PO SCH ×2 (08:09→17:47)
[2018-06-12] MEDS: HumaLOG 300 UNITS/3 ML VIAL SC PRN ×3 (08:12→17:48)
[2018-06-12] MEDS: Insulin Glargine 10 UNITS in Pre-Filled Syringe 1 EACH SC SCH (08:15)
[2018-06-12] MEDS: cefTRIAXone\\ROCEPHIN 1 GM in Sodium Chloride 0.9% 100 ML IVPB SCH (12:47)
[2018-06-12 13:57] LABS: Hemoglobin 9.2 g/dL (14.0-18.0)
--- NOTE | 2018-06-12 16:17 | DIS ---
DATE OF ADMISSION: 06/06/2018 DATE OF DISCHARGE: 06/11/2018 FINAL DIAGNOSES: 1. Gastrointestinal bleeding likely secondary to gastric varices, resolved. 2. Uncontrolled diabetes. 3. Liver cirrhosis secondary to alcohol use. 4. Hypertension. 5. Anemia. CONSULTANTS: 1. Dr. Ji Gentile, Gastrointestinal Service. 2. Dr. Robert Hdez, Gastrointestinal Service. PROCEDURE: EGD. Results: 1. Normal esophagus without varices. 2. Prominent folds in the cardia and fundus of the stomach, which likely represents gastric varices. There was no stigmata of recent bleeding. 3. Portal hypertensive gastropathy. 4. Small erosion in the first portion of the duodenum. HOSPITAL COURSE: The patient is a 67-year-old male, who was admitted to the hospital with chief complaints of feeling dizzy and weak. He has a history of liver cirrhosis due to alcohol intake. He presented to the emergency room. He was found to be anemic. He received blood transfusion while in the emergency room and got admitted to the hospital for further evaluation and treatment. At the time of admission, his sodium was 133, glucose was 442. Urinalysis showed positive for glucose and leukocyte esterase. Urine drug screen was negative. Chest x-ray showed no acute cardiopulmonary pathology. Brain CT scan showed no significant intracranial process or bleeding. The patient was placed on banana bag for fluid resuscitation, started on insulin for diabetes. Blood cultures were obtained. Fecal occult blood test was ordered and came back negative. Blood cultures came back negative x2. Two days later after the admission in the emergency room, he was started on octreotide and PPI drip given history of variceal bleed. His H and H was monitored and he was started on Rocephin for SBP prophylaxis. GI was consulted and the patient was seen by Dr. Ji Gentile, who recommended to continue octreotide, proton-pump inhibitor, antibiotic for SBP prophylaxis, and EGD the next day, which was done and showed normal esophagus without varices with prominent folds in the cardia and fundus of the stomach, which most likely represent gastric varices, but there was no any stigmata of recent bleeding. Also, there was portal hypertensive gastropathy and small erosion in the first portion of the duodenum. He was continued on propranolol. His diet was advanced and his hemoglobin trend was followed. His hemoglobin was fluctuating between 8.4 to 10.2, today is 9.2. He had normal bowel movement without any black tarry stools today. His vitals today, blood pressure is 129/62, pulse is 69, temperature is 97.8, respiratory rate is 18, O2 saturation is 98% on room air. He is seen and examined before his discharge. DIET: He is discharged on 2000 calories ADA diet. ACTIVITIES: As tolerated. DISPOSITION: Home. HOME MEDICATIONS: At the time of discharge, 1. Metformin 1000 mg twice a day. 2. Thiamine 100 mg once a day. 3. Propranolol 20 mg twice a day. 4. Pantoprazole 40 mg once a day. 5. Multivitamin once a day. 6. Furosemide 40 mg once a day. 7. Folic acid 1 mg once a day. 8. Ferrous sulfate 325 mg once a day. FOLLOWUP: He is going to see his primary care physician in 1 week for the followup and he will see Dr. Gentile in 2 weeks for the followup with him. There is a plan of sending him to [place] for liver transplantation. TIME SPENT: Time spent on this discharge is less than 30 minutes. Job ID: [id number]
[2018-06-12 18:10] VITALS: BP 134/65; TEMP 98.3
== END 2018-06-12 18:10 | disposition home or self-care (01) | DRG 300 ==
LOC: ERS 12:18 → OBSVTOIN 18:53 → ERHOLD 18:53 → 2NO 06-07 11:07
PROVIDERS: ADMIT Family Medicine; ATTEND Family Medicine
PROC: 30233N1 Transfusion of Nonautologous Red Blood Cells into Peripheral Vein, Percutaneous Approach (ICD-10-PCS; 2018-06-07)
PROC: 0DJ08ZZ Inspection of Upper Intestinal Tract, Via Natural or Artificial Opening Endoscopic (ICD-10-PCS; principal; 2018-06-08)
PROC: 30233N1 Transfusion of Nonautologous Red Blood Cells into Peripheral Vein, Percutaneous Approach (ICD-10-PCS; 2018-06-10)
DX: I86.4 Gastric varices (principal); K76.6 Portal hypertension; D62 Acute posthemorrhagic anemia; K70.30 Alcoholic cirrhosis of liver without ascites; E11.65 Type 2 diabetes mellitus with hyperglycemia; I10 Essential (primary) hypertension; K31.89 Other diseases of stomach and duodenum; K26.9 Duodenal ulcer, unspecified as acute or chronic, without hemorrhage or perforation; B18.2 Chronic viral hepatitis C; D69.6 Thrombocytopenia, unspecified; Z87.891 Personal history of nicotine dependence; Z79.84 Long term (current) use of oral hypoglycemic drugs; Z79.899 Other long term (current) drug therapy; Z91.19 Patient's noncompliance with other medical treatment and regimen; F10.21 Alcohol dependence, in remission; Z82.49 Family history of ischemic heart disease and other diseases of the circulatory system
CPT/HCPCS: 36415; 36416; 36430; 70450; 71045; 80048; 80053; 80076; 80306; 81003; 81015; 82140; 82274; 82550; 83690; 83880; 84443; 84484; 85014; 85018; 85025; 85610; 86850; 86900; 86901; 87040; 90471; 90662; 93005; 94760; 96361; 96374; C9113; G0008; J0696; J1815; J1825; J2001; J2354; J2704; J7050; P9016

== ENCOUNTER 2018-10-17 08:21 | Outpatient (CLI) | payer OTHER ==
--- NOTE | 2018-10-17 09:01 | ULT ---
EXAM: US Abdominal CLINICAL HISTORY: Cirrhosis. COMPARISON: 05/04/2017 FINDINGS: Pancreas: The head and proximal pancreatic body have a normal echotexture. The remainder the pancrea s is obscured by bowel gas. IVC: Obscured by bowel gas Aorta: Obscured by bowel gas Liver:Increased echogenicity with nodularity throughout the liver suggesting cirrhotic change. No vladimir id or cystic masses. Right hepatic lobe measures 15.1 cm. Gallbladder: No sonographic evidence of cholelithiasis, gallbladder wall thickening or pericholecysti c fluid Hernandez's sign:Negative CBD: 0.4 cm Right kidney: No hydronephrosis Right kidney measuring 9.5 x 5.2 x 5.2 cm in length. Left kidney: No hydronephrosis. Anechoic focus emanating from the left renal cortex, compatible with a 2 cm cyst. Left kidney measuring 6.8 x 10.3 x 4.9 cm in length Spleen: Enlarged; measuring 16.1 x 9.4 x 15 cm IMPRESSION: 1. Nodularity of the liver along with increased echogenicity. Sonographic evidence of cirrhotic antunez e to the liver. 2. Splenomegaly. 3. Left renal cyst.
== END 2018-10-17 08:22 | disposition home or self-care (01) ==
LOC: BICULT 08:21
PROVIDERS: ATTEND Internal Medicine
DX: K74.60 Unspecified cirrhosis of liver (principal); D64.9 Anemia, unspecified; K76.6 Portal hypertension; I86.4 Gastric varices; R18.8 Other ascites; N28.1 Cyst of kidney, acquired; R16.1 Splenomegaly, not elsewhere classified
CPT/HCPCS: 76700

== ENCOUNTER 2019-01-20 11:22 | Inpatient (IN) | payer OTHER ==
[2019-01-20] MEDS ORDERED: Iopamidol 370 76% 100 ML VIAL ONE (12:00)
[2019-01-20 12:15] LABS: Hemoglobin 9.3 g/dL (14.0-18.0); Mean Corpuscular HGB CONC 34.3 g/dL (32.0-36.0); Mean Corpuscular Hemoglobin 33.8 pg (27.0-31.0); Mean Corpuscular Volume 98.6 fL (78.0-98.0); RBC Distribution Width 13.1 % (11.5-14.5); Red Blood Cell (RBC) Count 2.76 mill/uL (4.70-6.10); White Blood Cell (WBC) Count 10.5 thou/uL (4.8-10.8)
[2019-01-20 12:18] LABS: INR-International Normal Ratio 1.2; Prothrombin Time 14.7 SEC (12.0-14.7)
[2019-01-20 12:28] LABS: #Basophils 0.1 thou/uL (0.0-0.2); #Eosinphils 0.4 thou/uL (0.0-0.7); #Lymphocytes 1.5 thou/uL (1.20-3.40); #Monocytes 0.7 thou/uL (0.11-0.59); #Neutrophils 7.8 thou/uL (1.40-6.50); %Basophils 0.5 % (0.0-1.0); %Eosinophils 3.4 % (0.0-10.0); %Lymphocytes 14.7 % (21.0-51.0); %Monocytes 6.6 % (0.0-10.0); %Neutrophils 74.8 % (42.0-75.0); Mean Platelet Volume 9.9 fL (7.4-10.4); Platelet Count 94 thou/uL (130-400); Platelet Morphology Comment Appears Decreased
[2019-01-20 12:30] LABS: ALT (SGPT) 21 U/L (8-55); AST (SGOT) 20 U/L (5-34); Albumin 3.6 g/dL (3.4-4.8); Alkaline Phosphatase 141 U/L (40-110); Anion Gap 15 mmol/L (10-20); BUN (Urea Nitrogen) 69 mg/dL (8.4-25.7); Bilirubin, Total 1.4 mg/dL (0.2-1.2); Calc. Creatinine Clearance 0 mL/min (70-130); Calcium 9.5 mg/dL (7.8-10.44); Carbon Dioxide 22 mmol/L (23-31); Chloride 105 mmol/L (98-107); Estimated GFR-MDRD 46; Glucose 330 mg/dL (80-115); Potassium 4.6 mmol/L (3.5-5.1); Protein, Total 6.6 g/dL (5.8-8.1); Sodium 137 mmol/L (136-145)
--- NOTE | 2019-01-20 13:38 | CT ---
CT Abdomen Pelvis W Con HISTORY: Abdominal pain. COMPARISON: 11/01/2017 study. FINDINGS: The lung bases are clear. Once again a nodular cirrhotic appearance to the liver is noted. Splenomegaly is again seen, the spleen measures 14.8 cm in length. Pancreas region is unremarkable there is suggestion of some gallbladder wall thickening. This is a similar appearance to the previous exam. Right and left adrenal glands and right and left kidneys are normal in size there is a hypodensity in volving the left kidney CT Hounsfield unit numbers are higher than typical for cysts but it is stable in the appearance as compared to the prior examination and may just represent a complex cyst. No significant periaortic or mesenteric adenopathy demonstrated. There are paraesophageal and gastric varices demonstrated. Stable appearance to some periportal and gastrohepatic lymph nodes. CT of pelvis performed with contrast: Mild diverticulosis is noted without inflammatory change. The a ppendix is normal. No free fluid. There are arthritic changes of the spine and hips. IMPRESSION: 1. Cirrhotic liver change with splenomegaly and varices. 2. Thickening to the gallbladder wall which could be on the basis of the intrinsic liver disease, it is similar to the prior exam. 3. Diverticulosis.
[2019-01-20] MEDS ORDERED: Octreotide Acetate 1,250 MCG in Sodium Chloride 0.9% 250 ML 250 ML IVPB SCH (13:45)
[2019-01-20] MEDS ORDERED: Pantoprazole 40 MG VIAL ONE (13:47)
[2019-01-20] MEDS ORDERED: Octreotide Acetate 100 MCG/ML VIAL ONE (13:47)
[2019-01-20] MEDS ORDERED: cefTRIAXone\\ROCEPHIN 2 GM VIAL ONE (13:54)
[2019-01-20 14:16] LABS: Bilirubin Negative (Negative); Blood, Urine Negative (Negative); Glucose, Urine (Dipstick) 100 mg/dL (Negative); Leukocyte Small (Negative); Nitrite Negative (Negative); Protein, Urine (Dipstick) Negative (Neg-Trace); Urobilinogen 0.2 mg/dL (Less than 2)
[2019-01-20 14:17] LABS: Clarity Clear (Clear)
[2019-01-20 14:28] LABS: RBC/HPF 0-3 HPF (0-3)
[2019-01-20 14:30] LABS: Squamous Epithelial 0-3 HPF (0-3)
[2019-01-20 14:31] LABS: Bacteria/HPF None Seen HPF (None Seen)
[2019-01-20] MEDS ORDERED: Dextrose 50% Abboject 50 ML SYRINGE SLOW IVP PRN (14:36)
[2019-01-20] MEDS ORDERED: Dextrose 5% in Water 1,000 ML IV PRN (14:36)
[2019-01-20] MEDS ORDERED: Guaifenesin DM 100-10/5 ML UDCUP PO PRN (14:36)
[2019-01-20] MEDS ORDERED: Ondansetron PF 4 MG/2 ML Vial IVP PRN (14:36)
[2019-01-20] MEDS ORDERED: Acetaminophen 325 MG TAB PO PRN (14:36)
[2019-01-20 15:31] LABS: Hemoglobin 7.7 g/dL (14.0-18.0)
[2019-01-20 16:38] LABS: Lactic Acid 3.6 mmol/L (0.5-2.2)
--- NOTE | 2019-01-20 19:45 | CON ---
DATE OF CONSULTATION: 01/20/2019 REQUESTING PHYSICIAN: Dr. Joyner. REASON FOR CONSULTATION: Melena and cirrhosis. HISTORY OF PRESENT ILLNESS: Paige Hebert is a 68-year-old man, whom I have been following for history of cirrhosis. This is secondary to hepatitis C, previously treated with SVR back in 2015, and alcohol abuse. He had a period of almost a year of abstinence from alcohol, and as of my last visit with him in September, he had been abstinent for about a year. However, he now tells me that he has been drinking about a quart of beer every 3 days. He has had prior decompensations with complications of ascites, gastric varices, and portal hypertensive gastropathy with recurrent anemia. He had a band placed on the gastric varix back in March 2018 and has been on a beta-lesley since then. He does not have esophageal varices. Ascites has all resolved. There is no history of encephalopathy. His last EGD here was in May 2018, which demonstrated portal hypertensive gastropathy and prominent folds in the gastric fundus, but still no esophageal varices. He was evidently hospitalized in July 2018 in [facility] with anemia. He has been on chronic iron replacement. As of September, his hemoglobin was 11.6. We have been trying for several months to get him in to [facility] in [place], where there is a transplant center, but have continued to have problems getting him in. He reports that for about the past 5 to 6 days, his stools have been very dark. Most bowel movements have been quite dark. There has been no bright red blood per rectum, no nausea or vomiting, no abdominal pain, no abdominal distention or edema. Starting yesterday, he began to feel quite weak and tired and that prompted his presentation today. Hemoglobin was found to be 9.3, a bit down from last September. Also notably BUN is up to 69 with creatinine 1.50, up from 1.0 in September. Lactic acid is 4.1. He has not had any hematemesis. He is hemodynamically stable. He was started on Protonix and octreotide infusions. Currently, feeling well aside from fatigue. Notably, FOBT was negative. PAST MEDICAL HISTORY: Cirrhosis, colon polyp, hepatitis C, status post successful treatment with SVR back in 2015, alcohol abuse, hypertension, hypoalbuminemia, chronic anemia of iron deficiency, gastric varix with banding in March 2018, portal hypertensive gastropathy, ascites now resolved, thrombocytopenia secondary to cirrhosis, and tobacco abuse. SOCIAL HISTORY: The patient has been drinking again for the past few months, about a quart of beer every 3 days. No drug use. He does smoke. FAMILY HISTORY: Noncontributory, but no familial history of liver disease. ALLERGIES: NO KNOWN DRUG ALLERGIES. OUTPATIENT MEDICATIONS: 1. Metformin. 2. Furosemide 20 mg daily. 3. Ferrous sulfate 325 mg daily. 4. Lisinopril/hydrochlorothiazide. 5. Metoprolol 12.5 mg twice daily. 6. Folic acid 1 mg daily. 7. Magnesium oxide 400 mg daily. 8. Lisinopril 10 mg daily. PHYSICAL EXAMINATION: VITAL SIGNS: Temperature 98.3, blood pressure 96/48, pulse 86, and 100% oxygen saturation on room air. GENERAL: Chronically ill, but nontoxic appearing 68-year-old man, lying in bed comfortably, in no distress. SKIN: No jaundice. No rashes were palpable. He does have some tattoos. HEENT: Eyes; no scleral icterus. Extraocular movements intact. ENT; mucous membranes moist. No oral lesions. LYMPH: No submandibular or supraclavicular lymphadenopathy. THYROID: Nontender to palpation. HEART: Regular rate and rhythm. LUNGS: Clear to auscultation bilaterally. ABDOMEN: Nondistended. Bowel sounds present. Soft and nontender to palpation throughout. EXTREMITIES: No peripheral edema. VESSELS: Radial pulses 2+ bilaterally. NEUROLOGIC: Cranial nerves 2 through 12 intact bilaterally. No focal deficits. LABORATORY STUDIES: Hemoglobin 9.3, WBC 10.5, platelets 94. INR 1.2. FOBT negative. Lactic acid 4.1, lipase 67, BUN 69, creatinine 1.50, glucose 330. Total bilirubin 1.4, alkaline phosphatase 141, AST 20, ALT 21, and albumin 3.6. Urinalysis, 4 to 6 wbc's. IMAGING STUDIES: CT of the abdomen and pelvis demonstrates cirrhotic liver with splenomegaly, some suggestion of gallbladder wall thickening, which is similar to prior exams. There are paraesophageal and gastric varices demonstrated per CT with stable appearance of periportal and gastrohepatic lymph nodes. There was diverticulosis of the colon without any inflammatory change. ASSESSMENT AND PLAN: 1. Melena. 2. Anemia, chronic. 3. History of gastric varices with banding in March 2018. 4. Portal hypertensive gastropathy. The patient is currently clinically stable, but with new melena over the past 6 days, this does not appear to represent brisk bleeding and may simply be worsening of his portal hypertensive gastropathy. Agree with the Protonix and octreotide infusions for now. He has received ceftriaxone appropriately. Trend hemoglobin and hematocrit and monitor closely. We will plan for diagnostic esophagogastroduodenoscopy tomorrow. Notably, he was on propranolol as an outpatient, but I see metoprolol on his med list currently. A nonselective beta-lesley such as propranolol or carvedilol would be more appropriate from a GI standpoint. 5. Cirrhosis, secondary to alcohol abuse and prior hepatitis C. 6. Alcohol abuse. 7. Hepatitis C, successfully treated with antiviral therapy with successful SVR in 2016. The patient has had prior decompensations of ascites, but I see no evidence of ascites or fluid retention on this examination. He has some degree of acute creatinine elevation, which hopefully will improve back to baseline with fluid resuscitation. Continue with supportive care and follow renal function closely. I strongly advised him again to completely abstain from all alcohol going forward, as unfortunately he has been drinking again over the past few months. Thank you for the consultation. Please call anytime with questions or concerns. Job ID: [id number]
--- NOTE | 2019-01-20 20:16 | HP ---
REASON FOR ADMISSION: Acute blood loss anemia, possible GI bleed with melena. HISTORY OF PRESENTING ILLNESS: The patient gives history of waking up feeling weak. He did not have strength to ambulate. He managed to take a shower and go to a store, which was half a block from his home. He felt like he would pass out. His legs were giving way and managed to come home. He states he did not eat anything yesterday as he did not have an appetite. No nausea or vomiting. He had 4 episodes of black stools yesterday and one episode this morning. He has mild abdominal discomfort in the epigastric area. No pain as such. He lives alone. No history of hematemesis. No lacie blood in the stool. He also admits to starting to drink alcohol again from last 1 month. He says he drinks about a half a quart of beer daily. PAST MEDICAL AND SURGICAL HISTORY: History of alcohol abuse with cirrhosis, positive hep C antibody, but quantitative titers were negative for genotype for those insufficient virus for typing, hypertension, diabetes mellitus type 2, tobacco abuse. CURRENT MEDICATIONS: The patient is on; 1. Metformin 850 mg twice daily. 2. Lasix 20 mg daily. 3. Ferrous sulfate 325 mg daily. 4. Lisinopril with hydrochlorothiazide 20/25 mg daily. 5. Metoprolol 12.5 mg twice daily. 6. Folic acid 1 mg daily. 7. Magnesium oxide 400 mg p.o. daily. 8. Lisinopril 10 mg daily. ALLERGIES: NO KNOWN DRUG ALLERGIES. PERSONAL HISTORY: The patient has started to drink again for last 1 month. He drinks about half a quart of beer daily. Prior to this, he had quit for nine months before the patient was drinking about 6 quarts of beer daily. He smokes 6-8 cigarettes a day. Does not abuse alcohol. He lives alone. He is . FAMILY HISTORY: He has two children who live in [place] and mother at the age of 84 years, she has had history of AZ. Father at the age of 73, had AZ and had lung disease as well which he cannot recall the name. CODE STATUS: Full. Power of assistant attorney general is his son, Mr. Bert Hebert. REVIEW OF SYSTEMS: CONSTITUTIONAL: Negative for weight loss or gain, ability to conduct usual activities. SKIN: Negative for rash, itching. EYES: Negative for double vision, pain. ENT/MOUTH: Negative for nose bleeding, neck stiffness, pain, tenderness. CARDIOVASCULAR: Negative for palpitations, dyspnea on exertion, orthopnea. RESPIRATORY: Negative for shortness of breath, wheezing, cough, hemoptysis, fever or night sweats. GASTROINTESTINAL: Negative for poor appetite, abdominal pain, heartburn, nausea , vomiting, constipation, or diarrhea. GENITOURINARY: Negative for urgency, frequency, dysuria, nocturia. MUSCULOSKELETAL: Negative for pain, swelling. NEUROLOGIC/PSYCHIATRIC: Negative for anxiety, depression. ALLERGY/IMMUNOLOGIC: Negative for skin rash, bleeding tendency. PHYSICAL EXAMINATION: GENERAL: The patient is a 68-year-old male, who is currently not in any acute distress. VITAL SIGNS: On arrival, blood pressure was 84/60, got 2 L of normal saline bolus and it has come up to 101 systolic at present. Pulse 88 per minute, respiratory rate 18 per minute, temperature 98.3 degrees Fahrenheit, saturating 100% on room air. NECK: Supple. No elevated JVD. HEENT: Eyes; extraocular muscles intact. Pupils reacting to light. Oral cavity, mucous membranes are dry. No exudates or congestion. CARDIOVASCULAR: S1-S2 heard, regular rhythm. RESPIRATORY: Air entry 1+ bilateral. Scattered rhonchi plus no rales or wheezes. ABDOMEN: Soft, bowel sounds heard. No tenderness, rigidity, or guarding. EXTREMITIES: No peripheral edema or calf tenderness. VASCULAR: Peripheral pulses 1+ bilateral. No ischemic ulcerations or gangrene. CENTRAL NERVOUS SYSTEM: No gross focal deficits noted. The patient is alert, awake, oriented well. PSYCHIATRIC: The patient's mood is euthymic. No hallucinations or delusions. LABORATORY AND DIAGNOSTIC DATA: Initial H and H were 9.3 and 27. Repeat one done 4 hours later is 7.7 and 22. White count of 10, MCV 98, platelet count 94 with 74 % neutrophils. PT/INR, PTT within normal limits. BUN 69, creatinine 1.5, bicarb is 22, serum glucose 330, lactic acid 4.1, total bilirubin 1.4, AST and ALT within normal limits, alkaline phosphatase 141, albumin is 3.6, lipase is 67. Stool occult blood is negative. Abdominal and pelvic CAT scan done shows cirrhotic liver with splenomegaly and varices. There is thickening of the gallbladder, which was similar to prior exam done on 11/01/2017. There is diverticulosis seen. CLINICAL IMPRESSION AND PLAN: Patient will be admitted to IMCU for acute blood loss anemia with melena, likely upper GI bleed with history of varices. He also has history of diverticulosis. The patient has also started to drink alcohol from last month or so now with prior history of severe alcohol abuse. He will be on ceftriaxone 2 g IV daily. H and H q.6 hourly. Protonix 8 mg an hour and octreotide drip. Dr. Robert Hdez associate dean of students has evaluated the patient in the ER. We will keep him n.p.o. Continue propranolol 20 mg twice daily, banana bag at 70 mL per hour, Humalog sliding scale. We will continue to closely monitor him in IMCU. He can be downgraded once his H and H remained stable. 2 units of packed cell been ordered in the ER and the patient will be transfused in view of hypotension on arrival, elevated BUN creatinine ratio and likely GI bleed. Job ID: [id number] MTDD
[2019-01-20] MEDS: Propranolol HCl 20 MG TAB PO SCH (21:22)
[2019-01-20 21:23] VITALS: BMI 25.9
[2019-01-20] MEDS: Multivitamins, Adult 10 ML, Folic Acid 1 MG, Thiamine HCl 100 MG in Dextrose 5 %-0.45 %... IV SCH (22:17)
[2019-01-20] MEDS: Sodium Chloride 0.9% 1,000 ML IV SCH (22:17)
[2019-01-20 23:02] LABS: Hemoglobin 8.2 g/dL (14.0-18.0)
[2019-01-21] MEDS ORDERED: Sodium Chloride 0.9% 1,000 ML IV SCH (00:45)
[2019-01-21] MEDS: Sodium Chloride 0.9% 1,000 ML IV SCH ×2 (02:28→15:47)
[2019-01-21 04:47] LABS: Hemoglobin 7.1 g/dL (14.0-18.0)
[2019-01-21 05:20] LABS: ALT (SGPT) 20 U/L (8-55); AST (SGOT) 20 U/L (5-34); Albumin 2.6 g/dL (3.4-4.8); Alkaline Phosphatase 79 U/L (40-110); Anion Gap 13 mmol/L (10-20); BUN (Urea Nitrogen) 58 mg/dL (8.4-25.7); Bilirubin, Total 1.3 mg/dL (0.2-1.2); Calc. Creatinine Clearance 58 mL/min (70-130); Calcium 7.8 mg/dL (7.8-10.44); Carbon Dioxide 19 mmol/L (23-31); Chloride 114 mmol/L (98-107); Estimated GFR-MDRD 57; Globulin 2.2 g/dL (2.4-3.5); Glucose 180 mg/dL (80-115); Potassium 4.5 mmol/L (3.5-5.1); Protein, Total 4.8 g/dL (5.8-8.1); Sodium 141 mmol/L (136-145)
[2019-01-21 10:22] LABS: Hemoglobin 8.7 g/dL (14.0-18.0)
--- NOTE | 2019-01-21 10:45 | CON ---
DATE OF CONSULTATION: HISTORY OF PRESENT ILLNESS: Paige Hebert is a 68-year-old gentleman, who comes to the hospital with weakness. He was found to have low H and H. He has known history of cirrhosis with variceal bleed. In fact, he was recently discharged from the hospital. He is having black stools when he came in. This morning, he is somewhat better. He is still weak, but no shortness of breath, coughing, or wheezing. He normally goes to the [facility] for routine care. Denies any hematemesis, however, clearly got significant melena. PAST MEDICAL HISTORY: Pertinent for diabetes, cirrhosis from alcohol abuse, and hepatitis. PAST SURGICAL HISTORY: Multiple abdominal surgeries. SOCIAL HISTORY: Still smoking half pack a day. Still drinking apparently. HOME MEDICATIONS: Include; 1. Metformin 750 twice a day. 2. Metoprolol 12.5. 3. Magnesium 400. 4. Lisinopril. 5. Lasix 20. 6. Folic acid. 7. Ferrous sulfate. ALLERGIES: NONE. REVIEW OF SYSTEMS: Otherwise, 10-point negative. PHYSICAL EXAMINATION: VITAL SIGNS: His saturations are 100% on room air, blood pressure 110/53, pulse 80, and respiratory rate 18. CHEST: Decreased breath sounds. No wheezing. CARDIAC: Normal S1 and S2. No gallops. ABDOMEN: No masses. NEUROLOGIC: Awake, alert, and responsive. LABORATORY DATA: His H and H are 7 and 21. Creatinine is 1.25, BUN 58, albumin 2.6. ASSESSMENT: 1. Cirrhosis, alcoholic. 2. Gastrointestinal bleed. 3. Anemia. 4. Weakness. 5. Azotemia. 6. Tobacco abuse. 7. Continued alcohol abuse. PLAN: Await input from GI. Otherwise at this stage, strongly advised to refrain from drinking. Empiric antibiotics and supportive care. We will follow while in the MICU. Consultation note, 70 minutes, 50% direct patient care. Job ID: [id number]
[2019-01-21] MEDS: Folic Acid 1 MG TAB PO SCH (11:17)
[2019-01-21] MEDS: Propranolol HCl 20 MG TAB PO SCH ×2 (11:18→20:47)
[2019-01-21] MEDS: Thiamine 100 MG TAB PO SCH (11:18)
[2019-01-21] MEDS ORDERED: PROPOFOL 200 MG/20 ML VIAL ONE (11:55)
[2019-01-21] MEDS: cefTRIAXone\\ROCEPHIN 2 GM in Sodium Chloride 0.9% 100 ML IVPB SCH (16:02)
--- NOTE | 2019-01-21 16:07 | PDOC.HOSPP ---
- Subjective Encounter Date: 01/21/19 Encounter Time: 10:40 Subjective: Pt seen for followup re: acute blood loss anemia. Says he feels okay. Occ. abdo cramps. - Objective Vital Signs & Weight: Vital Signs (12 hours) Temp Pulse Ox 01/21/19 16:02 97.9 F 01/21/19 11:25 98.0 F 01/21/19 08:00 100 01/21/19 07:45 98.8 F 01/21/19 07:00 99.0 F 01/21/19 06:48 99.6 F Weight Admit Weight 161 lb 1.6 oz Weight 161 lb 1.6 oz Most Recent Monitor Data Heart Rate from ECG 71 NIBP 115/55 NIBP BP-Mean 75 Respiration from ECG 24 SpO2 100 I&O: 01/20/19 01/21/19 01/22/19 06:59 06:59 06:59 Intake Total 0 350 Balance 0 350 Result Diagrams: 01/21/19 09:58 01/21/19 04:16 Additional Labs: Accuchecks 01/21/19 01/21/19 06:07 00:58 POC Glucose 212 H 183 H Labs and MARs reviewed by me EKG Reviewed by me: Yes (Tele: NSR) Hospitalist ROS - Review of Systems Cardiovascular: denies: chest pain, palpitations, orthopnea, paroxysmal noc. dyspnea, edema, light headedness Gastrointestinal: denies: nausea, vomiting, abdominal pain, diarrhea, constipation, melena, hematochezia - Medication Medications: Active Medications Generic Name Dose Route Start Last Admin Trade Name Radha PRN Reason Stop Dose Admin Folic Acid 1 mg 01/21/19 09:00 01/21/19 11:17 Folvite PO Not Given DAILY KATARZYNA Pantoprazole Sodium 80 mg/ 100 mls @ 10 mls/hr 01/20/19 13:45 01/21/19 02:23 Miscellaneous Medication 1 IVPB 01/22/19 23:44 100 mls each/ Sodium Chloride INF KATARZYNA Administration Multivitamins 10 ml/ Folic 1,011.2 mls @ 80 mls/hr 01/20/19 15:00 01/20/19 22 :17 Acid 1 mg/ Thiamine HCl 100 mg IV 01/22/19 03:39 1,011.2 mls / Dextrose/Sodium Chloride Q24HR KATARZYNA Administration Sodium Chloride 1,000 mls @ 80 mls/hr 01/20/19 14:45 01/21/19 15:47 Normal Saline 0.9% IV Not Given .[id number] KATARZYNA Ceftriaxone Sodium 2 gm/ 100 mls @ 200 mls/hr 01/21/19 14:00 01/21/19 16:02 Sodium Chloride IVPB 100 mls 1400 KATARZYNA Administration Propranolol HCl 20 mg 01/20/19 21:00 01/21/19 11:18 Inderal PO Not Given BID KATARZYNA Thiamine HCl 100 mg 01/21/19 09:00 01/21/19 11:18 Thiamine PO Not Given DAILY KATARZYNA - Exam General Appearance: NAD Eye: scleral icterus ENT: moist mucosa Neck: supple, no JVD Heart: RRR, no gallops Respiratory: CTAB, no rales Gastrointestinal: soft, non-tender Extremities: no clubbing Neurological: no weakness Psychiatric: normal affect, normal behavior Hosp A/P (1) Symptomatic anemia Code(s): D64.9 - ANEMIA, UNSPECIFIED Status: Acute (2) Cirrhosis of liver Code(s): K74.60 - UNSPECIFIED CIRRHOSIS OF LIVER Status: Chronic Qualifiers: Ascites presence: without ascites (3) Diabetes Code(s): E11.9 - TYPE 2 DIABETES MELLITUS WITHOUT COMPLICATIONS Status: Chronic Qualifiers: Diabetes mellitus type: type 2 Diabetes mellitus supervisor long goods insulin use: with senior care use (4) Hepatitis C Code(s): B19.20 - UNSPECIFIED VIRAL HEPATITIS C WITHOUT HEPATIC COMA Status: Chronic Qualifiers: (5) Thrombocytopenia Code(s): D69.6 - THROMBOCYTOPENIA, UNSPECIFIED Status: Chronic - Plan s/p pRBC transfusion. Await GI input. Continue accuchecks, insulin sliding scale. Continue propranolol. Continue thiamine.
--- NOTE | 2019-01-21 16:19 | OP ---
DATE OF PROCEDURE: 01/21/2019 PROCEDURE PERFORMED: Esophagogastroduodenoscopy. PREPROCEDURE DIAGNOSES: History of varices and cirrhosis with melena, alcohol abuse ongoing. POSTPROCEDURE DIAGNOSES: 1. Esophagus may be grade 1 varices in the distal esophagus. No stigmata of high risk for bleeding or recent bleeding. 2. There were some prominent folds of proximal stomach, but these do not look like varices to me. There is no blue discoloration or in band in the past as it may have been a varix. There was no stigmata of recent bleeding here. 3. Portal hypertensive gastropathy. .. 4. No erosions or ulcers in the stomach. 5. Normal duodenum in the third portion. RECOMMENDATIONS: 1. Taper off octreotide tomorrow if no bleeding. 2. Advance diet. 3. Continue propranolol. 4. I would recommend complete alcohol abstinence to the patient. 5. We will continue PPI at this time. ANESTHESIA: TIVA. PROCEDURE IN DETAIL: After the patient was informed of the risk, benefits, and possible complications of endoscopy including perforation, bleeding, reaction to medication, and aspiration, informed consent was obtained. The patient was brought to endoscopy suite, where he was sedated in gradual fashion. Once he was comfortable, bite block was placed inside the orifice. The endoscope was advanced through the esophagus, stomach, and second and third portions of the duodenum and slowly removed. There was good visualization of the mucosa. There were no mass lesions or AV malformations identified. There was no erosion of the duodenum. No fresh blood. The antrum of the stomach was notable for snake skinning of mucosa, cobblestoning. Retroflexion showed prominent fold, submucosal edema, and hemorrhage consistent with portal gastropathy, but no overt large gastric varices or isolated gastric varices. In the esophagus, which was again very, very closely. There were maybe grade 1 varices at best, but there was no stigmata of bleeding. The scope was removed. The patient tolerated the procedure well. There were no complications. Job ID: [id number]
[2019-01-21] MEDS: Multivitamins, Adult 10 ML, Folic Acid 1 MG, Thiamine HCl 100 MG in Dextrose 5 %-0.45 %... IV SCH (16:31)
[2019-01-21] MEDS: HumaLOG 300 UNITS/3 ML VIAL SC PRN (20:49)
[2019-01-22] MEDS: HumaLOG 300 UNITS/3 ML VIAL SC PRN ×4 (00:37→20:36)
[2019-01-22 05:32] LABS: #Eosinphils 0.1 thou/uL (0.0-0.7); #Lymphocytes 0.6 thou/uL (1.20-3.40); #Monocytes 0.2 thou/uL (0.11-0.59); #Neutrophils 1.4 thou/uL (1.40-6.50); %Eosinophils 6.1 % (0.0-10.0); %Lymphocytes 23.8 % (21.0-51.0); %Monocytes 8.9 % (0.0-10.0); %Neutrophils 61.2 % (42.0-75.0); Hemoglobin 7.8 g/dL (14.0-18.0); Mean Corpuscular HGB CONC 35.2 g/dL (32.0-36.0); Mean Corpuscular Volume 96.7 fL (78.0-98.0); Mean Platelet Volume 9.1 fL (7.4-10.4); Platelet Count 35 thou/uL (130-400); White Blood Cell (WBC) Count 2.3 thou/uL (4.8-10.8)
[2019-01-22 05:43] LABS: Anion Gap 11 mmol/L (10-20); BUN (Urea Nitrogen) 26 mg/dL (8.4-25.7); Calc. Creatinine Clearance 67 mL/min (70-130); Calcium 7.7 mg/dL (7.8-10.44); Carbon Dioxide 21 mmol/L (23-31); Chloride 112 mmol/L (98-107); Estimated GFR-MDRD 69; Glucose 276 mg/dL (80-115); Sodium 140 mmol/L (136-145)
[2019-01-22] MEDS: Sodium Chloride 0.9% 1,000 ML IV SCH ×3 (09:17→18:10)
[2019-01-22] MEDS: Folic Acid 1 MG TAB PO SCH (09:17)
[2019-01-22] MEDS: Thiamine 100 MG TAB PO SCH (09:17)
[2019-01-22] MEDS: Propranolol HCl 20 MG TAB PO SCH ×2 (09:17→20:36)
--- NOTE | 2019-01-22 10:06 | PRG ---
DATE OF SERVICE: 01/22/2019 SUBJECTIVE: This morning, he is better, no longer weak. OBJECTIVE: VITAL SIGNS: His blood pressure is improved at 127/59, saturation 100% on room air, temperature 98, respiratory rate 15. CHEST: No wheezing. CARDIAC: Normal S1 and S2. No gallops. ABDOMEN: No masses. LABORATORY DATA: Lytes are normal. Glucose is elevated. Hemoglobin and hematocrit 7 and 21, platelet count is 35. ASSESSMENT AND PLAN: Gastrointestinal bleed; tarry stools; hypotension resolved; diabetes; cirrhosis. Pulmonary ta, nothing additional to offer. Disposition as per primary care physician. Job ID: [id number]
--- NOTE | 2019-01-22 13:09 | PRG ---
DATE OF SERVICE: 01/22/2019 SUBJECTIVE: Mr. Hebert is feeling well. He has more energy. His bowel movements have turned to normal brown in color. No further melena. He has remained hemodynamically stable, tolerating his diet. OBJECTIVE: VITAL SIGNS: Temperature 98.6, heart rate is 71, blood pressure 92/64, and 100% oxygen saturation on room air. GENERAL: No acute distress, sitting up in bed comfortably. HEART: Regular rate and rhythm. LUNGS: Clear to auscultation bilaterally. ABDOMEN: Nondistended. Bowel sounds present. Soft and nontender to palpation. EXTREMITIES: No peripheral edema. LABORATORY STUDIES: Hemoglobin is 7.8, WBC 2.3, platelets 35. INR 1.2, BUN down to 26, creatinine 1.07, sodium 140, potassium 4.0, and glucose 310. ASSESSMENT AND PLAN: 1. Melena, resolved. 2. Chronic anemia. 3. Portal hypertensive gastropathy. Dr. Wells found significant portal hypertensive gastropathy, but no high-risk stigmata. No evidence of any variceal bleeding. He has small esophageal varices and no gastric varices noted on this exam. The patient is otherwise doing well from a GI standpoint, it would be reasonable to discontinue the octreotide, and discharged home on continued pantoprazole daily, and propranolol twice daily. I again strongly urged him not to drink any further alcohol, as he had gone back to it over the past few months. Job ID: [id number]
[2019-01-22] MEDS: cefTRIAXone\\ROCEPHIN 2 GM in Sodium Chloride 0.9% 100 ML IVPB SCH (14:21)
--- NOTE | 2019-01-22 15:17 | PDOC.HOSPP ---
- Subjective Encounter Date: 01/22/19 Encounter Time: 15:16 Subjective: Pt seen for followup re; bacteremia. Feels well, no complaints. - Objective Vital Signs & Weight: Vital Signs (12 hours) Temp Pulse Ox 01/22/19 11:35 98.6 F 01/22/19 08:00 100 01/22/19 07:13 98.3 F 01/22/19 04:00 99.4 F Weight Admit Weight 161 lb 1.6 oz Weight 161 lb 1.6 oz Most Recent Monitor Data Heart Rate from ECG 71 NIBP 123/64 NIBP BP-Mean 83 Respiration from ECG 19 SpO2 100 I&O: 01/21/19 01/22/19 01/23/19 06:59 06:59 06:59 Intake Total 0 2204 240 Output Total 1575 Balance 0 629 240 Result Diagrams: 01/22/19 05:07 01/22/19 05:07 Additional Labs: Accuchecks 01/22/19 01/22/19 01/22/19 12:17 05:42 00:01 POC Glucose 302 H 310 H 229 H 01/21/19 18:58 POC Glucose 351 H EKG Reviewed by me: Yes (Tele: NSR) Hospitalist ROS - Review of Systems Cardiovascular: denies: chest pain, palpitations, orthopnea, paroxysmal noc. dyspnea, edema, light headedness Gastrointestinal: denies: nausea, vomiting, abdominal pain, diarrhea, constipation, melena, hematochezia - Medication Medications: Active Medications Generic Name Dose Route Start Last Admin Trade Name Freq PRN Reason Stop Dose Admin Folic Acid 1 mg 01/21/19 09:00 01/22/19 09:17 Folvite PO 1 mg DAILY KATARZYNA Administration Pantoprazole Sodium 80 mg/ 100 mls @ 10 mls/hr 01/20/19 13:45 01/21/19 21:40 Miscellaneous Medication 1 IVPB 01/22/19 23:44 100 mls each/ Sodium Chloride INF KATARZYNA Administration Sodium Chloride 1,000 mls @ 80 mls/hr 01/20/19 14:45 01/22/19 11:11 Normal Saline 0.9% IV 1,000 mls .[id number] KATARZYNA Administration Ceftriaxone Sodium 2 gm/ 100 mls @ 200 mls/hr 01/21/19 14:00 01/22/19 14:21 Sodium Chloride IVPB 100 mls 1400 KATARZYNA Administration Insulin Human Lispro 0 units 01/20/19 14:36 01/22/19 12:49 Humalog SC 8 unit .MODERATE SLIDING SC PRN Administration Moderate Correctional Scale Insulin Human Lispro 0 units 01/20/19 14:36 01/22/19 00:37 Humalog SC 3 unit .BEDTIME SLIDING SC PRN Administration Bedtime Correctional Scale Propranolol HCl 20 mg 01/20/19 21:00 01/22/19 09:17 Inderal PO 20 mg BID KATARZYNA Administration Thiamine HCl 100 mg 01/21/19 09:00 01/22/19 09:17 Thiamine PO 100 mg DAILY KATARZYNA Administration - Exam General Appearance: NAD Eye: scleral icterus ENT: normocephalic atraumatic Neck: supple Heart: RRR Respiratory: CTAB, no wheezes Gastrointestinal: soft, non-tender Extremities: no clubbing Psychiatric: normal affect, normal behavior Hosp A/P (1) Symptomatic anemia Code(s): D64.9 - ANEMIA, UNSPECIFIED Status: Acute (2) Cirrhosis of liver Code(s): K74.60 - UNSPECIFIED CIRRHOSIS OF LIVER Status: Chronic Qualifiers: Ascites presence: without ascites (3) Diabetes Code(s): E11.9 - TYPE 2 DIABETES MELLITUS WITHOUT COMPLICATIONS Status: Chronic Qualifiers: Diabetes mellitus type: type 2 Diabetes mellitus long term care social worker insulin use: with long term care social worker use (4) Hepatitis C Code(s): B19.20 - UNSPECIFIED VIRAL HEPATITIS C WITHOUT HEPATIC COMA Status: Chronic Qualifiers: (5) Thrombocytopenia Code(s): D69.6 - THROMBOCYTOPENIA, UNSPECIFIED Status: Chronic - Plan continue antibiotics, out of bed/ambulate s/p pRBC transfusion. s/p EGD, start PPI. Continue accuchecks, insulin sliding scale. Continue propranolol BID. Continue thiamine.
--- NOTE | 2019-01-22 18:55 | CON ---
DATE OF CONSULTATION: REASON FOR CONSULTATION: Bacteremia. HISTORY OF PRESENT ILLNESS: A 68-year-old with history of liver cirrhosis, most likely due to alcoholism. His hepatitis C test was positive, but the viral load was negative and he has never been treated for it. In 2015, he was brought in with Pam-Nagel tear with hemorrhage, type 2 diabetes, and cirrhosis. In 2018, in April, came in with acute upper GI bleeding. EGD showed gastric AV malformations and grade 1 esophageal varices without stigmata of recent bleeding. The very next month, he had admission for symptomatic anemia. He had a colonoscopy and EGD and had a blood transfusion. In July 2017, he was managed for symptomatic ascites with paracentesis, no evidence of peritonitis. In September 2017, he came in with orthostatic hypotension, but no evidence of bleeding. In October 2017, he presented with abdominal pain and black tarry stool. He had gram-positive rods and gram-positive cocci in the blood cultures at that time, the organisms were identified as Lactobacillus and Micrococcus, likely contaminants. In March of 2018, he was admitted with bleeding, requiring band ligation during EGD. He was discharged on doxycycline, Protonix, Lasix, metformin, unclear the reason for the doxycycline. In May 2018, he had GI bleed again due to gastric varices, which were banded, and now he comes in because of abdominal pain and melena. The pain was more severe in the right upper quadrant, dull. The patient had EGD by Dr. Wells. He did not find any evidence of variceal bleeding. He was given octreotide, which was tapered and discontinued. Apparently, he had resumed drinking recently. He was noted to have Streptococcus species in one set of blood cultures, 1 out of 2. The organism has not yet been identified. He did the Verigene, did not match any of the more common alpha-hemolytic and beta-hemolytic Streptococci. He did also have gram-positive cocci in clusters, so this could be a contaminant. He never had any fever. He did have some chills, but those were brief. Currently, he is sitting up and was able to stand up. Appears not to be symptomatic anymore. Denies any headaches. No visual symptoms, sore throat, odynophagia, or dysphagia. No cough, sputum production, or chest pain. No abdominal pain anymore. No more bleeding. No hematemesis or melena. No neurological symptoms. MEDICAL HISTORY: Alcoholism; liver cirrhosis; positive hepatitis C antibody in the past, but negative hepatitis C RNA PCR; hypertension as well; and he has had numerous EGDs and banding for varices. He has had upper GI bleeding, ascites which had to be drained once. No episode of peritonitis thus for. He has had one Pam-Nagel tear, treated. SOCIAL HISTORY: He is still drinking daily, still smoking. 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 ALLERGIES: NONE. FAMILY HISTORY: Noncontributory. CURRENT MEDICATIONS: 1. Ceftriaxone. 2. Dextrose. 3. Folvite. 4. Glucagon. 5. Insulin. 6. Protonix. 7. Thiamine. PHYSICAL EXAMINATION: VITAL SIGNS: The temperature max was 99.6. GENERAL: He appears in no distress. He has spider angiomata in the anterior chest. Peripheral IV access. He is voiding in the urinal. He has no lymphadenopathy. HEENT: Ocular movements are conjugate. Oral cavity is moist, quite a few missing teeth, gum disease noted. NECK: Supple. No jugular vein distention. LUNGS: Symmetric air entry. No wheezing. HEART: S1 and S2, regular rate. No S3 or S4. ABDOMEN: Moderately distended with positive fluid wave, but no tenderness noted at this time. EXTREMITIES: No edema in lower extremities. He has some element of stasis dermatitis. Pulses, 1+ in dorsalis pedis. Strength in upper and lower extremities, 5/5. NEUROLOGIC: Cognitive function appears to be intact. No asterixis. LABORATORY DATA: White cell count was 10.5, down to 2.3; hemoglobin 9.3; platelets were 94 and 35. 74% neutrophils. INR 1.2. Sodium 140, creatinine 1.07. AST and ALT were within normal limits. Total bilirubin was 1.3, albumin 2.6, globulin 2.2. Urinalysis; 4 to 6 wbc's. Microbiology has been discussed already. ASSESSMENT: Liver cirrhosis secondary to alcoholism with prior negative hepatitis C RNA PCR test and complications related to liver cirrhosis including portal hypertension with ascites requiring one episode of paracentesis in the past, also had varices in the esophageal and gastric area with 2 or 3 episodes of bleeding, which required esophageal variceal banding. This time, he presents with another episode of what he describes as melena. He did have some abdominal pain, the upper GI did not show any active bleeding though. The patient has 2 different gram-positive organisms in one set of blood cultures, raises the possibility of contamination of the sample. We will have to wait for the final identification. The other concern would be spontaneous bacterial peritonitis, that is less likely. Probably, we will be able to discontinue antimicrobial therapy and discontinue antimicrobials. He will be at risk for SBP, and it is kind of borderline for prophylaxis with quinolones, but may consider that sooner or later he will develop SBP if he does not have it already. Job ID: [id number]
[2019-01-23] MEDS: HumaLOG 300 UNITS/3 ML VIAL SC PRN ×3 (05:06→16:47)
[2019-01-23] MEDS: Sodium Chloride 0.9% 1,000 ML IV SCH (05:07)
[2019-01-23 05:30] LABS: #Eosinphils 0.1 thou/uL (0.0-0.7); #Lymphocytes 0.6 thou/uL (1.20-3.40); #Monocytes 0.3 thou/uL (0.11-0.59); #Neutrophils 1.8 thou/uL (1.40-6.50); %Eosinophils 4.6 % (0.0-10.0); %Lymphocytes 21.4 % (21.0-51.0); %Monocytes 11.8 % (0.0-10.0); %Neutrophils 62.2 % (42.0-75.0); Hemoglobin 8.1 g/dL (14.0-18.0); Mean Corpuscular HGB CONC 34.4 g/dL (32.0-36.0); Mean Corpuscular Volume 98.8 fL (78.0-98.0); Mean Platelet Volume 9.8 fL (7.4-10.4); Platelet Count 44 thou/uL (130-400); RBC Distribution Width 14.6 % (11.5-14.5); Red Blood Cell (RBC) Count 2.38 mill/uL (4.70-6.10); White Blood Cell (WBC) Count 2.8 thou/uL (4.8-10.8)
[2019-01-23 05:50] LABS: Anion Gap 10 mmol/L (10-20); BUN (Urea Nitrogen) 16 mg/dL (8.4-25.7); Calc. Creatinine Clearance 67 mL/min (70-130); Calcium 7.6 mg/dL (7.8-10.44); Carbon Dioxide 23 mmol/L (23-31); Chloride 110 mmol/L (98-107); Estimated GFR-MDRD 68; Glucose 300 mg/dL (80-115); Potassium 3.9 mmol/L (3.5-5.1); Sodium 139 mmol/L (136-145)
[2019-01-23] MEDS: Folic Acid 1 MG TAB PO SCH (08:23)
[2019-01-23] MEDS: Thiamine 100 MG TAB PO SCH (08:23)
[2019-01-23] MEDS: Propranolol HCl 20 MG TAB PO SCH (10:21)
[2019-01-23] MEDS: cefTRIAXone\\ROCEPHIN 2 GM in Sodium Chloride 0.9% 100 ML IVPB SCH (14:22)
[2019-01-23 16:52] VITALS: BP 130/70; TEMP 97.7
--- NOTE | 2019-01-23 19:08 | DIS ---
DATE OF ADMISSION: 01/20/2019 DATE OF DISCHARGE: 01/23/2019 PRIMARY CARE PROVIDER: [facility] in [place]. DISCHARGE DIAGNOSES: 1. Symptomatic anemia. 2. Portal hypertensive gastropathy. CONDITION OF PATIENT ON THE DAY OF DISCHARGE: Stable. I assessed Mr. Hebert on the day of discharge. He denies any chest pain or shortness of breath. Vital signs are stable. S1 and S2 are heard, regular. Lungs are clear to auscultation bilaterally. POST-ACUTE CARE FOLLOWUP: The patient is advised to follow up with primary care provider in 3 days' time. DISCHARGE MEDICATIONS: 1. Ferrous sulfate 325 mg daily. 2. Lasix 20 mg daily. 3. Lisinopril/hydrochlorothiazide 20/25 mg daily. 4. Magnesium oxide 400 mg daily. 5. Metformin 750 mg 2 times a day. 6. Folic acid 1 mg daily. 7. Protonix 40 mg daily. 8. Propranolol 20 mg 2 times a day. 9. Thiamine 100 mg daily. CONSULTATIONS DURING THIS HOSPITALIZATION: Pulmonary and Critical Care Medicine, Dr. Mensah. Gastroenterology, Dr. Wells and Infectious Diseases, Dr. Higgins. HOSPITAL COURSE: Mr. Hebert is a pleasant 68-year-old gentleman, who was admitted to [facility] on 01/23/2019, for melena and acute blood loss anemia. Please refer to Dr. Joyner's history and physical note dated 01/20/2019, for further details. He was seen by Pulmonary and Critical Care Medicine as well as by Gastroenterology Service. He was treated with octreotide and pantoprazole. He underwent EGD on 01/21. He was found to have grade 1 varices in the distal esophagus, no stigmata of high risk for bleeding or recent bleeding. He was also found to have portal hypertensive gastropathy. He was recommended complete alcohol abstinence. He was continued on his home medication of propranolol. He was also started on oral pantoprazole. 1/ venous blood cultures grew alpha hemolytic Streptococcus and presumptive micrococcus/Kocuria. He was seen by Infectious Disease Service. It was felt that these organisms were contaminant. He is being discharged home in a stable condition. He has been advised to check his blood pressure and heart rate 3 times a day and show the readings to his primary care provider. He has also been advised to check his blood sugars 3 times a day and show the readings to primary care provider. On the day of discharge, he has sodium 139, potassium 3.9, creatinine 1.08, white count 2800, hemoglobin 8.1, platelet count 44,000. Many thanks for allowing me to participate in your patient's care. Please feel free to contact me with any questions or concerns. DISCHARGE DESTINATION: Home. TIME SPENT: Total amount of time spent coordinating this discharge: 32 minutes. Job ID: [id number]
--- NOTE | 2019-01-24 04:30 | PQF ---
RANGEL LEBRON DAVID [id number] CLINICAL DOCUMENTATION CLARIFICATION FORM: POST DISCHARGE Addendum to original discharge summary date: ____ Late entry note date: __ DATE: 01/24/19 ATTN: Robert Bello Please exercise your independent, professional judgment in responding to the clarification form. Clinical indicators are provided on the bottom of this form for your review Can you please further specify the etiology of GI Bleed? Please check appropriate box(s): [ ] Melena [ x ] Portal Hypertensive gastropathy [ ] GI Bleed unspecified [ ] Other diagnosis please specify [ ] Unable to determine In addition, please specify: Present on Admission (POA): [ x ] Yes [ ] No [ ] Unable to determine For continuity of documentation, please document condition throughout progress notes and discharge summary. Thank You. CLINICAL INDICATORS - SIGNS / SYMPTOMS / LABS H and P 01/20 pg.1-Reason for admission: acute blood loss anemia, possible H and P pg.3- patient will be admitted to [facility] for acute blood loss anemia with melena, likely upper GI bleed with history of varices OP report- pg.1- Portal hypertensive gastropathy DS pg.2- He found to have grade 1 varices in the distal esophagus, no stigma of high risk for bleeding. DS pg.2- He also found to have portal hypertensive gastropathy RISK FACTORS Hx of alcohol abuse with cirrhosis- H and P pg.1 Hypertension- H and P pg.1 DM type 2- H and P pg.1 Tobacco abuse- H and P pg.1 History of gastric varices with banding in Mar 2018Consult Dr. Hdez pg.2- TREATMENTS: Protonix- MAY 27 EGD- Op report 01/21 Blood transfusion- Abdomen/Pelvis CT 01/[address] Hdez 01/20 Treated with octreotide and pantoprazole- DS pg.2 (This form is maintained as a part of the permanent medical record) 2014 [employer] All Rights Reserved [email or web address] [not provided] MTDD
== END 2019-01-23 17:38 | disposition home or self-care (01) | DRG 442 ==
LOC: ERS 11:22 → IMCU/EMU 20:55 → T4-B 01-22 17:31
PROVIDERS: ADMIT Internal Medicine; ATTEND Internal Medicine
PROC: 0DJ08ZZ Inspection of Upper Intestinal Tract, Via Natural or Artificial Opening Endoscopic (ICD-10-PCS; principal; 2019-01-20)
PROC: 30233N1 Transfusion of Nonautologous Red Blood Cells into Peripheral Vein, Percutaneous Approach (ICD-10-PCS; 2019-01-20)
DX: K76.6 Portal hypertension (principal); D62 Acute posthemorrhagic anemia; F10.288 Alcohol dependence with other alcohol-induced disorder; I85.00 Esophageal varices without bleeding; K70.30 Alcoholic cirrhosis of liver without ascites; B18.2 Chronic viral hepatitis C; I10 Essential (primary) hypertension; E11.9 Type 2 diabetes mellitus without complications; R79.89 Other specified abnormal findings of blood chemistry; F17.210 Nicotine dependence, cigarettes, uncomplicated; Z79.84 Long term (current) use of oral hypoglycemic drugs; Z79.899 Other long term (current) drug therapy; D50.9 Iron deficiency anemia, unspecified; K31.89 Other diseases of stomach and duodenum; D69.59 Other secondary thrombocytopenia; I95.9 Hypotension, unspecified
CPT/HCPCS: 36415; 36416; 36430; 74177; 80048; 80053; 81003; 81015; 82274; 83605; 83690; 85014; 85018; 85025; 85610; 85730; 86850; 86900; 86901; 87040; 87086; 87149; 93005; 96361; 96365; 96366; 96367; 96368; 96376; C9113; J0696; J2354; J2704; J3411; J3490; J7042; J7050; P9016; Q9967

== ENCOUNTER 2019-05-10 17:02 | Emergency (ER) | payer OTHER ==
[~2019-05-10 17:02] MED LIST changes: +Iopamidol-370 76% 500 ML 1 ML ONE; -Lidocaine 1% PF 5 ML VIAL ONE; -PHENYLEPHRINE-NS 100 MCG/ML 10 ML SYRINGE ONE; -PROPOFOL 200 MG/20 ML VIAL ONE; -Succinylcholine Chloride 20 MG/ML 10 ml SYRINGE FS ONE; -ePHEDrine/0.9% NaCl/PF SYRINGE 50 mg/10 ml ONE
[2019-05-10 17:25] LABS: #Basophils 0.2 thou/uL (0.0-0.2); #Lymphocytes 0.8 thou/uL (1.20-3.40); #Monocytes 0.9 thou/uL (0.11-0.59); #Neutrophils 8.9 thou/uL (1.40-6.50); %Eosinophils 0.3 % (0.0-10.0); %Lymphocytes 6.9 % (21.0-51.0); %Monocytes 7.9 % (0.0-10.0); %Neutrophils 82.8 % (42.0-75.0); Hemoglobin 7.8 g/dL (14.0-18.0); Mean Corpuscular HGB CONC 32.5 g/dL (32.0-36.0); Mean Corpuscular Hemoglobin 31.5 pg (27.0-31.0); Mean Platelet Volume 10.1 fL (7.4-10.4); Platelet Count 105 thou/uL (130-400); RBC Distribution Width 16.3 % (11.5-14.5); Red Blood Cell (RBC) Count 2.49 mill/uL (4.70-6.10); White Blood Cell (WBC) Count 10.8 thou/uL (4.8-10.8)
[2019-05-10 17:46] LABS: ALT (SGPT) 21 U/L (8-55); AST (SGOT) 16 U/L (5-34); Alkaline Phosphatase 143 U/L (40-110); Anion Gap 15 mmol/L (10-20); BUN (Urea Nitrogen) 38 mg/dL (8.4-25.7); Calc. Creatinine Clearance 0 mL/min (70-130); Calcium 8.3 mg/dL (7.8-10.44); Carbon Dioxide 24 mmol/L (23-31); Chloride 97 mmol/L (98-107); Estimated GFR-MDRD 49; Globulin 2.7 g/dL (2.4-3.5); Lipase 82 U/L (8-78); Potassium 5.4 mmol/L (3.5-5.1); Protein, Total 5.7 g/dL (5.8-8.1); Sodium 131 mmol/L (136-145)
[2019-05-10 17:46] LABS: Bilirubin Negative (Negative); Blood, Urine Negative (Negative); Clarity Clear (Clear); Glucose, Urine (Dipstick) Greater than 1000 mg/dL (Negative); Leukocyte Negative Leu/uL (Negative); Nitrite Negative (Negative); Protein, Urine (Dipstick) Negative (Neg-Trace); Urobilinogen Normal mg/dL (Less than 2)
[2019-05-10 17:51] LABS: Glucose 656 mg/dL (80-115)
[2019-05-10] MEDS ORDERED: Pantoprazole 40 MG VIAL ONE ×2 (18:05→19:40)
--- NOTE | 2019-05-10 18:20 | RAD ---
Chest one view HISTORY: Chest pain. COMPARISON: 06/06/2018. FINDINGS: Cardiac silhouette is magnified by projection. Pulmonary vasculature is unremarkable. Media stinum is midline with calcification over the aorta. Calcified granulomata are consistent with healed granulomatous disease. No lobar consolidation or evidence of pneumothorax. Postoperative antunez es left shoulder. IMPRESSION: Chronic-type findings are stable. No active cardiopulmonary abnormalities are demonstrate d.
--- NOTE | 2019-05-10 20:10 | CT ---
CT abdomen and pelvis with IV contrast HISTORY: Abdominal pain. COMPARISON: 01/20/2019. FINDINGS: Tiny nonspecific subpleural nodule at the left anterolateral lung base. Shriveled nodular l iver is again demonstrated. Spleen remains enlarged. Extensive varices adjacent to the lower esophagus and stomach and the spleen. Cyst at the posterior cortex of the left kidney is stable. There is calcification throughout the nickie rial structures. Subtle circumferential wall thickening and edematous appearance of the gallbladder and colon and, to a lesser extent, scattered loops of small bowel. This is likely related to portal venous hypertension and venous congestion. Portal vein is patent. There are degenerative changes of the lumb ar spine and hips. At the right flank, a small collection of gas pockets are present deep within the subcutaneous tissue s. The largest pocket of gas is 1.0 cm greatest diameter. It lies immediately superficial to the flank abdominal wall musculature just above the level of the right iliac crest. IMPRESSION: Cirrhosis with worsening findings of portal venous hypertension, including venous congest ion of the bowel and mesentery. Atherosclerosis. Small gas collection deep within the subcutaneous tissues at the right flank. Presumably related to a recent injection or other instrumentation. No surrounding inflammation.
[2019-05-10 20:42] LABS: INR-International Normal Ratio 1.5; PTT 33.7 SEC (22.9-36.1); Prothrombin Time 18.3 SEC (12.0-14.7)
[2019-05-11] MEDS ORDERED: Insulin Regular 300 UNITS/3 ML VIAL ONE (00:18)
[2019-05-11 01:23] LABS: Lactic Acid 3.9 mmol/L (0.5-2.2)
== END 2019-05-11 02:15 ==
LOC: ERS 17:02
DX: K74.60 Unspecified cirrhosis of liver (principal); N17.9 Acute kidney failure, unspecified; E87.5 Hyperkalemia; E87.2 Acidosis; E11.65 Type 2 diabetes mellitus with hyperglycemia; I10 Essential (primary) hypertension; F17.210 Nicotine dependence, cigarettes, uncomplicated; Z79.84 Long term (current) use of oral hypoglycemic drugs; Z79.899 Other long term (current) drug therapy
CPT/HCPCS: 36415; 36416; 71045; 74177; 80053; 81003; 82274; 83605; 83690; 83735; 84443; 84484; 85025; 85610; 85730; 86850; 86900; 86901; 93005; 96361; 96372; 96374; 96375; C9113; J0500; J1815; Q9967

== ENCOUNTER 2019-12-05 21:58 | Inpatient (IN) | payer MEDICARE, OTHER ==
--- NOTE | 2019-12-05 22:53 | CT ---
CT Brain WO Con History: Altered mental status Comparison: CT brain June 06, 2018 Findings: No acute hemorrhage or infarct. No midline shift or mass effect. Ventricular size and extra -axial CSF spaces are normal. Calvarium is intact. The nasal sinuses and mastoids are clear. Impression: No acute intracranial abnormality.
--- NOTE | 2019-12-05 22:57 | RAD ---
XR Chest 1 View Portable History: Chest pain Comparison: Radiograph September 25, 2019 Findings: Lungs are clear. No pneumothorax. No effusion. Ankylosis of the anterior right first and se cond ribs. Tendon suture anchors of the left humerus. Impression: No acute intrathoracic abnormality.
[2019-12-05 23:01] LABS: INR-International Normal Ratio 1.2; Prothrombin Time 15.5 sec (12.0-14.7)
[2019-12-05 23:08] LABS: #Eosinphils 0.3 thou/uL (0.0-0.7); #Lymphocytes 1.2 thou/uL (1.20-3.40); #Monocytes 0.3 thou/uL (0.11-0.59); #Neutrophils 2.7 thou/uL (1.40-6.50); %Basophils 0.8 % (0.0-1.0); %Eosinophils 5.9 % (0.0-10.0); %Lymphocytes 26.4 % (21.0-51.0); %Monocytes 7.4 % (0.0-10.0); %Neutrophils 59.4 % (42.0-75.0); Hemoglobin 12.1 g/dL (14.0-18.0); MDiff Complete? YES; Mean Corpuscular HGB CONC 35.1 g/dL (32.0-36.0); Mean Corpuscular Hemoglobin 32.4 pg (27.0-31.0); Mean Corpuscular Volume 92.4 fL (78.0-98.0); Mean Platelet Volume 9.5 fL (7.4-10.4); Ovalocytes SLIGHT = 2-5 cells (100X) (0-1/hpf); Platelet Count 57 thou/uL (130-400); Platelet Morphology Comment Appears Decreased; RBC Distribution Width 13.9 % (11.5-14.5); Red Blood Cell (RBC) Count 3.72 mill/uL (4.70-6.10); White Blood Cell (WBC) Count 4.5 thou/uL (4.8-10.8)
[2019-12-05 23:13] LABS: ALT (SGPT) 22 U/L (8-55); AST (SGOT) 34 U/L (5-34); Albumin 3.2 g/dL (3.4-4.8); Alkaline Phosphatase 166 U/L (40-110); Anion Gap 16 mmol/L (10-20); BUN (Urea Nitrogen) 28 mg/dL (8.4-25.7); Bilirubin, Total 3.5 mg/dL (0.2-1.2); Calc. Creatinine Clearance 0 mL/min (70-130); Calcium 9.3 mg/dL (7.8-10.44); Carbon Dioxide 22 mmol/L (23-31); Chloride 102 mmol/L (98-107); Estimated GFR-MDRD 36; Globulin 3.6 g/dL (2.4-3.5); Glucose 248 mg/dL (80-115); Potassium 5.1 mmol/L (3.5-5.1); Protein, Total 6.8 g/dL (5.8-8.1); Sodium 135 mmol/L (136-145)
[2019-12-06] MEDS ORDERED: Dextrose 5% in Water 1,000 ML IV PRN (01:27)
[2019-12-06] MEDS ORDERED: Dextrose 50% Abboject 50 ML SYRINGE SLOW IVP PRN (01:27)
[2019-12-06] MEDS ORDERED: Ondansetron PF 4 MG/2 ML Vial IVP PRN ×2 (01:29→01:30)
[2019-12-06] MEDS ORDERED: cloNIDine 0.1 MG TAB PO PRN (01:29)
[2019-12-06] MEDS ORDERED: hydrALAZINE 20 MG/ML VIAL SLOW IVP PRN (01:29)
[2019-12-06] MEDS ORDERED: Promethazine HCl 12.5 MG in Sodium Chloride 0.9% 50 ML IVPB PRN (01:29)
[2019-12-06] MEDS ORDERED: Acetaminophen 325 MG TAB PO PRN ×2 (01:29→01:30)
[2019-12-06] MEDS ORDERED: Labetalol HCl 100 MG/20 ML VIAL SLOW IVP PRN (01:29)
[2019-12-06] MEDS ORDERED: Electrolyte Replacement Protoc 1 EACH EACH FS SCH (01:30)
[2019-12-06] MEDS ORDERED: Ondansetron ODT 4 MG TAB SL PRN (01:30)
--- NOTE | 2019-12-06 01:32 | PDOC.HHP ---
Hospitalist HPI - History of Present Illness Altered mental status History of Present Illness: Patient is a 69 year old male with PMH HCV cirrhosis, HTN, DM who presents to ED for altered mental status. Patient lives alone, family called EMS for withdrawn affect, slow speech, altered mental status, global weakness. Patient denies focal weakness/numbness, no facial droop, denies chest pain/shortness of breath, AOx1 thinks we are in [place]. Reports dizziness. On arrival to ED, BPs were low in 90s/30s but now improved 120s/60s or so. Patient was recently admitted for GI bleed on September 24, discharged to [facility] for a TIPS procedure. In ED, labs notable for ammonia of 130, Cr 1.86 (baseline ~1.0), Tbili 3.5, akp 166. CXR, CT head unremarkable. Patient admitted for hepatic encephalopathy workup and care. Hospitalist ROS - Review of Systems ROS unobtainable: due to mental status All other systems reviewed; all pertinent +/- noted in HPI/Subj Hospitalist History - Past Medical History Other Medical History: HCV cirrhosis, HTN, DM - Past Surgical History Other Surgical History: TIPS variceal band - Family History Other Family History: [place] father - Social History Smoking Status: Former smoker Alcohol: reports: None (recovery) Drugs: reports: none - Exam General Appearance: NAD General - other findings: altered mental status, noncooperative, AOx1 Eye: PERRL, anicteric sclera ENT: normocephalic atraumatic, no oropharyngeal lesions, moist mucosa Neck: supple, symmetric, no JVD, no thyromegaly, no lymphadenopathy, no carotid bruit Heart: RRR, no murmur, no gallops, no rubs, normal peripheral pulses Respiratory: CTAB, no wheezes, no rales, no ronchi, normal chest expansion, no tachypnea, normal percussion Gastrointestinal: soft, non-tender, non-distended, normal bowel sounds, no palpable masses, no hepatomegaly, no splenomegaly, no bruit Extremities: no cyanosis, no clubbing, no edema Skin: normal turgor, no lesions, no rashes Neurological: cranial nerve grossly intact, normal sensation to touch, no weakness, no focal deficits, no new deficit Neurological - other findings: altered mental status, noncooperative, AOx1 Musculoskeletal: normal tone, normal strength, no muscle wasting Psychiatric - other findings: altered mental status, noncooperative, AOx1 Hospitalist Results - Labs Result Diagrams: 12/05/19 22:10 12/05/19 22:10 Lab results: WBC 4.5 thou/uL (4.8-10.8) L 12/05/19 22:10 Hgb 12.1 g/dL (14.0-18.0) L 12/05/19 22:10 Hct 34.4 % (42.0-52.0) L 12/05/19 22:10 MCV 92.4 fL (78.0-98.0) 12/05/19 22:10 Plt Count 57 thou/uL (130-400) L 12/05/19 22:10 Neutrophils % 59.4 % (42.0-75.0) 12/05/19 22:10 Sodium 135 mmol/L (136-145) L 12/05/19 22:10 Potassium 5.1 mmol/L (3.5-5.1) 12/05/19 22:10 Chloride 102 mmol/L (98-107) 12/05/19 22:10 Carbon Dioxide 22 mmol/L (23-31) L 12/05/19 22:10 BUN 28 mg/dL (8.4-25.7) H 12/05/19 22:10 Creatinine 1.86 mg/dL (0.7-1.3) H 12/05/19 22:10 Glucose 248 mg/dL (80-115) H 12/05/19 22:10 Calcium 9.3 mg/dL (7.8-10.44) 12/05/19 22:10 Total Bilirubin 3.5 mg/dL (0.2-1.2) H 12/05/19 22:10 AST 34 U/L (5-34) 12/05/19 22:10 ALT 22 U/L (8-55) 12/05/19 22:10 Alkaline Phosphatase 166 U/L (40-110) H 12/05/19 22:10 Ammonia 130 umol/L (18-72) H 12/05/19 22:10 Troponin I 0.010 ng/mL (< 0.028) 12/05/19 22:10 Serum Total Protein 6.8 g/dL (5.8-8.1) 12/05/19 22:10 Albumin 3.2 g/dL (3.4-4.8) L 12/05/19 22:10 Additional comment: VITAL SIGNS Sat Dec 06, 2019 00:15 MARISA Taveras, Hannah BP: 120/67 Pulse: 64 Resp: 16 Temp: 98.2 (Oral) Pain: 0 O2 sat: 100 on (Room Air) Time: 12/06/2019 00:15. all lab results, imaging reports, ED documents reviewed - EKG Interpretation EKG: sinus bradycardia 58 bpm, qtc 455, LA 132, no acute ST changes Hospitalist H&P A/P - Plan Plan: Patient is a 69 year old male with PMH HCV cirrhosis, HTN, DM who presents to ED for altered mental status. # HCV cirrhosis # hepatic encephalopathy # IVIS # hypotension family called EMS for altered mental status, global weakness, in ED, BPs were low in 90s/30s but now improved 120s/60s or so. Patient was recently admitted for GI bleed on September 24, discharged to [facility] for a TIPS procedure. labs notable for ammonia of 130, Cr 1.86 (baseline ~1.0), Tbili 3.5, akp 166. CXR, CT head unremarkable. Patient admitted for hepatic encephalopathy workup and care. - admit to floor - start lactulose and rifaximin, monitor mental status - to rule out hepatorenal syndrome, will order albumin and a recheck of BMP tomorrow AM - UA # DM - SSI # HTN - hold BP meds given low BP, PRN meds ordered # thrombocytopenia - plt 57, likely due to spenic sequestration and cirrhosis, hold anticoagulation and SCD for DVT ppx DVT ppx - SCD GI ppx
[2019-12-06 01:33] VITALS: BMI 24.5
[2019-12-06] MEDS ORDERED: Albumin 25% 25 GM/100 ML BOT IVPB SCH (02:45)
[2019-12-06] MEDS: Albumin 25% 25 GM/100 ML BOT IVPB SCH ×3 (03:27→17:27)
[2019-12-06 04:45] LABS: Bacteria/HPF None Seen HPF (None Seen); Bilirubin Negative (Negative); Blood, Urine Negative (Negative); Clarity Clear (Clear); Glucose, Urine (Dipstick) 100 mg/dL (Negative); Ketone, Urine Negative (Negative); Leukocyte Negative Leu/uL (Negative); Nitrite Negative (Negative); Protein, Urine (Dipstick) Negative (Neg-Trace); RBC/HPF 0-3 HPF (0-3); Specific Gravity, Urine 1.019 (1.002-1.036); Squamous Epithelial 0-3 HPF (0-3); Urobilinogen Normal mg/dL (Less than 2); WBC/HPF 0-3 HPF (0-3); pH, Urine 5.5 (5.0-9.0)
[2019-12-06 04:48] LABS: Urine Culture Reflex No No
[2019-12-06 07:15] LABS: INR-International Normal Ratio 1.4; Prothrombin Time 17.1 sec (12.0-14.7)
[2019-12-06] MEDS ORDERED: Propranolol HCl 20 MG TAB PO SCH (09:00)
[2019-12-06] MEDS ORDERED: Lisinopril 20 MG TAB PO SCH (09:00)
[2019-12-06] MEDS ORDERED: Furosemide 20 MG TAB PO SCH (09:00)
[2019-12-06] MEDS: Thiamine 100 MG TAB PO SCH (09:01)
[2019-12-06] MEDS: Folic Acid 1 MG TAB PO SCH (09:01)
[2019-12-06] MEDS: Rifaximin 550 MG TAB PO SCH ×2 (09:01→21:25)
--- NOTE | 2019-12-06 12:13 | PDOC.HOSPP ---
- Subjective Encounter Date: 12/06/19 Encounter Time: 11:40 Subjective: lethargic but awakens easily follows verbal stimuli but keeps his eyes closed reluctant to move his extremities - Objective Vital Signs & Weight: Vital Signs (12 hours) Temp Pulse Resp BP BP BP Pulse Ox 12/06/19 09:03 100 12/06/19 08:00 97.6 F 64 16 110/56 L 100 12/06/19 05:55 98.1 F 72 17 108/58 L 100 12/06/19 01:27 97.6 F 64 18 118/58 L 100 Weight Weight 156 lb 8 oz I&O: 12/05/19 12/06/19 12/07/19 06:59 06:59 06:59 Intake Total 200 Balance 200 Result Diagrams: 12/05/19 22:10 12/05/19 22:10 Additional Labs: Accuchecks 12/06/19 12/06/19 11:30 06:13 POC Glucose 251 H 155 H Hospitalist ROS - Medication Medications: Active Medications Generic Name Dose Route Start Last Admin Trade Name Skyq PRN Reason Stop Dose Admin Albumin Human 25 gm 12/06/19 02:45 12/06/19 10:55 Albumin 25% 25 Gm/100 Ml Bot IVPB 12/06/19 18:46 25 gm Q8H KATARZYNA Administration Folic Acid 1 mg 12/06/19 09:00 12/06/19 09:01 Folic Acid 1 Mg Tab PO 1 mg DAILY KATARZYNA Administration Lactulose 20 gm 12/06/19 09:00 12/06/19 09:01 Lactulose 20 Gm/30 Ml Udcup PO 20 gm TID KATARZYNA Administration Pantoprazole Sodium 40 mg 12/06/19 09:00 12/06/19 09:01 Pantoprazole 40 Mg Tab PO 40 mg BID KATARZYNA Administration Rifaximin 550 mg 12/06/19 09:00 12/06/19 09:01 Rifaximin 550 Mg Tab PO 550 mg BID KATARZYNA Administration Thiamine HCl 100 mg 12/06/19 09:00 12/06/19 09:01 Thiamine 100 Mg Tab PO 100 mg DAILY KATARZYNA Administration - Exam Eye: PERRL, scleral icterus ENT: no oropharyngeal lesions, dry oral mucosa Neck: supple, no JVD Heart: RRR, no murmur Respiratory: no wheezes, no rales Gastrointestinal: soft, non-tender, non-distended, normal bowel sounds Extremities: no cyanosis, no edema Neurological: cranial nerve grossly intact, no focal deficits Hosp A/P (1) Hepatic encephalopathy Code(s): K72.90 - HEPATIC FAILURE, UNSPECIFIED WITHOUT COMA Status: Acute (2) IGNACIO (acute kidney injury) Code(s): N17.9 - ACUTE KIDNEY FAILURE, UNSPECIFIED Status: Acute (3) DM type 2 (diabetes mellitus, type 2) Status: Chronic Qualifiers: Diabetes mellitus penitentiary insulin use: without penitentiary use (4) Cirrhosis of liver Code(s): K74.60 - UNSPECIFIED CIRRHOSIS OF LIVER Status: Chronic Qualifiers: Ascites presence: without ascites (5) Hypertension Code(s): I10 - ESSENTIAL (PRIMARY) HYPERTENSION Status: Chronic Qualifiers: (6) Macrocytic anemia Code(s): D53.9 - NUTRITIONAL ANEMIA, UNSPECIFIED Status: Chronic - Plan h/o recent TIPS procedure done at [facility] around september 2019 has ignacio, dehydration, start 1/2 NS, watch for renal function GI consult if he deteriorates hemostable oral liq diet for now continue xifaxan, protonix, lactulose tid
[2019-12-06] MEDS: Sodium Chloride 0.45% 1,000 ML IV SCH ×2 (12:34→21:42)
[2019-12-06] MEDS: HumaLOG 300 UNITS/3 ML VIAL SC PRN ×2 (12:57→17:42)
[2019-12-06 14:50] LABS: SARS-CoV-2 MS2 Positive; SARS-CoV-2 N Gene Negative; SARS-CoV-2 S Gene Negative; SARS-CoV-2 by NAA Not Detected (NotDetected); SARS-CoV-2 orf1ab Negative
[2019-12-06] MEDS ORDERED: Enoxaparin Sodium 40 MG/0.4 ML SYRINGE SC SCH (21:00)
[2019-12-07 05:48] LABS: #Eosinphils 0.2 thou/uL (0.0-0.7); #Lymphocytes 0.9 thou/uL (1.20-3.40); #Monocytes 0.3 thou/uL (0.11-0.59); #Neutrophils 1.6 thou/uL (1.40-6.50); %Basophils 0.8 % (0.0-1.0); %Eosinophils 5.3 % (0.0-10.0); %Lymphocytes 29.5 % (21.0-51.0); %Monocytes 9.2 % (0.0-10.0); %Neutrophils 55.2 % (42.0-75.0); Hemoglobin 9.8 g/dL (14.0-18.0); Mean Corpuscular HGB CONC 34.3 g/dL (32.0-36.0); Mean Corpuscular Hemoglobin 31.5 pg (27.0-31.0); Mean Corpuscular Volume 91.9 fL (78.0-98.0); Mean Platelet Volume 9.6 fL (7.4-10.4); Platelet Count 39 thou/uL (130-400); RBC Distribution Width 13.6 % (11.5-14.5); Red Blood Cell (RBC) Count 3.12 mill/uL (4.70-6.10); White Blood Cell (WBC) Count 2.9 thou/uL (4.8-10.8)
[2019-12-07] MEDS: HumaLOG 300 UNITS/3 ML VIAL SC PRN ×3 (05:57→20:58)
[2019-12-07 06:09] LABS: ALT (SGPT) 17 U/L (8-55); AST (SGOT) 24 U/L (5-34); Albumin 3.3 g/dL (3.4-4.8); Alkaline Phosphatase 110 U/L (40-110); Anion Gap 13 mmol/L (10-20); BUN (Urea Nitrogen) 15 mg/dL (8.4-25.7); Bilirubin, Direct 1.3 mg/dL (0.1-0.3); Bilirubin, Total 4.2 mg/dL (0.2-1.2); Calc. Creatinine Clearance 68 mL/min (70-130); Calcium 8.6 mg/dL (7.8-10.44); Carbon Dioxide 20 mmol/L (23-31); Chloride 108 mmol/L (98-107); Estimated GFR-MDRD 73; Glucose 180 mg/dL (80-115); Magnesium 1.2 mg/dL (1.6-2.6); Potassium 3.9 mmol/L (3.5-5.1); Protein, Total 5.7 g/dL (5.8-8.1); Sodium 137 mmol/L (136-145)
[2019-12-07] MEDS ORDERED: Magnesium Sulfate 4 GM in Sodium Chloride 0.9% 250 ML 250 ML IVPB SCH (06:30)
[2019-12-07] MEDS: Folic Acid 1 MG TAB PO SCH (08:52)
[2019-12-07] MEDS: Thiamine 100 MG TAB PO SCH (08:52)
[2019-12-07] MEDS: Rifaximin 550 MG TAB PO SCH ×2 (09:07→20:24)
--- NOTE | 2019-12-07 15:46 | PDOC.HOSPP ---
- Subjective Encounter Date: 12/07/19 Encounter Time: 08:00 Subjective: awake, says he feels weak to walk - Objective Vital Signs & Weight: Vital Signs (12 hours) Temp Pulse Resp BP BP Pulse Ox 12/07/19 11:30 97.7 F 65 16 114/64 98 12/07/19 07:52 97.7 F 58 L 16 109/52 L 100 12/07/19 04:00 97.9 F 61 18 103/55 L 100 Weight Weight 156 lb 8 oz I&O: 12/06/19 12/07/19 12/08/19 06:59 06:59 06:59 Intake Total 200 Balance 200 Result Diagrams: 12/07/19 05:16 12/07/19 05:16 Additional Labs: Accuchecks 12/07/19 12/07/19 12/06/19 05:51 00:50 16:29 POC Glucose 164 H 196 H 297 H Hospitalist ROS - Medication Medications: Active Medications Generic Name Dose Route Start Last Admin Trade Name Freq PRN Reason Stop Dose Admin Folic Acid 1 mg 12/06/19 09:00 12/07/19 08:52 Folic Acid 1 Mg Tab PO 1 mg DAILY KATARZYNA Administration Insulin Human Lispro 0 units 12/06/19 01:27 12/07/19 05:57 Humalog 300 Units/3 Ml Vial SC 2 unit .MILD SLIDING SCALE PRN Administration Mild Correctional Scale Lactulose 20 gm 12/06/19 09:00 12/07/19 08:51 Lactulose 20 Gm/30 Ml Udcup PO 20 gm TID KATARZYNA Administration Pantoprazole Sodium 40 mg 12/06/19 09:00 12/07/19 08:51 Pantoprazole 40 Mg Tab PO 40 mg BID KATARZYNA Administration Rifaximin 550 mg 12/06/19 09:00 12/07/19 09:07 Rifaximin 550 Mg Tab PO 550 mg BID KATARZYNA Administration Thiamine HCl 100 mg 12/06/19 09:00 12/07/19 08:52 Thiamine 100 Mg Tab PO 100 mg DAILY KATARZYNA Administration - Exam General Appearance: awake alert Eye: PERRL, anicteric sclera ENT: no oropharyngeal lesions, dry oral mucosa Neck: supple, no JVD Heart: RRR, no murmur Respiratory: no wheezes, no rales Gastrointestinal: soft, non-tender, non-distended, normal bowel sounds Extremities: no cyanosis, no edema Neurological: cranial nerve grossly intact, no focal deficits Hosp A/P (1) Hepatic encephalopathy Code(s): K72.90 - HEPATIC FAILURE, UNSPECIFIED WITHOUT COMA Status: Acute (2) IVIS (acute kidney injury) Code(s): N17.9 - ACUTE KIDNEY FAILURE, UNSPECIFIED Status: Acute (3) DM type 2 (diabetes mellitus, type 2) Status: Chronic Qualifiers: Diabetes mellitus alf insulin use: without alf use (4) Cirrhosis of liver Code(s): K74.60 - UNSPECIFIED CIRRHOSIS OF LIVER Status: Chronic Qualifiers: Ascites presence: without ascites (5) Hypertension Code(s): I10 - ESSENTIAL (PRIMARY) HYPERTENSION Status: Chronic Qualifiers: (6) Macrocytic anemia Code(s): D53.9 - NUTRITIONAL ANEMIA, UNSPECIFIED Status: Chronic - Plan h/o recent TIPS procedure done at [facility] around september 2019 ivis, dehydration resolving GI consult if he deteriorates hemostable oral liq diet for now continue xifaxan, protonix, lactulose tid dc plan when he can ambulate, may need HH with PT or swing bed, await PT eval
[2019-12-07] MEDS ORDERED: HumaLOG 300 UNITS/3 ML VIAL SC PRN (21:08)
[2019-12-07 22:14] LABS: Anion Gap 15 mmol/L (10-20); Carbon Dioxide 18 mmol/L (23-31); Chloride 108 mmol/L (98-107); Magnesium 1.9 mg/dL (1.6-2.6); Potassium 4.1 mmol/L (3.5-5.1); Sodium 137 mmol/L (136-145)
[2019-12-07] MEDS ORDERED: Magnesium 2 GM/50 ML 2 GM in Premix Bag 1 BAG IVPB SCH (23:00)
[2019-12-08] MEDS: HumaLOG 300 UNITS/3 ML VIAL SC PRN ×3 (05:50→16:41)
[2019-12-08] MEDS: Rifaximin 550 MG TAB PO SCH ×2 (09:04→20:44)
[2019-12-08] MEDS: Thiamine 100 MG TAB PO SCH (09:04)
[2019-12-08] MEDS: Folic Acid 1 MG TAB PO SCH (09:04)
[2019-12-08 10:36] LABS: ALT (SGPT) 18 U/L (8-55); AST (SGOT) 28 U/L (5-34); Albumin 3.3 g/dL (3.4-4.8); Alkaline Phosphatase 136 U/L (40-110); Anion Gap 14 mmol/L (10-20); BUN (Urea Nitrogen) 11 mg/dL (8.4-25.7); Bilirubin, Total 3.7 mg/dL (0.2-1.2); Calc. Creatinine Clearance 62 mL/min (70-130); Calcium 8.2 mg/dL (7.8-10.44); Carbon Dioxide 18 mmol/L (23-31); Chloride 106 mmol/L (98-107); Estimated GFR-MDRD 65; Globulin 2.5 g/dL (2.4-3.5); Glucose 330 mg/dL (80-115); Potassium 3.9 mmol/L (3.5-5.1); Protein, Total 5.8 g/dL (5.8-8.1); Sodium 134 mmol/L (136-145)
[2019-12-08] MEDS ORDERED: Insulin Glargine 20 UNITS in Pre-Filled Syringe 1 EACH SC SCH (11:38)
--- NOTE | 2019-12-08 11:42 | PDOC.HOSPP ---
- Subjective Encounter Date: 12/08/19 Encounter Time: 11:00 Subjective: this morning he feels good, says his weakness is gone is seen ambulating in hallway ate his breakfast well - Objective Vital Signs & Weight: Vital Signs (12 hours) Temp Pulse Resp BP Pulse Ox 12/08/19 07:59 97.8 F 60 20 115/71 95 Weight Weight 156 lb 8 oz I&O: 12/07/19 12/08/19 12/09/19 06:59 06:59 06:59 Intake Total 1919 Balance 1919 Result Diagrams: 12/07/19 05:16 12/08/19 09:29 Additional Labs: Accuchecks 12/08/19 12/08/19 12/07/19 11:13 05:16 20:40 POC Glucose 297 H 287 H 338 H 12/07/19 18:08 POC Glucose 347 H Hospitalist ROS - Medication Medications: Active Medications Generic Name Dose Route Start Last Admin Trade Name Freq PRN Reason Stop Dose Admin Folic Acid 1 mg 12/06/19 09:00 12/08/19 09:04 Folic Acid 1 Mg Tab PO 1 mg DAILY KATARZYNA Administration Insulin Human Lispro 0 units 12/06/19 01:27 12/08/19 05:50 Humalog 300 Units/3 Ml Vial SC 4 unit .MILD SLIDING SCALE PRN Administration Mild Correctional Scale Lactulose 20 gm 12/06/19 09:00 12/08/19 09:04 Lactulose 20 Gm/30 Ml Udcup PO 20 gm TID KATARZYNA Administration Pantoprazole Sodium 40 mg 12/06/19 09:00 12/08/19 09:04 Pantoprazole 40 Mg Tab PO 40 mg BID KATARZYNA Administration Rifaximin 550 mg 12/06/19 09:00 12/08/19 09:04 Rifaximin 550 Mg Tab PO 550 mg BID KATARZYNA Administration Thiamine HCl 100 mg 12/06/19 09:00 12/08/19 09:04 Thiamine 100 Mg Tab PO 100 mg DAILY KATARZYNA Administration - Exam General Appearance: awake alert Eye: PERRL, scleral icterus ENT: no oropharyngeal lesions, moist mucosa Neck: supple, no JVD Heart: RRR, no murmur Respiratory: no wheezes, no rales Gastrointestinal: soft, non-tender, non-distended, normal bowel sounds Extremities: no cyanosis, no edema Neurological: cranial nerve grossly intact, no focal deficits Hosp A/P (1) Hepatic encephalopathy Code(s): K72.90 - HEPATIC FAILURE, UNSPECIFIED WITHOUT COMA Status: Acute (2) IVIS (acute kidney injury) Code(s): N17.9 - ACUTE KIDNEY FAILURE, UNSPECIFIED Status: Acute (3) DM type 2 (diabetes mellitus, type 2) Status: Chronic Qualifiers: Diabetes mellitus mcfp insulin use: without mcfp use (4) Cirrhosis of liver Code(s): K74.60 - UNSPECIFIED CIRRHOSIS OF LIVER Status: Chronic Qualifiers: Ascites presence: without ascites (5) Hypertension Code(s): I10 - ESSENTIAL (PRIMARY) HYPERTENSION Status: Chronic Qualifiers: (6) Macrocytic anemia Code(s): D53.9 - NUTRITIONAL ANEMIA, UNSPECIFIED Status: Chronic - Plan h/o recent TIPS procedure done at [facility] around september 2019, has not had any f/u (was on vacation after it was done) ivis, dehydration resolving d/w Case with regards to isolated t.bili levels of 4, no w/u needed for now. hemostable oral solid diet continue xifaxan, protonix, lactulose tid, metformin and glipizide dc plan in am or late this afternoon
[2019-12-08] MEDS: glipiZIDE 10 MG TAB PO SCH (20:42)
[2019-12-08] MEDS ORDERED: metFORMIN 500 MG TAB PO SCH ×3 (21:00)
[2019-12-09] MEDS ORDERED: Melatonin 3 MG TAB PO PRN (00:19)
[2019-12-09] MEDS: HumaLOG 300 UNITS/3 ML VIAL SC PRN ×2 (04:54→14:50)
[2019-12-09] MEDS ORDERED: Magnesium Oxide 400 MG TAB PO SCH (09:00)
[2019-12-09] MEDS ORDERED: Ferrous Sulfate 325 MG TAB PO SCH (09:00)
[2019-12-09] MEDS ORDERED: metFORMIN 500 MG TAB PO SCH ×2 (09:00)
[2019-12-09] MEDS: Rifaximin 550 MG TAB PO SCH (09:41)
[2019-12-09] MEDS: Thiamine 100 MG TAB PO SCH (09:41)
[2019-12-09] MEDS: glipiZIDE 10 MG TAB PO SCH (09:42)
[2019-12-09] MEDS: Folic Acid 1 MG TAB PO SCH (09:42)
[2019-12-09 12:15] VITALS: BP 122/61; TEMP 97.8
--- NOTE | 2019-12-10 15:44 | DIS ---
DATE OF ADMISSION: 12/05/2019 DATE OF DISCHARGE: 12/09/2019 DISCHARGE DISPOSITION: Home. PRIMARY DISCHARGE DIAGNOSES: Hepatic encephalopathy, resolved; history of cirrhosis; acute kidney injury on admission contributing to hepatic encephalopathy, resolved; moderate dehydration due to diuretics, resolved; diabetes mellitus, type 2; hypertension; microcytic anemia. PROCEDURES DONE DURING HOSPITALIZATION: Chest x-ray done showed no acute cardiopulmonary abnormality. CT brain without contrast done showed no acute intracranial abnormality. H and H 10 and 28, platelet count 39, MCV 91, white count of 2.9. PT/INR 17.1 and 1.4, PTT 35. Total bilirubin 3.7, BUN 11, creatinine 1.1, serum bicarb was 18, AST 28, ALT 18, alkaline phosphatase 136. Ammonia levels were 130 mmol/L on admission. Initial BUN and creatinine were 28 and 1.86 on admission. COVID-19 PCR was not detected on 12/06/2019. DISCHARGE PLAN: The patient is to follow up with [facility], primary care provider, in 1 week. He also needs to follow up with Dr. Robert Hdez in 2 weeks. DISCHARGE MEDICATIONS: 1. Lactulose 20 g p.o. 3 times daily. 2. Protonix 40 mg twice daily. 3. Thiamine 100 mg p.o. daily. 4. Inderal 20 mg twice daily. 5. Folic acid 1 mg daily. 6. Lisinopril 20 mg daily. 7. Metformin extended release 750 mg twice daily. 8. Magnesium oxide 400 mg daily. 9. Glipizide 10 mg twice daily. 10. Ferrous sulfate 325 mg p.o. daily. ALLERGIES: NO KNOWN DRUG ALLERGIES. BRIEF COURSE DURING HOSPITALIZATION: The patient initially was brought to emergency room on the for confusion, acute kidney injury, and dehydration. He has known history of cirrhosis. The patient also had history of recent TIPS procedure done in August or September at [facility] in [place]. He has had gentle diuresis done all through his stay here. The patient took nearly 48 hours to respond. His confusion at the time of discharge is slowly clearing up. He is ambulating on the entire floor. He was counseled with regard to medication compliance and followups with GI. He has isolated total bilirubin elevation. His medications were optimized prior to discharge. Please note, I have seen and examined the patient on the day of discharge. Job ID: [id number]
== END 2019-12-09 15:28 | disposition home health service (06) | DRG 442 ==
LOC: ERS 21:58 → T4-B 23:57
PROVIDERS: ADMIT Internal Medicine; ATTEND Internal Medicine
DX: K72.90 Hepatic failure, unspecified without coma (principal); N17.9 Acute kidney failure, unspecified; D69.6 Thrombocytopenia, unspecified; I95.9 Hypotension, unspecified; I10 Essential (primary) hypertension; E11.9 Type 2 diabetes mellitus without complications; K74.60 Unspecified cirrhosis of liver; D53.9 Nutritional anemia, unspecified; E86.0 Dehydration; Z87.891 Personal history of nicotine dependence; Z20.828 Contact with and (suspected) exposure to other viral communicable diseases
CPT/HCPCS: 36415; 36416; 70450; 71045; 80048; 80053; 80076; 81001; 82140; 83735; 84484; 85025; 85610; 85730; 87635; 93005; 96360; J1815; J3475; J7050; P9047; U0003

== ENCOUNTER 2020-07-15 11:27 | Emergency (ER) | payer OTHER ==
[2020-07-15 13:09] LABS: #Eosinphils 0.3 thou/uL (0.0-0.7); #Lymphocytes 0.7 thou/uL (1.20-3.40); #Monocytes 0.3 thou/uL (0.11-0.59); #Neutrophils 2.2 thou/uL (1.40-6.50); %Basophils 0.2 % (0.0-1.0); %Eosinophils 7.9 % (0.0-10.0); %Lymphocytes 20.6 % (21.0-51.0); %Monocytes 7.2 % (0.0-10.0); %Neutrophils 64.2 % (42.0-75.0); Hemoglobin 11.8 g/dL (14.0-18.0); Mean Corpuscular HGB CONC 33.8 g/dL (32.0-36.0); Mean Corpuscular Hemoglobin 33.6 pg (27.0-31.0); Mean Corpuscular Volume 99.4 fL (78.0-98.0); Platelet Count 47 thou/uL (130-400); RBC Distribution Width 13.5 % (11.5-14.5); Red Blood Cell (RBC) Count 3.51 mill/uL (4.70-6.10); White Blood Cell (WBC) Count 3.4 thou/uL (4.8-10.8)
[2020-07-15 13:31] LABS: ALT (SGPT) 22 U/L (8-55); AST (SGOT) 44 U/L (5-34); Albumin 2.5 g/dL (3.4-4.8); Alkaline Phosphatase 242 U/L (40-110); Anion Gap 13 mmol/L (10-20); BUN (Urea Nitrogen) 12 mg/dL (8.4-25.7); Calc. Creatinine Clearance 0 mL/min (70-130); Calcium 8.4 mg/dL (7.8-10.44); Carbon Dioxide 22 mmol/L (23-31); Chloride 104 mmol/L (98-107); Globulin 3.5 g/dL (2.4-3.5); Glucose 379 mg/dL (80-115); Magnesium 1.8 mg/dL (1.6-2.6); Potassium 4.6 mmol/L (3.5-5.1); Sodium 134 mmol/L (136-145)
== END 2020-07-15 15:00 | disposition home or self-care (01) ==
LOC: ERS 11:27
DX: R60.0 Localized edema (principal); Z79.84 Long term (current) use of oral hypoglycemic drugs; E11.9 Type 2 diabetes mellitus without complications; I10 Essential (primary) hypertension; F17.210 Nicotine dependence, cigarettes, uncomplicated
CPT/HCPCS: 71045; 80053; 83735; 83880; 84484; 85025; 93005; 93970

== ENCOUNTER 2020-07-24 21:39 | Emergency (ER) | payer OTHER ==
[2020-07-24 22:36] LABS: Hemoglobin 10.6 g/dL (14.0-18.0); Mean Corpuscular HGB CONC 34.7 g/dL (32.0-36.0); Mean Corpuscular Hemoglobin 34.7 pg (27.0-31.0); Mean Corpuscular Volume 99.9 fL (78.0-98.0); RBC Distribution Width 13.1 % (11.5-14.5); Red Blood Cell (RBC) Count 3.06 mill/uL (4.70-6.10)
[2020-07-24 22:50] LABS: ALT (SGPT) 20 U/L (8-55); AST (SGOT) 28 U/L (5-34); Albumin 2.3 g/dL (3.4-4.8); Alkaline Phosphatase 268 U/L (40-110); Anion Gap 8 mmol/L (10-20); BUN (Urea Nitrogen) 11 mg/dL (8.4-25.7); Bilirubin, Total 3.7 mg/dL (0.2-1.2); Calc. Creatinine Clearance 0 mL/min (70-130); Calcium 7.7 mg/dL (7.8-10.44); Carbon Dioxide 30 mmol/L (23-31); Chloride 99 mmol/L (98-107); Potassium 3.8 mmol/L (3.5-5.1); Protein, Total 5.3 g/dL (5.8-8.1); Sodium 133 mmol/L (136-145)
[2020-07-24 22:52] LABS: Glucose 559 mg/dL (80-115)
[2020-07-24 22:54] LABS: #Eosinphils 0.3 thou/uL (0.0-0.7); #Lymphocytes 0.8 thou/uL (1.20-3.40); #Monocytes 0.3 thou/uL (0.11-0.59); #Neutrophils 1.8 thou/uL (1.40-6.50); %Basophils 0.4 % (0.0-1.0); %Lymphocytes 23.9 % (21.0-51.0); %Monocytes 9.4 % (0.0-10.0); %Neutrophils 57.3 % (42.0-75.0); Mean Platelet Volume 9.7 fL (7.4-10.4); Platelet Count 41 thou/uL (130-400); Platelet Morphology Comment Appears Decreased; White Blood Cell (WBC) Count 3.2 thou/uL (4.8-10.8)
[2020-07-24] MEDS ORDERED: metFORMIN 500 MG TAB PO SCH (23:45)
== END 2020-07-24 23:54 | disposition home or self-care (01) ==
LOC: ERS 21:39
DX: R60.0 Localized edema (principal); E11.65 Type 2 diabetes mellitus with hyperglycemia; R79.89 Other specified abnormal findings of blood chemistry; I10 Essential (primary) hypertension; F17.210 Nicotine dependence, cigarettes, uncomplicated; Z79.84 Long term (current) use of oral hypoglycemic drugs
CPT/HCPCS: 36415; 71045; 80053; 83880; 84484; 85025

== ENCOUNTER 2020-08-28 06:05 | Emergency (ER) | payer OTHER ==
[2020-08-28] MEDS ORDERED: Ondansetron PF 4 MG/2 ML Vial ONE (06:47)
[2020-08-28] MEDS ORDERED: Morphine 4 MG/ML VIAL ONE (06:47)
[2020-08-28 07:14] LABS: Hemoglobin 11.3 g/dL (14.0-18.0); Mean Corpuscular HGB CONC 35.3 g/dL (32.0-36.0); Mean Corpuscular Hemoglobin 35.1 pg (27.0-31.0); Mean Corpuscular Volume 99.4 fL (78.0-98.0); Mean Platelet Volume 9.7 fL (7.4-10.4); Platelet Count 42 thou/uL (130-400); RBC Distribution Width 14.2 % (11.5-14.5); Red Blood Cell (RBC) Count 3.22 mill/uL (4.70-6.10); White Blood Cell (WBC) Count 3.6 thou/uL (4.8-10.8)
[2020-08-28 07:34] LABS: ALT (SGPT) 22 U/L (8-55); AST (SGOT) 70 U/L (5-34); Albumin 2.3 g/dL (3.4-4.8); Alkaline Phosphatase 231 U/L (40-110); Anion Gap 12 mmol/L (10-20); BUN (Urea Nitrogen) 10 mg/dL (8.4-25.7); Calc. Creatinine Clearance 0 mL/min (70-130); Calcium 7.9 mg/dL (7.8-10.44); Carbon Dioxide 21 mmol/L (23-31); Chloride 105 mmol/L (98-107); Globulin 3.8 g/dL (2.4-3.5); Glucose 351 mg/dL (80-115); Lipase 67 U/L (8-78); Protein, Total 6.1 g/dL (5.8-8.1); Sodium 133 mmol/L (136-145)
[2020-08-28 07:46] LABS: Eosinophils 15 % (0-10); Lymphocytes 22 % (21-51); MDiff Complete? YES; Monocytes 11 % (0-10); Neutrophil 52 % (42-75); Platelet Morphology Comment Appears Decreased
[2020-08-28] MEDS ORDERED: metroNIDAZOLE 500 MG/100 ML BAG ONE (09:18)
[2020-08-28 09:38] LABS: Bilirubin Negative (Negative); Blood, Urine Large (Negative); Glucose, Urine (Dipstick) >=1000 mg/dL (Negative); Ketone, Urine Negative (Negative); Leukocyte Small (Negative); Nitrite Negative (Negative); Protein, Urine (Dipstick) Trace mg/dL (Neg-Trace)
[2020-08-28 09:45] LABS: RBC/HPF 21-50 HPF (0-3)
[2020-08-28 09:49] LABS: Clarity Hazy (Clear)
[2020-08-28 09:53] LABS: Bacteria/HPF 2+ HPF (None Seen)
[2020-08-28 09:54] LABS: Yeast-Budding Rare HPF (None Seen); Yeast-Hyphae Rare HPF (None Seen)
[2020-08-28] MEDS ORDERED: Iopamidol-370 76% 500 ML 1 ML ONE (10:14)
[2020-08-28 14:11] LABS: SARS-CoV-2 NAA Rapid Test Not Detected (NotDetected)
== END 2020-08-28 18:15 ==
LOC: ERS 06:05
DX: K57.32 Diverticulitis of large intestine without perforation or abscess without bleeding (principal); K76.9 Liver disease, unspecified; K74.60 Unspecified cirrhosis of liver; Z20.822 Contact with and (suspected) exposure to COVID-19; E11.9 Type 2 diabetes mellitus without complications; I10 Essential (primary) hypertension; F17.210 Nicotine dependence, cigarettes, uncomplicated; Z79.84 Long term (current) use of oral hypoglycemic drugs; Z79.899 Other long term (current) drug therapy
CPT/HCPCS: 71045; 74177; 80053; 81003; 81015; 83690; 83880; 84484; 85025; 87086; 93005; 96365; 96367; 96375; J1956; J2270; J2405; Q9967; U0002; U0005

== ENCOUNTER 2020-12-02 21:00 | Emergency (ER) | payer OTHER ==
[2020-12-03 00:14] LABS: ALT (SGPT) 27 U/L (8-55); AST (SGOT) 60 U/L (5-34); Albumin 1.9 g/dL (3.4-4.8); Alkaline Phosphatase 189 U/L (40-110); Anion Gap 11 mmol/L (10-20); BUN (Urea Nitrogen) 9 mg/dL (8.4-25.7); Bilirubin, Total 4.1 mg/dL (0.2-1.2); Calc. Creatinine Clearance 0 mL/min (70-130); Calcium 7.4 mg/dL (7.8-10.44); Carbon Dioxide 22 mmol/L (23-31); Chloride 104 mmol/L (98-107); Globulin 3.7 g/dL (2.4-3.5); Glucose 309 mg/dL (83-110); Protein, Total 5.6 g/dL (5.8-8.1); Sodium 133 mmol/L (136-145)
[2020-12-03 00:29] LABS: Hemoglobin 11.8 g/dL (14.0-18.0); Mean Corpuscular HGB CONC 33.5 g/dL (32.0-36.0); Mean Corpuscular Hemoglobin 34.5 pg (27.0-31.0); Mean Platelet Volume 16.2 fL (7.4-10.4); Platelet Count Less than 2 thou/uL (130-400); RBC Distribution Width 13.8 % (11.5-14.5); Red Blood Cell (RBC) Count 3.41 mill/uL (4.70-6.10); Reflex for Review?? YES; White Blood Cell (WBC) Count 1.4 thou/uL (4.8-10.8)
[2020-12-03 00:30] LABS: Band 16 % (5-11); Eosinophils 1 % (0-10); Lymphocytes 29 % (21-51); MDiff Complete? YES; Macrocytosis SLIGHT = 6-15 cells (100X) (0-5/hpf); Metamyelocyte 2 % (0-0); Monocytes 7 % (0-10); Neutrophil 32 % (42-75); Platelet Morphology Comment Appears Decreased; Reactive Lymphocytes 12 % (0-10); Tear Drops SLIGHT = 2-5 cells (100X) (0-1/hpf)
[2020-12-03 04:17] LABS: Band 20 % (5-11); Eosinophils 1 % (0-10); Hemoglobin 9.4 g/dL (14.0-18.0); Lymphocytes 35 % (21-51); MDiff Complete? YES; Macrocytosis SLIGHT = 6-15 cells (100X) (0-5/hpf); Mean Corpuscular HGB CONC 34.5 g/dL (32.0-36.0); Mean Corpuscular Hemoglobin 35.1 pg (27.0-31.0); Mean Platelet Volume 9.1 fL (7.4-10.4); Metamyelocyte 4 % (0-0); Monocytes 10 % (0-10); Neutrophil 20 % (42-75); Platelet Count 39 thou/uL (130-400); Platelet Morphology Comment Appears Decreased; RBC Distribution Width 13.8 % (11.5-14.5); Reactive Lymphocytes 10 % (0-10); Red Blood Cell (RBC) Count 2.68 mill/uL (4.70-6.10); White Blood Cell (WBC) Count 1.1 thou/uL (4.8-10.8)
== END 2020-12-03 04:54 | disposition home or self-care (01) ==
LOC: ERS 21:00
DX: D69.6 Thrombocytopenia, unspecified (principal); N47.6 Balanoposthitis; D64.9 Anemia, unspecified; D72.819 Decreased white blood cell count, unspecified; C22.9 Malignant neoplasm of liver, not specified as primary or secondary; E11.9 Type 2 diabetes mellitus without complications; I10 Essential (primary) hypertension; F17.210 Nicotine dependence, cigarettes, uncomplicated; Z79.84 Long term (current) use of oral hypoglycemic drugs
CPT/HCPCS: 36415; 36416; 36430; 71045; 80053; 83880; 85025; 85060; 86850; 86900; 86901; P9035

== ENCOUNTER 2020-12-30 17:06 | Inpatient (IN) | payer OTHER ==
[2020-12-30 18:03] LABS: #Eosinphils 0.1 thou/uL (0.0-0.7); #Lymphocytes 0.8 thou/uL (1.20-3.40); #Monocytes 0.3 thou/uL (0.11-0.59); #Neutrophils 2.1 thou/uL (1.40-6.50); %Basophils 1.2 % (0.0-1.0); %Eosinophils 4.1 % (0.0-10.0); %Lymphocytes 23.8 % (21.0-51.0); %Monocytes 8.3 % (0.0-10.0); %Neutrophils 62.5 % (42.0-75.0); Mean Corpuscular HGB CONC 34.4 g/dL (32.0-36.0); Red Blood Cell (RBC) Count 2.57 mill/uL (4.70-6.10); White Blood Cell (WBC) Count 3.3 thou/uL (4.8-10.8)
[2020-12-30 18:04] LABS: Mean Platelet Volume 8.8 fL (7.4-10.4); Platelet Count 52 thou/uL (130-400); RBC Distribution Width 14.7 % (11.5-14.5)
[2020-12-30 18:29] LABS: ALT (SGPT) 19 U/L (8-55); AST (SGOT) 36 U/L (5-34); Albumin 1.5 g/dL (3.4-4.8); Alkaline Phosphatase 185 U/L (40-110); Anion Gap 9 mmol/L (10-20); BUN (Urea Nitrogen) 11 mg/dL (8.4-25.7); Bilirubin, Total 4.3 mg/dL (0.2-1.2); Calc. Creatinine Clearance 0 mL/min (70-130); Calcium 7.3 mg/dL (7.8-10.44); Carbon Dioxide 29 mmol/L (23-31); Chloride 102 mmol/L (98-107); Globulin 3.3 g/dL (2.4-3.5); Glucose 358 mg/dL (83-110); Lipase 81 U/L (8-78); Potassium 3.6 mmol/L (3.5-5.1); Protein, Total 4.8 g/dL (5.8-8.1); Sodium 136 mmol/L (136-145)
[2020-12-30 19:08] LABS: INR-International Normal Ratio 1.5; Prothrombin Time 18.5 sec (12.0-14.7)
[2020-12-30 19:09] LABS: PTT 39.7 sec (22.9-36.1)
[2020-12-30] MEDS ORDERED: Acetaminophen 325 MG TAB PO PRN (21:44)
[2020-12-30] MEDS ORDERED: Ondansetron PF 4 MG/2 ML Vial IVP PRN (21:44)
[2020-12-30] MEDS ORDERED: Acetaminophen 650 MG Suppository PR PRN (21:44)
[2020-12-30] MEDS ORDERED: Ondansetron ODT 4 MG TAB PO PRN (21:44)
[2020-12-30] MEDS ORDERED: Dextrose 50% Abboject 50 ML SYRINGE SLOW IVP PRN (21:51)
[2020-12-30] MEDS ORDERED: Dextrose 5% in Water 1,000 ML IV PRN (21:51)
[2020-12-30] MEDS ORDERED: HumaLOG 300 UNITS/3 ML VIAL SC PRN ×2 (21:51)
[2020-12-30] MEDS ORDERED: Fentanyl 100 MCG/2 ML VIAL SLOW IVP PRN (21:58)
[2020-12-30] MEDS ORDERED: Spironolactone 100 MG TAB PO SCH (22:00)
[2020-12-30] MEDS ORDERED: Furosemide 40 MG/4 ML VIAL SLOW IVP SCH (22:00)
[2020-12-31 00:38] VITALS: BMI 29.2
[2020-12-31 05:24] LABS: #Eosinphils 0.1 thou/uL (0.0-0.7); #Lymphocytes 0.6 thou/uL (1.20-3.40); #Monocytes 0.3 thou/uL (0.11-0.59); #Neutrophils 1.6 thou/uL (1.40-6.50); %Eosinophils 3.9 % (0.0-10.0); %Lymphocytes 23.5 % (21.0-51.0); %Monocytes 9.5 % (0.0-10.0); %Neutrophils 62.2 % (42.0-75.0); Hemoglobin 8.7 g/dL (14.0-18.0); Mean Corpuscular HGB CONC 34.6 g/dL (32.0-36.0); Mean Corpuscular Hemoglobin 35.1 pg (27.0-31.0); Mean Platelet Volume 9.1 fL (7.4-10.4); Platelet Count 42 thou/uL (130-400); RBC Distribution Width 14.6 % (11.5-14.5); Red Blood Cell (RBC) Count 2.46 mill/uL (4.70-6.10); White Blood Cell (WBC) Count 2.6 thou/uL (4.8-10.8)
[2020-12-31 05:39] LABS: Anion Gap 10 mmol/L (10-20); BUN (Urea Nitrogen) 10 mg/dL (8.4-25.7); Calc. Creatinine Clearance 101 mL/min (70-130); Calcium 7.3 mg/dL (7.8-10.44); Carbon Dioxide 27 mmol/L (23-31); Chloride 104 mmol/L (98-107); Glucose 410 mg/dL (83-110); Potassium 3.4 mmol/L (3.5-5.1); Sodium 138 mmol/L (136-145)
[2020-12-31] MEDS ORDERED: Spironolactone 100 MG TAB PO SCH (08:00)
[2020-12-31] MEDS ORDERED: Potassium Chloride 20 MEQ TAB PO SCH (08:45)
[2020-12-31] MEDS ORDERED: Furosemide 40 MG/4 ML VIAL SLOW IVP SCH (09:00)
[2020-12-31] MEDS ORDERED: Lidocaine 1% w/Epinephrine 1:100K 20 ML VIAL ONE (10:42)
[2020-12-31 12:30] LABS: SARS-CoV-2 PCR by NAA Not Detected (NotDetected)
[2020-12-31] MEDS ORDERED: glipiZIDE 10 MG TAB PO SCH ×2 (12:45→16:30)
[2020-12-31 14:22] LABS: Fluid, pH - Pleural Fld Greater than 7.50 (7.60 - 7.66)
[2020-12-31 14:23] LABS: RBC Count-Automated (BF) 7670 /cu.mm; WBC/Nucleated-Auto (BF) 399 uL
[2020-12-31 14:27] LABS: Pleural Fluid, Protein 1.3 g/dL
[2020-12-31 14:38] LABS: BF Color Yellow; Body Fluid Source Pleural Fluid; Clarity Hazy (Clear); Tube # EDTA
[2020-12-31 14:45] LABS: BF Segmented Neutrophils 14 %; Cell Count Non Hematic 53 %; Eosinophils 1 %; Lymphocytes 32 %
[2020-12-31 20:13] VITALS: BP 160/70; TEMP 97.7
== END 2020-12-31 19:18 | disposition home or self-care (01) | DRG 432 ==
LOC: ERS 17:06 → ERHOLD 19:12 → 2NO 12-31
PROVIDERS: ADMIT Family Medicine; ATTEND Internal Medicine
PROC: 0W993ZZ Drainage of Right Pleural Cavity, Percutaneous Approach (ICD-10-PCS; principal; 2020-12-31)
DX: K74.60 Unspecified cirrhosis of liver (principal); I50.21 Acute systolic (congestive) heart failure; C22.9 Malignant neoplasm of liver, not specified as primary or secondary; J91.8 Pleural effusion in other conditions classified elsewhere; J98.19 Other pulmonary collapse; D61.818 Other pancytopenia; F17.210 Nicotine dependence, cigarettes, uncomplicated; Z20.822 Contact with and (suspected) exposure to COVID-19; D69.6 Thrombocytopenia, unspecified; G89.29 Other chronic pain; I11.0 Hypertensive heart disease with heart failure; R74.01 Elevation of levels of liver transaminase levels; E87.6 Hypokalemia; Z92.3 Personal history of irradiation; Z86.19 Personal history of other infectious and parasitic diseases; Z79.84 Long term (current) use of oral hypoglycemic drugs; Z79.899 Other long term (current) drug therapy
CPT/HCPCS: 36415; 36416; 71045; 71250; 80048; 80053; 82150; 82945; 83615; 83690; 83880; 83986; 84157; 84484; 85025; 85060; 85610; 85730; 87070; 87205; 89051; 93005; J1642; J1815; J1940; U0003; U0005

== ENCOUNTER 2021-01-12 11:36 | Inpatient (IN) | payer OTHER ==
[2021-01-12 13:09] LABS: #Eosinphils 0.3 thou/uL (0.0-0.7); #Lymphocytes 0.7 thou/uL (1.20-3.40); #Monocytes 0.3 thou/uL (0.11-0.59); #Neutrophils 2.4 thou/uL (1.40-6.50); %Basophils 0.9 % (0.0-1.0); %Lymphocytes 19.1 % (21.0-51.0); %Monocytes 8.2 % (0.0-10.0); %Neutrophils 63.8 % (42.0-75.0); Hemoglobin 10.3 g/dL (14.0-18.0); Mean Corpuscular HGB CONC 34.1 g/dL (32.0-36.0); Mean Corpuscular Hemoglobin 34.4 pg (27.0-31.0); Mean Platelet Volume 8.8 fL (7.4-10.4); Platelet Count 65 thou/uL (130-400); RBC Distribution Width 14.2 % (11.5-14.5); White Blood Cell (WBC) Count 3.8 thou/uL (4.8-10.8)
[2021-01-12 13:24] LABS: ALT (SGPT) 22 U/L (8-55); AST (SGOT) 36 U/L (5-34); Albumin 1.7 g/dL (3.4-4.8); Alkaline Phosphatase 203 U/L (40-110); Anion Gap 8 mmol/L (10-20); BUN (Urea Nitrogen) 12 mg/dL (8.4-25.7); Bilirubin, Total 4.5 mg/dL (0.2-1.2); Calc. Creatinine Clearance 0 mL/min (70-130); Calcium 7.7 mg/dL (7.8-10.44); Carbon Dioxide 30 mmol/L (23-31); Chloride 101 mmol/L (98-107); Globulin 3.6 g/dL (2.4-3.5); Glucose 254 mg/dL (83-110); Potassium 3.8 mmol/L (3.5-5.1); Protein, Total 5.3 g/dL (5.8-8.1); Sodium 135 mmol/L (136-145)
[2021-01-12] MEDS ORDERED: Furosemide 40 MG/4 ML VIAL ONE (14:05)
[2021-01-12] MEDS ORDERED: Heparin 10,000 UNITS/ 10 ML VIAL ONE ×2 (17:26→17:40)
[2021-01-12] MEDS ORDERED: Heparin 25,000 units/D5W 500 ML ONE ×2 (17:26→17:30)
[2021-01-12 17:55] LABS: INR-International Normal Ratio 1.2; PTT 35.8 sec (22.9-36.1); Prothrombin Time 15.5 sec (12.0-14.7)
[2021-01-12] MEDS ORDERED: HYDROcodone/Acetaminophen 7.5/325 mg Tablet PO PRN (19:07)
[2021-01-12] MEDS ORDERED: HYDROcodone/Acetaminophen 5/325 mg Tablet PO PRN (19:07)
[2021-01-12] MEDS ORDERED: Senokot S 8.6-50 MG TAB PO PRN (19:07)
[2021-01-12] MEDS ORDERED: Bisacodyl 5 MG TAB PO PRN (19:07)
[2021-01-12] MEDS ORDERED: Ondansetron PF 4 MG/2 ML Vial IVP PRN (19:07)
[2021-01-12] MEDS ORDERED: Acetaminophen 650 MG Suppository PR PRN (19:07)
[2021-01-12 21:19] VITALS: BMI 30.2
[2021-01-12] MEDS ORDERED: Heparin 25,000 units/D5W 500 ML IVPB SCH (21:45)
[2021-01-12] MEDS: Famotidine/PF 20 mg/2ml Vial SLOW IVP SCH (21:53)
[2021-01-12] MEDS ORDERED: Furosemide 40 MG/4 ML VIAL SLOW IVP SCH (22:45)
[2021-01-12] MEDS ORDERED: Dextrose 5% in Water 1,000 ML IV PRN (22:46)
[2021-01-12] MEDS ORDERED: Dextrose 50% Abboject 50 ML SYRINGE SLOW IVP PRN (22:46)
[2021-01-12] MEDS ORDERED: HumaLOG 300 UNITS/3 ML VIAL SC PRN (22:46)
[2021-01-12 22:58] LABS: Hemoglobin 11.5 g/dL (14.0-18.0); Platelet Count 66 thou/uL (130-400)
[2021-01-12 23:22] LABS: PTT Greater than 250.0 sec (22.9-36.1)
[2021-01-13 01:50] LABS: PTT Greater than 250.0 sec (22.9-36.1)
[2021-01-13 04:56] LABS: #Eosinphils 0.2 thou/uL (0.0-0.7); #Lymphocytes 0.7 thou/uL (1.20-3.40); #Monocytes 0.3 thou/uL (0.11-0.59); #Neutrophils 2.1 thou/uL (1.40-6.50); %Eosinophils 7.1 % (0.0-10.0); %Lymphocytes 20.7 % (21.0-51.0); %Neutrophils 64.2 % (42.0-75.0); Hemoglobin 9.9 g/dL (14.0-18.0); Mean Corpuscular HGB CONC 33.1 g/dL (32.0-36.0); Mean Corpuscular Hemoglobin 33.7 pg (27.0-31.0); Mean Platelet Volume 8.7 fL (7.4-10.4); Platelet Count 59 thou/uL (130-400); RBC Distribution Width 14.2 % (11.5-14.5); Red Blood Cell (RBC) Count 2.94 mill/uL (4.70-6.10); White Blood Cell (WBC) Count 3.3 thou/uL (4.8-10.8)
[2021-01-13 05:06] LABS: ALT (SGPT) 20 U/L (8-55); AST (SGOT) 36 U/L (5-34); Albumin 1.5 g/dL (3.4-4.8); Alkaline Phosphatase 201 U/L (40-110); Anion Gap 11 mmol/L (10-20); BUN (Urea Nitrogen) 14 mg/dL (8.4-25.7); Bilirubin, Total 4.3 mg/dL (0.2-1.2); Calc. Creatinine Clearance 96 mL/min (70-130); Calcium 7.5 mg/dL (7.8-10.44); Carbon Dioxide 28 mmol/L (23-31); Chloride 101 mmol/L (98-107); Globulin 3.3 g/dL (2.4-3.5); Glucose 386 mg/dL (83-110); Potassium 4.3 mmol/L (3.5-5.1); Protein, Total 4.8 g/dL (5.8-8.1); Sodium 136 mmol/L (136-145)
[2021-01-13] MEDS: Furosemide 20 MG/2 ML VIAL SLOW IVP SCH ×2 (05:27→14:19)
[2021-01-13] MEDS: HumaLOG 300 UNITS/3 ML VIAL SC PRN ×3 (06:03→17:03)
[2021-01-13 06:23] LABS: Hemoglobin A1c 6.7 % (4.0-6.0)
[2021-01-13] MEDS: Famotidine/PF 20 mg/2ml Vial SLOW IVP SCH ×2 (09:33→20:04)
[2021-01-13] MEDS ORDERED: Apixaban 5 MG TAB PO SCH ×2 (10:47→11:00)
[2021-01-13 12:10] LABS: SARS-CoV-2 PCR by NAA DETECTED (NotDetected)
[2021-01-13 12:40] LABS: PTT Greater than 250.0 sec (22.9-36.1)
[2021-01-13] MEDS: glipiZIDE 10 MG TAB PO SCH (17:03)
[2021-01-13] MEDS: Apixaban 5 MG TAB PO SCH (20:04)
[2021-01-13 20:17] LABS: SARS-CoV-2 IgG Ab Reactive (NonReactive); SARS-CoV-2 IgG Index 7.09 S/CO (< 1.40)
[2021-01-14] MEDS: Furosemide 20 MG/2 ML VIAL SLOW IVP SCH (05:28)
[2021-01-14 06:03] LABS: ALT (SGPT) 18 U/L (8-55); AST (SGOT) 30 U/L (5-34); Albumin 1.4 g/dL (3.4-4.8); Alkaline Phosphatase 166 U/L (40-110); Anion Gap 10 mmol/L (10-20); BUN (Urea Nitrogen) 15 mg/dL (8.4-25.7); Bilirubin, Total 3.3 mg/dL (0.2-1.2); Calc. Creatinine Clearance 86 mL/min (70-130); Calcium 7.4 mg/dL (7.8-10.44); Carbon Dioxide 30 mmol/L (23-31); Chloride 103 mmol/L (98-107); Glucose 218 mg/dL (83-110); Potassium 3.6 mmol/L (3.5-5.1); Protein, Total 4.4 g/dL (5.8-8.1); Sodium 139 mmol/L (136-145)
[2021-01-14] MEDS: HumaLOG 300 UNITS/3 ML VIAL SC PRN ×2 (06:27→11:50)
[2021-01-14] MEDS: glipiZIDE 10 MG TAB PO SCH (07:52)
[2021-01-14] MEDS: Apixaban 5 MG TAB PO SCH (07:52)
[2021-01-14] MEDS: Famotidine/PF 20 mg/2ml Vial SLOW IVP SCH (07:53)
[2021-01-14 11:19] VITALS: BP 127/71; TEMP 97.8
[2021-01-15] MEDS ORDERED: FLU VACC QS2021-22(65YR UP)/PF 240 MCG/0.7 ML SYRINGE IM ONE (09:00)
== END 2021-01-14 17:07 | disposition home or self-care (01) | DRG 299 ==
LOC: ERS 11:36 → 2NO 18:03 → 2SW 01-13 13:46
PROVIDERS: ADMIT Family Medicine; ATTEND Family Medicine
PROC: 8E0ZXY6 Isolation (ICD-10-PCS; principal; 2021-01-12)
DX: I82.412 Acute embolism and thrombosis of left femoral vein (principal); U07.1 COVID-19; C22.8 Malignant neoplasm of liver, primary, unspecified as to type; I50.22 Chronic systolic (congestive) heart failure; R18.8 Other ascites; I82.432 Acute embolism and thrombosis of left popliteal vein; B18.2 Chronic viral hepatitis C; K74.60 Unspecified cirrhosis of liver; I82.621 Acute embolism and thrombosis of deep veins of right upper extremity; I11.0 Hypertensive heart disease with heart failure; E11.65 Type 2 diabetes mellitus with hyperglycemia; F17.210 Nicotine dependence, cigarettes, uncomplicated; Z79.84 Long term (current) use of oral hypoglycemic drugs; Z79.899 Other long term (current) drug therapy
CPT/HCPCS: 36415; 36416; 70450; 71045; 74018; 76705; 80053; 82140; 83036; 83880; 84484; 85025; 85610; 85730; 86769; 93005; 93306; 96365; 96366; 96375; 96376; J1644; J1815; J1940; S0028; U0003; U0005

== ENCOUNTER 2021-01-17 20:18 | Emergency (ER) | payer OTHER ==
[2021-01-17 22:02] LABS: #Eosinphils 0.2 thou/uL (0.0-0.7); #Monocytes 0.4 thou/uL (0.11-0.59); #Neutrophils 3.4 thou/uL (1.40-6.50); %Basophils 0.5 % (0.0-1.0); %Eosinophils 4.5 % (0.0-10.0); %Lymphocytes 19.9 % (21.0-51.0); %Monocytes 8.1 % (0.0-10.0); Hemoglobin 10.6 g/dL (14.0-18.0); Mean Corpuscular HGB CONC 34.1 g/dL (32.0-36.0); Mean Corpuscular Hemoglobin 33.6 pg (27.0-31.0); Mean Corpuscular Volume 98.7 fL (78.0-98.0); Mean Platelet Volume 8.6 fL (7.4-10.4); Platelet Count 71 thou/uL (130-400); RBC Distribution Width 13.7 % (11.5-14.5); Red Blood Cell (RBC) Count 3.15 mill/uL (4.70-6.10); White Blood Cell (WBC) Count 5.1 thou/uL (4.8-10.8)
[2021-01-17 22:06] LABS: INR-International Normal Ratio 1.3; Prothrombin Time 16.6 sec (12.0-14.7)
[2021-01-17 22:07] LABS: PTT 35.6 sec (22.9-36.1)
[2021-01-17 22:16] LABS: ALT (SGPT) 27 U/L (8-55); AST (SGOT) 51 U/L (5-34); Albumin 1.8 g/dL (3.4-4.8); Alkaline Phosphatase 177 U/L (40-110); Anion Gap 14 mmol/L (10-20); BUN (Urea Nitrogen) 17 mg/dL (8.4-25.7); Bilirubin, Total 5.3 mg/dL (0.2-1.2); Calc. Creatinine Clearance 0 mL/min (70-130); Calcium 7.6 mg/dL (7.8-10.44); Carbon Dioxide 25 mmol/L (23-31); Chloride 102 mmol/L (98-107); Globulin 3.7 g/dL (2.4-3.5); Glucose 215 mg/dL (83-110); Potassium 3.3 mmol/L (3.5-5.1); Protein, Total 5.5 g/dL (5.8-8.1); Sodium 138 mmol/L (136-145)
[2021-01-18] MEDS ORDERED: Cefepime 2 GM VIAL ONE (00:28)
[2021-01-18 02:27] LABS: Bacteria/HPF None Seen HPF (None Seen); Bilirubin 1+ (Negative); Blood, Urine 2+ (Negative); Clarity Clear (Clear); Glucose, Urine (Dipstick) Normal (Negative); Ketone, Urine Negative (Negative); Leukocyte 250 Leu/uL (Negative); Nitrite Negative (Negative); Protein, Urine (Dipstick) 20 mg/dL (Neg-Trace); Specific Gravity, Urine 1.017 (1.002-1.036); Urobilinogen 6 mg/dL (Less than 2)
== END 2021-01-18 10:20 | disposition short-term general hospital (02) ==
LOC: ERS 20:18
DX: R41.82 Altered mental status, unspecified (principal); K74.60 Unspecified cirrhosis of liver; J90 Pleural effusion, not elsewhere classified; I82.402 Acute embolism and thrombosis of unspecified deep veins of left lower extremity; E11.9 Type 2 diabetes mellitus without complications; I10 Essential (primary) hypertension; F17.210 Nicotine dependence, cigarettes, uncomplicated; Z79.84 Long term (current) use of oral hypoglycemic drugs; Z79.899 Other long term (current) drug therapy; Z79.01 Long term (current) use of anticoagulants
CPT/HCPCS: 36415; 70450; 71045; 72125; 80053; 81003; 81015; 82140; 83605; 83880; 84484; 85025; 85610; 85730; 86850; 86900; 86901; 87040; 87076; 87086; 87149; 93005; 96365; 96366; J0692

== ENCOUNTER 2021-02-20 20:53 | Emergency (ER) | payer OTHER ==
[2021-02-20 22:25] LABS: #Eosinphils 0.2 thou/uL (0.0-0.7); #Monocytes 0.5 thou/uL (0.11-0.59); %Eosinophils 3.8 % (0.0-10.0); %Monocytes 9.8 % (0.0-10.0); %Neutrophils 64.5 % (42.0-75.0); Hemoglobin 8.9 g/dL (14.0-18.0); Mean Corpuscular HGB CONC 34.2 g/dL (32.0-36.0); Mean Corpuscular Hemoglobin 33.7 pg (27.0-31.0); Mean Corpuscular Volume 98.7 fL (78.0-98.0); Mean Platelet Volume 7.6 fL (7.4-10.4); Platelet Count 69 thou/uL (130-400); Platelet Morphology Comment Appears Decreased; RBC Distribution Width 13.6 % (11.5-14.5); Red Blood Cell (RBC) Count 2.64 mill/uL (4.70-6.10); White Blood Cell (WBC) Count 4.6 thou/uL (4.8-10.8)
[2021-02-20 22:29] LABS: ALT (SGPT) 26 U/L (8-55); AST (SGOT) 38 U/L (5-34); Albumin 1.6 g/dL (3.4-4.8); Alkaline Phosphatase 211 U/L (40-110); Anion Gap 15 mmol/L (10-20); BUN (Urea Nitrogen) 17 mg/dL (8.4-25.7); Bilirubin, Total 3.9 mg/dL (0.2-1.2); Calc. Creatinine Clearance 0 mL/min (70-130); Calcium 7.5 mg/dL (7.8-10.44); Carbon Dioxide 20 mmol/L (23-31); Chloride 105 mmol/L (98-107); Globulin 4.1 g/dL (2.4-3.5); Glucose 317 mg/dL (83-110); Potassium 3.5 mmol/L (3.5-5.1); Protein, Total 5.7 g/dL (5.8-8.1); Sodium 136 mmol/L (136-145)
[2021-02-21 00:26] LABS: Bacteria/HPF None Seen HPF (None Seen); Bilirubin Negative (Negative); Blood, Urine 2+ (Negative); Clarity Clear (Clear); Glucose, Urine (Dipstick) 70 mg/dL (Negative); Ketone, Urine Negative (Negative); Leukocyte 500 Leu/uL (Negative); Nitrite Negative (Negative); Protein, Urine (Dipstick) Negative (Neg-Trace); Specific Gravity, Urine 1.009 (1.002-1.036); Squamous Epithelial 0-3 HPF (0-3)
== END 2021-02-21 00:20 | disposition home or self-care (01) ==
LOC: ERS 20:53
DX: K74.60 Unspecified cirrhosis of liver (principal); N50.89 Other specified disorders of the male genital organs; I10 Essential (primary) hypertension; E11.9 Type 2 diabetes mellitus without complications; F17.210 Nicotine dependence, cigarettes, uncomplicated; Z79.84 Long term (current) use of oral hypoglycemic drugs
CPT/HCPCS: 36415; 80053; 81003; 81015; 83880; 85025; 99284

== ENCOUNTER 2021-03-10 12:57 | Emergency (ER) | payer OTHER ==
[2021-03-10 14:05] LABS: #Eosinphils 0.2 thou/uL (0.0-0.7); #Lymphocytes 0.7 thou/uL (1.20-3.40); #Monocytes 0.5 thou/uL (0.11-0.59); #Neutrophils 3.2 thou/uL (1.40-6.50); %Basophils 0.5 % (0.0-1.0); %Eosinophils 4.4 % (0.0-10.0); %Lymphocytes 14.5 % (21.0-51.0); %Monocytes 11.4 % (0.0-10.0); %Neutrophils 69.1 % (42.0-75.0); Hemoglobin 8.4 g/dL (14.0-18.0); Mean Corpuscular HGB CONC 35.7 g/dL (32.0-36.0); Mean Corpuscular Hemoglobin 35.1 pg (27.0-31.0); Mean Corpuscular Volume 98.4 fL (78.0-98.0); Platelet Count 67 thou/uL (130-400); RBC Distribution Width 14.1 % (11.5-14.5); White Blood Cell (WBC) Count 4.6 thou/uL (4.8-10.8)
[2021-03-10 14:24] LABS: ALT (SGPT) 21 U/L (8-55); AST (SGOT) 31 U/L (5-34); Albumin 1.7 g/dL (3.4-4.8); Alkaline Phosphatase 226 U/L (40-110); Anion Gap 12 mmol/L (10-20); BUN (Urea Nitrogen) 17 mg/dL (8.4-25.7); Bilirubin, Total 4.2 mg/dL (0.2-1.2); Calc. Creatinine Clearance 0 mL/min (70-130); Calcium 7.7 mg/dL (7.8-10.44); Carbon Dioxide 27 mmol/L (23-31); Chloride 102 mmol/L (98-107); Globulin 4.1 g/dL (2.4-3.5); Glucose 443 mg/dL (83-110); Lipase 93 U/L (8-78); Potassium 3.6 mmol/L (3.5-5.1); Protein, Total 5.8 g/dL (5.8-8.1); Sodium 137 mmol/L (136-145)
[2021-03-10 14:47] LABS: CKMB 1.6 ng/mL (0-6.6)
[2021-03-10 15:35] LABS: Bilirubin Negative (Negative); Blood, Urine 3+ (Negative); Clarity Clear (Clear); Glucose, Urine (Dipstick) Greater than 1000 mg/dL (Negative); Ketone, Urine Negative (Negative); Leukocyte 25 Leu/uL (Negative); Nitrite Negative (Negative); Protein, Urine (Dipstick) 20 mg/dL (Neg-Trace); Specific Gravity, Urine 1.021 (1.002-1.036); Squamous Epithelial 0-3 HPF (0-3)
[2021-03-10 15:36] LABS: Bacteria/HPF Rare-Few HPF (None Seen)
== END 2021-03-10 15:29 | disposition home or self-care (01) ==
LOC: ERS 12:57
DX: R18.8 Other ascites (principal); I10 Essential (primary) hypertension; E11.9 Type 2 diabetes mellitus without complications; F17.210 Nicotine dependence, cigarettes, uncomplicated; Z79.84 Long term (current) use of oral hypoglycemic drugs; Z79.899 Other long term (current) drug therapy
CPT/HCPCS: 36415; 80053; 81003; 81015; 82140; 82553; 83605; 83690; 83880; 84484; 85025; 93005

== ENCOUNTER 2021-03-21 11:11 | Inpatient (IN) | payer OTHER ==
[2021-03-21 12:38] LABS: INR-International Normal Ratio 1.9; PTT 40.3 sec (22.9-36.1); Prothrombin Time 21.7 sec (12.0-14.7)
[2021-03-21 12:39] LABS: #Lymphocytes 0.6 thou/uL (1.20-3.40); #Monocytes 0.6 thou/uL (0.11-0.59); #Neutrophils 7.8 thou/uL (1.40-6.50); %Basophils 0.1 % (0.0-1.0); %Eosinophils 0.4 % (0.0-10.0); %Lymphocytes 6.5 % (21.0-51.0); %Monocytes 6.4 % (0.0-10.0); %Neutrophils 86.5 % (42.0-75.0); Hemoglobin 10.1 g/dL (14.0-18.0); Mean Corpuscular HGB CONC 33.2 g/dL (32.0-36.0); Mean Corpuscular Hemoglobin 33.1 pg (27.0-31.0); Mean Corpuscular Volume 99.5 fL (78.0-98.0); Mean Platelet Volume 7.2 fL (7.4-10.4); Platelet Count 76 thou/uL (130-400); Red Blood Cell (RBC) Count 3.06 mill/uL (4.70-6.10)
[2021-03-21 12:40] LABS: ALT (SGPT) 22 U/L (8-55); AST (SGOT) 39 U/L (5-34); Albumin 1.7 g/dL (3.4-4.8); Alkaline Phosphatase 174 U/L (40-110); Anion Gap 16 mmol/L (10-20); BUN (Urea Nitrogen) 22 mg/dL (8.4-25.7); Bilirubin, Total 6.6 mg/dL (0.2-1.2); Calc. Creatinine Clearance 0 mL/min (70-130); Calcium 8.4 mg/dL (7.8-10.44); Carbon Dioxide 24 mmol/L (23-31); Chloride 101 mmol/L (98-107); Globulin 4.5 g/dL (2.4-3.5); Glucose 228 mg/dL (83-110); Lipase 34 U/L (8-78); Magnesium 1.9 mg/dL (1.6-2.6); Protein, Total 6.2 g/dL (5.8-8.1); Sodium 137 mmol/L (136-145)
[2021-03-21] MEDS ORDERED: Furosemide 40 MG/4 ML VIAL SLOW IVP SCH (13:15)
[2021-03-21] MEDS ORDERED: Furosemide 40 MG/4 ML VIAL ONE (14:46)
[2021-03-21 15:27] LABS: Lactic Acid 5.6 mmol/L (0.5-2.2)
[2021-03-21] MEDS ORDERED: Sodium Bicarbonate 2.5 MEQ/5 ML VIAL ONE (16:31)
[2021-03-21] MEDS ORDERED: Lidocaine 1% PF 5 ML VIAL ONE (16:31)
[2021-03-21] MEDS ORDERED: cefTRIAXone\\ROCEPHIN 1 GM in Sodium Chloride 0.9% 100 ML IVPB SCH (17:00)
[2021-03-21 17:39] LABS: SARS-CoV-2 NAA Rapid Test DETECTED (NotDetected)
[2021-03-21 18:21] LABS: Anion Gap 13 mmol/L (10-20); BUN (Urea Nitrogen) 24 mg/dL (8.4-25.7); Calc. Creatinine Clearance 0 mL/min (70-130); Calcium 8.2 mg/dL (7.8-10.44); Carbon Dioxide 26 mmol/L (23-31); Chloride 103 mmol/L (98-107); Glucose 212 mg/dL (83-110); Potassium 4.1 mmol/L (3.5-5.1); Sodium 138 mmol/L (136-145)
[2021-03-21] MEDS: Albumin 25% 25 GM/100 ML BOT IVPB SCH ×2 (19:48→21:05)
[2021-03-21] MEDS ORDERED: HumaLOG 300 UNITS/3 ML VIAL SC PRN (20:30)
[2021-03-21] MEDS ORDERED: Dextrose 50% Abboject 50 ML SYRINGE IVP PRN (20:30)
[2021-03-21] MEDS ORDERED: Dextrose 5% in Water 1,000 ML IV PRN (20:30)
[2021-03-21] MEDS ORDERED: Apixaban 5 MG TAB PO SCH (21:00)
[2021-03-22] MEDS: Albumin 25% 25 GM/100 ML BOT IVPB SCH ×4 (01:56→22:19)
[2021-03-22] MEDS ORDERED: Apixaban 5 MG TAB PO SCH (09:00)
[2021-03-22 10:17] LABS: RBC Count-Automated (BF) 118 /cu.mm; WBC/Nucleated-Auto (BF) 18 /cu.mm
[2021-03-22 10:18] LABS: BF Color Yellow; Body Fluid Source Ascites Body Fluid; Clarity Hazy (Clear); Tube # EDTA
[2021-03-22 10:20] LABS: BF Segmented Neutrophils 5 %; Cell Count Non Hematic 62 %; Lymphocytes 33 %
[2021-03-22 10:44] LABS: Lactic Acid 2.8 mmol/L (0.5-2.2)
[2021-03-22 10:49] LABS: ALT (SGPT) 20 U/L (8-55); AST (SGOT) 53 U/L (5-34); Albumin 2.2 g/dL (3.4-4.8); Alkaline Phosphatase 114 U/L (40-110); Anion Gap 11 mmol/L (10-20); BUN (Urea Nitrogen) 30 mg/dL (8.4-25.7); Calc. Creatinine Clearance 29 mL/min (70-130); Calcium 8.8 mg/dL (7.8-10.44); Carbon Dioxide 29 mmol/L (23-31); Chloride 103 mmol/L (98-107); Globulin 3.1 g/dL (2.4-3.5); Glucose 141 mg/dL (83-110); Potassium 4.3 mmol/L (3.5-5.1); Protein, Total 5.3 g/dL (5.8-8.1); Sodium 139 mmol/L (136-145)
[2021-03-22 11:03] LABS: #Eosinphils 0.1 thou/uL (0.0-0.7); #Lymphocytes 0.5 thou/uL (1.20-3.40); #Monocytes 0.5 thou/uL (0.11-0.59); #Neutrophils 3.8 thou/uL (1.40-6.50); %Basophils 0.5 % (0.0-1.0); %Eosinophils 1.6 % (0.0-10.0); %Lymphocytes 10.3 % (21.0-51.0); %Monocytes 10.5 % (0.0-10.0); %Neutrophils 77.1 % (42.0-75.0); Hemoglobin 6.9 g/dL (14.0-18.0); Mean Corpuscular HGB CONC 34.2 g/dL (32.0-36.0); Mean Corpuscular Hemoglobin 33.6 pg (27.0-31.0); Mean Corpuscular Volume 98.4 fL (78.0-98.0); Mean Platelet Volume 7.8 fL (7.4-10.4); Platelet Count 41 thou/uL (130-400); RBC Distribution Width 14.9 % (11.5-14.5); Red Blood Cell (RBC) Count 2.06 mill/uL (4.70-6.10)
[2021-03-22 18:21] LABS: Hemoglobin 7.2 g/dL (14.0-18.0); Platelet Count 54 thou/uL (130-400)
[2021-03-22] MEDS: Octreotide Acetate 1,250 MCG in Sodium Chloride 0.9% 250 ML 250 ML IVPB SCH (18:57)
[2021-03-22 19:20] LABS: Bacteria/HPF 2+ HPF (None Seen); Bilirubin 1+ (Negative); Blood, Urine 3+ (Negative); Glucose, Urine (Dipstick) 70 mg/dL (Negative); Ketone, Urine Negative (Negative); Leukocyte Negative Leu/uL (Negative); Nitrite Negative (Negative); Protein, Urine (Dipstick) 30 mg/dL (Neg-Trace); Specific Gravity, Urine 1.024 (1.002-1.036); Squamous Epithelial 0-3 HPF (0-3)
[2021-03-22 19:30] LABS: Clarity Cloudy (Clear); WBC/HPF 0-3 HPF (0-3)
[2021-03-22 19:32] LABS: Urine Culture Reflex Yes Yes
[2021-03-22] MEDS ORDERED: Cefepime 2 GM in Sodium Chloride 0.9% 100 ML IVPB SCH (21:00)
[2021-03-22] MEDS ORDERED: Cefepime 1 GM in Sodium Chloride 0.9% 100 ML IVPB SCH (21:00)
[2021-03-22] MEDS: Rifaximin 550 MG TAB PO SCH (21:53)
[2021-03-23 03:32] LABS: #Eosinphils 0.1 thou/uL (0.0-0.7); #Lymphocytes 0.5 thou/uL (1.20-3.40); #Monocytes 0.4 thou/uL (0.11-0.59); #Neutrophils 2.9 thou/uL (1.40-6.50); %Eosinophils 1.3 % (0.0-10.0); %Monocytes 9.1 % (0.0-10.0); %Neutrophils 75.6 % (42.0-75.0); Mean Corpuscular Hemoglobin 34.7 pg (27.0-31.0); Mean Corpuscular Volume 99.1 fL (78.0-98.0); Mean Platelet Volume 7.5 fL (7.4-10.4); Platelet Count 44 thou/uL (130-400); Red Blood Cell (RBC) Count 2.01 mill/uL (4.70-6.10); White Blood Cell (WBC) Count 3.9 thou/uL (4.8-10.8)
[2021-03-23 03:43] LABS: Prothrombin Time 41.8 sec (12.0-14.7)
[2021-03-23 03:47] LABS: INR-International Normal Ratio 4.2
[2021-03-23 03:50] LABS: Anion Gap 16 mmol/L (10-20); BUN (Urea Nitrogen) 38 mg/dL (8.4-25.7); Calc. Creatinine Clearance 26 mL/min (70-130); Calcium 8.7 mg/dL (7.8-10.44); Carbon Dioxide 24 mmol/L (23-31); Chloride 105 mmol/L (98-107); Glucose 149 mg/dL (83-110); Potassium 4.6 mmol/L (3.5-5.1); Sodium 140 mmol/L (136-145)
[2021-03-23] MEDS ORDERED: Lidocaine 1% w/Epinephrine 1:100K 20 ML VIAL ONE (09:35)
[2021-03-23] MEDS: Rifaximin 550 MG TAB PO SCH ×2 (10:51→21:40)
[2021-03-23] MEDS: Albumin 25% 25 GM/100 ML BOT IVPB SCH ×2 (10:51→21:34)
[2021-03-23] MEDS: Midodrine HCl 5 MG TAB PO SCH ×2 (14:26→21:39)
[2021-03-23] MEDS ORDERED: Cefepime 2 GM in Sodium Chloride 0.9% 100 ML IVPB SCH (21:00)
[2021-03-24 06:33] LABS: #Eosinphils 0.1 thou/uL (0.0-0.7); #Lymphocytes 0.7 thou/uL (1.20-3.40); #Monocytes 0.5 thou/uL (0.11-0.59); #Neutrophils 4.3 thou/uL (1.40-6.50); %Basophils 0.1 % (0.0-1.0); %Eosinophils 1.6 % (0.0-10.0); %Lymphocytes 12.5 % (21.0-51.0); %Monocytes 8.4 % (0.0-10.0); %Neutrophils 77.4 % (42.0-75.0); Hemoglobin 7.6 g/dL (14.0-18.0); Mean Corpuscular HGB CONC 34.4 g/dL (32.0-36.0); Mean Corpuscular Hemoglobin 33.5 pg (27.0-31.0); Mean Corpuscular Volume 97.5 fL (78.0-98.0); Platelet Count 47 thou/uL (130-400); RBC Distribution Width 15.2 % (11.5-14.5); Red Blood Cell (RBC) Count 2.27 mill/uL (4.70-6.10); White Blood Cell (WBC) Count 5.6 thou/uL (4.8-10.8)
[2021-03-24 06:39] LABS: INR-International Normal Ratio 3.3; Prothrombin Time 34.6 sec (12.0-14.7)
[2021-03-24 06:43] LABS: Anion Gap 15 mmol/L (10-20); BUN (Urea Nitrogen) 47 mg/dL (8.4-25.7); Calc. Creatinine Clearance 23 mL/min (70-130); Calcium 9.2 mg/dL (7.8-10.44); Carbon Dioxide 26 mmol/L (23-31); Chloride 106 mmol/L (98-107); Glucose 140 mg/dL (83-110); Potassium 4.1 mmol/L (3.5-5.1); Sodium 143 mmol/L (136-145)
[2021-03-24] MEDS: Rifaximin 550 MG TAB PO SCH ×2 (09:23→20:45)
[2021-03-24] MEDS: Midodrine HCl 5 MG TAB PO SCH ×3 (09:23→20:45)
[2021-03-24] MEDS: Albumin 25% 25 GM/100 ML BOT IVPB SCH (14:26)
[2021-03-24] MEDS: Octreotide Acetate 1,250 MCG in Sodium Chloride 0.9% 250 ML 250 ML IVPB SCH (20:17)
[2021-03-24] MEDS ORDERED: Cefepime 2 GM in Sodium Chloride 0.9% 100 ML IVPB SCH (21:00)
[2021-03-25] MEDS: Albumin 25% 25 GM/100 ML BOT IVPB SCH ×2 (03:09→14:25)
[2021-03-25 06:29] LABS: #Eosinphils 0.1 thou/uL (0.0-0.7); #Lymphocytes 0.7 thou/uL (1.20-3.40); #Monocytes 0.4 thou/uL (0.11-0.59); #Neutrophils 3.3 thou/uL (1.40-6.50); %Basophils 0.4 % (0.0-1.0); %Eosinophils 2.9 % (0.0-10.0); %Lymphocytes 15.5 % (21.0-51.0); %Monocytes 8.9 % (0.0-10.0); %Neutrophils 72.3 % (42.0-75.0); Hemoglobin 6.8 g/dL (14.0-18.0); Mean Corpuscular HGB CONC 34.4 g/dL (32.0-36.0); Mean Corpuscular Hemoglobin 33.7 pg (27.0-31.0); Mean Corpuscular Volume 98.1 fL (78.0-98.0); Mean Platelet Volume 6.8 fL (7.4-10.4); Platelet Count 36 thou/uL (130-400); RBC Distribution Width 15.7 % (11.5-14.5); Red Blood Cell (RBC) Count 2.02 mill/uL (4.70-6.10); White Blood Cell (WBC) Count 4.5 thou/uL (4.8-10.8)
[2021-03-25 06:31] LABS: INR-International Normal Ratio 3.6; Prothrombin Time 36.6 sec (12.0-14.7)
[2021-03-25 06:53] LABS: Anion Gap 13 mmol/L (10-20); BUN (Urea Nitrogen) 53 mg/dL (8.4-25.7); Calc. Creatinine Clearance 21 mL/min (70-130); Calcium 9.3 mg/dL (7.8-10.44); Carbon Dioxide 26 mmol/L (23-31); Chloride 106 mmol/L (98-107); Glucose 180 mg/dL (83-110); Potassium 4.2 mmol/L (3.5-5.1); Sodium 141 mmol/L (136-145)
[2021-03-25] MEDS: Rifaximin 550 MG TAB PO SCH ×2 (09:53→21:50)
[2021-03-25] MEDS: Midodrine HCl 5 MG TAB PO SCH ×3 (09:54→21:50)
[2021-03-25] MEDS: cefTRIAXone\\ROCEPHIN 2 GM in Sodium Chloride 0.9% 100 ML IVPB SCH (21:50)
[2021-03-26 03:25] LABS: #Eosinphils 0.1 thou/uL (0.0-0.7); #Lymphocytes 0.7 thou/uL (1.20-3.40); #Monocytes 0.4 thou/uL (0.11-0.59); #Neutrophils 3.3 thou/uL (1.40-6.50); %Eosinophils 2.4 % (0.0-10.0); %Neutrophils 74.6 % (42.0-75.0); Hemoglobin 6.6 g/dL (14.0-18.0); Mean Corpuscular HGB CONC 34.7 g/dL (32.0-36.0); Mean Corpuscular Hemoglobin 34.4 pg (27.0-31.0); Mean Platelet Volume 7.1 fL (7.4-10.4); Platelet Count 38 thou/uL (130-400); RBC Distribution Width 16.2 % (11.5-14.5); Red Blood Cell (RBC) Count 1.92 mill/uL (4.70-6.10); White Blood Cell (WBC) Count 4.5 thou/uL (4.8-10.8)
[2021-03-26 03:35] LABS: INR-International Normal Ratio 3.4
[2021-03-26 03:42] LABS: Anion Gap 14 mmol/L (10-20); BUN (Urea Nitrogen) 58 mg/dL (8.4-25.7); Calc. Creatinine Clearance 20 mL/min (70-130); Calcium 9.2 mg/dL (7.8-10.44); Carbon Dioxide 25 mmol/L (23-31); Chloride 107 mmol/L (98-107); Glucose 204 mg/dL (83-110); Potassium 3.9 mmol/L (3.5-5.1); Sodium 142 mmol/L (136-145)
[2021-03-26 12:28] VITALS: BP 136/74
[2021-03-26] MEDS: Midodrine HCl 5 MG TAB PO SCH ×2 (16:29→20:20)
[2021-03-26] MEDS: Rifaximin 550 MG TAB PO SCH ×2 (16:29→20:19)
[2021-03-26] MEDS: Albumin 25% 25 GM/100 ML BOT IVPB SCH ×2 (17:27→23:48)
[2021-03-26] MEDS: cefTRIAXone\\ROCEPHIN 2 GM in Sodium Chloride 0.9% 100 ML IVPB SCH (20:20)
[2021-03-27 04:58] LABS: #Eosinphils 0.1 thou/uL (0.0-0.7); #Lymphocytes 0.5 thou/uL (1.20-3.40); #Monocytes 0.4 thou/uL (0.11-0.59); #Neutrophils 2.7 thou/uL (1.40-6.50); %Basophils 0.2 % (0.0-1.0); %Eosinophils 2.9 % (0.0-10.0); %Lymphocytes 14.5 % (21.0-51.0); %Monocytes 9.5 % (0.0-10.0); Hemoglobin 6.5 g/dL (14.0-18.0); Mean Corpuscular HGB CONC 36.1 g/dL (32.0-36.0); Mean Corpuscular Hemoglobin 35.7 pg (27.0-31.0); Mean Platelet Volume 6.6 fL (7.4-10.4); Platelet Count 30 thou/uL (130-400); RBC Distribution Width 15.3 % (11.5-14.5); Red Blood Cell (RBC) Count 1.82 mill/uL (4.70-6.10); White Blood Cell (WBC) Count 3.7 thou/uL (4.8-10.8)
[2021-03-27 05:02] LABS: INR-International Normal Ratio 3.3; Prothrombin Time 34.6 sec (12.0-14.7)
[2021-03-27 05:16] LABS: Anion Gap 18 mmol/L (10-20); BUN (Urea Nitrogen) 59 mg/dL (8.4-25.7); Calc. Creatinine Clearance 19 mL/min (70-130); Calcium 9.5 mg/dL (7.8-10.44); Carbon Dioxide 24 mmol/L (23-31); Chloride 109 mmol/L (98-107); Glucose 190 mg/dL (83-110); Potassium 3.9 mmol/L (3.5-5.1); Sodium 147 mmol/L (136-145)
[2021-03-27] MEDS: Albumin 25% 25 GM/100 ML BOT IVPB SCH ×3 (05:56→16:57)
[2021-03-27] MEDS: Rifaximin 550 MG TAB PO SCH ×2 (09:43→23:39)
[2021-03-27] MEDS: Midodrine HCl 5 MG TAB PO SCH ×3 (09:43→23:39)
[2021-03-27] MEDS: Octreotide Acetate 1,250 MCG in Sodium Chloride 0.9% 250 ML 250 ML IVPB SCH (16:57)
[2021-03-27] MEDS ORDERED: Pantoprazole 40 MG VIAL IVP SCH (18:15)
[2021-03-27] MEDS ORDERED: Labetalol HCl 100 MG/20 ML VIAL ONE (19:59)
[2021-03-27] MEDS: Pantoprazole 40 MG VIAL IVP SCH (20:30)
[2021-03-27] MEDS: cefTRIAXone\\ROCEPHIN 2 GM in Sodium Chloride 0.9% 100 ML IVPB SCH (23:38)
[2021-03-28 05:37] LABS: #Eosinphils 0.1 thou/uL (0.0-0.7); #Lymphocytes 0.7 thou/uL (1.20-3.40); #Monocytes 0.4 thou/uL (0.11-0.59); #Neutrophils 3.5 thou/uL (1.40-6.50); %Basophils 0.3 % (0.0-1.0); %Eosinophils 2.1 % (0.0-10.0); %Lymphocytes 13.8 % (21.0-51.0); %Monocytes 9.3 % (0.0-10.0); %Neutrophils 74.4 % (42.0-75.0); Hemoglobin 6.2 g/dL (14.0-18.0); Mean Corpuscular Hemoglobin 35.4 pg (27.0-31.0); Platelet Count 37 thou/uL (130-400); RBC Distribution Width 16.5 % (11.5-14.5); Red Blood Cell (RBC) Count 1.76 mill/uL (4.70-6.10); White Blood Cell (WBC) Count 4.7 thou/uL (4.8-10.8)
[2021-03-28 05:56] LABS: Anion Gap 19 mmol/L (10-20); BUN (Urea Nitrogen) 62 mg/dL (8.4-25.7); Calc. Creatinine Clearance 19 mL/min (70-130); Calcium 9.8 mg/dL (7.8-10.44); Carbon Dioxide 24 mmol/L (23-31); Chloride 109 mmol/L (98-107); Glucose 194 mg/dL (83-110); Potassium 3.8 mmol/L (3.5-5.1); Sodium 148 mmol/L (136-145)
[2021-03-28] MEDS: Pantoprazole 40 MG VIAL IVP SCH ×2 (09:35→21:08)
[2021-03-28] MEDS: Rifaximin 550 MG TAB PO SCH ×2 (09:35→21:08)
[2021-03-28] MEDS: Midodrine HCl 5 MG TAB PO SCH ×3 (09:35→21:07)
[2021-03-28] MEDS: Albumin 25% 25 GM/100 ML BOT IVPB SCH ×2 (13:22→18:33)
[2021-03-28] MEDS: Dextrose 5% in Water 1,000 ML IV SCH (18:24)
[2021-03-28] MEDS: Octreotide Acetate 1,250 MCG in Sodium Chloride 0.9% 250 ML 250 ML IVPB SCH (18:33)
[2021-03-28] MEDS: cefTRIAXone\\ROCEPHIN 2 GM in Sodium Chloride 0.9% 100 ML IVPB SCH (21:08)
[2021-03-29] MEDS: Albumin 25% 25 GM/100 ML BOT IVPB SCH ×3 (00:19→11:04)
[2021-03-29] MEDS: Octreotide Acetate 1,250 MCG in Sodium Chloride 0.9% 250 ML 250 ML IVPB SCH (05:42)
[2021-03-29] MEDS: Rifaximin 550 MG TAB PO SCH ×2 (11:00→20:29)
[2021-03-29] MEDS: Midodrine HCl 5 MG TAB PO SCH ×3 (11:00→20:29)
[2021-03-29] MEDS: Dextrose 5% in Water 1,000 ML IV SCH (20:17)
[2021-03-29] MEDS: cefTRIAXone\\ROCEPHIN 2 GM in Sodium Chloride 0.9% 100 ML IVPB SCH (20:29)
[2021-03-30] MEDS: Octreotide Acetate 1,250 MCG in Sodium Chloride 0.9% 250 ML 250 ML IVPB SCH (05:53)
[2021-03-30 09:14] VITALS: BMI 27.7
[2021-03-30] MEDS: Midodrine HCl 5 MG TAB PO SCH ×3 (10:29→21:02)
[2021-03-30] MEDS: Rifaximin 550 MG TAB PO SCH ×2 (10:29→21:02)
[2021-03-30 18:13] VITALS: TEMP 97.1
[2021-03-30] MEDS: Dextrose 5% in Water 1,000 ML IV SCH (19:00)
== END 2021-03-30 21:06 | disposition hospice, inpatient (51) | DRG 432 ==
LOC: ERS 11:11 → IMCU/EMU 14:52
PROVIDERS: ADMIT Internal Medicine; ATTEND Family Medicine
PROC: 0W9G3ZZ Drainage of Peritoneal Cavity, Percutaneous Approach (ICD-10-PCS; principal; 2021-03-21)
PROC: 30233K1 Transfusion of Nonautologous Frozen Plasma into Peripheral Vein, Percutaneous Approach (ICD-10-PCS; 2021-03-23)
PROC: 30233N1 Transfusion of Nonautologous Red Blood Cells into Peripheral Vein, Percutaneous Approach (ICD-10-PCS; 2021-03-23)
PROC: 02HV33Z Insertion of Infusion Device into Superior Vena Cava, Percutaneous Approach (ICD-10-PCS; 2021-03-23)
PROC: 0DH67UZ Insertion of Feeding Device into Stomach, Via Natural or Artificial Opening (ICD-10-PCS; 2021-03-28)
PROC: 3E0G76Z Introduction of Nutritional Substance into Upper GI, Via Natural or Artificial Opening (ICD-10-PCS; 2021-03-28)
DX: K70.31 Alcoholic cirrhosis of liver with ascites (principal); Z66 Do not resuscitate; Z51.5 Encounter for palliative care; K76.7 Hepatorenal syndrome; G92.8 Other toxic encephalopathy; K65.2 Spontaneous bacterial peritonitis; A41.59 Other Gram-negative sepsis; R65.20 Severe sepsis without septic shock; I85.11 Secondary esophageal varices with bleeding; N17.9 Acute kidney failure, unspecified; E87.2 Acidosis; E72.20 Disorder of urea cycle metabolism, unspecified; D68.4 Acquired coagulation factor deficiency; K76.6 Portal hypertension; C22.0 Liver cell carcinoma; N18.4 Chronic kidney disease, stage 4 (severe); E87.0 Hyperosmolality and hypernatremia; I82.621 Acute embolism and thrombosis of deep veins of right upper extremity; I82.412 Acute embolism and thrombosis of left femoral vein; D61.818 Other pancytopenia; I13.0 Hypertensive heart and chronic kidney disease with heart failure and stage 1 through stage 4 chronic kidney disease, or unspecified chronic kidney disease; I50.22 Chronic systolic (congestive) heart failure; E11.22 Type 2 diabetes mellitus with diabetic chronic kidney disease; D63.1 Anemia in chronic kidney disease; B18.2 Chronic viral hepatitis C; F10.20 Alcohol dependence, uncomplicated; R13.12 Dysphagia, oropharyngeal phase; K57.90 Diverticulosis of intestine, part unspecified, without perforation or abscess without bleeding; E80.6 Other disorders of bilirubin metabolism; I95.1 Orthostatic hypotension; E11.65 Type 2 diabetes mellitus with hyperglycemia; E86.9 Volume depletion, unspecified; K72.10 Chronic hepatic failure without coma; E87.5 Hyperkalemia; Z78.1 Physical restraint status; Z91.14 Patient's other noncompliance with medication regimen; Z79.84 Long term (current) use of oral hypoglycemic drugs; Z79.899 Other long term (current) drug therapy; Z86.16 Personal history of COVID-19; Z86.718 Personal history of other venous thrombosis and embolism; Z98.890 Other specified postprocedural states; Z84.89 Family history of other specified conditions
CPT/HCPCS: 0240U; 36415; 36416; 36430; 49083; 70450; 71045; 74018; 74230; 80048; 80053; 81001; 82042; 82140; 82150; 82553; 83605; 83690; 83735; 83880; 84157; 84443; 84484; 85025; 85060; 85610; 85730; 86850; 86900; 86901; 87040; 87070; 87077; 87086; 87149; 87186; 87205; 89051; 93005; 94760; 96365; 96366; 96367; C9113; J0692; J0696; J1815; J1940; J2354; J3490; J7050; J7070; P9016; P9047; P9059

== ENCOUNTER 2021-03-30 21:09 | Inpatient (IN) | payer OTHER ==
[2021-03-30] MEDS ORDERED: Morphine 4 MG/ML VIAL SLOW IVP PRN (21:51)
[2021-03-30] MEDS ORDERED: Lorazepam 2 MG/ML VIAL SLOW IVP PRN (21:52)
[2021-03-30] MEDS ORDERED: Ondansetron PF 4 MG/2 ML Vial IVP PRN (21:53)
[2021-03-30] MEDS ORDERED: Acetaminophen 650 MG Suppository PR PRN (21:54)
[2021-03-30] MEDS: Lorazepam 2 MG/ML VIAL SLOW IVP SCH (22:00)
[2021-03-30] MEDS ORDERED: Scopolamine 1.5 mg/72 hour Patch TOP SCH (22:00)
[2021-03-31] MEDS: Morphine 4 MG/ML VIAL SLOW IVP SCH ×3 (01:25→09:33)
[2021-03-31 05:12] VITALS: BMI 27.8
[2021-03-31] MEDS: Lorazepam 2 MG/ML VIAL SLOW IVP SCH (06:18)
[2021-03-31 07:31] VITALS: BP 119/52
[2021-03-31 08:36] VITALS: TEMP 97.4
== END 2021-03-31 12:00 | disposition expired | DRG 951 ==
LOC: IMCU/EMU 21:09
PROVIDERS: ADMIT Internal Medicine Nephrology; ATTEND Internal Medicine Nephrology
DX: Z51.5 Encounter for palliative care (principal); K76.7 Hepatorenal syndrome; G92.8 Other toxic encephalopathy; I85.11 Secondary esophageal varices with bleeding; R18.8 Other ascites; C22.8 Malignant neoplasm of liver, primary, unspecified as to type; N17.9 Acute kidney failure, unspecified; Z66 Do not resuscitate; K74.60 Unspecified cirrhosis of liver; E11.9 Type 2 diabetes mellitus without complications; F17.210 Nicotine dependence, cigarettes, uncomplicated; Z79.84 Long term (current) use of oral hypoglycemic drugs; Z79.899 Other long term (current) drug therapy; Z91.14 Patient's other noncompliance with medication regimen; Z79.01 Long term (current) use of anticoagulants; Z86.16 Personal history of COVID-19; Z86.718 Personal history of other venous thrombosis and embolism; Z98.890 Other specified postprocedural states